=== PATIENT | female | born 1945 | race African-American/Black ===

== ENCOUNTER 2019-12-04 10:22 | Inpatient (IN) | payer SELFPAY ==
[~2019-12-04] VITALS: Ht 162.6 cm; Wt 73.0 kg
[2019-12-04 10:30] VITALS: BP 178/95
[2019-12-04] MEDS ORDERED: Dicyclomine HCl 10mg/5ml oral soln ORAL ONE (10:30)
[2019-12-04] MEDS ORDERED: Mylanta II UD 30ml ORAL ONE (10:30)
[2019-12-04] MEDS ORDERED: Lidocaine 2% Visc 15ml soln ORAL ONE (10:30)
[2019-12-04] MEDS ORDERED: Omnipaque-300 100ml vial INJ PRN (10:30)
--- NOTE | 2019-12-04 10:30 | NUR ---
ED Nurse Note: Patient BIBA from home c/o sharp epigastric, non-radiating abdominal pain x 24 hours and nausea. Patient states her recently . Patient placed in gown, on athletic monitor.
--- NOTE | 2019-12-04 10:33 | Emergency Room Report ---
History of Present Illness General Chief Complaint: Abdominal Pain Present Illness HPI 74-year-old female here with epigastric abdominal pain. The patient says that for the past 24 hours she has been having sharp epigastric abdominal pain. Has not attempted to eat during this time. Patient is tearful during exam and says " my ." Has not attempted to take any medications to alleviate pain. No fevers, chills, chest pain, palpitation, shortness of breath , back pain, diarrhea, dysuria. She has felt nauseous and vomited 1 time nonbilious nonbloody. History of appendectomy and section in the remote past. 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 COVID-19 Screening: Negative COVID-19 COVID-19 Testing Source: nasal Review of Systems All Other Systems: negative except mentioned in HPI Physical Exam Vital Signs Date Time Temp Pulse Resp B/P (MAP) Pulse Ox O2 Delivery O2 Flow Rate FiO2 12/04/19 10:24 98.8 82 18 201/117 (145) 100 Room Air Sp02 EP Interpretation: reviewed, normal General Appearance: no apparent distress, alert, non-toxic Head: normocephalic, atraumatic Eyes: bilateral eye normal inspection, bilateral eye PERRL ENT: hearing grossly normal, normal pharynx, no angioedema, normal voice Neck: full range of motion, supple/symm/no masses Respiratory: chest non-tender, lungs clear, normal breath sounds, speaking full sentences Cardiovascular #1: regular rate, rhythm, no edema Cardiovascular #2: 2+ carotid (R), 2+ carotid (L), 2+ radial (R), 2+ radial (L) , 2+ dorsalis pedis (R), 2+ dorsalis pedis (L) Gastrointestinal: normal bowel sounds, soft, non-distended, no guarding, no rebound, other - Epigastric tenderness on palpation. Negative Rovsing sign, negative Arrieta sign Rectal: deferred Genitourinary: normal inspection, no CVA tenderness Musculoskeletal: back normal, normal range of motion, calf tenderness, gait/ station normal, non-tender Neurologic: alert, motor strength/tone normal, oriented x3, sensory intact, responsive, speech normal Psychiatric: judgement/insight normal, memory normal, mood/affect normal, no suicidal/homicidal ideation Reflexes: 3+ bicep (R), 3+ bicep (L), 3+ tricep (R), 3+ tricep (L), 3+ knee (R) , 3+ knee (L) Lymphatic: no adenopathy Medical Decision Making Diagnostic Impression: Primary Impression: Chest pain ER Course EKG: Normal sinus rhythm, 80 bpm. Normal axis, no ectopy. Questionable nonspecific ST changes in leads V1 and V2. No reciprocal depression. No T wave inversion Chest x-ray: No acute process CT abdomen currently pending 74-year-old female here with epigastric abdominal pain. About an hour into the patient states she began complaining of chest pain. Initial EKG did not reveal any evidence of STEMI or T wave inversions. There were nonspecific ST changes in leads V1 and V2. Repeat EKGs were performed 2 more times and were unchanged each time progressively throughout the patient stay in the emergency department. She received an aspirin and morphine with good resolution of her symptoms. Also received a sublingual nitroglycerin and again felt resolution of her symptoms. She was hemodynamically stable throughout her stay in the emergency department. Troponin negative. Repeat troponin currently pending. CBC and CMP otherwise negative. Patient has a high heart score given her age and medical comorbidities as well as the concerning story of crushing chest pain. Will likely be admitted to telemetry. Signed out to oncoming physician. Last Vital Signs Date Time Temp Pulse Resp B/P (MAP) Pulse Ox O2 Delivery O2 Flow Rate FiO2 12/04/19 10:24 98.8 82 18 201/117 (145) 100 Room Air Scripts No Active Prescriptions or Reported Meds Shoaib Walker M.D. Dec 04, 2019 10:33
--- NOTE | 2019-12-04 10:50 | NUR ---
ED Nurse Note: Ultrasound-guided IV inserted by JESSICA into right upper arm. Blood drawn and sent to lab. Consent for CT w/ contrast signed by patient. Patient states she can't provide urine at this time.
[2019-12-04 11:36] LABS: BASOPHILS % (AUTO) 3.9 % (0.0-2.0); EOSINOPHILS % (AUTO) 0.1 % (0.0-3.0); HEMATOCRIT 42.5 % (37.0-47.0); HEMOGLOBIN 12.9 G/DL (12.0-16.0); LYMPHOCYTES % (AUTO) 12.1 % (20.0-45.0); MEAN CORPUSCULAR VOLUME 88 FL (80-99); MONOCYTES % (AUTO) 8.3 % (1.0-10.0); NEUTROPHILS % (AUTO) 75.6 % (45.0-75.0); PLATELET COUNT 361 K/UL (150-450); RED BLOOD COUNT 4.83 M/UL (4.20-5.40); RED CELL DISTRIBUTION WIDTH 13.2 % (11.6-14.8); WHITE BLOOD COUNT 12.9 K/UL (4.8-10.8)
[2019-12-04] MEDS ORDERED: Nitroglycerin Subl 0.4mg tab SL ONE (11:41)
--- NOTE | 2019-12-04 11:45 | NUR ---
ED Nurse Note: Patient c/o new onset epigastric pain, 12/08. nitro tab given sublingual per ERMD
[2019-12-04 12:00] LABS: ANION GAP 10 mmol/L (5-15); BLOOD UREA NITROGEN 13 mg/dL (7-18); CARBON DIOXIDE 31 MMOL/L (21-32); CHLORIDE 96 MMOL/L (98-107); CREATININE 1.3 MG/DL (0.55-1.30); POTASSIUM 3.4 MMOL/L (3.5-5.1); SODIUM 137 MMOL/L (136-145)
[2019-12-04] MEDS ORDERED: Aspirin Baby 81mg ORAL ONE (12:00)
[2019-12-04] MEDS ORDERED: Morphine Sulfate 4mg/ml Inj (IV USE ONLY) IVP ONE (12:00)
[2019-12-04] MEDS ORDERED: Nitroglycerin Subl 0.4mg tab SL PRN ×2 (12:00→15:45)
[2019-12-04 12:04] LABS: ALANINE AMINOTRANSFERASE 13 U/L (12-78); ALBUMIN 3.9 G/DL (3.4-5.0); ALBUMIN/GLOBULIN RATIO 0.7 (1.0-2.7); ALKALINE PHOSPHATASE 101 U/L (46-116); ASPARTATE AMINO TRANSFERASE 23 U/L (15-37); BILIRUBIN,TOTAL 0.7 MG/DL (0.2-1.0)
--- NOTE | 2019-12-04 12:10 | Diagnostic Imaging Report ---
EXAM: XR Chest, 1 View CLINICAL HISTORY: CP TECHNIQUE: Frontal view of the chest. COMPARISON: None FINDINGS: Hardware: None. Lungs/pleura: Elevation of the right hemidiaphragm. No focal consolidation. No pleural effusion or pneumothorax. Heart/mediastinum: Enlargement of the cardiac silhouette. Atherosclerotic calcifications of the aorta. Soft tissues: Unremarkable. Bones: No acute fracture. Degenerative changes of the acromioclavicular joints, glenohumeral joints, and spine. Upper abdomen: Normal. IMPRESSION: No acute disease identified.
--- NOTE | 2019-12-04 12:24 | NUR ---
ED Nurse Note: Patient taken to CT
[2019-12-04 12:30] VITALS: BP 178/95
[2019-12-04] MEDS ORDERED: Labetalol 5mg/ml 20ml vial IV ONE (13:45)
[2019-12-04 13:49] LABS: APPEARANCE,URINE CLEAR; BILIRUBIN, URINE NEGATIVE (NEGATIVE); COLOR,URINE PALE YELLOW; GLUCOSE, URINE (UA) NEGATIVE (NEGATIVE); KETONES,URINE 1+ (NEGATIVE); LEUKOCYTE ESTERASE ,URINE 1+ (NEGATIVE); NITRITE,URINE NEGATIVE (NEGATIVE); PH,URINE 8 (4.5-8.0); PROTEIN,URINE 2+ (NEGATIVE); UROBILINOGEN,URINE NORMAL MG/DL (0.0-1.0)
[2019-12-04 14:00] VITALS: BP 176/98
[2019-12-04 14:29] VITALS: BP 110/85
--- NOTE | 2019-12-04 14:40 | NUR ---
ED Nurse Note: Dr. Jerome at bedside
--- NOTE | 2019-12-04 15:01 | NUR ---
ED Nurse Note: Report given to Mary SMITH
--- NOTE | 2019-12-04 15:43 | History and Physical ---
History of Present Illness General Date patient seen: Dec 04, 2019 Time patient seen: 02:50 Reason for Hospitalization: Abdominal Pain Present Illness HPI 74F with unclear PMHx presents with abdominal pain and chest pain. Patient states that she was in normal health till yesterday when she had eaten something (unclear what) and began to have abdominal pain. She had one episode on non-bilious and non-bloody vomiting. She has been a bit nauseated, but does not note any changes in bowel movements. Patient states she does not have any issues with diarrhea/constipation and is stooling appropriately. Denies any recent antibiotics. On arrival she also complained of chest pain and was noted to have an elevated with SBP in 200s. She denies taking any medications, says she does not like taking pills. Per patient she uses [facility] medicine. On evaluation in the ED her chest pain had resolved after receiving nitro. She denies any tobacco, alcohol, or illicit drug use. She lives alone and was in May 2019. She is still grieving the loss of her . She uses a walker to ambulate. Allergies: Coded Allergies: No Known Allergies (Unverified , 12/04/19) COVID-19 Screening Contact w/high risk pt: No Experienced COVID-19 symptoms?: No Medication History No Active Prescriptions or Reported Meds Patient History History Provided By: Patient Healthcare decision maker Resuscitation status Full Code Advanced Directive on File Past Medical/Surgical History Past Medical/Surgical History: (1) Chest pain (2) Abdominal pain (3) Hypokalemia (4) Hypertension Family History Family History: FH: hypertension Review of Systems Constitutional: Reports: fever Eye: Reports: blurred vision ENT: Denies: no symptoms, see HPI, ear pain, ear discharge, nose pain, nose congestion, throat pain, throat swelling, mouth pain, hearing loss, nasal discharge, other Respiratory: Denies: no symptoms, see HPI, cough, orthopnea, shortness of breath, stridor, wheezing, IVEY, sputum, other Cardiovascular: Denies: no symptoms, see HPI, chest pain, edema, palpitations, syncope, PND, other Gastrointestinal: Reports: abdominal pain Genitourinary: Denies: no symptoms, see HPI, discharge, dysuria, frequency, hematuria, pain, retention, incontinence, urgency, vag bleed/dc, other Musculoskeletal: Denies: no symptoms, see HPI, back pain, gout, joint pain, joint swelling, muscle pain, muscle stiffness, other Skin: Denies: no symptoms, see HPI, rash, change in color, change in hair/nails , dryness, lesions, other Psychiatric: Denies: no symptoms, see HPI, prior hx, anxiety, depressed feelings, emotional problems, SI, HI, hallucinations, other Neurological: Denies: no symptoms, see HPI, headache, numbness, paresthesia, seizure, tingling, tremors, focal weakness, syncope, dizziness, other Endocrine: Denies: no symptoms, see HPI, excessive sweating, flushing, intolerance to temperature, increased thirst, increased urine, unexplained weight loss, other Hematologic/Lymphatic: Denies: no symptoms, see HPI, anemia, blood clots, easy bleeding, easy bruising, swollen glands, diathesis, other Physical Exam General Appearance: no apparent distress, alert HEENT: normocephalic, atraumatic Neck: non-tender, supple Respiratory/Chest: lungs clear, normal breath sounds Cardiovascular/Chest: regularly irregular Abdomen: normal bowel sounds, soft, other - Pain in LLQ Extremities: normal range of motion Skin Exam: warm/dry 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 Last 24 Hour Vital Signs Date Time Temp Pulse Resp B/P (MAP) Pulse Ox O2 Delivery O2 Flow Rate FiO2 12/04/19 14:29 98.0 67 18 110/85 99 Room Air 12/04/19 14:29 67 176/98 12/04/19 14:00 98.4 67 18 176/98 100 Room Air 12/04/19 12:30 98.2 79 20 178/95 98 Room Air 12/04/19 10:30 98.4 76 19 178/95 99 Room Air 12/04/19 10:30 76 19 Room Air 12/04/19 10:24 98.8 82 18 201/117 (145) 100 Room Air Laboratory Tests Test 12/04/19 11:20 12/04/19 13:00 12/04/19 14:40 White Blood Count 12.9 K/UL (4.8-10.8) H Red Blood Count 4.83 M/UL (4.20-5.40) Hemoglobin 12.9 G/DL (12.0-16.0) Hematocrit 42.5 % (37.0-47.0) Mean Corpuscular Volume 88 FL (80-99) Mean Corpuscular Hemoglobin 26.7 PG (27.0-31.0) L Mean Corpuscular Hemoglobin Concent 30.4 G/DL (32.0-36.0) L Red Cell Distribution Width 13.2 % (11.6-14.8) Platelet Count 361 K/UL (150-450) Mean Platelet Volume 8.1 FL (6.5-10.1) Neutrophils (%) (Auto) 75.6 % (45.0-75.0) H Lymphocytes (%) (Auto) 12.1 % (20.0-45.0) L Monocytes (%) (Auto) 8.3 % (1.0-10.0) Eosinophils (%) (Auto) 0.1 % (0.0-3.0) Basophils (%) (Auto) 3.9 % (0.0-2.0) H Sodium Level 137 MMOL/L (136-145) Potassium Level 3.4 MMOL/L (3.5-5.1) L Chloride Level 96 MMOL/L (98-107) L Carbon Dioxide Level 31 MMOL/L (21-32) Anion Gap 10 mmol/L (5-15) Blood Urea Nitrogen 13 mg/dL (7-18) Creatinine 1.3 MG/DL (0.55-1.30) Estimat Glomerular Filtration Rate 48.6 mL/min (>60) Glucose Level 129 MG/DL (74-106) H Calcium Level 10.0 MG/DL (8.5-10.1) Total Bilirubin 0.7 MG/DL (0.2-1.0) Aspartate Amino Transf (AST/SGOT) 23 U/L (15-37) Alanine Aminotransferase (ALT/SGPT) 13 U/L (12-78) Alkaline Phosphatase 101 U/L (46-116) Troponin I 0.002 ng/mL (0.000-0.056) 0.013 ng/mL (0.000-0.056) Total Protein 9.2 G/DL (6.4-8.2) H Albumin 3.9 G/DL (3.4-5.0) Globulin 5.3 g/dL Albumin/Globulin Ratio 0.7 (1.0-2.7) L Lipase 90 U/L (73-393) Urine Color Pale yellow Urine Appearance Clear Urine pH 8 (4.5-8.0) Urine Specific [place] 1.010 (1.005-1.035) Urine Protein 2+ (NEGATIVE) H Urine Glucose (UA) Negative (NEGATIVE) Urine Ketones 1+ (NEGATIVE) H Urine Blood 1+ (NEGATIVE) H Urine Nitrite Negative (NEGATIVE) Urine Bilirubin Negative (NEGATIVE) Urine Urobilinogen Normal MG/DL (0.0-1.0) Urine Leukocyte Esterase 1+ (NEGATIVE) H Urine RBC 2-4 /HPF (0 - 2) H Urine WBC 0-2 /HPF (0 - 2) Urine Squamous Epithelial Cells Occasional /LPF Urine Bacteria Occasional /HPF (NONE) Height (Feet): 5 Height (Inches): 4.00 Weight (Pounds): 145 Medications Current Medications Medications (Trade) Dose Ordered Sig/Yasmine Route PRN Reason Start Time Stop Time Status Last Admin Dose Admin Iohexol (OMNIPAQUE-300 100ml) 100 ml NOW PRN INJ Radiology Procedure 12/04/19 10:30 12/06/19 10:28 Nitroglycerin (Ntg) 0.4 mg Q5M PRN SL Prn Chest Pain 12/04/19 12:00 01/03/20 11:59 Assessment/Plan Problem List: (1) Depressed mood ICD Codes: R45.89 - Other symptoms and signs involving emotional state SNOMED: 148392425 (2) Chest pain ICD Codes: R07.9 - Chest pain, unspecified SNOMED: 47945866 (3) Chest pain ICD Codes: R07.9 - Chest pain, unspecified SNOMED: 92537196 (4) Abdominal pain ICD Codes: R10.9 - Unspecified abdominal pain SNOMED: 69913010 (5) Hypokalemia ICD Codes: E87.6 - Hypokalemia SNOMED: 64727717 (6) Hypertension ICD Codes: I10 - Essential (primary) hypertension SNOMED: 89162474 Status: stable Assessment/Plan: 74 F with unclear PMhx admitted for abdominal pain and chest pain. #Chest Pain #R/o ACS Initial presentation with non-radiating chest pain that resolved with SL Nitro and Aspirin. EKG with non-specific ST changes in V1-V2. Moderate Heart Score - EKG prn for active chest pain - Trend trop x3 - BNP, HbA1c, Lipid Panel, TSH pending - Echo - Cardiology consulted #Abdominal Pain Pain possibly from diverticulitis or gastroenteritis. No bloody BM to suggest diverticulosis. No CVA tenderness - UA wnl - CT Abdomen pending - Lipase pending - GI Cocktail - Zofran prn #Hypertension Initial presentation with BP 201/117 - Continue to monitor and start medications #Hypokalemia - Replete K FEN Advance diet as tolerated Lovenox Dispo - Home when medically cleared Code - FULL CODE Time spent with patient =30 with approximately 40 minutes spent coordinating care with nurses and consultants Tiki Jerome M.D. Dec 04, 2019 15:43
[2019-12-04] MEDS ORDERED: Atropine Inj 1mg/10ml Syr IV PRN (15:45)
--- NOTE | 2019-12-04 16:24 | Diagnostic Imaging Report ---
EXAM: CT Abdomen and Pelvis With Intravenous Contrast CLINICAL HISTORY: ABD PAIN TECHNIQUE: Axial computed tomography images of the abdomen and pelvis with intravenous contrast. CTDI is 9.3 mGy and DLP is 487.9 mGy-cm. One or more of the following dose reduction techniques were used: automated exposure control, adjustment of the mA and/or kV according to patient size, use of iterative reconstruction technique. COMPARISON: None FINDINGS: Lung bases: Mild lower lung atelectasis. Heart: Mild cardiomegaly. ABDOMEN: Liver: Unremarkable. No mass. Gallbladder and bile ducts: Unremarkable. No calcified stones. No ductal dilation. Pancreas: Unremarkable. No mass. No ductal dilation. Spleen: Unremarkable. No splenomegaly. Adrenals: Nonspecific thickening of the adrenal glands. Kidneys and ureters: Punctate nonobstructing bilateral renal stones. Mild right hydroureteronephrosis. No obstructing stone identified. This may be secondary to distended bladder. Stomach and bowel: Mild prominence of fluid and gas-filled small bowel loops may represent enteritis or ileus in the appropriate clinical setting. Prominence of the baires of the colon likely secondary to under distention. Element of colitis is not excluded. Diverticulosis without evidence of diverticulitis. PELVIS: Appendix: No findings to suggest acute appendicitis. Bladder: Distended bladder. No significant bladder wall thickening or stone. Reproductive: Unremarkable as visualized. ABDOMEN and PELVIS: Intraperitoneal space: Unremarkable. No free air. No significant fluid collection. Bones/joints: Degenerative changes of the spine. No acute fracture. No dislocation. Soft tissues: Injection granulomas in the gluteal soft tissues. Vasculature: Atherosclerotic changes of the vasculature. No aortic aneurysm or dissection. Lymph nodes: Unremarkable. No enlarged lymph nodes. Other findings: Elevation of the right hemidiaphragm. IMPRESSION: 1. Mild prominence of fluid and gas-filled small bowel loops may represent enteritis or ileus in the appropriate clinical setting. 2. Prominence of the baires of the colon likely secondary to under distention. Element of colitis is not excluded. 3. Punctate nonobstructing bilateral renal stones. Mild right hydroureteronephrosis. No obstructing stone identified. This may be secondary to distended bladder.
[2019-12-04 16:30] VITALS: BP 159/69
[2019-12-04] MEDS ORDERED: Enoxaparin 40mg Inj SUBQ SCH (16:45)
[2019-12-04 17:36] LABS: CHOLESTEROL 182 MG/DL (< 200); HDL CHOLESTEROL 53 MG/DL (40-60); TRIGLYCERIDES 41 MG/DL (30-150)
[2019-12-04] MEDS: Mylanta II UD 30ml ORAL PRN (18:00)
--- NOTE | 2019-12-04 19:12 | NUR ---
NURSE HAND-OFF REPORT: Important Events on Shift:[] Patient Status: [] Diet: [] Pending Orders: [] Pending Results/Labs:[] Pending MD notification:[] Latest Vital Signs: Temperature 99.0 , Pulse 73 , B/P 159 /69 , Respiratory Rate 18 , O2 SAT 97 , Room Air, O2 Flow Rate . Vital Sign Comment: [] EKG Rhythm: Sinus Rhythm Rhythm change?: MD Notified?: - MD Response: Latest [place] Fall Score: 45 Fall Risk: High Risk Safety Measures: Call light Within Reach, Bed Alarm , Side Rails Side Rails x2, Bed position Low and Locked. Fall Precautions: Yellow Socks Yellow Gown Patient Fall Education Report given to [LUIS Jerez].
--- NOTE | 2019-12-04 19:20 | NUR ---
NURSE NOTES: Received report from Yarely SMITH. Patient is Sleeping comfortable in semi-fowlers position. No signs of distress or pain noted at this time. Patient is alert and oriented x 3- 4 and able to make needs known. IV site on right AC patent, flushed, and S/L. No erythema or bleeding noted. Patient bed is in lowest position; brakes on. Call light and belongings with in reach. Fall precautions in place: yellow gown, yellow non-stick socks, bed alarm on, and patient educated to use call light to call for assistance before attempting to get up. Will continue plan of care.
[2019-12-04 20:00] VITALS: BP 140/61
[2019-12-05] VITALS: BP 153/84
[2019-12-05 04:00] VITALS: BP 117/63
[2019-12-05] MEDS: Mylanta II UD 30ml ORAL PRN ×3 (04:39→22:54)
--- NOTE | 2019-12-05 07:19 | NUR ---
NURSE HAND-OFF REPORT: Important Events on Shift:None Patient Status: Stable Diet: Cardiac Pending Orders: N/A Pending Results/Labs:N/A Pending MD notification:N/A Latest Vital Signs: Temperature 98.8 , Pulse 78 , B/P 117 /63 , Respiratory Rate 20 , O2 SAT 98 , Room Air, O2 Flow Rate . Vital Sign Comment: [] EKG Rhythm: Sinus Rhythm Rhythm change?: N MD Notified?: - MD Response: Latest [place] Fall Score: 45 Fall Risk: High Risk Safety Measures: Call light Within Reach, Bed Alarm Zone 2, Side Rails Side Rails x2, Bed position Low and Locked. Fall Precautions: Yellow Socks Yellow Gown Door Sign Patient Fall Education Report given to Bear SMITH.
--- NOTE | 2019-12-05 07:40 | NUR ---
NURSE NOTES: RECEIVED PATIENT A/A/OX4, AMBULATES WITH WALKER. ABLE TO MAKE NEEDS KNOWN. PATIENT APPEARS TO BE DEPRESSED DUET TO RECENT LOSS OF LOVE ONES (SPOUSE). PATIENT ABLE TO CONVERSE AND EXPRESS HERSELF TO STAFF AND TO PMD. NO ACUTE CARDIO-RESP NOTED. NO SOB/ CHEST PAIN NOTED. KEPT BED IN THE LOWEST POSITION. SIDERAILS ARE UPX2, CALL LIGHT IS WITHIN REACH. BED BRAKES AND LOCK @ ALL TIMES. WILL CONT TO MONITOR.
[2019-12-05 08:00] VITALS: BP 124/70
[2019-12-05 09:35] LABS: BASOPHILS % (AUTO) 1.3 % (0.0-2.0); HEMATOCRIT 38.8 % (37.0-47.0); LYMPHOCYTES % (AUTO) 25.1 % (20.0-45.0); MEAN CORPUSCULAR VOLUME 87 FL (80-99); MONOCYTES % (AUTO) 8.9 % (1.0-10.0); NEUTROPHILS % (AUTO) 62.8 % (45.0-75.0); PLATELET COUNT 294 K/UL (150-450); RED BLOOD COUNT 4.44 M/UL (4.20-5.40); RED CELL DISTRIBUTION WIDTH 13.2 % (11.6-14.8); WHITE BLOOD COUNT 8.7 K/UL (4.8-10.8)
[2019-12-05 10:04] LABS: ANION GAP 11 mmol/L (5-15); BLOOD UREA NITROGEN 13 mg/dL (7-18); CALCIUM 9.3 MG/DL (8.5-10.1); CARBON DIOXIDE 27 MMOL/L (21-32); CHLORIDE 100 MMOL/L (98-107); CREATININE 1.4 MG/DL (0.55-1.30); POTASSIUM 3.1 MMOL/L (3.5-5.1); SODIUM 138 MMOL/L (136-145)
--- NOTE | 2019-12-05 10:50 | NUR ---
NURSE NOTES: CALLED DR AYALA FOR K+3.1 TODAY'S LABS AND PATIENT C/O PAIN. AWAITING FOR A CALLBACK. WILL CONT TO MONITOR Addendum: 12/05/19 at [address]7 [address] LVN [address] AYALA PLACED NEW ORDER. WILL CONT TO MONITOR.
--- NOTE | 2019-12-05 10:58 | Consultation ---
History of Present Illness General Date patient seen: Dec 05, 2019 Time patient seen: 10:55 Chief Complaint: Abdominal Pain Present Illness HPI 74F with unclear PMHx presents with abdominal pain and chest pain. Cardiology consulted to evaluate for CAD Poor historian, non compliant with medications. No recent illnesses. In ER BP >200s. Troponin negative, BNP elevated. Allergies: Coded Allergies: No Known Allergies (Unverified , 12/04/19) Medication History No Active Prescriptions or Reported Meds Patient History Healthcare decision maker Resuscitation status Advanced Directive on File Review of Systems Constitutional: Reports: no symptoms Eye: Reports: no symptoms ENT: Reports: no symptoms Respiratory: Reports: no symptoms Cardiovascular: Reports: chest pain Gastrointestinal: Reports: no symptoms Genitourinary: Reports: no symptoms Musculoskeletal: Reports: no symptoms Skin: Reports: no symptoms Psychiatric: Reports: no symptoms Neurological: Reports: no symptoms Endocrine: Reports: no symptoms Hematologic/Lymphatic: Reports: no symptoms Physical Exam General Appearance: no apparent distress, alert Lines, tubes and drains: peripheral HEENT: normocephalic, atraumatic Neck: non-tender, normal alignment, supple, normal inspection Respiratory/Chest: chest wall non-tender, lungs clear Cardiovascular/Chest: normal peripheral pulses, normal rate, regular rhythm Abdomen: normal bowel sounds, non tender, soft, no organomegaly Extremities: normal range of motion, non-tender, normal inspection, no calf tenderness, normal capillary refill, non-pitting Skin Exam: normal pigmentation, warm/dry Neurologic: bed maker II-XII grossly normal, no motor/sensory deficits, abnormal gait Last 24 Hour Vital Signs Date Time Temp Pulse Resp B/P (MAP) Pulse Ox O2 Delivery O2 Flow Rate FiO2 12/05/19 09:09 Room Air 12/05/19 08:27 82 124/70 12/05/19 08:00 84 12/05/19 08:00 98.6 82 18 124/70 (88) 96 12/05/19 04:00 78 12/05/19 04:00 98.8 87 20 117/63 (81) 98 12/05/19 00:00 76 12/05/19 00:00 98.1 94 22 153/84 (107) 92 12/04/19 21:00 Room Air 12/04/19 20:00 81 12/04/19 20:00 97.7 75 22 140/61 (87) 97 12/04/19 17:50 73 159/69 12/04/19 16:37 Room Air 12/04/19 16:30 73 12/04/19 16:30 99.0 73 18 159/69 (99) 97 12/04/19 15:50 98.0 61 17 112/87 100 Room Air 12/04/19 14:29 98.0 67 18 110/85 99 Room Air 12/04/19 14:29 67 176/98 12/04/19 14:00 98.4 67 18 176/98 100 Room Air 12/04/19 12:30 98.2 79 20 178/95 98 Room Air Intake and Output 12/04/19 12/05/19 19:00 07:00 Intake Total 0 ml 0 ml Balance 0 ml 0 ml Intake Oral 0 ml 0 ml # Bowel Movements 1 Laboratory Tests Test 12/04/19 11:20 12/04/19 13:00 12/04/19 14:40 12/05/19 06:45 White Blood Count 12.9 K/UL (4.8-10.8) H 8.7 K/UL (4.8-10.8) Red Blood Count 4.83 M/UL (4.20-5.40) 4.44 M/UL (4.20-5.40) Hemoglobin 12.9 G/DL (12.0-16.0) 12.0 G/DL (12.0-16.0) Hematocrit 42.5 % (37.0-47.0) 38.8 % (37.0-47.0) Mean Corpuscular Volume 88 FL (80-99) 87 FL (80-99) Mean Corpuscular Hemoglobin 26.7 PG (27.0-31.0) L 27.1 PG (27.0-31.0) Mean Corpuscular Hemoglobin Concent 30.4 G/DL (32.0-36.0) L 31.0 G/DL (32.0-36.0) L Red Cell Distribution Width 13.2 % (11.6-14.8) 13.2 % (11.6-14.8) Platelet Count 361 K/UL (150-450) 294 K/UL (150-450) Mean Platelet Volume 8.1 FL (6.5-10.1) 8.2 FL (6.5-10.1) Neutrophils (%) (Auto) 75.6 % (45.0-75.0) H 62.8 % (45.0-75.0) Lymphocytes (%) (Auto) 12.1 % (20.0-45.0) L 25.1 % (20.0-45.0) Monocytes (%) (Auto) 8.3 % (1.0-10.0) 8.9 % (1.0-10.0) Eosinophils (%) (Auto) 0.1 % (0.0-3.0) 2.0 % (0.0-3.0) Basophils (%) (Auto) 3.9 % (0.0-2.0) H 1.3 % (0.0-2.0) Sodium Level 137 MMOL/L (136-145) 138 MMOL/L (136-145) Potassium Level 3.4 MMOL/L (3.5-5.1) L 3.1 MMOL/L (3.5-5.1) L Chloride Level 96 MMOL/L (98-107) L 100 MMOL/L (98-107) Carbon Dioxide Level 31 MMOL/L (21-32) 27 MMOL/L (21-32) Anion Gap 10 mmol/L (5-15) 11 mmol/L (5-15) Blood Urea Nitrogen 13 mg/dL (7-18) 13 mg/dL (7-18) Creatinine 1.3 MG/DL (0.55-1.30) 1.4 MG/DL (0.55-1.30) H Estimat Glomerular Filtration Rate 48.6 mL/min (>60) 44.7 mL/min (>60) Glucose Level 129 MG/DL (74-106) H 77 MG/DL (74-106) Hemoglobin A1c 6.0 % (4.3-6.0) Calcium Level 10.0 MG/DL (8.5-10.1) 9.3 MG/DL (8.5-10.1) Magnesium Level 1.5 MG/DL (1.8-2.4) L Total Bilirubin 0.7 MG/DL (0.2-1.0) Aspartate Amino Transf (AST/SGOT) 23 U/L (15-37) Alanine Aminotransferase (ALT/SGPT) 13 U/L (12-78) Alkaline Phosphatase 101 U/L (46-116) Troponin I 0.002 ng/mL (0.000-0.056) 0.013 ng/mL (0.000-0.056) C-Reactive Protein, Quantitative 1.3 mg/dL (0.00-0.90) H Pro-B-Type Natriuretic Peptide 1238 pg/mL (0-125) H Total Protein 9.2 G/DL (6.4-8.2) H Albumin 3.9 G/DL (3.4-5.0) Globulin 5.3 g/dL Albumin/Globulin Ratio 0.7 (1.0-2.7) L Triglycerides Level 41 MG/DL (30-150) Cholesterol Level 182 MG/DL (< 200) LDL Cholesterol 121 mg/dL (<100) H HDL Cholesterol 53 MG/DL (40-60) Cholesterol/HDL Ratio 3.4 (3.3-4.4) Lipase 90 U/L (73-393) Urine Color Pale yellow Urine Appearance Clear Urine pH 8 (4.5-8.0) Urine Specific [place] 1.010 (1.005-1.035) Urine Protein 2+ (NEGATIVE) H Urine Glucose (UA) Negative (NEGATIVE) Urine Ketones 1+ (NEGATIVE) H Urine Blood 1+ (NEGATIVE) H Urine Nitrite Negative (NEGATIVE) Urine Bilirubin Negative (NEGATIVE) Urine Urobilinogen Normal MG/DL (0.0-1.0) Urine Leukocyte Esterase 1+ (NEGATIVE) H Urine RBC 2-4 /HPF (0 - 2) H Urine WBC 0-2 /HPF (0 - 2) Urine Squamous Epithelial Cells Occasional /LPF Urine Bacteria Occasional /HPF (NONE) Urine Random Total Protein 34 MG/DL (< 11.9) H Height (Feet): 5 Height (Inches): 3.00 Weight (Pounds): 146 Medications Current Medications Medications (Trade) Dose Ordered Sig/Yasmine Route PRN Reason Start Time Stop Time Status Last Admin Dose Admin Acetaminophen (Tylenol) 650 mg Q4H PRN ORAL Mild Pain (Pain Scale 1-3) 12/04/19 15:45 01/03/20 15:44 Al Hydroxide/Mg Hydroxide (Mylanta II) 30 ml Q6H PRN ORAL dyspepsia 12/04/19 15:45 01/03/20 15:44 12/05/19 04:39 Amlodipine Besylate (Norvasc) 5 mg DAILY ORAL 12/04/19 16:30 01/03/20 16:29 12/05/19 08:27 Atropine Sulfate (Atropine) 0.5 mg Q3M PRN IV symptomatic bradycardia 12/04/19 15:45 Dextrose (Dextrose 50%) 25 ml Q30M PRN IV Hypoglycemia 12/04/19 15:45 03/03/20 15:44 Dextrose (Dextrose 50%) 50 ml Q30M PRN IV Hypoglycemia 12/04/19 15:45 03/03/20 15:44 Enoxaparin Sodium (Lovenox) 30 mg Q24H SUBQ 12/05/19 18:00 03/04/20 17:59 Iohexol (OMNIPAQUE-300 100ml) 100 ml NOW PRN INJ Radiology Procedure 12/04/19 10:30 12/06/19 10:28 Nitroglycerin (Ntg) 0.4 mg Q5M PRN SL Prn Chest Pain 12/04/19 12:00 01/03/20 11:59 Nitroglycerin (Ntg) 0.4 mg Q5M PRN SL Prn Chest Pain 12/04/19 15:45 01/03/20 15:44 Assessment/Plan Status: stable Assessment/Plan: Assessment CHEST PAIN HYPERTENSIVE URGENCY CHF UNSPECIFIED - ELEVATED BNP Plan: Echocardiogram pending Spot dose lasix Start HCTZ DASH diet Continue Norvasc Monitor on telemetry Nitro prn CP Hold Heparin Stress test when BP stable Kush Tillman MD Dec 05, 2019 10:58
[2019-12-05] MEDS ORDERED: Lexiscan 0.4mg/5ml syringe IV PRN (11:00)
[2019-12-05] MEDS ORDERED: Miralax 17gm pkt ORAL PRN (11:15)
--- NOTE | 2019-12-05 11:34 | NUR ---
CASE MANAGEMENT: INITIAL REVIEW 74YR OLD FEMALE FROM HOME CC:ABDOMINAL PAIN; NON COMPLIANT WITH MEDICATION; POOR HISTORIAN WITH AMS SI: CHEST PAIN . HTN URGENCY . HYPOMAGNESIUM . ZA 98.8 82 18 201/117 100% ON RA WBC 12.9 K+ 3.4 CO2 96 BG 129 MG 1.5 BNP 1238 URINE RANDOM 34 1ST TROP NEGATIVE IS:LIDOCAINE PO X1 BENTYL PO X1 MYLANTA PO X1 IVF NS BOLUS IV NORMODYNE HCL 10MG ASA PO X1 IV MORPHINE SULFATE X1 CT Abdomen Pelvis w/Contrast-Mild prominence of fluid and gas-filled small bowel loops may represent enteritis or ileus in the appropriate clinical setting. Prominence of the baires of the colon likely secondary to under distention. Element of colitis is not excluded. Punctate nonobstructing bilateral renal stones. Mild right hydroureteronephrosis. No obstructing stone identified. This may be secondary to distended bladder. XRAY Chest 1v-No acute disease identified. \: 2E TELE UNIT DCP: HOME WHEN STABLE PLAN: CONT IV HYDRATION COMPLETE CARDIO WORKUP 2D ECHO PENDING CONSENT FOR NM SCAN LEXISCAN START ON IV KCL
--- NOTE | 2019-12-05 11:54 | General Progress Note ---
Assessment/Plan Problem List: (1) Chest pain ICD Codes: R07.9 - Chest pain, unspecified SNOMED: 91141422 (2) Chest pain ICD Codes: R07.9 - Chest pain, unspecified SNOMED: 62778526 (3) Abdominal pain ICD Codes: R10.9 - Unspecified abdominal pain SNOMED: 94563844 (4) Hypokalemia ICD Codes: E87.6 - Hypokalemia SNOMED: 98595529 (5) Hypertension ICD Codes: I10 - Essential (primary) hypertension SNOMED: 73995972 (6) Depressed mood ICD Codes: R45.89 - Other symptoms and signs involving emotional state SNOMED: 967205107 (7) Ileus ICD Codes: K56.7 - Ileus, unspecified SNOMED: 806799366 Status: stable Assessment/Plan: 74 F with unclear PMhx admitted for abdominal pain and chest pain. #R/o ACS #Chest pain - resolving Initial presentation with non-radiating chest pain that resolved with SL Nitro and Aspirin. EKG with non-specific ST changes in V1-V2. Moderate Heart Score - EKG prn for active chest pain - Trend trop x3 wnl - BNP slightly elevated, HBA1c wnl - Echo pending - Statin, Hctz, Norvasc - Cardiology consulted - NM Stress Test planned for Friday #Ileus #Abdominal Pain Pain possibly from diverticulitis or gastroenteritis. No bloody BM to suggest diverticulosis. No CVA tenderness - UA wnl - CT Abdomen - ileus vs. colitis - Bowel Regimen prn - Encourage fluids - GI Cocktail - Zofran prn #Hypertension - controlled - CTM - Norvasc and Hctz #Hypokalemia - Replete K FEN Advance diet as tolerated Hold AC per cards Dispo - Home when medically cleared Code - FULL CODE Time spent with patient =30 with approximately 40 minutes spent coordinating care with nurses and consultants Subjective Date patient seen: Dec 05, 2019 Time patient seen: 09:59 Constitutional: Denies: no symptoms, chills, diaphoresis, fever, malaise, weakness, other HEENT: Denies: no symptoms, eye pain, blurred vision, tearing, double vision, ear pain, ear discharge, nose pain, nose congestion, throat pain, throat swelling, mouth pain, mouth swelling, other Cardiovascular: Denies: no symptoms, chest pain, edema, irregular heart rate, lightheadedness, palpitations, syncope, other Respiratory: Denies: no symptoms, cough, orthopnea, shortness of breath, SOB with excertion, SOB at rest, sputum, stridor, wheezing, other Gastrointestinal/Abdominal: Reports: abdominal pain Genitourinary: Denies: no symptoms, burning, discharge, frequency, flank pain, hematuria, incontinence, pain, urgency, other Neurologic/Psychiatric: Denies: no symptoms, anxiety, depressed, emotional problems, headache, numbness, paresthesia, pre-existing deficit, seizure, tingling, tremors, weakness, other Endocrine: Denies: no symptoms, excessive sweating, flushing, intolerance to cold, intolerance to heat, increased hunger, increased thirst, increased urine, unexplained weight gain, unexplained weight loss, other Hematologic/Lymphatic: Denies: no symptoms, anemia, easy bleeding, easy bruising, other Allergies: Coded Allergies: No Known Allergies (Unverified , 12/04/19) All Systems: reviewed and negative except above Subjective - Mild pain in the abdomen, but says it has improved - No nausea or vomiting - BMx1 overnight Objective Last 24 Hour Vital Signs Date Time Temp Pulse Resp B/P (MAP) Pulse Ox O2 Delivery O2 Flow Rate FiO2 12/05/19 09:09 Room Air 12/05/19 08:27 82 124/70 12/05/19 08:00 84 12/05/19 08:00 98.6 82 18 124/70 (88) 96 12/05/19 04:00 78 12/05/19 04:00 98.8 87 20 117/63 (81) 98 12/05/19 00:00 76 12/05/19 00:00 98.1 94 22 153/84 (107) 92 12/04/19 21:00 Room Air 12/04/19 20:00 81 12/04/19 20:00 97.7 75 22 140/61 (87) 97 12/04/19 17:50 73 159/69 12/04/19 16:37 Room Air 12/04/19 16:30 73 12/04/19 16:30 99.0 73 18 159/69 (99) 97 12/04/19 15:50 98.0 61 17 112/87 100 Room Air 9/5/20 14:29 98.0 67 18 110/85 99 Room Air 12/04/19 14:29 67 176/98 12/04/19 14:00 98.4 67 18 176/98 100 Room Air 12/04/19 12:30 98.2 79 20 178/95 98 Room Air Intake and Output 12/04/19 12/05/19 19:00 07:00 Intake Total 0 ml 0 ml Balance 0 ml 0 ml Intake Oral 0 ml 0 ml # Bowel Movements 1 Laboratory Tests 12/04/19 13:00: Urine Color Pale yellow, Urine Appearance Clear, Urine pH 8, Urine Specific [place] 1.010, Urine Protein 2+H, Urine Glucose (UA) Negative, Urine Ketones 1+H , Urine Blood 1+H, Urine Nitrite Negative, Urine Bilirubin Negative, Urine Urobilinogen Normal, Urine Leukocyte Esterase 1+H, Urine RBC 2-4H, Urine WBC 0-2 , Urine Squamous Epithelial Cells Occasional, Urine Bacteria Occasional, Urine Random Total Protein 34H 12/04/19 14:40: Troponin I 0.013 12/05/19 06:45: White Blood Count 8.7, Red Blood Count 4.44, Hemoglobin 12.0, Hematocrit 38.8, Mean Corpuscular Volume 87, Mean Corpuscular Hemoglobin 27.1, Mean Corpuscular Hemoglobin Concent 31.0L, Red Cell Distribution Width 13.2, Platelet Count 294, Mean Platelet Volume 8.2, Neutrophils (%) (Auto) 62.8, Lymphocytes (%) (Auto) 25.1, Monocytes (%) (Auto) 8.9, Eosinophils (%) (Auto) 2.0, Basophils (%) (Auto ) 1.3, Sodium Level 138, Potassium Level 3.1L, Chloride Level 100, Carbon Dioxide Level 27, Anion Gap 11, Blood Urea Nitrogen 13, Creatinine 1.4H, Estimat Glomerular Filtration Rate 44.7, Glucose Level 77, Calcium Level 9.3 Height (Feet): 5 Height (Inches): 3.00 Weight (Pounds): 146 General Appearance: no apparent distress, alert EENT: PERRL/EOMI Neck: non-tender, supple Cardiovascular: normal rate, regular rhythm Respiratory/Chest: lungs clear, normal breath sounds Abdomen: normal bowel sounds, soft, other - mild tenderness in left lower quadrant Extremities: normal range of motion Skin: warm/dry Justus,Tiki M.D. Dec 05, 2019 11:54
[2019-12-05 12:02] VITALS: BP 144/56
[2019-12-05] MEDS ORDERED: Potassium Chloride 40 MEQ in D5W 500ml 550 ML IV ONE (12:30)
[2019-12-05] MEDS: Magnesium Oxide 400mg tab ORAL SCH ×2 (12:51→17:18)
[2019-12-05 15:51] VITALS: BP 136/73
[2019-12-05] MEDS: Enoxaparin 30mg Inj SUBQ SCH (17:22)
--- NOTE | 2019-12-05 19:21 | NUR ---
NURSE HAND-OFF: Important Events on Shift: NM, LEXISCAN, CARDS ST MEDS Patient Status: STABLE Diet: CLEAR LIQ Pending Orders: LABS Pending Results/Labs: AM LABS Pending MD notification: Latest Vital Signs: Temperature 97.7 , Pulse 72 , B/P 136 /73 , Respiratory Rate 18 , O2 SAT 97 , Room Air, O2 Flow Rate . Vital Sign Comment: Latest [place] Fall Score: 45 Fall Risk: High Risk Safety Measures: Call light Within Reach, Bed Alarm Zone 1, Side Rails Side Rails x2, Bed position Low and Locked. Fall Precautions: Yellow Socks Yellow Gown Door Sign Patient Fall Education Report given to KAREN.
[2019-12-05 20:00] VITALS: BP 178/72
--- NOTE | 2019-12-05 20:00 | NUR ---
NURSE NOTES: RECEIVED PATIENT LYING IN BED, EYES CLOSED, AWAKENED TO NAME, ORIENTED X3, VERBALLY RESPONSIVE - IV INTACT TO RIGHT AC/GAUGE 20, NO REDNESS/SWELLING NOTED TO SITE, SALINE LOCK. 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 ABDOMEN SOFT/NON TENDER/AUDIBLE BOWEL SOUNDS, TOLERATING CLEAR LIQUID DIET, NO REPORT OF N/V/D. ASSISTED WITH COMFORT CARE. SIDE RAILS UP X3/BED IN LOWEST POSITION FOR SAFETY, ENCOURAGED PATIENT TO UTILIZE CALL LIGHT FOR ASSISTANCE, VERBALIZED UNDERSTANDING. CONTINUE WITH CURRENT PLAN OF CARE. NAD.
[2019-12-05] MEDS: Atorvastatin 80mg tab ORAL SCH (20:56)
[2019-12-06] VITALS: BP 147/66
[2019-12-06 04:00] VITALS: BP 152/73
--- NOTE | 2019-12-06 06:06 | NUR ---
NURSE NOTES: RESTED WELL, NO SIGNIFICANT CHANGE OF CONDITION NOTED THROUGHOUT THE NIGHT. SAFETY MAINTAINED. NAD.
--- NOTE | 2019-12-06 07:23 | NUR ---
NURSE HAND-OFF REPORT: Important Events on Shift: MEDICATED WITH MYLANTA X2 ABDOMINAL PAIN] Patient Status: [STABLE] Diet: [CLEAR LIQUID, TOLERATING WELL, NO N/V/D] Pending Orders: [LEXISCAN FRIDAY] Pending Results/Labs:[TROPONIN 1, AM NURSE TO FOLLOW UP] Pending MD notification:[] Latest Vital Signs: Temperature 98.7 , Pulse 89 , B/P 152 /73 , Respiratory Rate 20 , O2 SAT 97 , Room Air, O2 Flow Rate . Vital Sign Comment: [STABLE] EKG Rhythm: Sinus Rhythm Rhythm change?: N MD Notified?: - MD Response: Latest [place] Fall Score: 45 Fall Risk: High Risk Safety Measures: Call light Within Reach, Bed Alarm Zone 1, Side Rails Side Rails x2, Bed position Low and Locked. Fall Precautions: Yellow Socks Yellow Gown Door Sign Patient Fall Education Report given to [ISAIAH].
--- NOTE | 2019-12-06 07:25 | NUR ---
NURSE NOTES: RECEIVED PATIENT IN BED ON SEMI IYER'S POSITION. A/A/OX3, VERBALLY RESPONSIVE. PIV PATENT AND INTACT TO RAC/GAUGE 20, NO REDNESS/SWELLING NOTED TO SITE, SALINE LOCK. 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 ABDOMEN SOFT/NON TENDER/AUDIBLE BOWEL SOUNDS, HAD BM THIAS AM. TOLERATING CLEAR LIQUID DIET, NO REPORT OF N/V/D. ASSISTED WITH ADL'S. SIDE RAILS UP X2. BED IN LOWEST POSITION FOR SAFETY, ENCOURAGED PATIENT TO UTILIZE CALL LIGHT FOR ASSISTANCE, VERBALIZED UNDERSTANDING. CONTINUE WITH CURRENT PLAN OF CARE.
[2019-12-06 08:00] VITALS: BP 136/63
[2019-12-06] MEDS: hydroCHLOROthiazide 25mg cap ORAL SCH (08:17)
[2019-12-06] MEDS: Magnesium Oxide 400mg tab ORAL SCH ×3 (08:17→17:00)
--- NOTE | 2019-12-06 10:09 | NUR ---
NURSE NOTES: Spoke with Faiza today to verify if consent was obtained by technical recruiter for procedure tomorrow. consent was obtained . will cont to monitor.
[2019-12-06 12:00] VITALS: BP 139/61
[2019-12-06] MEDS: Mylanta II UD 30ml ORAL PRN (13:16)
--- NOTE | 2019-12-06 13:33 | NUR ---
NURSE NOTES: PATIENT TOLERATED FULL LIQUID DIET. WILL ADVANCE TO SOFT FOR DINNER. WILL CONT TO MONITOR.
[2019-12-06 16:00] VITALS: BP 145/64
--- NOTE | 2019-12-06 16:25 | NUR ---
NURSE NOTES: PLACED A CALL TO DR AYALA RE: TRANSFER TO [facility] ORDER DUE TO THE PROCEDURE TOMORROW. NOT ABLE TO TRANSFER UNTIL THEN. AWAITING FOR A CALL BACK. WILL CONT TO MONITOR. Addendum: 12/06/19 at 1853 by ROSCOE VILLARREAL LVN CANCELLED TRANSFER ORDER.
--- NOTE | 2019-12-06 16:30 | General Progress Note ---
Assessment/Plan Problem List: (1) Chest pain ICD Codes: R07.9 - Chest pain, unspecified SNOMED: 27689268 (2) Chest pain ICD Codes: R07.9 - Chest pain, unspecified SNOMED: 71234339 (3) Abdominal pain ICD Codes: R10.9 - Unspecified abdominal pain SNOMED: 54383864 (4) Hypokalemia ICD Codes: E87.6 - Hypokalemia SNOMED: 25874319 (5) Hypertension ICD Codes: I10 - Essential (primary) hypertension SNOMED: 69596884 (6) Depressed mood ICD Codes: R45.89 - Other symptoms and signs involving emotional state SNOMED: 355476424 (7) Ileus ICD Codes: K56.7 - Ileus, unspecified SNOMED: 359190500 Status: stable Assessment/Plan: 74 F with unclear PMhx admitted for abdominal pain and chest pain. #Chest pain - resolving #CHFpEF Initial presentation with non-radiating chest pain that resolved with SL Nitro and Aspirin. EKG with non-specific ST changes in V1-V2. Moderate Heart Score - EKG prn for active chest pain - Trend trop x3 wnl - BNP slightly elevated, HBA1c wnl - Echo EF 70-75%, mild left hypertrophy, mitral and aortic root calcification - Statin, Hctz, Norvasc - Cardiology consulted - NPO midnight for NM Stress #Ileus #Abdominal Pain Pain possibly from diverticulitis or gastroenteritis. No bloody BM to suggest diverticulosis. No CVA tenderness - UA and Lipase wnl - Advance diet as tolerated - CT Abdomen - ileus vs. colitis - Bowel Regimen prn - Encourage fluids - GI Cocktail - Zofran prn #Hypertension - controlled - CTM - Norvasc and Hctz #Hypokalemia - Replete K FEN Advance diet as tolerated Hold AC per cards Dispo - Home when medically cleared Code - FULL CODE Time spent with patient =30 with approximately 20 minutes spent coordinating care with nurses and consultants Subjective Date patient seen: Dec 06, 2019 Time patient seen: 10:52 Constitutional: Denies: no symptoms, chills, diaphoresis, fever, malaise, weakness, other HEENT: Denies: no symptoms, eye pain, blurred vision, tearing, double vision, ear pain, ear discharge, nose pain, nose congestion, throat pain, throat swelling, mouth pain, mouth swelling, other Cardiovascular: Denies: no symptoms, chest pain, edema, irregular heart rate, lightheadedness, palpitations, syncope, other Respiratory: Denies: no symptoms, cough, orthopnea, shortness of breath, SOB with excertion, SOB at rest, sputum, stridor, wheezing, other Gastrointestinal/Abdominal: Denies: no symptoms, abdomen distended, abdominal pain, black stools, tarry stools, blood in stool, constipated, diarrhea, difficulty swallowing, nausea, poor appetite, poor fluid intake, rectal bleeding , vomiting, other Genitourinary: Denies: no symptoms, burning, discharge, frequency, flank pain, hematuria, incontinence, pain, urgency, other Neurologic/Psychiatric: Denies: no symptoms, anxiety, depressed, emotional problems, headache, numbness, paresthesia, pre-existing deficit, seizure, tingling, tremors, weakness, other Endocrine: Denies: no symptoms, excessive sweating, flushing, intolerance to cold, intolerance to heat, increased hunger, increased thirst, increased urine, unexplained weight gain, unexplained weight loss, other Hematologic/Lymphatic: Denies: no symptoms, anemia, easy bleeding, easy bruising, other Allergies: Coded Allergies: No Known Allergies (Unverified , 12/04/19) Subjective - Pain in RLQ - No fevers or chills - Advancing diet Objective Last 24 Hour Vital Signs Date Time Temp Pulse Resp B/P (MAP) Pulse Ox O2 Delivery O2 Flow Rate FiO2 12/06/19 12:00 98.8 60 20 139/61 (87) 95 12/06/19 09:00 Room Air 12/06/19 08:17 67 136/63 12/06/19 08:00 98.6 67 18 136/63 (87) 99 12/06/19 04:00 98.7 89 20 152/73 (99) 97 12/06/19 04:00 76 12/06/19 00:00 74 12/06/19 00:00 98.4 83 20 147/66 (93) 99 12/05/19 21:00 Room Air 12/05/19 20:00 96.6 74 20 178/72 (107) 97 12/05/19 20:00 74 Intake and Output 12/05/19 12/06/19 19:00 07:00 Intake Total 645.0 ml 360 ml Balance 645.0 ml 360 ml Intake Oral 360 ml 360 ml IV Total 285.0 ml # Voids 1 2 Laboratory Tests 12/05/19 16:20: Troponin I 0.000 Height (Feet): 5 Height (Inches): 3.00 Weight (Pounds): 146 General Appearance: no apparent distress EENT: PERRL/EOMI Neck: non-tender, supple Cardiovascular: normal rate, regular rhythm Respiratory/Chest: lungs clear Abdomen: normal bowel sounds, tender - tender in RLQ, other Extremities: normal range of motion 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 Dec 06, 2019 16:30
[2019-12-06 16:55] LABS: ANION GAP 9 mmol/L (5-15); BLOOD UREA NITROGEN 16 mg/dL (7-18); CALCIUM 9.3 MG/DL (8.5-10.1); CARBON DIOXIDE 29 MMOL/L (21-32); CHLORIDE 97 MMOL/L (98-107); CREATININE 1.3 MG/DL (0.55-1.30); POTASSIUM 4.2 MMOL/L (3.5-5.1); SODIUM 135 MMOL/L (136-145)
[2019-12-06] MEDS: Enoxaparin 30mg Inj SUBQ SCH (17:03)
--- NOTE | 2019-12-06 19:06 | NUR ---
NURSE HAND-OFF REPORT: Important Events on Shift: pain management; bowel regimen Patient Status: Diet: soft Pending Orders: Pending Results/Labs: Pending MD notification: Latest Vital Signs: Temperature 99.9 , Pulse 67 , B/P 145 /64 , Respiratory Rate 20 , O2 SAT 98 , Room Air, O2 Flow Rate . Vital Sign Comment: EKG Rhythm: Sinus Rhythm Rhythm change?: N MD Notified?: - MD Response: Latest [place] Fall Score: 45 Fall Risk: High Risk Safety Measures: Call light Within Reach, Bed Alarm Zone 1, Side Rails Side Rails x2, Bed position Low and Locked. Fall Precautions: Yellow Socks Yellow Gown Door Sign Patient Fall Education Report given to david .
--- NOTE | 2019-12-06 19:44 | NUR ---
NURSE NOTES: Received patient in bed, awake, alert, oriented x4, able to make her needs known, patient is able to walk with her walker, skin is dry and intact, call light is within reach, bed is lowered, locked, alarm is on, will continue to monitor for comfort and safety.
[2019-12-06 20:00] VITALS: BP 150/74
[2019-12-06] MEDS: Atorvastatin 80mg tab ORAL SCH (20:24)
--- NOTE | 2019-12-06 21:12 | Cardiology Progress Note ---
Assessment/Plan Status: stable Assessment/Plan Assessment/Plan Status: stable Assessment/Plan: Assessment CHEST PAIN HYPERTENSIVE URGENCY CHF UNSPECIFIED - ELEVATED BNP Plan: Echocardiogram pending Spot dose lasix Start HCTZ DASH diet Continue Norvasc Monitor on telemetry Nitro prn CP Hold Heparin Stress test when BP stable Subjective Cardiovascular: Reports: no symptoms Respiratory: Reports: no symptoms Gastrointestinal/Abdominal: Reports: no symptoms Genitourinary: Reports: no symptoms Subjective No acute events, BP stable, TTE with LVEF 70%, CP resolved. EKG no dynamic changes, stress test pending Objective Last 24 Hour Vital Signs Date Time Temp Pulse Resp B/P (MAP) Pulse Ox O2 Delivery O2 Flow Rate FiO2 12/06/19 21:07 Room Air 12/06/19 20:00 96.7 89 20 150/74 (99) 12/06/19 16:00 68 12/06/19 16:00 99.9 67 20 145/64 (91) 98 12/06/19 12:00 98.8 60 20 139/61 (87) 95 12/06/19 12:00 82 12/06/19 09:00 Room Air 12/06/19 08:17 67 136/63 12/06/19 08:00 98.6 67 18 136/63 (87) 99 12/06/19 08:00 73 12/06/19 04:00 98.7 89 20 152/73 (99) 97 12/06/19 04:00 76 12/06/19 00:00 74 12/06/19 00:00 98.4 83 20 147/66 (93) 99 General Appearance: no apparent distress, alert EENT: PERRL/EOMI, normal ENT inspection, TMs normal, pharynx normal Neck: non-tender, normal alignment, supple, normal inspection, no JVD Rhythm: NSR Cardiovascular: normal peripheral pulses, normal rate, regular rhythm Respiratory/Chest: chest wall non-tender, lungs clear, normal breath sounds Abdomen: normal bowel sounds, non tender, soft, no organomegaly, no mass Extremities: normal range of motion, non-tender, normal inspection, no calf tenderness, no swelling 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, no motor/sensory deficits Intake and Output 12/05/19 12/06/19 19:00 07:00 Intake Total 645.0 ml 360 ml Balance 645.0 ml 360 ml Intake Oral 360 ml 360 ml IV Total 285.0 ml # Voids 1 2 Laboratory Tests Test 12/06/19 15:15 Sodium Level 135 MMOL/L (136-145) L Potassium Level 4.2 MMOL/L (3.5-5.1) Chloride Level 97 MMOL/L (98-107) L Carbon Dioxide Level 29 MMOL/L (21-32) Anion Gap 9 mmol/L (5-15) Blood Urea Nitrogen 16 mg/dL (7-18) Creatinine 1.3 MG/DL (0.55-1.30) Estimat Glomerular Filtration Rate 48.6 mL/min (>60) Glucose Level 96 MG/DL (74-106) Calcium Level 9.3 MG/DL (8.5-10.1) Troponin I 0.000 ng/mL (0.000-0.056) Kush Tillman MD Dec 06, 2019 21:12
[2019-12-07] VITALS: BP 149/69
[2019-12-07] MEDS: Mylanta II UD 30ml ORAL PRN (00:42)
[2019-12-07 04:00] VITALS: BP 144/66
--- NOTE | 2019-12-07 07:06 | NUR ---
NURSE NOTES: Received report from Noemi/RN, Observed patient awake, A/O x2, dressed and ready to leave, Explained that she has procedure today and she needs to stay, put her back in bed. pulled out her IV, refused her patient monitor at this time. Bed in low position and locked, Call light within reach. Encouraged to use call light when needed. Bed alarm is on, side rails up x3. will continue to monitor.
--- NOTE | 2019-12-07 07:19 | NUR ---
NURSE HAND-OFF REPORT: Important Events on Shift: patient is NPO for Lexiscan at 11 am, cardiac checklist is done. Patient Status: c/o nasea, medicated with Zofran IV and MOM Diet: Pending Orders: Pending Results/Labs: Pending MD notification: Latest Vital Signs: Temperature 97.8 , Pulse 82 , B/P 144 /66 , Respiratory Rate 18 , O2 SAT 98 , Room Air, O2 Flow Rate . Vital Sign Comment: EKG Rhythm: Sinus Rhythm Rhythm change?: N MD Notified?: - MD Response: Latest Wallis Fall Score: 45 Fall Risk: High Risk Safety Measures: Call light Within Reach, Bed Alarm Zone 1, Side Rails Side Rails x2, Bed position Low and Locked. Fall Precautions: Yellow Socks Yellow Gown Door Sign Patient Fall Education Report given to Maryan SMITH
--- NOTE | 2019-12-07 07:35 | General Progress Note ---
Assessment/Plan Status: stable Assessment/Plan: 74 F with unclear PMhx admitted for abdominal pain and chest pain. #Chest pain - resolving #CHFpEF Initial presentation with non-radiating chest pain that resolved with SL Nitro and Aspirin. EKG with non-specific ST changes in V1-V2. Moderate Heart Score - EKG prn for active chest pain - Trend trop x3 wnl - BNP slightly elevated, HBA1c wnl - Echo EF 70-75%, mild left hypertrophy, mitral and aortic root calcification - Statin, Hctz, Norvasc - Cardiology consulted, recs appreciated - NPO, for NM Stress today, f/u results #Ileus #Abdominal Pain - resolved Pain possibly from diverticulitis or gastroenteritis. No bloody BM to suggest diverticulosis. No CVA tenderness - UA and Lipase wnl - Advance diet as tolerated - CT Abdomen - ileus vs. colitis - Bowel Regimen prn - Encourage fluids - GI Cocktail - Zofran prn #Hypertension - controlled - CTM - Norvasc and Hctz #Hypokalemia - resolved - s/p Replete K - ctm, replace PRN FEN Advance diet as tolerated Hold AC per cards Dispo - Home when medically cleared Code - FULL CODE Time spent with patient 35 mins, approximately 23 minutes spent coordinating care with nurses and consultants, Cardio Dr. Tillman. Additional 20 mins on [id number] time on chart review, previous H&P, progress notes, golf tournament consultant notes, labs, radiographic imaging. Subjective Allergies: Coded Allergies: No Known Allergies (Unverified , 12/04/19) Subjective No acute events overnight. Pt notes no further CP, abd pain at this time. Objective Last 24 Hour Vital Signs Date Time Temp Pulse Resp B/P (MAP) Pulse Ox O2 Delivery O2 Flow Rate FiO2 12/07/19 04:00 97.8 82 18 144/66 (92) 98 12/07/19 04:00 74 12/07/19 00:00 97.5 79 18 149/69 (95) 98 12/07/19 00:00 75 12/06/19 23:44 96.7 12/06/19 21:07 Room Air 12/06/19 20:00 76 12/06/19 20:00 96.7 89 20 150/74 (99) 12/06/19 16:00 68 12/06/19 16:00 99.9 67 20 145/64 (91) 98 12/06/19 12:00 98.8 60 20 139/61 (87) 95 12/06/19 12:00 82 12/06/19 09:00 Room Air 12/06/19 08:17 67 136/63 12/06/19 08:00 98.6 67 18 136/63 (87) 99 12/06/19 08:00 73 Intake and Output 12/06/19 12/07/19 19:00 07:00 Intake Total 360 ml Balance 360 ml Intake Oral 360 ml # Voids 3 # Bowel Movements 1 Laboratory Tests 12/06/19 15:15: Sodium Level 135L, Potassium Level 4.2, Chloride Level 97L, Carbon Dioxide Level 29, Anion Gap 9, Blood Urea Nitrogen 16, Creatinine 1.3, Estimat Glomerular Filtration Rate 48.6, Glucose Level 96, Calcium Level 9.3, Troponin I 0.000 12/07/19 05:38: Sodium Level [Pending], Potassium Level [Pending], Chloride Level [Pending], Carbon Dioxide Level [Pending], Blood Urea Nitrogen [Pending], Creatinine [ Pending], Estimat Glomerular Filtration Rate [Pending], Glucose Level [Pending] , Calcium Level [Pending] Height (Feet): 5 Height (Inches): 3.00 Weight (Pounds): 146 Objective General Appearance: no apparent distress, laying in bed comfortably HEENT: NCAT, EOMI, MMM Neck: non-tender, supple Cardiovascular: normal rate, regular rhythm Respiratory/Chest: lungs clear Abdomen: normal bowel sounds, non-tender to palpation Extremities: normal range of motion 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 Dec 07, 2019 07:35
[2019-12-07 07:59] LABS: ANION GAP 10 mmol/L (5-15); BLOOD UREA NITROGEN 14 mg/dL (7-18); CALCIUM 9.3 MG/DL (8.5-10.1); CARBON DIOXIDE 27 MMOL/L (21-32); CHLORIDE 94 MMOL/L (98-107); CREATININE 1.3 MG/DL (0.55-1.30); POTASSIUM 3.6 MMOL/L (3.5-5.1); SODIUM 131 MMOL/L (136-145)
[2019-12-07 08:00] VITALS: BP 180/72
--- NOTE | 2019-12-07 08:43 | NUR ---
CASE MANAGEMENT:REVIEW 12/07/19 SI: CHEST PAIN. ABDOMINAL PAIN. ILEUS 97.9 79 22 180/72 100% ON RA TROPONIN(-) X4 NA-131 IS: IV LEXISCAN X1 NORVASC PO QPM HCTZ PO QD LOVENOX SQ Q24 LIPITOR PO QHS : TELEMETRY DCP: FROM HOME PLAN: ADVANCING TO SOFT DIET STRESS TEST FOR TODAY
[2019-12-07] MEDS: Magnesium Oxide 400mg tab ORAL SCH ×3 (08:51→17:11)
[2019-12-07] MEDS: hydroCHLOROthiazide 25mg cap ORAL SCH (08:51)
--- NOTE | 2019-12-07 08:53 | Cardiology Progress Note ---
Assessment/Plan Status: stable Assessment/Plan Assessment/Plan CHEST PAIN HYPERTENSIVE URGENCY CHF DIASTOLIC Plan: Echocardiogram with diastolic dysfunction preserved LV function 70%, no significant valvular disease Spot dose lasix Continue HCTZ DASH diet Continue Norvasc Monitor on telemetry Nitro prn CP Hold Heparin Stress test when BP stable Subjective Cardiovascular: Reports: no symptoms Respiratory: Reports: no symptoms Gastrointestinal/Abdominal: Reports: no symptoms Genitourinary: Reports: no symptoms Subjective No acute events, BP stable, TTE with LVEF 70%, CP resolved. EKG no dynamic changes, stress test pending Objective Last 24 Hour Vital Signs Date Time Temp Pulse Resp B/P (MAP) Pulse Ox O2 Delivery O2 Flow Rate FiO2 12/07/19 08:00 97.9 79 22 180/72 (108) 100 12/07/19 04:00 97.8 82 18 144/66 (92) 98 12/07/19 04:00 74 12/07/19 00:00 97.5 79 18 149/69 (95) 98 12/07/19 00:00 75 12/06/19 23:44 96.7 12/06/19 21:07 Room Air 12/06/19 20:00 76 12/06/19 20:00 96.7 89 20 150/74 (99) 12/06/19 16:00 68 12/06/19 16:00 99.9 67 20 145/64 (91) 98 12/06/19 12:00 98.8 60 20 139/61 (87) 95 12/06/19 12:00 82 12/06/19 09:00 Room Air General Appearance: no apparent distress, alert EENT: PERRL/EOMI, normal ENT inspection, TMs normal, pharynx normal Neck: non-tender, normal alignment, supple, normal inspection Cardiovascular: normal peripheral pulses, normal rate, regular rhythm Respiratory/Chest: chest wall non-tender, lungs clear Abdomen: normal bowel sounds, non tender, soft, no organomegaly Extremities: normal range of motion, non-tender, normal inspection, no calf tenderness 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, no motor/sensory deficits Intake and Output 12/06/19 12/07/19 19:00 07:00 Intake Total 360 ml Balance 360 ml Intake Oral 360 ml # Voids 3 # Bowel Movements 1 Laboratory Tests Test 12/06/19 15:15 12/07/19 05:38 Sodium Level 135 MMOL/L (136-145) L 131 MMOL/L (136-145) L Potassium Level 4.2 MMOL/L (3.5-5.1) 3.6 MMOL/L (3.5-5.1) Chloride Level 97 MMOL/L (98-107) L 94 MMOL/L (98-107) L Carbon Dioxide Level 29 MMOL/L (21-32) 27 MMOL/L (21-32) Anion Gap 9 mmol/L (5-15) 10 mmol/L (5-15) Blood Urea Nitrogen 16 mg/dL (7-18) 14 mg/dL (7-18) Creatinine 1.3 MG/DL (0.55-1.30) 1.3 MG/DL (0.55-1.30) Estimat Glomerular Filtration Rate 48.6 mL/min (>60) 48.6 mL/min (>60) Glucose Level 96 MG/DL (74-106) 83 MG/DL (74-106) Calcium Level 9.3 MG/DL (8.5-10.1) 9.3 MG/DL (8.5-10.1) Troponin I 0.000 ng/mL (0.000-0.056) Kush Tillman MD Dec 07, 2019 08:53
[2019-12-07] MEDS ORDERED: HydrALAZINE 10mg Tab ORAL PRN (11:15)
[2019-12-07] MEDS ORDERED: Lexiscan 0.4mg/5ml syringe IV PRN (11:29)
[2019-12-07 12:00] VITALS: BP 134/58
[2019-12-07 16:00] VITALS: BP 134/74
--- NOTE | 2019-12-07 16:16 | Diagnostic Imaging Report ---
Indications: Chest pain Technique: Single day single isotope protocol utilized. Initially, resting images obtained using IV administration 10.6 millicuries 99M technetium Myoview. Subsequently, patient underwent lexiscan stress testing. See cardiology report for details. During Lexiscan infusion, IV administration 30.5 mCi 99 M technetium Myoview. SPECT and planar images obtained. SPECT images gated to 8 phases of the cardiac cycle were also obtained, and reformatted into cine images for evaluation of ejection fraction. Comparison: none Findings: Presence or absence of symptoms during infusion is not described on the cardiology report. Per cardiology report, resting EKG demonstrates . No ST changes were reported during infusion. Imaging demonstrates normal post stress perfusion, no fixed nor reversible perfusion defects.. Calculated post stress ejection fraction % Impression: Nonischemic clinical response to pharmacologic stress, per cardiology report Nonischemic electrocardiographic response to pharmacologic stress, per cardiology report No imaging findings to suggest ischemia, at level of stress achieved. Calculated post stress ejection fraction 49%
[2019-12-07] MEDS: Enoxaparin 30mg Inj SUBQ SCH (17:12)
--- NOTE | 2019-12-07 19:33 | NUR ---
NURSE HAND-OFF REPORT: Important Events on Shift:Patient confused Patient Status: Confused Diet: Soft diet Pending Orders: NA Pending Results/Labs:Morning labs Pending MD notification:NA Latest Vital Signs: Temperature 97.7 , Pulse 75 , B/P 134 /74 , Respiratory Rate 20 , O2 SAT 100 , Room Air, O2 Flow Rate . Vital Sign Comment: Stable EKG Rhythm: Sinus Rhythm Rhythm change?: N MD Notified?: - MD Response: Latest Wallis Fall Score: 45 Fall Risk: High Risk Safety Measures: Call light Within Reach, Bed Alarm Zone 1, Side Rails Side Rails x2, Bed position Low and Locked. Fall Precautions: Yellow Socks Yellow Gown Door Sign Patient Fall Education Report given to Sharmin/LUIS.
--- NOTE | 2019-12-07 19:35 | NUR ---
NURSE NOTES: Patient received from LUIS Steinberg. Patient was found standing in front of her bed and was assisted immediately back to her bed. Patient is A/O x 1. She is confused and said "she will go to see her doctor". Patient is in room air. Bed is in the lowest position, call light within reach. Will continue to monitor.
[2019-12-07 20:00] VITALS: BP 152/70
[2019-12-07] MEDS: Atorvastatin 80mg tab ORAL SCH (21:35)
[2019-12-08] VITALS: BP 156/80
--- NOTE | 2019-12-08 01:44 | Cardiology Report ---
APPROVED REPORT EXAM: Two-dimensional and M-mode echocardiogram with Doppler and color Doppler. INDICATION Congestive Heart Failure M-Mode DIMENSIONS IVSd1.5 (0.7-1.1cm)Left Atrium (MM)2.6 (1.6-4.0cm) LVDd4.4 (3.5-5.6cm)Aortic Root2.5 (2.0-3.7cm) PWd1.4 (0.7-1.1cm)Aortic Cusp Exc.1.7 (1.5-2.0cm) IVSs1.8 cm LVDs2.5 (2.5-4.0cm) PWs1.9 cm LVEF (%)75.0 (>50%) <Conclusion> Normal left ventricular chamber size, hyperdybnamic systolic function and wall motion. Left ventricular ejection fraction estimated to be 70-75%. with evidence of cavity obliteration Mild left ventricular hypertrophy. No evidence of pericardial effusion. All other cardiac chamber sizes are within normal limits. Focal aortic valve sclerosis with adequate cusp excursion. Thickened mitral valve leaflets with normal excursion. Mitral annulus and aortic root calcification. Pulmonic valve not well visualized. Normal tricuspid valve structure. IVC at normal size with physiological collapsing. A color flow and spectral Doppler study was performed and revealed: No aortic regurgitation. Trace mitral regurgitation. MidLV cavity obliteraltion and dynamic obstruction but with a gradient of only 16 mmhg Mitral diastolic velocities suggest reduced left ventricular relaxation c/w mild diastolic dysfunction (Grade I). Trace tricuspid regurgitation. Tricuspid systolic velocities suggests peak right ventricular systolic pressure of 5mmHg.
--- NOTE | 2019-12-08 01:57 | Cardiology Report ---
APPROVED REPORT EKG Measurement Heart [id number] <Conclusion> Normal sinus rhythm Possible Left atrial enlargement Left ventricular hypertrophy Nonspecific T wave abnormality Abnormal ECG
[2019-12-08 04:00] VITALS: BP 135/62
[2019-12-08] MEDS: Mylanta II UD 30ml ORAL PRN ×2 (06:57→20:42)
--- NOTE | 2019-12-08 07:18 | NUR ---
NURSE HAND-OFF REPORT: Important Events on Shift:Patient is confused. Observed patient standing up trying to leave. Reoriented patient and assisted back to her bed Patient Status: [Stable] Diet: [Soft] Pending Orders: [BMP] Pending Results/Labs:[BMP] Pending MD notification:[N/A] Latest Vital Signs: Temperature 97.5 , Pulse 88 , B/P 135/62 , Respiratory Rate 18 , O2 SAT 96 , Room Air. Vital Sign Comment: EKG Rhythm: Sinus Rhythm Rhythm change?: N MD Notified?: N - MD Response: Latest Wallis Fall Score: 45 Fall Risk: High Risk Safety Measures: Call light Within Reach, Bed Alarm Zone 1, Side Rails Side Rails x3, Bed position Low and Locked. Fall Precautions: Yellow Socks Yellow Gown Door Sign Patient Fall Education Report given to [LUIS Steinberg].
--- NOTE | 2019-12-08 07:20 | NUR ---
NURSE NOTES: Received report from Sharmin/RN, Observed patient awake, and confused. On room air, no acute distress noted. Reoriented to time, place and purpose. Bed in low position and locked, Call light within reach. Encouraged to use call light when needed. Bed alarm is on, side rails up x3. will continue to monitor.
--- NOTE | 2019-12-08 07:36 | General Progress Note ---
Assessment/Plan Status: stable Assessment/Plan: 74 F with unclear PMhx admitted for abdominal pain and chest pain. #Chest pain - resolving #CHFpEF Initial presentation with non-radiating chest pain that resolved with SL Nitro and Aspirin. EKG with non-specific ST changes in V1-V2. Moderate Heart Score - EKG prn for active chest pain - Trend trop x3 wnl - BNP slightly elevated, HBA1c wnl - Echo EF 70-75%, mild left hypertrophy, mitral and aortic root calcification - Statin, Hctz, Norvasc - Cardiology consulted, recs appreciated - NM stress test negative, pt OK to d/c home from cardio stand point #Ileus #Abdominal Pain #Constipation Pain possibly from diverticulitis or gastroenteritis. No bloody BM to suggest diverticulosis. No CVA tenderness - UA and Lipase wnl - Advance diet as tolerated - CT Abdomen - ileus vs. colitis - Encourage fluids - GI Cocktail - Zofran prn - check abd XR - Mg citrate x1 - docusate TID - dulcolax suppository #Hypertensive Urgency - improved #Hypertension - uncontrolled - Norvasc increased from 5 mg PO to 10 mg PO daily - cont Hctz - hydralazine PRN for SBP >160 #Hypokalemia - resolved - s/p Replete K - ctm, replace PRN FEN Advance diet as tolerated Hold AC per cards Dispo - Home when medically cleared Code - FULL CODE Time spent with patient 36 mins, approximately 24 minutes spent coordinating care with nurses and consultants, Cardio Dr. Tillman. Time of note may not reflect time of encounter. Subjective Allergies: Coded Allergies: No Known Allergies (Unverified , 12/04/19) Subjective Pt w/hypertensive urgency yesterday, 180/72, BP improved w/medication adjustment. Pt notes abd pain, no BM for 2-3 days. Pt denies any further episode of CP, SOB, n/v at this time. Per nurse no BM for 2 days, pt was nauseous however improved w/zofran. Objective Last 24 Hour Vital Signs Date Time Temp Pulse Resp B/P (MAP) Pulse Ox O2 Delivery O2 Flow Rate FiO2 12/08/19 04:00 97.5 88 18 135/62 (86) 96 12/08/19 04:00 85 12/08/19 00:00 84 9/9/20 00:00 97.7 87 20 156/80 (105) 99 12/07/19 21:00 Room Air 12/07/19 20:00 97.9 83 22 152/70 (97) 99 12/07/19 20:00 98 12/07/19 17:11 75 134/74 12/07/19 16:00 75 12/07/19 16:00 97.7 82 20 134/74 (94) 100 12/07/19 12:00 89 12/07/19 12:00 97.7 90 20 134/58 (83) 100 12/07/19 09:00 Room Air 12/07/19 08:51 81 12/07/19 08:00 97.9 79 22 180/72 (108) 100 Intake and Output 12/07/19 12/08/19 19:00 07:00 Intake Total 200 ml 120 ml Balance 200 ml 120 ml Intake Oral 200 ml 120 ml # Voids 3 2 Height (Feet): 5 Height (Inches): 3.00 Weight (Pounds): 146 Objective General Appearance: no apparent distress, laying in bed comfortably HEENT: NCAT, EOMI, MMM Neck: non-tender, supple Cardiovascular: normal rate, regular rhythm Respiratory/Chest: lungs clear Abdomen: normal bowel sounds, non-tender to palpation, no guarding/rebound Extremities: normal range of motion 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 Dec 08, 2019 07:35
--- NOTE | 2019-12-08 07:37 | Cardiology Progress Note ---
Assessment/Plan Status: stable Assessment/Plan Assessment/Plan CHEST PAIN HYPERTENSIVE URGENCY CHF DIASTOLIC Plan: Echocardiogram with diastolic dysfunction preserved LV function 70%, no significant valvular disease Spot dose lasix Continue HCTZ DASH diet Continue Norvasc Monitor on telemetry Nitro prn CP Hold Heparin Stress test NEGATIVE ok to d/c from cardiology perspective Subjective Cardiovascular: Reports: no symptoms Respiratory: Reports: no symptoms Gastrointestinal/Abdominal: Reports: no symptoms Genitourinary: Reports: no symptoms Subjective No acute events, BP stable, TTE with LVEF 70%, CP resolved. EKG no dynamic changes, stress test NEGATIVE Objective Last 24 Hour Vital Signs Date Time Temp Pulse Resp B/P (MAP) Pulse Ox O2 Delivery O2 Flow Rate FiO2 12/08/19 04:00 97.5 88 18 135/62 (86) 96 12/08/19 04:00 85 12/08/19 00:00 84 12/08/19 00:00 97.7 87 20 156/80 (105) 99 12/07/19 21:00 Room Air 12/07/19 20:00 97.9 83 22 152/70 (97) 99 12/07/19 20:00 98 12/07/19 17:11 75 134/74 12/07/19 16:00 75 12/07/19 16:00 97.7 82 20 134/74 (94) 100 12/07/19 12:00 89 12/07/19 12:00 97.7 90 20 134/58 (83) 100 12/07/19 09:00 Room Air 12/07/19 08:51 81 12/07/19 08:00 97.9 79 22 180/72 (108) 100 General Appearance: no apparent distress, lethargic EENT: PERRL/EOMI, normal ENT inspection Neck: normal alignment, no JVD Rhythm: NSR Cardiovascular: normal peripheral pulses, normal rate Respiratory/Chest: chest wall non-tender, lungs clear Abdomen: normal bowel sounds, non tender Extremities: normal range of motion, normal inspection 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
[2019-12-08 08:00] VITALS: BP 131/68
[2019-12-08] MEDS ORDERED: DIURIL25 MG ORAL (08:13)
[2019-12-08] MEDS ORDERED: NITRO0.4 SL (08:13)
[2019-12-08] MEDS ORDERED: NORVASC10 MG ORAL (08:13)
--- NOTE | 2019-12-08 08:34 | CDS Physician Query ---
Clarification is required for compliance, coding accuracy, and to reflect severity of illness for this patient Dear Dr. Tillman Date:12-08-19 CDS Name: Rosa Peña "Heart Failure / CHF" documented in cardiology report. CHF DIASTOLIC Plan: Echocardiogram with diastolic dysfunction preserved LV function 70%, no significant valvular disease Spot dose lasix Continue HCTZ DASH diet Continue Norvasc Monitor on telemetry Nitro prn CP Hold Heparin Stress test NEGATIVE Please Clarify: Acuity [] Acute [] Chronic [] Acute on Chronic Present on Admission: [] Yes [] No [] Clinically Undetermined Physician signature Date Please also document in your Progress Notes and/or Discharge Summary and indicate if the condition was present on admission. LADYD
[2019-12-08] MEDS: Docusate 100mg cap ORAL SCH ×3 (09:11→18:00)
[2019-12-08] MEDS: Magnesium Oxide 400mg tab ORAL SCH ×3 (09:11→18:04)
[2019-12-08] MEDS: hydroCHLOROthiazide 25mg cap ORAL SCH (09:11)
[2019-12-08 09:29] LABS: BASOPHILS % (AUTO) 4.4 % (0.0-2.0); EOSINOPHILS % (AUTO) 1.2 % (0.0-3.0); HEMOGLOBIN 11.4 G/DL (12.0-16.0); LYMPHOCYTES % (AUTO) 12.5 % (20.0-45.0); MEAN CORPUSCULAR VOLUME 86 FL (80-99); NEUTROPHILS % (AUTO) 70.9 % (45.0-75.0); PLATELET COUNT 307 K/UL (150-450); RED BLOOD COUNT 4.19 M/UL (4.20-5.40); WHITE BLOOD COUNT 11.7 K/UL (4.8-10.8)
[2019-12-08] MEDS ORDERED: Magnesium Citrate Liq Btl ORAL ONE (09:30)
[2019-12-08 09:45] LABS: ANION GAP 8 mmol/L (5-15); BLOOD UREA NITROGEN 39 mg/dL (7-18); CALCIUM 8.7 MG/DL (8.5-10.1); CARBON DIOXIDE 29 MMOL/L (21-32); CHLORIDE 95 MMOL/L (98-107); CREATININE 1.5 MG/DL (0.55-1.30); POTASSIUM 3.9 MMOL/L (3.5-5.1); SODIUM 131 MMOL/L (136-145)
[2019-12-08 12:00] VITALS: BP 138/72
--- NOTE | 2019-12-08 13:08 | NUR ---
NURSE NOTES: Patient had black dark stool, Notified MD and received order for OB stool. Order carried out
[2019-12-08 16:00] VITALS: BP 119/87
--- NOTE | 2019-12-08 17:19 | Diagnostic Imaging Report ---
Indication: Abdominal pain Technique: Supine and upright views of the abdomen Comparison: No comparison radiographs. Reference made to 12/04/[address] Findings: No evidence of free intraperitoneal gas. There are borderline dilated small bowel loops with some air-fluid levels in the left mid abdomen. Gas is seen within the colon. No masses. A dense calcification is seen in the right lower quadrant, nonspecific. Impression: Mildly prominent small bowel loops, likely reflecting prominent small bowel loops described on prior CT scan. Most likely on the basis of enteritis or ileus. Early/partial small bowel obstruction less likely, not completely excludable.
[2019-12-08] MEDS: Enoxaparin 30mg Inj SUBQ SCH (18:00)
--- NOTE | 2019-12-08 18:38 | Consultation ---
History of Present Illness General Chief Complaint: Abdominal Pain Reason for Consultation: hyponatremia Present Illness HPI 74F with unclear PMHx presents with abdominal pain and chest pain. Patient states that she was in normal health till yesterday when she had eaten something (unclear what) and began to have abdominal pain. She had one episode on non-bilious and non-bloody vomiting. She has been a bit nauseated, but does not note any changes in bowel movements. Patient states she does not have any issues with diarrhea/constipation and is stooling appropriately. Denies any recent antibiotics. On arrival she also complained of chest pain and was noted to have an elevated with SBP in 200s. She denies taking any medications, says she does not like taking pills. Per patient she uses [facility]. On evaluation in the ED her chest pain had resolved after receiving nitro. Allergies: Coded Allergies: No Known Allergies (Unverified , 12/04/19) Medication History Scheduled Amlodipine Besylate (Norvasc), 10 MG ORAL QPM Hydrochlorothiazide (Hydrochlorothiazide), 25 MG ORAL DAILY Scheduled PRN Nitroglycerin 0.4MG table* (Nitroglycerin*), 0.4 MG SL Q5M PRN Patient History Healthcare decision maker Resuscitation status Advanced Directive on File Review of Systems All Other Systems: negative except mentioned in HPI Physical Exam General Appearance: no apparent distress, alert Lines, tubes and drains: peripheral HEENT: normocephalic, atraumatic Neck: non-tender, normal alignment Respiratory/Chest: chest wall non-tender, lungs clear Cardiovascular/Chest: normal peripheral pulses, normal rate, regular rhythm Abdomen: normal bowel sounds, non tender Extremities: normal range of motion, non-tender Neurologic: alert, oriented x 3 Last 24 Hour Vital Signs Date Time Temp Pulse Resp B/P (MAP) Pulse Ox O2 Delivery O2 Flow Rate FiO2 12/08/19 17:20 96 119/87 12/08/19 16:00 97.7 96 20 119/87 (98) 97 12/08/19 16:00 79 12/08/19 12:00 87 12/08/19 12:00 97.7 83 19 138/72 (94) 98 12/08/19 09:00 Room Air 12/08/19 08:00 87 12/08/19 08:00 96.1 94 18 131/68 (89) 97 12/08/19 04:00 97.5 88 18 135/62 (86) 96 12/08/19 04:00 85 12/08/19 00:00 84 12/08/19 00:00 97.7 87 20 156/80 (105) 99 12/07/19 21:00 Room Air 12/07/19 20:00 97.9 83 22 152/70 (97) 99 12/07/19 20:00 98 Intake and Output 12/07/19 12/08/19 19:00 07:00 Intake Total 200 ml 120 ml Balance 200 ml 120 ml Intake Oral 200 ml 120 ml # Voids 3 2 Laboratory Tests Test 12/08/19 09:20 12/08/19 13:55 White Blood Count 11.7 K/UL (4.8-10.8) H Red Blood Count 4.19 M/UL (4.20-5.40) L Hemoglobin 11.4 G/DL (12.0-16.0) L Hematocrit 36.0 % (37.0-47.0) L Mean Corpuscular Volume 86 FL (80-99) Mean Corpuscular Hemoglobin 27.3 PG (27.0-31.0) Mean Corpuscular Hemoglobin Concent 31.7 G/DL (32.0-36.0) L Red Cell Distribution Width 13.0 % (11.6-14.8) Platelet Count 307 K/UL (150-450) Mean Platelet Volume 8.5 FL (6.5-10.1) Neutrophils (%) (Auto) 70.9 % (45.0-75.0) Lymphocytes (%) (Auto) 12.5 % (20.0-45.0) L Monocytes (%) (Auto) 11.0 % (1.0-10.0) H Eosinophils (%) (Auto) 1.2 % (0.0-3.0) Basophils (%) (Auto) 4.4 % (0.0-2.0) H Sodium Level 131 MMOL/L (136-145) L Potassium Level 3.9 MMOL/L (3.5-5.1) Chloride Level 95 MMOL/L (98-107) L Carbon Dioxide Level 29 MMOL/L (21-32) Anion Gap 8 mmol/L (5-15) Blood Urea Nitrogen 39 mg/dL (7-18) H Creatinine 1.5 MG/DL (0.55-1.30) H Estimat Glomerular Filtration Rate 41.3 mL/min (>60) Glucose Level 95 MG/DL (74-106) Calcium Level 8.7 MG/DL (8.5-10.1) Stool Occult Blood Pending Height (Feet): 5 Height (Inches): 3.00 Weight (Pounds): 146 Medications Current Medications Medications (Trade) Dose Ordered Sig/Yasmine Route PRN Reason Start Time Stop Time Status Last Admin Dose Admin Acetaminophen (Tylenol) 650 mg Q4H PRN ORAL Mild Pain (Pain Scale 1-3) 12/04/19 15:45 01/03/20 15:44 12/06/19 23:13 Acetaminophen (Tylenol) 650 mg Q6H PRN ORAL For Headache 12/05/19 11:15 01/04/20 11:14 Al Hydroxide/Mg Hydroxide (Mylanta II) 30 ml Q6H PRN ORAL dyspepsia 12/04/19 15:45 01/03/20 15:44 12/08/19 06:57 Amlodipine Besylate (Norvasc) 10 mg QPM ORAL 12/07/19 16:30 01/06/20 16:29 12/08/19 17:20 Atorvastatin Calcium (Lipitor) 80 mg BEDTIME ORAL 12/05/19 21:00 03/04/20 20:59 12/07/19 21:35 Atropine Sulfate (Atropine) 0.5 mg Q3M PRN IV symptomatic bradycardia 12/04/19 15:45 03/04/20 15:44 Bisacodyl (Dulcolax) 10 mg DAILYPRN PRN RECTAL Constipation 12/08/19 08:30 03/07/20 08:29 Dextrose (Dextrose 50%) 25 ml Q30M PRN IV Hypoglycemia 12/04/19 15:45 03/03/20 15:44 Dextrose (Dextrose 50%) 50 ml Q30M PRN IV Hypoglycemia 12/04/19 15:45 03/03/20 15:44 Docusate Sodium (Colace) 100 mg THREE TIMES A DAY ORAL 12/08/19 09:00 01/07/20 08:59 12/08/19 09:11 Enoxaparin Sodium (Lovenox) 30 mg Q24H SUBQ 12/05/19 18:00 03/04/20 17:59 12/07/19 17:12 Escitalopram Oxalate (Lexapro) 10 mg DAILY ORAL 12/08/19 16:15 01/07/20 16:14 12/08/19 17:19 Hydralazine HCl (Apresoline) 10 mg Q6H PRN ORAL For High Blood Pressure 12/07/19 11:15 03/06/20 11:14 Hydrochlorothiazide (Hydrodiuril) 25 mg DAILY ORAL 12/06/19 09:00 01/05/20 08:59 12/08/19 09:11 Magnesium Oxide (Mag-Ox 400mg) 400 mg TID ORAL 12/05/19 13:00 01/04/20 12:59 12/08/19 18:04 Nitroglycerin (Ntg) 0.4 mg Q5M PRN SL Prn Chest Pain 12/04/19 15:45 01/03/20 15:44 Ondansetron HCl (Zofran) 4 mg Q6H PRN IVP Nausea & Vomiting 12/05/19 14:00 01/04/20 13:59 12/07/19 12:46 Polyethylene Glycol (Miralax) 17 gm DAILY PRN ORAL Constipation 12/05/19 11:15 01/04/20 11:14 12/05/19 11:30 Risperidone (RisperDAL) 1 mg BEDTIME ORAL 12/08/19 21:00 01/22/20 20:59 Assessment/Plan Diagnosis [place] I: #Darcie - due to pre-renal azotemia # hyponatremia - likely hypovolumic- thiazide induce #anemia # chest pain - r/o ACS - DC thiazide - urine osm and sodium - NS 500 cc - amlodopine 10mg daily - monitor lytes - avoid nephrotoxins Mir Vail M.D. Dec 08, 2019 18:38
--- NOTE | 2019-12-08 19:15 | NUR ---
NURSE HAND-OFF REPORT: Important Events on Shift:NA Patient Status: Confused Diet: Cardiac Pending Orders: NA Pending Results/Labs:OB stool Pending MD notification:NA Latest Vital Signs: Temperature 97.7 , Pulse 96 , B/P 119 /87 , Respiratory Rate 20 , O2 SAT 97 , Room Air, O2 Flow Rate . Vital Sign Comment: Stable EKG Rhythm: Sinus Rhythm Rhythm change?: N MD Notified?: N - MD Response: Latest [place] Fall Score: 45 Fall Risk: High Risk Safety Measures: Call light Within Reach, Bed Alarm Zone 1, Side Rails Side Rails x2, Bed position Low and Locked. Fall Precautions: Yellow Socks Yellow Gown Door Sign Patient Fall Education Report given to Sharmin/LUIS.
--- NOTE | 2019-12-08 19:25 | NUR ---
NURSE NOTES: Patient received from LUIS Steinberg. Patient was using the bedside commode. Observed that patient has dark red blood on her stool. The doctor is aware regarding the patient's stool. Patient is A/O x 2, patient pulled out her IV and replaced a new one. Patient is on room air. Bed is in the lowest position, call light within reach. Will continue to monitor.
[2019-12-08 20:00] VITALS: BP 149/61
[2019-12-08] MEDS: Atorvastatin 80mg tab ORAL SCH (20:42)
--- NOTE | 2019-12-08 21:55 | Psych Consult Progress Note ---
Psychiatry Progress Note Psychiatry Progress Note Medications Current Medications Medications (Trade) Dose Ordered Sig/Yasmine Route PRN Reason Start Time Stop Time Status Last Admin Dose Admin Acetaminophen (Tylenol) 650 mg Q4H PRN ORAL Mild Pain (Pain Scale 1-3) 12/04/19 15:45 01/03/20 15:44 12/06/19 23:13 Acetaminophen (Tylenol) 650 mg Q6H PRN ORAL For Headache 12/05/19 11:15 01/04/20 11:14 Al Hydroxide/Mg Hydroxide (Mylanta II) 30 ml Q6H PRN ORAL dyspepsia 12/04/19 15:45 01/03/20 15:44 12/08/19 20:42 Amlodipine Besylate (Norvasc) 10 mg QPM ORAL 12/07/19 16:30 01/06/20 16:29 12/08/19 17:20 Atorvastatin Calcium (Lipitor) 80 mg BEDTIME ORAL 12/05/19 21:00 03/04/20 20:59 12/08/19 20:42 Atropine Sulfate (Atropine) 0.5 mg Q3M PRN IV symptomatic bradycardia 12/04/19 15:45 03/04/20 15:44 Bisacodyl (Dulcolax) 10 mg DAILYPRN PRN RECTAL Constipation 12/08/19 08:30 03/07/20 08:29 Dextrose (Dextrose 50%) 25 ml Q30M PRN IV Hypoglycemia 12/04/19 15:45 03/03/20 15:44 Dextrose (Dextrose 50%) 50 ml Q30M PRN IV Hypoglycemia 12/04/19 15:45 03/03/20 15:44 Docusate Sodium (Colace) 100 mg THREE TIMES A DAY ORAL 12/08/19 09:00 01/07/20 08:59 12/08/19 09:11 Enoxaparin Sodium (Lovenox) 30 mg Q24H SUBQ 12/05/19 18:00 03/04/20 17:59 12/07/19 17:12 Escitalopram Oxalate (Lexapro) 10 mg DAILY ORAL 12/08/19 16:15 01/07/20 16:14 12/08/19 17:19 Hydralazine HCl (Apresoline) 10 mg Q6H PRN ORAL For High Blood Pressure 12/07/19 11:15 03/06/20 11:14 Hydrochlorothiazide (Hydrodiuril) 25 mg DAILY ORAL 12/06/19 09:00 01/05/20 08:59 12/08/19 09:11 Magnesium Oxide (Mag-Ox 400mg) 400 mg TID ORAL 12/05/19 13:00 01/04/20 12:59 12/08/19 18:04 Nitroglycerin (Ntg) 0.4 mg Q5M PRN SL Prn Chest Pain 12/04/19 15:45 01/03/20 15:44 Ondansetron HCl (Zofran) 4 mg Q6H PRN IVP Nausea & Vomiting 12/05/19 14:00 01/04/20 13:59 12/07/19 12:46 Polyethylene Glycol (Miralax) 17 gm DAILY PRN ORAL Constipation 12/05/19 11:15 01/04/20 11:14 12/05/19 11:30 Risperidone (RisperDAL) 1 mg BEDTIME ORAL 12/08/19 21:00 01/22/20 20:59 12/08/19 20:42 Neurological/Psychiatric: Denies: no symptoms, anxiety, depressed, emotional problems, headache, numbness, paresthesia, pre-existing deficit, seizure, tingling, tremors, weakness, other Allergies: Coded Allergies: No Known Allergies (Unverified , 12/04/19) Objective Data Height (Feet): 5 Height (Inches): 3.00 Weight (Pounds): 146 General Appearance: no apparent distress Assessment/Plan Status: stable Stuart Feliz MD Dec 08, 2019 21:55
--- NOTE | 2019-12-08 23:44 | Consultation ---
DATE OF CONSULTATION: 12/08/2019 CONSULTING PHYSICIAN: Stuart Feliz MD. HISTORY OF PRESENT ILLNESS: This is a 74-year-old female with a history of multiple medical issues including depression, hypertension, hyperlipidemia who has been complaining of abdominal pain. Patient has had episodes of vomiting at home. She is having visual hallucination, she believes there are snakes on the wall. In addition, she is confused and she stated that she lost her in May. She did not know what the year was. Patient also stated that she wants to and she is depressed. She is tearful, anhedonia, worthlessness, hopelessness. PAST PSYCHIATRIC HISTORY: Depression. PAST MEDICAL HISTORY: As above include hypertension, hyperlipidemia. ALLERGIES: No known drug allergies. SUBSTANCE ABUSE HISTORY: No known history of illicit drug use or alcohol. MENTAL STATUS EXAMINATION: Alert, oriented times self, place. Mood is depressed. Affect is blunted, congruent with mood. Thought process is concrete. Thought content, no suicidal or homicidal ideation. Cognition is impaired. Insight and judgment is impaired. ASSESSMENT: [place] I Major depressive disorder. Psychotic disorder. Dementia. [place] II Deferred. [place] III Abdominal pain. [place] IV Moderate. [place] V 50. PLAN: 1. Start the patient on risperidone 1 mg at bedtime. 2. Lexapro 10 mg in the morning. 3. Provide the patient with reality orientation and supportive therapy. Stuart Feliz M.D. DR: PAT JOB#: [id number] CC:
[2019-12-09] VITALS: BP 123/60
[2019-12-09 04:00] VITALS: BP 129/59
[2019-12-09] MEDS: Mylanta II UD 30ml ORAL PRN ×2 (04:50→15:22)
--- NOTE | 2019-12-09 07:46 | NUR ---
NURSE HAND-OFF REPORT: Important Events on Shift: Patient still complains of burning abdominal pain Patient Status: Stable Diet: Soft, low fat Pending Orders: Occult blood stool, urine collection Pending Results/Labs: Occult blood stool Pending MD notification: N/A Latest Vital Signs: Temperature 98.6, Pulse 80, B/P 129/59, Respiratory Rate 18, O2 SAT 96, Room Air. Vital Sign Comment: EKG Rhythm: Sinus Rhythm Rhythm change?: N MD Notified?: N - MD Response: Latest [place] Fall Score: 45 Fall Risk: High Risk Safety Measures: Call light Within Reach, Bed Alarm Zone 1, Side Rails Side Rails x3, Bed position Low and Locked. Fall Precautions: Yellow Socks Yellow Gown Door Sign Patient Fall Education Report given to LUIS Torres
[2019-12-09 08:00] VITALS: BP 121/65
--- NOTE | 2019-12-09 08:01 | General Progress Note ---
Assessment/Plan Status: stable Assessment/Plan: 74 F with unclear PMhx admitted for abdominal pain and chest pain. #Chest pain - ACS ruled out #Chronic HFpEF Initial presentation with non-radiating chest pain that resolved with SL Nitro and Aspirin. EKG with non-specific ST changes in V1-V2. Moderate Heart Score - EKG prn for active chest pain - Trop x3 negative, BNP slightly elevated, HBA1c wnl - Echo EF 70-75%, mild left hypertrophy, mitral and aortic root calcification - Statin, Hctz, Norvasc - Cardiology consulted, recs appreciated - NM stress test negative, pt OK to d/c home from cardio stand point #Ileus #Abdominal Pain #Constipation - improved #Dark Stools Pain possibly from diverticulitis or gastroenteritis. No bloody BM to suggest diverticulosis. No CVA tenderness - UA and Lipase wnl - Advance diet as tolerated - CT Abdomen - ileus vs. colitis - Encourage fluids - GI Cocktail, Zofran prn - 12/07 abd XR w/ileus, small bowel obstruction less likely - s/p Mg citrate x1 - docusate TID, dulcolax suppository PRN - check occult stool - change diet to liquids for now - GI, Dr. Osborn, consulted, recs appreciated #Hyponatremia -Na 131 -likely 2/2 dehydration -check urine electrolytes -Nephro consulted, recs appreciated #Hypertensive Urgency - improved #Hypertension - uncontrolled - Norvasc increased from 5 mg PO to 10 mg PO daily - cont Hctz - hydralazine PRN for SBP >160 #Hypokalemia - resolved - s/p Replete K - ctm, replace PRN #Psychosis #Depression -per nurse pt was seeing "snakes" in the room overnight -Psych consulted, recs appreciated, start risperdone and lexapro FEN Clear Liquid diet Hold AC per cards Dispo - Home when medically cleared Code - FULL CODE Time spent with patient 38 mins, approximately 27 minutes spent coordinating care with nurses, Meghan, and consultants, Dr. Tillman, Dr. Vail, Dr Feliz and Dr Osborn. Time of note may not reflect time of encounter. Subjective Allergies: Coded Allergies: No Known Allergies (Unverified , 12/04/19) Subjective No acute events overnight. BP better controlled. Pt with dark stool yesterday, sent for occult testing, still pending. Pt notes abd pain continues, no n/v at this time. Objective Last 24 Hour Vital Signs Date Time Temp Pulse Resp B/P (MAP) Pulse Ox O2 Delivery O2 Flow Rate FiO2 12/09/19 04:00 74 12/09/19 04:00 98.6 80 18 129/59 (82) 96 12/09/19 00:00 83 12/09/19 00:00 98.9 81 18 123/60 (81) 95 12/08/19 21:00 Room Air 12/08/19 20:00 80 12/08/19 20:00 99.3 74 19 149/61 (90) 95 12/08/19 17:20 96 119/87 12/08/19 16:00 97.7 96 20 119/87 (98) 97 12/08/19 16:00 79 12/08/19 12:00 87 12/08/19 12:00 97.7 83 19 138/72 (94) 98 12/08/19 09:00 Room Air 12/08/19 08:00 87 12/08/19 08:00 96.1 94 18 131/68 (89) 97 Intake and Output 12/08/19 12/09/19 18:59 06:59 Intake Total 300 ml Balance 300 ml Intake Oral 300 ml # Voids 2 1 # Bowel Movements 3 3 Laboratory Tests 12/08/19 09:20: White Blood Count 11.7H, Red Blood Count 4.19L, Hemoglobin 11.4L, Hematocrit 36.0L, Mean Corpuscular Volume 86, Mean Corpuscular Hemoglobin 27.3, Mean Corpuscular Hemoglobin Concent 31.7L, Red Cell Distribution Width 13.0, Platelet Count 307, Mean Platelet Volume 8.5, Neutrophils (%) (Auto) 70.9, Lymphocytes (%) (Auto) 12.5L, Monocytes (%) (Auto) 11.0H, Eosinophils (%) (Auto ) 1.2, Basophils (%) (Auto) 4.4H, Sodium Level 131L, Potassium Level 3.9, Chloride Level 95L, Carbon Dioxide Level 29, Anion Gap 8, Blood Urea Nitrogen 39H, Creatinine 1.5H, Estimat Glomerular Filtration Rate 41.3, Glucose Level 95 , Calcium Level 8.7 12/08/19 13:55: Stool Occult Blood [Pending] Height (Feet): 5 Height (Inches): 3.00 Weight (Pounds): 146 Objective General Appearance: no apparent distress, sitting up in bed comfortably HEENT: NCAT, EOMI, MMM Neck: non-tender, supple Cardiovascular: normal rate, regular rhythm Respiratory/Chest: lungs clear Abdomen: normal bowel sounds, mild tenderness to palpation in LUQ, no guarding/ rebound Extremities: normal range of motion Neurologic: general lot attendant II-XII grossly normal Skin: warm/dry Kellie Camara M.D. Dec 09, 2019 08:01
--- NOTE | 2019-12-09 08:03 | NUR ---
NURSE NOTES: Received report from LUIS Muniz and LUIS Finney. Pt awake, A/O x2, denies any pain, no s/sx of acute distress. Breathing evem and unlabored in RA. IV site patent and asymptomatic. Bed on lowest position, call light within reach. Will continue plan of care.
--- NOTE | 2019-12-09 08:21 | Cardiology Progress Note ---
Assessment/Plan Status: stable Assessment/Plan Assessment/Plan CHEST PAIN HYPERTENSIVE URGENCY CHF DIASTOLIC Plan: Echocardiogram with diastolic dysfunction preserved LV function 70%, no significant valvular disease Spot dose lasix Continue HCTZ DASH diet Continue Norvasc Monitor on telemetry Nitro prn CP Hold Heparin Stress test NEGATIVE ok to d/c from cardiology perspective once cleared by psych Subjective Cardiovascular: Reports: no symptoms Respiratory: Reports: no symptoms Gastrointestinal/Abdominal: Reports: no symptoms Genitourinary: Reports: no symptoms Subjective No acute events, BP stable, TTE with LVEF 70%, CP resolved. EKG no dynamic changes, stress test NEGATIVE Discharge held for psych consult Objective Last 24 Hour Vital Signs Date Time Temp Pulse Resp B/P (MAP) Pulse Ox O2 Delivery O2 Flow Rate FiO2 12/09/19 04:00 74 12/09/19 04:00 98.6 80 18 129/59 (82) 96 12/09/19 00:00 83 12/09/19 00:00 98.9 81 18 123/60 (81) 95 12/08/19 21:00 Room Air 12/08/19 20:00 80 12/08/19 20:00 99.3 74 19 149/61 (90) 95 12/08/19 17:20 96 119/87 12/08/19 16:00 97.7 96 20 119/87 (98) 97 12/08/19 16:00 79 12/08/19 12:00 87 12/08/19 12:00 97.7 83 19 138/72 (94) 98 12/08/19 09:00 Room Air General Appearance: no apparent distress, alert EENT: PERRL/EOMI, normal ENT inspection, TMs normal, pharynx normal Neck: non-tender, normal alignment, supple, normal inspection, no JVD Rhythm: NSR Cardiovascular: normal peripheral pulses, normal rate, regular rhythm Respiratory/Chest: chest wall non-tender, lungs clear, normal breath sounds Abdomen: normal bowel sounds, non tender, soft, no organomegaly, no mass Extremities: normal range of motion, non-tender, normal inspection, no calf tenderness, no swelling Neurologic: homemaking rehabilitation consultant II-XII grossly normal, no motor/sensory deficits Intake and Output 12/08/19 12/09/19 19:00 07:00 Intake Total 300 ml 120 ml Balance 300 ml 120 ml Intake Oral 300 ml 120 ml # Voids 2 1 # Bowel Movements 3 3 Laboratory Tests Test 12/08/19 09:20 12/08/19 13:55 White Blood Count 11.7 K/UL (4.8-10.8) H Red Blood Count 4.19 M/UL (4.20-5.40) L Hemoglobin 11.4 G/DL (12.0-16.0) L Hematocrit 36.0 % (37.0-47.0) L Mean Corpuscular Volume 86 FL (80-99) Mean Corpuscular Hemoglobin 27.3 PG (27.0-31.0) Mean Corpuscular Hemoglobin Concent 31.7 G/DL (32.0-36.0) L Red Cell Distribution Width 13.0 % (11.6-14.8) Platelet Count 307 K/UL (150-450) Mean Platelet Volume 8.5 FL (6.5-10.1) Neutrophils (%) (Auto) 70.9 % (45.0-75.0) Lymphocytes (%) (Auto) 12.5 % (20.0-45.0) L Monocytes (%) (Auto) 11.0 % (1.0-10.0) H Eosinophils (%) (Auto) 1.2 % (0.0-3.0) Basophils (%) (Auto) 4.4 % (0.0-2.0) H Sodium Level 131 MMOL/L (136-145) L Potassium Level 3.9 MMOL/L (3.5-5.1) Chloride Level 95 MMOL/L (98-107) L Carbon Dioxide Level 29 MMOL/L (21-32) Anion Gap 8 mmol/L (5-15) Blood Urea Nitrogen 39 mg/dL (7-18) H Creatinine 1.5 MG/DL (0.55-1.30) H Estimat Glomerular Filtration Rate 41.3 mL/min (>60) Glucose Level 95 MG/DL (74-106) Calcium Level 8.7 MG/DL (8.5-10.1) Stool Occult Blood Pending Filsoof,Kush Perez MD Dec 09, 2019 08:21
[2019-12-09] MEDS: hydroCHLOROthiazide 25mg cap ORAL SCH (08:50)
[2019-12-09] MEDS: Docusate 100mg cap ORAL SCH ×3 (08:50→17:20)
[2019-12-09] MEDS: Magnesium Oxide 400mg tab ORAL SCH ×3 (08:50→17:20)
[2019-12-09 09:25] LABS: EOSINOPHILS % (AUTO) 0.3 % (0.0-3.0); HEMATOCRIT 35.3 % (37.0-47.0); LYMPHOCYTES % (AUTO) 10.9 % (20.0-45.0); MEAN CORPUSCULAR VOLUME 86 FL (80-99); MONOCYTES % (AUTO) 9.6 % (1.0-10.0); NEUTROPHILS % (AUTO) 75.2 % (45.0-75.0); PLATELET COUNT 319 K/UL (150-450); RED BLOOD COUNT 4.08 M/UL (4.20-5.40); RED CELL DISTRIBUTION WIDTH 12.2 % (11.6-14.8); WHITE BLOOD COUNT 11.5 K/UL (4.8-10.8)
[2019-12-09 09:45] LABS: ANION GAP 3 mmol/L (5-15); BLOOD UREA NITROGEN 40 mg/dL (7-18); CALCIUM 8.5 MG/DL (8.5-10.1); CARBON DIOXIDE 31 MMOL/L (21-32); CHLORIDE 96 MMOL/L (98-107); CREATININE 1.7 MG/DL (0.55-1.30); POTASSIUM 3.8 MMOL/L (3.5-5.1); SODIUM 130 MMOL/L (136-145)
[2019-12-09 12:00] VITALS: BP 130/64
--- NOTE | 2019-12-09 12:32 | General Progress Note ---
Assessment/Plan Problem List: (1) Hypertension ICD Codes: I10 - Essential (primary) hypertension SNOMED: 53882062 (2) Hypokalemia ICD Codes: E87.6 - Hypokalemia SNOMED: 72690969 (3) Abdominal pain ICD Codes: R10.9 - Unspecified abdominal pain SNOMED: 34338866 (4) Chest pain ICD Codes: R07.9 - Chest pain, unspecified SNOMED: 37918691 Status: stable Assessment/Plan: stool ob positive but stable H&H stool studies to eval for enteritis fu H&H CT reviewed needs out patient EGd and colonoscopy Subjective ROS Limited/Unobtainable: Yes Allergies: Coded Allergies: No Known Allergies (Unverified , 12/04/19) Objective Last 24 Hour Vital Signs Date Time Temp Pulse Resp B/P (MAP) Pulse Ox O2 Delivery O2 Flow Rate FiO2 12/09/19 12:00 96.9 72 18 130/64 (86) 97 12/09/19 09:00 Room Air 12/09/19 08:00 96.6 72 20 121/65 (83) 98 12/09/19 07:47 74 12/09/19 04:00 74 12/09/19 04:00 98.6 80 18 129/59 (82) 96 12/09/19 00:00 83 12/09/19 00:00 98.9 81 18 123/60 (81) 95 12/08/19 21:00 Room Air 12/08/19 20:00 80 12/08/19 20:00 99.3 74 19 149/61 (90) 95 12/08/19 17:20 96 119/87 12/08/19 16:00 97.7 96 20 119/87 (98) 97 12/08/19 16:00 79 Intake and Output 12/08/19 12/09/19 19:00 07:00 Intake Total 300 ml 120 ml Balance 300 ml 120 ml Intake Oral 300 ml 120 ml # Voids 2 1 # Bowel Movements 3 3 Laboratory Tests 12/08/19 13:55: Stool Occult Blood Positive 12/09/19 09:15: White Blood Count 11.5H, Red Blood Count 4.08L, Hemoglobin 11.0L, Hematocrit 35.3L, Mean Corpuscular Volume 86, Mean Corpuscular Hemoglobin 26.9L, Mean Corpuscular Hemoglobin Concent 31.2L, Red Cell Distribution Width 12.2, Platelet Count 319, Mean Platelet Volume 8.2, Neutrophils (%) (Auto) 75.2H, Lymphocytes (%) (Auto) 10.9L, Monocytes (%) (Auto) 9.6, Eosinophils (%) (Auto) 0.3, Basophils (%) (Auto) 4.0H, Sodium Level 130L, Potassium Level 3.8, Chloride Level 96L, Carbon Dioxide Level 31, Anion Gap 3L, Blood Urea Nitrogen 40H, Creatinine 1.7H, Estimat Glomerular Filtration Rate 35.8, Glucose Level 152H, Calcium Level 8.5 Height (Feet): 5 Height (Inches): 3.00 Weight (Pounds): 146 General Appearance: alert EENT: normal ENT inspection Neck: supple Cardiovascular: normal rate Respiratory/Chest: decreased breath sounds Abdomen: soft, hypoactive bowel sounds Extremities: non-tender Massimo Osborn MD Dec 09, 2019 12:32
--- NOTE | 2019-12-09 13:24 | NUR ---
NURSE NOTES: Dr Camara made aware that Na level is 130. Per MD, she will inform Dr Vail about it. OB stool came out positive, Dr Osborn and Dr Camara made aware.
--- NOTE | 2019-12-09 14:09 | NUR ---
DUMP ATTENDANT NOTE Pt provided verbal consent to contact her step-sisterMildred to verify the address. ROSIE attempted to call pt's sister [phone] and the call was not answered w/o vm option. Per facesheet address, [address], [place] [address]. Pt reports having estranged adult children whom reside out of state. Pt did not provide further detail/information. Addendum: 12/09/19 at 1504 by BEULAH VELEZ ROSIE attempted to call pt's sister Mildred again, but no answer no voicemail option. Addendum: 12/09/19 at 1700 by BEULAH VELEZ ROSIE spoke w/ pt's sister, Mildred and confirmed that pt resides w/ her and she can return when she is medically cleared.
--- NOTE | 2019-12-09 15:17 | Nephrology Progress Note ---
Assessment/Plan Plan #Darcie - due to pre-renal azotemia # hyponatremia - likely hypovolumic- thiazide induce #anemia # chest pain - r/o ACS - DC thiazide - urine osm and sodium - NS at 75cc/hr - amlodopine 10mg daily - monitor lytes - avoid nephrotoxins Subjective ROS Limited/Unobtainable: No Constitutional: Reports: weakness HEENT: Denies: no symptoms, eye pain, blurred vision, tearing, double vision, ear pain, ear discharge, nose pain, nose congestion, throat pain, throat swelling, mouth pain, mouth swelling, other Genitourinary: Denies: no symptoms, burning, discharge, frequency, flank pain, hematuria, incontinence, pain, urgency, other Neurologic/Psychiatric: Denies: no symptoms, anxiety, depressed, emotional problems, headache, numbness, paresthesia, pre-existing deficit, seizure, tingling, tremors, weakness, other Subjective Cr up to 1.7 sodium 30 start NS at 75cc/hr Objective Objective Last 24 Hour Vital Signs Date Time Temp Pulse Resp B/P (MAP) Pulse Ox O2 Delivery O2 Flow Rate FiO2 12/09/19 12:00 96.9 72 18 130/64 (86) 97 12/09/19 11:31 68 12/09/19 09:00 Room Air 12/09/19 08:00 96.6 72 20 121/65 (83) 98 12/09/19 07:47 74 12/09/19 04:00 74 12/09/19 04:00 98.6 80 18 129/59 (82) 96 12/09/19 00:00 83 12/09/19 00:00 98.9 81 18 123/60 (81) 95 12/08/19 21:00 Room Air 12/08/19 20:00 80 12/08/19 20:00 99.3 74 19 149/61 (90) 95 12/08/19 17:20 96 119/87 12/08/19 16:00 97.7 96 20 119/87 (98) 97 12/08/19 16:00 79 Intake and Output 12/08/19 12/09/19 19:00 07:00 Intake Total 300 ml 120 ml Balance 300 ml 120 ml Intake Oral 300 ml 120 ml # Voids 2 1 # Bowel Movements 3 3 Laboratory Tests 12/09/19 09:15: White Blood Count 11.5H, Red Blood Count 4.08L, Hemoglobin 11.0L, Hematocrit 35.3L, Mean Corpuscular Volume 86, Mean Corpuscular Hemoglobin 26.9L, Mean Corpuscular Hemoglobin Concent 31.2L, Red Cell Distribution Width 12.2, Platelet Count 319, Mean Platelet Volume 8.2, Neutrophils (%) (Auto) 75.2H, Lymphocytes (%) (Auto) 10.9L, Monocytes (%) (Auto) 9.6, Eosinophils (%) (Auto) 0.3, Basophils (%) (Auto) 4.0H, Sodium Level 130L, Potassium Level 3.8, Chloride Level 96L, Carbon Dioxide Level 31, Anion Gap 3L, Blood Urea Nitrogen 40H, Creatinine 1.7H, Estimat Glomerular Filtration Rate 35.8, Glucose Level 152H, Calcium Level 8.5 12/09/19 12:46: Urine Osmolality 290L, Urine Random Total Protein 14H, Urine Random Sodium 43, Urine Creatinine 51.2 Height (Feet): 5 Height (Inches): 3.00 Weight (Pounds): 146 Mir Vail M.D. Dec 09, 2019 15:17
[2019-12-09 16:00] VITALS: BP 146/69
--- NOTE | 2019-12-09 16:00 | NUR ---
CASE MANAGEMENT:REVIEW 12/09/19 SI: ACS ABDOMINAL PAIN. ILEUS DARK TARRY STOOLS (+) OB 96.9 72 18 130/64 97% ON RA WBC+11.5 H/H-11.0/35.3 NA-130 BUN+40 CR+1.7 IS: IVF@75/HR RISPERDAL PO QHS LEXAPRO PO QD NORVASC PO QPM LOVENOX SQ Q24 LIPITOR PO QHS : TELEMETRY DCP: FROM HOME PLAN: CLEAR LIQUID DIET STOOL CULTURE AND C-DIFF GI CONSULT
[2019-12-09] MEDS: Enoxaparin 30mg Inj SUBQ SCH (17:21)
--- NOTE | 2019-12-09 19:15 | NUR ---
NURSE NOTES: Received report from LUIS Torres. Patient is alert and oriented x4 with periods of forgetfulness. Patient c/o mild pain of stomach area. Orders to collect Stool for OB testing. Bed is at lowest position locked with side rails up and bed alarm on. Call light and bed side table within reach. supervisor printing shop intact. Will cotninue with plan of care.
--- NOTE | 2019-12-09 19:29 | NUR ---
NURSE HAND-OFF REPORT: Important Events on Shift: Pt complains of abdominal pain, OBS positive Patient Status: fair Diet: clear liquid diet Pending Orders: COLLECT STOOL SAMPLE Pending Results/Labs: Pending MD notification: Latest Vital Signs: Temperature 96.8 , Pulse 63 , B/P 146 /69 , Respiratory Rate 20 , O2 SAT 98 , Room Air, O2 Flow Rate . Vital Sign Comment: EKG Rhythm: Sinus Rhythm Rhythm change?: N MD Notified?: N - MD Response: Latest [place] Fall Score: 60 Fall Risk: High Risk Safety Measures: Call light Within Reach, Bed Alarm Zone 1, Side Rails Side Rails x2, Bed position Low and Locked. Fall Precautions: Yellow Socks Yellow Gown Door Sign Patient Fall Education Report given to LUIS Allen
[2019-12-09 20:00] VITALS: BP 137/78
[2019-12-09] MEDS: Atorvastatin 80mg tab ORAL SCH (20:51)
--- NOTE | 2019-12-09 21:33 | Psych Consult Progress Note ---
Psychiatry Progress Note Psychiatry Progress Note Medications Current Medications Medications (Trade) Dose Ordered Sig/Yasmine Route PRN Reason Start Time Stop Time Status Last Admin Dose Admin Acetaminophen (Tylenol) 650 mg Q4H PRN ORAL Mild Pain (Pain Scale 1-3) 12/04/19 15:45 01/03/20 15:44 12/09/19 19:49 Acetaminophen (Tylenol) 650 mg Q6H PRN ORAL For Headache 12/05/19 11:15 01/04/20 11:14 Al Hydroxide/Mg Hydroxide (Mylanta II) 30 ml Q6H PRN ORAL dyspepsia 12/04/19 15:45 01/03/20 15:44 12/09/19 15:22 Amlodipine Besylate (Norvasc) 10 mg QPM ORAL 12/07/19 16:30 01/06/20 16:29 12/09/19 17:20 Atorvastatin Calcium (Lipitor) 80 mg BEDTIME ORAL 12/05/19 21:00 03/04/20 20:59 12/09/19 20:51 Atropine Sulfate (Atropine) 0.5 mg Q3M PRN IV symptomatic bradycardia 12/04/19 15:45 03/04/20 15:44 Bisacodyl (Dulcolax) 10 mg DAILYPRN PRN RECTAL Constipation 12/08/19 08:30 03/07/20 08:29 Dextrose (Dextrose 50%) 25 ml Q30M PRN IV Hypoglycemia 12/04/19 15:45 03/03/20 15:44 Dextrose (Dextrose 50%) 50 ml Q30M PRN IV Hypoglycemia 12/04/19 15:45 03/03/20 15:44 Docusate Sodium (Colace) 100 mg THREE TIMES A DAY ORAL 12/08/19 09:00 01/07/20 08:59 12/08/19 09:11 Enoxaparin Sodium (Lovenox) 30 mg Q24H SUBQ 12/05/19 18:00 03/04/20 17:59 12/07/19 17:12 Escitalopram Oxalate (Lexapro) 10 mg DAILY ORAL 12/08/19 16:15 01/07/20 16:14 12/09/19 08:50 Hydralazine HCl (Apresoline) 10 mg Q6H PRN ORAL For High Blood Pressure 12/07/19 11:15 03/06/20 11:14 Magnesium Oxide (Mag-Ox 400mg) 400 mg TID ORAL 12/05/19 13:00 01/04/20 12:59 12/09/19 17:20 Nitroglycerin (Ntg) 0.4 mg Q5M PRN SL Prn Chest Pain 12/04/19 15:45 01/03/20 15:44 Ondansetron HCl (Zofran) 4 mg Q6H PRN IVP Nausea & Vomiting 12/05/19 14:00 01/04/20 13:59 12/07/19 12:46 Polyethylene Glycol (Miralax) 17 gm DAILY PRN ORAL Constipation 12/05/19 11:15 01/04/20 11:14 12/05/19 11:30 Risperidone (RisperDAL) 1 mg BEDTIME ORAL 12/08/19 21:00 01/22/20 20:59 12/09/19 20:51 Sodium Chloride 1,000 ml @ 75 mls/hr [id number] IV 12/09/19 15:30 01/08/20 15:29 12/09/19 15:39 Neurological/Psychiatric: Reports: anxiety, depressed; Denies: no symptoms, emotional problems, headache, numbness, paresthesia, pre-existing deficit, seizure, tingling, tremors, weakness, other Allergies: Coded Allergies: No Known Allergies (Unverified , 12/04/19) Objective Data Height (Feet): 5 Height (Inches): 3.00 Weight (Pounds): 146 General Appearance: WD/WN, no apparent distress, alert Mental Status Exam - Thought C: delusions of grandiosity Perceptual Disturbances: visual Mental Status Exam - Suicidal: not present Additional Comments: Alert, oriented times self, place. Mood is depressed. Affect is blunted, congruent with mood. Thought process is concrete. Thought content, no suicidal or homicidal ideation. Cognition is impaired. Insight and judgment is impaired. Assessment/Plan Status: stable Assessment/Plan: ASSESSMENT: [place] I Major depressive disorder. Psychotic disorder. Dementia. [place] II Deferred. [place] III Abdominal pain. [place] IV Moderate. [place] V 50. PLAN: 1. Start the patient on risperidone 1 mg at bedtime. 2. Lexapro 10 mg in the morning. 3. Provide the patient with reality orientation and supportive therapy. Stuart Feliz MD Dec 09, 2019 21:33
[2019-12-10] VITALS: BP 133/60
[2019-12-10] MEDS: Mylanta II UD 30ml ORAL PRN (03:37)
[2019-12-10 04:00] VITALS: BP 127/62
--- NOTE | 2019-12-10 07:06 | NUR ---
NURSE HAND-OFF REPORT: Important Events on Shift:[Patient attempts to get up and has episodes of confusion, incontinent x2, unable to collect stool specimen, abdominal pain continues relieved with tylenol and mylanta] Patient Status: [Stable Confused alert oriented x1 to 2] Diet: [Clear liquid] Pending Orders: [] Pending Results/Labs:[] Pending MD notification:[] Latest Vital Signs: Temperature 97.7 , Pulse 86 , B/P 127 /62 , Respiratory Rate 22 , O2 SAT 98 , Room Air, O2 Flow Rate . Vital Sign Comment: [] EKG Rhythm: Sinus Rhythm Rhythm change?: N MD Notified?: N - MD Response: Latest [place] Fall Score: 60 Fall Risk: High Risk Safety Measures: Call light Within Reach, Bed Alarm Zone 1, Side Rails Side Rails x2, Bed position Low and Locked. Fall Precautions: Yellow Socks Yellow Gown Door Sign Patient Fall Education Report given to [LUIS Torres].
--- NOTE | 2019-12-10 07:22 | NUR ---
NURSE NOTES: Received report from LUIS Allen. Pt awake, A/O x2, very forgetful with episodes of confusion. No s/sx of acute distress. Pt verbalizes discomfort r/t abdominal pain. IV site patent and asymptomatic, running IVF as ordered. Bed on lowest position, call light within reach, bed alarm on. Will continue plan of care.
[2019-12-10 07:23] LABS: BASOPHILS % (AUTO) 2.2 % (0.0-2.0); EOSINOPHILS % (AUTO) 0.2 % (0.0-3.0); HEMATOCRIT 33.8 % (37.0-47.0); HEMOGLOBIN 10.6 G/DL (12.0-16.0); LYMPHOCYTES % (AUTO) 10.9 % (20.0-45.0); MEAN CORPUSCULAR VOLUME 86 FL (80-99); MONOCYTES % (AUTO) 6.9 % (1.0-10.0); NEUTROPHILS % (AUTO) 79.8 % (45.0-75.0); PLATELET COUNT 321 K/UL (150-450); RED BLOOD COUNT 3.92 M/UL (4.20-5.40); RED CELL DISTRIBUTION WIDTH 12.2 % (11.6-14.8); WHITE BLOOD COUNT 12.1 K/UL (4.8-10.8)
[2019-12-10 07:34] LABS: CREATININE 1.2 MG/DL (0.55-1.30); POTASSIUM 3.6 MMOL/L (3.5-5.1)
--- NOTE | 2019-12-10 07:38 | General Progress Note ---
Assessment/Plan Status: stable Assessment/Plan: 74 F with unclear PMhx admitted for abdominal pain and chest pain. #Acute Metabolic Encephalopathy #Hyponatremia -Na 131 -->130 --> 127 -likely 2/2 dehydration -check urine electrolytes -Nephro consulted, recs appreciated #Ileus #Abdominal Pain #Constipation - improved #Dark Stools Pain possibly from constipation, less likely diverticulitis or gastroenteritis. No CVA tenderness - UA and Lipase wnl - CT Abdomen - ileus vs. colitis - Encourage fluids - GI Cocktail, Zofran prn - 12/07 abd XR w/ileus, small bowel obstruction less likely - s/p Mg citrate x1 - docusate TID, dulcolax suppository PRN - occult stool positive - change diet to liquids for now - pain control - GI, Dr. Osborn, consulted, recs appreciated #ZA - improved -Cr elevated to 1.7, now 1.2 -IVF NS at 75 cc -Nephro following, recs appreciated #Chest pain - ACS ruled out #Chronic HFpEF Initial presentation with non-radiating chest pain that resolved with SL Nitro and Aspirin. EKG with non-specific ST changes in V1-V2. Moderate Heart Score - EKG prn for active chest pain - Trop x3 negative, BNP slightly elevated, HBA1c wnl - Echo EF 70-75%, mild left hypertrophy, mitral and aortic root calcification - Statin, Hctz, Norvasc - Cardiology consulted, recs appreciated - NM stress test negative, pt OK to d/c home from cardio stand point #Hypertensive Urgency - improved #Hypertension - uncontrolled - Norvasc increased from 5 mg PO to 10 mg PO daily - cont Hctz - hydralazine PRN for SBP >160 #Hypokalemia - resolved - s/p Replete K - ctm, replace PRN #Psychosis #Depression -per nurse pt was seeing "snakes" in the room -Psych consulted, recs appreciated, start risperdone and lexapro FEN Clear Liquid diet Hold AC per cards Dispo - Home when medically cleared Code - FULL CODE Time spent with patient 39 mins, approximately 28 minutes spent coordinating care with nurses and consultants. D/w RN, Dr. Tillman, Dr. Vail, Dr Feliz and Dr Osborn. Time of note may not reflect time of encounter. Subjective Allergies: Coded Allergies: No Known Allergies (Unverified , 12/04/19) Subjective Pt more confused this AM, asked where her room was while pt was laying in bed, redirected pt. Pt cont to have abd pain, otherwise denies any SOB, f/c, n/v, dysuria/hematuria at this time. Objective Last 24 Hour Vital Signs Date Time Temp Pulse Resp B/P (MAP) Pulse Ox O2 Delivery O2 Flow Rate FiO2 12/10/19 04:00 97.7 86 22 127/62 (83) 98 12/10/19 04:00 67 12/10/19 00:00 76 12/10/19 00:00 97.2 72 19 133/60 (84) 99 12/09/19 21:00 Room Air 12/09/19 20:00 75 12/09/19 20:00 97.8 69 18 137/78 (97) 96 12/09/19 17:20 63 146/69 12/09/19 16:00 96.8 63 20 146/69 (94) 98 12/09/19 15:56 69 12/09/19 12:00 96.9 72 18 130/64 (86) 97 12/09/19 11:31 68 12/09/19 09:00 Room Air 12/09/19 08:00 96.6 72 20 121/65 (83) 98 12/09/19 07:47 74 Intake and Output 12/09/19 12/10/19 19:00 07:00 Intake Total 500 ml Balance 500 ml Intake Oral 500 ml # Voids 2 2 # Bowel Movements 1 Laboratory Tests 12/09/19 09:15: White Blood Count 11.5H, Red Blood Count 4.08L, Hemoglobin 11.0L, Hematocrit 35.3L, Mean Corpuscular Volume 86, Mean Corpuscular Hemoglobin 26.9L, Mean Corpuscular Hemoglobin Concent 31.2L, Red Cell Distribution Width 12.2, Platelet Count 319, Mean Platelet Volume 8.2, Neutrophils (%) (Auto) 75.2H, Lymphocytes (%) (Auto) 10.9L, Monocytes (%) (Auto) 9.6, Eosinophils (%) (Auto) 0.3, Basophils (%) (Auto) 4.0H, Sodium Level 130L, Potassium Level 3.8, Chloride Level 96L, Carbon Dioxide Level 31, Anion Gap 3L, Blood Urea Nitrogen 40H, Creatinine 1.7H, Estimat Glomerular Filtration Rate 35.8, Glucose Level 152H, Calcium Level 8.5 12/09/19 12:46: Urine Osmolality 290L, Urine Random Total Protein 14H, Urine Random Sodium 43, Urine Creatinine 51.2 12/10/19 07:10: White Blood Count 12.1H, Red Blood Count 3.92L, Hemoglobin 10.6L, Hematocrit 33.8L, Mean Corpuscular Volume 86, Mean Corpuscular Hemoglobin 27.0, Mean Corpuscular Hemoglobin Concent 31.3L, Red Cell Distribution Width 12.2, Platelet Count 321, Mean Platelet Volume 8.2, Neutrophils (%) (Auto) 79.8H, Lymphocytes (%) (Auto) 10.9L, Monocytes (%) (Auto) 6.9, Eosinophils (%) (Auto) 0.2, Basophils (%) (Auto) 2.2H, Sodium Level [Pending], Potassium Level [Pending ], Chloride Level [Pending], Carbon Dioxide Level [Pending], Blood Urea Nitrogen [Pending], Creatinine [Pending], Estimat Glomerular Filtration Rate [ Pending], Glucose Level [Pending], Calcium Level [Pending] Height (Feet): 5 Height (Inches): 3.00 Weight (Pounds): 146 Objective General Appearance: no apparent distress, no acute cardiopulmonary distress, laying bed comfortably HEENT: NCAT, EOMI, MMM Neck: non-tender, supple Cardiovascular: normal rate, regular rhythm Respiratory/Chest: lungs clear Abdomen: normal bowel sounds, mild tenderness to palpation in LUQ, no guarding/ rebound Extremities: normal range of motion Neurologic: no FND, AOx2 person and time, pt confused about room Skin: warm/dry Kellie Camara M.D. Dec 10, 2019 07:38
[2019-12-10 08:00] VITALS: BP 163/66
[2019-12-10] MEDS: Magnesium Oxide 400mg tab ORAL SCH ×2 (08:36→17:15)
[2019-12-10] MEDS: Docusate 100mg cap ORAL SCH ×2 (08:36→17:15)
--- NOTE | 2019-12-10 09:06 | Cardiology Progress Note ---
Assessment/Plan Status: stable Assessment/Plan Assessment/Plan CHEST PAIN HYPERTENSIVE URGENCY CHF DIASTOLIC Plan: Echocardiogram with diastolic dysfunction preserved LV function 70%, no significant valvular disease Spot dose lasix Continue HCTZ DASH diet Continue Norvasc Monitor on telemetry Nitro prn CP Hold Heparin Stress test NEGATIVE ok to d/c from cardiology perspective once cleared by psych Subjective Cardiovascular: Reports: no symptoms Respiratory: Reports: no symptoms Gastrointestinal/Abdominal: Reports: no symptoms Genitourinary: Reports: no symptoms Subjective No acute events, BP stable, TTE with LVEF 70%, CP resolved. EKG no dynamic changes, stress test NEGATIVE Discharge held for psych consult Objective Last 24 Hour Vital Signs Date Time Temp Pulse Resp B/P (MAP) Pulse Ox O2 Delivery O2 Flow Rate FiO2 12/10/19 08:37 163/66 12/10/19 08:00 97.5 77 20 163/66 (98) 97 12/10/19 04:00 97.7 86 22 127/62 (83) 98 12/10/19 04:00 67 12/10/19 00:00 76 12/10/19 00:00 97.2 72 19 133/60 (84) 99 12/09/19 21:00 Room Air 12/09/19 20:00 75 12/09/19 20:00 97.8 69 18 137/78 (97) 96 12/09/19 17:20 63 146/69 12/09/19 16:00 96.8 63 20 146/69 (94) 98 12/09/19 15:56 69 12/09/19 12:00 96.9 72 18 130/64 (86) 97 12/09/19 11:31 68 General Appearance: no apparent distress, alert EENT: PERRL/EOMI, normal ENT inspection, TMs normal, pharynx normal Neck: non-tender, normal alignment, supple, normal inspection, no JVD Rhythm: NSR Cardiovascular: normal peripheral pulses, normal rate Respiratory/Chest: chest wall non-tender, lungs clear, normal breath sounds Abdomen: normal bowel sounds, non tender, soft, no organomegaly, no mass Extremities: normal range of motion, non-tender, normal inspection, no calf tenderness, no swelling Neurologic: gum mixer II-XII grossly normal, no motor/sensory deficits Intake and Output 12/09/19 12/10/19 19:00 07:00 Intake Total 500 ml Balance 500 ml Intake Oral 500 ml # Voids 2 2 # Bowel Movements 1 Laboratory Tests Test 12/09/19 09:15 12/09/19 12:46 12/10/19 07:10 White Blood Count 11.5 K/UL (4.8-10.8) H 12.1 K/UL (4.8-10.8) H Red Blood Count 4.08 M/UL (4.20-5.40) L 3.92 M/UL (4.20-5.40) L Hemoglobin 11.0 G/DL (12.0-16.0) L 10.6 G/DL (12.0-16.0) L Hematocrit 35.3 % (37.0-47.0) L 33.8 % (37.0-47.0) L Mean Corpuscular Volume 86 FL (80-99) 86 FL (80-99) Mean Corpuscular Hemoglobin 26.9 PG (27.0-31.0) L 27.0 PG (27.0-31.0) Mean Corpuscular Hemoglobin Concent 31.2 G/DL (32.0-36.0) L 31.3 G/DL (32.0-36.0) L Red Cell Distribution Width 12.2 % (11.6-14.8) 12.2 % (11.6-14.8) Platelet Count 319 K/UL (150-450) 321 K/UL (150-450) Mean Platelet Volume 8.2 FL (6.5-10.1) 8.2 FL (6.5-10.1) Neutrophils (%) (Auto) 75.2 % (45.0-75.0) H 79.8 % (45.0-75.0) H Lymphocytes (%) (Auto) 10.9 % (20.0-45.0) L 10.9 % (20.0-45.0) L Monocytes (%) (Auto) 9.6 % (1.0-10.0) 6.9 % (1.0-10.0) Eosinophils (%) (Auto) 0.3 % (0.0-3.0) 0.2 % (0.0-3.0) Basophils (%) (Auto) 4.0 % (0.0-2.0) H 2.2 % (0.0-2.0) H Sodium Level 130 MMOL/L (136-145) L 127 MMOL/L (136-145) L Potassium Level 3.8 MMOL/L (3.5-5.1) 3.6 MMOL/L (3.5-5.1) Chloride Level 96 MMOL/L (98-107) L 91 MMOL/L (98-107) L Carbon Dioxide Level 31 MMOL/L (21-32) 30 MMOL/L (21-32) Anion Gap 3 mmol/L (5-15) L 6 mmol/L (5-15) Blood Urea Nitrogen 40 mg/dL (7-18) H 26 mg/dL (7-18) H Creatinine 1.7 MG/DL (0.55-1.30) H 1.2 MG/DL (0.55-1.30) Estimat Glomerular Filtration Rate 35.8 mL/min (>60) 53.3 mL/min (>60) Glucose Level 152 MG/DL (74-106) H 133 MG/DL (74-106) H Calcium Level 8.5 MG/DL (8.5-10.1) 9.0 MG/DL (8.5-10.1) Urine Osmolality 290 mOsm/kg (429-449) L Urine Random Total Protein 14 MG/DL (< 11.9) H Urine Random Sodium 43 mmol/L (20-110) Urine Creatinine 51.2 MG/DL (30.0-125.0) Kush Tillman MD Dec 10, 2019 09:06
[2019-12-10] MEDS ORDERED: traMADol 50mg tab ORAL PRN ×2 (09:30→13:19)
--- NOTE | 2019-12-10 09:42 | General Progress Note ---
Assessment/Plan Problem List: (1) Hypertension ICD Codes: I10 - Essential (primary) hypertension SNOMED: 42293296 (2) Hypokalemia ICD Codes: E87.6 - Hypokalemia SNOMED: 90217091 (3) Abdominal pain ICD Codes: R10.9 - Unspecified abdominal pain SNOMED: 49043920 (4) Chest pain ICD Codes: R07.9 - Chest pain, unspecified SNOMED: 55303223 Status: stable Assessment/Plan: stool ob positive but no active GIB stool studies to eval for enteritis fu H&H CT reviewed correct NA needs EGD and colonoscopy possibly on Friday if consent is obtainable Subjective Allergies: Coded Allergies: No Known Allergies (Unverified , 12/04/19) Subjective very confused Objective Last 24 Hour Vital Signs Date Time Temp Pulse Resp B/P (MAP) Pulse Ox O2 Delivery O2 Flow Rate FiO2 12/10/19 08:37 163/66 12/10/19 08:00 97.5 77 20 163/66 (98) 97 12/10/19 04:00 97.7 86 22 127/62 (83) 98 12/10/19 04:00 67 12/10/19 00:00 76 12/10/19 00:00 97.2 72 19 133/60 (84) 99 12/09/19 21:00 Room Air 12/09/19 20:00 75 12/09/19 20:00 97.8 69 18 137/78 (97) 96 12/09/19 17:20 63 146/69 12/09/19 16:00 96.8 63 20 146/69 (94) 98 12/09/19 15:56 69 12/09/19 12:00 96.9 72 18 130/64 (86) 97 12/09/19 11:31 68 Intake and Output 12/09/19 12/10/19 19:00 07:00 Intake Total 500 ml Balance 500 ml Intake Oral 500 ml # Voids 2 2 # Bowel Movements 1 Laboratory Tests 12/09/19 12:46: Urine Osmolality 290L, Urine Random Total Protein 14H, Urine Random Sodium 43, Urine Creatinine 51.2 12/10/19 07:10: White Blood Count 12.1H, Red Blood Count 3.92L, Hemoglobin 10.6L, Hematocrit 33.8L, Mean Corpuscular Volume 86, Mean Corpuscular Hemoglobin 27.0, Mean Corpuscular Hemoglobin Concent 31.3L, Red Cell Distribution Width 12.2, Platelet Count 321, Mean Platelet Volume 8.2, Neutrophils (%) (Auto) 79.8H, Lymphocytes (%) (Auto) 10.9L, Monocytes (%) (Auto) 6.9, Eosinophils (%) (Auto) 0.2, Basophils (%) (Auto) 2.2H, Sodium Level 127L, Potassium Level 3.6, Chloride Level 91L, Carbon Dioxide Level 30, Anion Gap 6, Blood Urea Nitrogen 26H, Creatinine 1.2, Estimat Glomerular Filtration Rate 53.3, Glucose Level 133H , Calcium Level 9.0 Height (Feet): 5 Height (Inches): 3.00 Weight (Pounds): 146 General Appearance: confused EENT: normal ENT inspection Neck: supple Cardiovascular: normal rate Respiratory/Chest: decreased breath sounds Abdomen: normal bowel sounds, non tender, soft Extremities: non-tender Massimo Osborn MD Dec 10, 2019 09:42
--- NOTE | 2019-12-10 10:22 | NUR ---
NURSE NOTES: Pt started to be more forgetful and confused. Pt removed her IV. Trying to start a new one but pt is getting more aggressive and did not want RN to start an IV. Pt complains of pain, pain med offered, pt refused.
[2019-12-10 12:00] VITALS: BP 141/74
--- NOTE | 2019-12-10 13:00 | NUR ---
TRANSFER TO FLOOR: Patient transferred to 4E, per Dr Camara. Report given to LUIS Carranza.
--- NOTE | 2019-12-10 13:06 | NUR ---
NURSE NOTES: Report received from Melissa SMITH. Patient transferred from 2E, AxOx1, confused, not in distress, no complaints of pain at this time. Nurse reports patient removed PIV and refused to have one reinserted prior to transfer. Will reattempt. Skin is intact. Pt is incontinent and needs assistance with ADL's. Belongings checked, patient refused to have purse checked and insists on keeping it at bedside. Bed low and locked, siderails up x2, call light placed within reach, will continue to monitor.
[2019-12-10] MEDS ORDERED: Nitroglycerin Subl 0.4mg tab SL PRN (13:15)
[2019-12-10] MEDS ORDERED: Atropine Inj 1mg/10ml Syr IV PRN (13:15)
[2019-12-10] MEDS ORDERED: Mylanta II UD 30ml ORAL PRN (13:17)
[2019-12-10] MEDS ORDERED: Miralax 17gm pkt ORAL PRN (13:18)
[2019-12-10] MEDS ORDERED: HydrALAZINE 10mg Tab ORAL PRN (13:18)
[2019-12-10 16:00] VITALS: BP 135/69
--- NOTE | 2019-12-10 16:00 | NUR ---
CASE MANAGEMENT:REVIEW 12/10/19 SI: ACS ABDOMINAL PAIN. ILEUS *MORE CONFUSED 96.6 74 20 141/74 97% ON RA WBC+11.1 H/H-10.6/33.8 NA-127 IS: IVF@75/HR RISPERDAL PO QHS LEXAPRO PO QD NORVASC PO QPM LOVENOX SQ Q24 LIPITOR PO QHS : TELEMETRY DCP: FROM HOME
[2019-12-10] MEDS: Docusate Sod/Senna tab ORAL SCH (17:15)
[2019-12-10] MEDS ORDERED: Docusate Sod/Senna tab ORAL SCH (18:00)
--- NOTE | 2019-12-10 18:08 | NUR ---
NURSE NOTES: Patient extremely agitated and uncooperative; sitting on edge of bed; refusing to lie in bed and attempting to stand up multiple times. Patient educated on fall risk however patient remained uncooperative; became aggressive and refused assistance from multiple nurses. Patient cursing and telling nurses to "leave her alone" everytime nurse attempts to offer assistance. Bed kept low and locked, siderails up x3, nurse sat outside patient's room and kept close eye on patient. Dr. Feliz notified of pt's agitation, awaiting response.
--- NOTE | 2019-12-10 18:30 | Nephrology Progress Note ---
Assessment/Plan Plan #Darcie - due to pre-renal azotemia # hyponatremia - likely hypovolumic- thiazide induce #anemia # chest pain - r/o ACS - DC IVF - 3% 250 cc x1 - DC thiazide - amlodopine 10mg daily - monitor lytes - avoid nephrotoxins Subjective ROS Limited/Unobtainable: No Constitutional: Reports: weakness HEENT: Denies: no symptoms, eye pain, blurred vision, tearing, double vision, ear pain, ear discharge, nose pain, nose congestion, throat pain, throat swelling, mouth pain, mouth swelling, other Genitourinary: Denies: no symptoms, burning, discharge, frequency, flank pain, hematuria, incontinence, pain, urgency, other Neurologic/Psychiatric: Denies: no symptoms, anxiety, depressed, emotional problems, headache, numbness, paresthesia, pre-existing deficit, seizure, tingling, tremors, weakness, other Subjective Cr improved to 127 sodium 127 more confused Objective Objective Last 24 Hour Vital Signs Date Time Temp Pulse Resp B/P (MAP) Pulse Ox O2 Delivery O2 Flow Rate FiO2 12/10/19 16:52 77 135/69 12/10/19 16:00 97.2 77 20 135/69 (91) 98 12/10/19 12:00 96.6 74 20 141/74 (96) 97 12/10/19 09:00 Room Air 12/10/19 08:37 163/66 12/10/19 08:00 97.5 77 20 163/66 (98) 97 12/10/19 07:55 78 12/10/19 04:00 97.7 86 22 127/62 (83) 98 12/10/19 04:00 67 12/10/19 00:00 76 12/10/19 00:00 97.2 72 19 133/60 (84) 99 12/09/19 21:00 Room Air 12/09/19 20:00 75 12/09/19 20:00 97.8 69 18 137/78 (97) 96 Intake and Output 12/09/19 12/10/19 19:00 07:00 Intake Total 500 ml Balance 500 ml Intake Oral 500 ml # Voids 2 2 # Bowel Movements 1 Laboratory Tests 12/10/19 07:10: White Blood Count 12.1H, Red Blood Count 3.92L, Hemoglobin 10.6L, Hematocrit 33.8L, Mean Corpuscular Volume 86, Mean Corpuscular Hemoglobin 27.0, Mean Corpuscular Hemoglobin Concent 31.3L, Red Cell Distribution Width 12.2, Platelet Count 321, Mean Platelet Volume 8.2, Neutrophils (%) (Auto) 79.8H, Lymphocytes (%) (Auto) 10.9L, Monocytes (%) (Auto) 6.9, Eosinophils (%) (Auto) 0.2, Basophils (%) (Auto) 2.2H, Sodium Level 127L, Potassium Level 3.6, Chloride Level 91L, Carbon Dioxide Level 30, Anion Gap 6, Blood Urea Nitrogen 26H, Creatinine 1.2, Estimat Glomerular Filtration Rate 53.3, Glucose Level 133H , Calcium Level 9.0 Height (Feet): 5 Height (Inches): 3.00 Weight (Pounds): 146 Mir Vail M.D. Dec 10, 2019 18:30
[2019-12-10] MEDS ORDERED: Haloperidol 5mg/ml Inj IM PRN (18:58)
[2019-12-10] MEDS ORDERED: Haloperidol Decanoate (Long Acting) 50mg Inj IM PRN (19:00)
--- NOTE | 2019-12-10 19:00 | NUR ---
NURSE NOTES: Received orders from Dr. Feliz for bilateral wrist restraints and Haldol 5mg PRN q6hrs agitation. Orders noted and carried out.
--- NOTE | 2019-12-10 19:35 | NUR ---
NURSE HAND-OFF: Important Events on Shift: Transfer from [facility], pt agitated, uncooperative, impulsive and attempting to get out of bed, bilateral wrist restraints ordered per Mariama Pickard PRN; awating hypertonic saline bolus 250ml, pharmacy to deliver 8pm Patient Status: Stable Diet: Clear liquid Pending Orders: Random urine sodium, urine osmolality, stool for cdiff and culture Pending Results/Labs: Pending MD notification: Latest Vital Signs: Temperature 97.2 , Pulse 77 , B/P 135 /69 , Respiratory Rate 20 , O2 SAT 98 , Room Air, O2 Flow Rate . Vital Sign Comment: Latest [place] Fall Score: 60 Fall Risk: High Risk Safety Measures: Call light Within Reach, Bed Alarm Zone 1, Side Rails Side Rails x2, Bed position Low and Locked. Fall Precautions: Yellow Socks Yellow Gown Door Sign Patient Fall Education Report given to Luis SMITH.
--- NOTE | 2019-12-10 19:36 | NUR ---
NURSE NOTES: Received pt on the bed awake,A&Ox1 and verbal. Pt has no sob,fever, cough and pain at the moment. Iv is intact and asymptomatic .pt is on restrain . Bed is on the lowest position,locked and alarm on. Call light within reach. We will keep monitoring the pt.
[2019-12-10 20:00] VITALS: BP 160/76
[2019-12-10] MEDS ORDERED: NaCl 3% 500ml 250 ML IV ONE (20:00)
[2019-12-10] MEDS: HydrALAZINE 10mg Tab ORAL SCH ×2 (20:52→20:58)
[2019-12-10] MEDS: Atorvastatin 80mg tab ORAL SCH ×2 (20:52→20:58)
[2019-12-10] MEDS ORDERED: HydrALAZINE 10mg Tab ORAL SCH (21:00)
--- NOTE | 2019-12-10 22:50 | Psych Consult Progress Note ---
Psychiatry Progress Note Psychiatry Progress Note Subjective more agitated at night Medications Current Medications Medications (Trade) Dose Ordered Sig/Yasmine Route PRN Reason Start Time Stop Time Status Last Admin Dose Admin Acetaminophen (Tylenol) 650 mg Q4H PRN ORAL Mild Pain (Pain Scale 1-3) 12/10/19 13:16 01/09/20 13:15 Acetaminophen (Tylenol) 650 mg Q6H PRN ORAL For Headache 12/10/19 13:16 01/09/20 13:15 Al Hydroxide/Mg Hydroxide (Mylanta II) 30 ml Q6H PRN ORAL dyspepsia 12/10/19 13:17 01/09/20 13:16 Amlodipine Besylate (Norvasc) 10 mg QPM ORAL 12/10/19 16:30 01/06/20 16:29 12/10/19 16:52 Atorvastatin Calcium (Lipitor) 80 mg BEDTIME ORAL 12/10/19 21:00 03/04/20 20:59 Atropine Sulfate (Atropine) 0.5 mg Q3M PRN IV symptomatic bradycardia 12/10/19 13:15 03/04/20 15:44 Bisacodyl (Dulcolax) 10 mg DAILYPRN PRN RECTAL Constipation 12/10/19 13:17 03/09/20 13:16 Dextrose (Dextrose 50%) 25 ml Q30M PRN IV Hypoglycemia 12/10/19 13:15 03/03/20 15:44 Dextrose (Dextrose 50%) 50 ml Q30M PRN IV Hypoglycemia 12/10/19 13:15 03/03/20 15:44 Docusate Sodium (Colace) 100 mg THREE TIMES A DAY ORAL 12/10/19 18:00 01/07/20 08:59 12/10/19 17:15 Escitalopram Oxalate (Lexapro) 10 mg DAILY ORAL 12/11/19 09:00 01/07/20 16:14 Haloperidol Lactate (Haldol) 5 mg Q6H PRN IM Agitation 12/10/19 18:58 01/24/20 18:57 12/10/19 20:31 Hydralazine HCl (Apresoline) 10 mg Q12HR ORAL 12/10/19 21:00 03/09/20 20:59 Hydralazine HCl (Apresoline) 10 mg Q6H PRN ORAL For High Blood Pressure 12/10/19 13:18 03/09/20 13:17 Magnesium Oxide (Mag-Ox 400mg) 400 mg TID ORAL 12/10/19 18:00 01/04/20 12:59 12/10/19 17:15 Nitroglycerin (Ntg) 0.4 mg Q5M PRN SL Prn Chest Pain 12/10/19 13:15 01/03/20 15:44 Ondansetron HCl (Zofran) 4 mg Q6H PRN IVP Nausea & Vomiting 12/10/19 13:18 01/09/20 13:17 12/10/19 18:58 Polyethylene Glycol (Miralax) 17 gm DAILYPRN PRN ORAL Constipation 12/10/19 13:18 01/09/20 13:17 Risperidone (RisperDAL) 1 mg BEDTIME ORAL 12/10/19 21:00 01/22/20 20:59 Senna/Docusate Sodium (Kendra-Colace) 1 tab TWICE A DAY ORAL 12/10/19 18:00 01/09/20 17:59 12/10/19 17:15 Sodium Chloride 250 ml @ 30 mls/hr ONCE ONCE IV 12/10/19 20:00 12/11/19 04:19 12/10/19 20:50 Tramadol HCl (Ultram) 50 mg Q6H PRN ORAL Severe Pain (Pain Scale 7-10) 12/10/19 13:19 12/17/19 13:18 Neurological/Psychiatric: Denies: no symptoms, anxiety, depressed, emotional problems, headache, numbness, paresthesia, pre-existing deficit, seizure, tingling, tremors, weakness, other Allergies: Coded Allergies: No Known Allergies (Unverified , 12/04/19) Objective Data Height (Feet): 5 Height (Inches): 3.00 Weight (Pounds): 146 General Appearance: confused Mental Status Exam - Thought C: delusions of grandiosity Perceptual Disturbances: visual Mental Status Exam - Suicidal: not present Additional Comments: Alert, oriented times self, place. Mood is depressed. Affect is blunted, congruent with mood. Thought process is concrete. Thought content, no suicidal or homicidal ideation. Cognition is impaired. Insight and judgment is impaired. Assessment/Plan [place] I: ASSESSMENT: [place] I Major depressive disorder. Psychotic disorder. Dementia. [place] II Deferred. [place] III Abdominal pain. [place] IV Moderate. [place] V 50. PLAN: 1. Start the patient on risperidone 1 mg at bedtime. 2. Lexapro 10 mg in the morning. 3. Provide the patient with reality orientation and supportive therapy. Status: stable Status Narrative ASSESSMENT: [place] I Major depressive disorder. Psychotic disorder. Dementia. [place] II Deferred. [place] III Abdominal pain. [place] IV Moderate. [place] V 50. PLAN: 1. Start the patient on risperidone 1 mg at bedtime. 2. Lexapro 10 mg in the morning. 3. Provide the patient with reality orientation and supportive therapy. Assessment/Plan: ASSESSMENT: [place] I Major depressive disorder. Psychotic disorder. Dementia. [place] II Deferred. [place] III Abdominal pain. [place] IV Moderate. [place] V 50. PLAN: 1. Start the patient on risperidone 2 mg at bedtime. 2. Lexapro 10 mg in the morning. 3. Provide the patient with reality orientation and supportive therapy. Stuart Feliz MD Dec 10, 2019 22:50
[2019-12-11] VITALS (8 sets, daily range): BP systolic 119–156; BP diastolic 54–89
[2019-12-11 06:58] LABS: ANION GAP 8 mmol/L (5-15); BLOOD UREA NITROGEN 19 mg/dL (7-18); CALCIUM 8.8 MG/DL (8.5-10.1); CARBON DIOXIDE 29 MMOL/L (21-32); CHLORIDE 92 MMOL/L (98-107); POTASSIUM 3.2 MMOL/L (3.5-5.1); SODIUM 129 MMOL/L (136-145)
--- NOTE | 2019-12-11 07:20 | NUR ---
NURSE HAND-OFF: Important Events on Shift:pt was restless and tried to get up constantly. I gave her Haldol Patient Status: stable Diet: clear liquid diet Pending Orders: Pending Results/Labs:CbC,BMP Pending MD notification: Latest Vital Signs: Temperature 97.9 , Pulse 89 , B/P 144 /72 , Respiratory Rate 18 , O2 SAT 99 , Room Air, O2 Flow Rate . Vital Sign Comment: Latest [place] Fall Score: 75 Fall Risk: High Risk Safety Measures: Call light Within Reach, Bed Alarm Zone 1, Side Rails Side Rails x1, Bed position Low and Locked. Fall Precautions: Yellow Socks Yellow Gown Door Sign Patient Fall Education Report given to LUIS Russo.
[2019-12-11 07:32] LABS: BASOPHILS % (AUTO) 0.9 % (0.0-2.0); EOSINOPHILS % (AUTO) 0.4 % (0.0-3.0); HEMATOCRIT 31.2 % (37.0-47.0); LYMPHOCYTES % (AUTO) 16.9 % (20.0-45.0); MEAN CORPUSCULAR VOLUME 85 FL (80-99); MONOCYTES % (AUTO) 9.6 % (1.0-10.0); NEUTROPHILS % (AUTO) 72.2 % (45.0-75.0); PLATELET COUNT 355 K/UL (150-450); RED BLOOD COUNT 3.67 M/UL (4.20-5.40); WHITE BLOOD COUNT 11.6 K/UL (4.8-10.8)
--- NOTE | 2019-12-11 07:43 | NUR ---
NURSE NOTES: Patient alert x1, forgetful, confused; on room air, no sing of distress and shortness of breath; no sing of chest pain; IV Righ-Hand Hypertonic saline 3% at 30cc; bilateral soft wrist Restrains in place, skin warm to touch, good circulation on the area; side rails up x2, breaks engaged, bed at lowest position, bed alarm on; call light within reach; will keep monitoring.
--- NOTE | 2019-12-11 07:51 | General Progress Note ---
Assessment/Plan Status: stable Assessment/Plan: 74 F with unclear PMhx admitted for abdominal pain and chest pain. #Acute Metabolic Encephalopathy #?Acute on Chronic Dementia #Hyponatremia -Na 131 -->130 --> 127 --> 129 -likely 2/2 dehydration, HCTZ use -confusion may be multifactorial, acute on chronic dementia, hyponatremia, will check UA -d/c HCTZ -check urine electrolytes -Nephro consulted, recs appreciated -s/p 500 cc 3% saline initiated by Nephro with slight improvement in Na -d/w nephro, give 250 cc 3% saline, repeat BMP -obtain CT head -check UA/UCx reflex -ID consulted, recs appreciated #Ileus #Abdominal Pain #Constipation - improved #Dark Stools Pain possibly from constipation, less likely diverticulitis or gastroenteritis. No CVA tenderness - UA and Lipase wnl - CT Abdomen - ileus vs. colitis - Encourage fluids - GI Cocktail, Zofran prn - 12/07 abd XR w/ileus, small bowel obstruction less likely - s/p Mg citrate x1 - docusate TID, dulcolax suppository PRN - occult stool positive - liquid diet --> full liquid for now - pain control - Hgb stable however down trending - GI, Dr. Osborn, consulted, recs appreciated: possible EGD and colonoscopy Friday if pt able to consent #ZA - improved -Cr elevated to 1.7, now resolved -avoid nephrotoxins -renally dose meds -Nephro following, recs appreciated #Chest pain - ACS ruled out, resolved #Chronic HFpEF Initial presentation with non-radiating chest pain that resolved with SL Nitro and Aspirin. EKG with non-specific ST changes in V1-V2. Moderate Heart Score - EKG prn for active chest pain, Trop x3 negative, BNP slightly elevated, HBA1c wnl - Echo EF 70-75%, mild left hypertrophy, mitral and aortic root calcification - Cardiology consulted, recs appreciated - s/p NM stress test negative, pt OK to d/c home from cardio stand point #Hypertensive Urgency - improved #Hypertension - uncontrolled - Cont Norvasc 10 mg PO daily - cont hydralazine 10 mg PO BID - d/c Hctz due to ZA and hyponatremia - hydralazine PRN for SBP >160 #Hypokalemia - replaced - ctm, replace PRN #Psychosis #Depression #Dementia -per nurse pt was seeing "snakes" in the room -Psych consulted, recs appreciated -Risperdone increased from 1 mg to 2 mg qHS -cont lexapro 10 mg PO qAM FEN Full Liquid diet Hold AC per cards and positive occult Dispo - Home when medically cleared Code - FULL CODE Time spent with patient 40 mins, approximately 31 minutes spent coordinating care with nurses and consultants. D/w RN, Dr. Tillman, Dr. Vail, Dr Osborn and Dr. Penny. Time of note may not reflect time of encounter. Subjective Allergies: Coded Allergies: No Known Allergies (Unverified , 12/04/19) Subjective Per nurse, pt agitated overnight, pulled out her IV line, was given haldol with improvement. Pt confused this AM, states she is in "confucianism". Pt somnolent but arousable, states she cont to have abd pain, denies CP, SOB, f/c, n/v, dysuria/hematuria at this time. 3% hypertonic saline initiated overnight, Na this AM w/slight improvement. Objective Last 24 Hour Vital Signs Date Time Temp Pulse Resp B/P (MAP) Pulse Ox O2 Delivery O2 Flow Rate FiO2 12/11/19 04:00 97.9 89 18 144/72 (96) 99 12/11/19 00:00 97.3 80 18 132/54 (80) 99 12/10/19 21:23 Room Air 12/10/19 20:00 97.0 81 18 160/76 (104) 96 12/10/19 16:52 77 135/69 12/10/19 16:00 97.2 77 20 135/69 (91) 98 12/10/19 12:00 96.6 74 20 141/74 (96) 97 12/10/19 09:00 Room Air 12/10/19 08:37 163/66 12/10/19 08:00 97.5 77 20 163/66 (98) 97 12/10/19 07:55 78 Intake and Output 12/10/19 12/11/19 19:00 07:00 Intake Total 210 ml Balance 210 ml IV Total 210 ml # Voids 2 1 # Bowel Movements 1 Laboratory Tests 12/11/19 05:30: White Blood Count 11.6H, Red Blood Count 3.67L, Hemoglobin 10.0L, Hematocrit 31.2L, Mean Corpuscular Volume 85, Mean Corpuscular Hemoglobin 27.2, Mean Corpuscular Hemoglobin Concent 32.0, Red Cell Distribution Width 12.0, Platelet Count 355, Mean Platelet Volume 8.5, Neutrophils (%) (Auto) 72.2, Lymphocytes (% ) (Auto) 16.9L, Monocytes (%) (Auto) 9.6, Eosinophils (%) (Auto) 0.4, Basophils (%) (Auto) 0.9, Sodium Level 129L, Potassium Level 3.2L, Chloride Level 92L, Carbon Dioxide Level 29, Anion Gap 8, Blood Urea Nitrogen 19H, Creatinine 1.0, Estimat Glomerular Filtration Rate > 60, Glucose Level 101, Calcium Level 8.8 Height (Feet): 5 Height (Inches): 3.00 Weight (Pounds): 146 Objective General Appearance: no acute cardiopulmonary distress, laying bed comfortably, somnolent but arousable HEENT: NCAT, EOMI, MMM Neck: non-tender, supple Cardiovascular: normal rate, regular rhythm Respiratory/Chest: lungs clear Abdomen: normal bowel sounds, no guarding/rebound, no distension, no tenderness to palpation Extremities: normal range of motion Neurologic: no FND, AOx2 person and time, pt confused about room Skin: warm/dry Kellie Camara M.D. Dec 11, 2019 07:51
--- NOTE | 2019-12-11 08:54 | Diagnostic Imaging Report ---
EXAM: CT Head Without Intravenous Contrast CLINICAL HISTORY: AMS TECHNIQUE: Axial computed tomography images of the head/brain without intravenous contrast. CTDI is 53.4 mGy and DLP is 1018.8 mGy-cm. One or more of the following dose reduction techniques were used: automated exposure control, adjustment of the mA and/or kV according to patient size, use of iterative reconstruction technique. COMPARISON: No relevant prior studies available. FINDINGS: Brain: There is moderate low-density in the periventricular white matter consistent with chronic back vessel ischemic change. No acute infarcts identified. There are chronic lacunar infarcts in the basal ganglia bilaterally. No hemorrhage. Ventricles: Unremarkable. No ventriculomegaly. Bones/joints: Unremarkable. No acute fracture. Soft tissues: Unremarkable. Sinuses: Unremarkable as visualized. No acute sinusitis. Mastoid air cells: Unremarkable as visualized. No mastoid effusion. IMPRESSION: No acute findings in the head/brain.
[2019-12-11] MEDS: HydrALAZINE 10mg Tab ORAL SCH ×2 (09:26→20:52)
[2019-12-11] MEDS: Docusate 100mg cap ORAL SCH ×2 (09:26→16:50)
[2019-12-11] MEDS: Magnesium Oxide 400mg tab ORAL SCH ×3 (09:26→17:33)
[2019-12-11] MEDS: Docusate Sod/Senna tab ORAL SCH ×2 (09:27→17:33)
[2019-12-11] MEDS ORDERED: NaCl 3% 500ml 250 ML IV ONE (10:00)
--- NOTE | 2019-12-11 12:00 | NUR ---
PT Note PT elena completed, treatment initiated. Patient has muscle weakness and decreased postural stability. Patient requested to use the bathroom during gait training. Patient c/o feeling weak and noted patient to lose consciousness while sitting on the toilet. Nursing staff was called and patient was assisted to a with maxA x 2 persons. RN supervisor [employer] called for [facility]. Patient then had a return of consciousness while in the WC, then transferred to bed with modA x 1 person. BP while sitting UIC was 132/58, HR 81. Addendum: 12/11/19 at 1519 by SOUMYA PECK PT Amended: Links added.
--- NOTE | 2019-12-11 12:10 | NUR ---
NURSE NOTES: I called and left a message to MD Camara regarding patient had an episode of syncope; waiting for order.
--- NOTE | 2019-12-11 12:16 | NUR ---
NURSE NOTES: MD Camara called back ordered orthostatic blood pressure; and stat CBC and BMP;
--- NOTE | 2019-12-11 12:40 | Infectious Diseases Prog Note ---
Assessment/Plan Assessment/Plan Full consult dictated: A) 1) leukocytosis - ? source, ? enteritis, diarrhea 2) pmh noted 3) allergies - nkda P) 1) ceftriaxone and flagyl 2) check cultures, stool studies 4) thank you Subjective Allergies: Coded Allergies: No Known Allergies (Unverified , 12/04/19) Objective Last 24 Hour Vital Signs Date Time Temp Pulse Resp B/P (MAP) Pulse Ox O2 Delivery O2 Flow Rate FiO2 12/11/19 09:26 156/69 12/11/19 09:00 Room Air 12/11/19 08:00 97.7 82 18 156/69 (98) 98 12/11/19 04:00 97.9 89 18 144/72 (96) 99 12/11/19 00:00 97.3 80 18 132/54 (80) 99 12/10/19 21:23 Room Air 12/10/19 20:00 97.0 81 18 160/76 (104) 96 12/10/19 16:52 77 135/69 12/10/19 16:00 97.2 77 20 135/69 (91) 98 Height (Feet): 5 Height (Inches): 3.00 Weight (Pounds): 146 Laboratory Tests Test 12/11/19 05:30 12/11/19 11:52 White Blood Count 11.6 K/UL (4.8-10.8) H Red Blood Count 3.67 M/UL (4.20-5.40) L Hemoglobin 10.0 G/DL (12.0-16.0) L Hematocrit 31.2 % (37.0-47.0) L Mean Corpuscular Volume 85 FL (80-99) Mean Corpuscular Hemoglobin 27.2 PG (27.0-31.0) Mean Corpuscular Hemoglobin Concent 32.0 G/DL (32.0-36.0) Red Cell Distribution Width 12.0 % (11.6-14.8) Platelet Count 355 K/UL (150-450) Mean Platelet Volume 8.5 FL (6.5-10.1) Neutrophils (%) (Auto) 72.2 % (45.0-75.0) Lymphocytes (%) (Auto) 16.9 % (20.0-45.0) L Monocytes (%) (Auto) 9.6 % (1.0-10.0) Eosinophils (%) (Auto) 0.4 % (0.0-3.0) Basophils (%) (Auto) 0.9 % (0.0-2.0) Sodium Level 129 MMOL/L (136-145) L Potassium Level 3.2 MMOL/L (3.5-5.1) L Chloride Level 92 MMOL/L (98-107) L Carbon Dioxide Level 29 MMOL/L (21-32) Anion Gap 8 mmol/L (5-15) Blood Urea Nitrogen 19 mg/dL (7-18) H Creatinine 1.0 MG/DL (0.55-1.30) Estimat Glomerular Filtration Rate > 60 mL/min (>60) Glucose Level 101 MG/DL (74-106) Calcium Level 8.8 MG/DL (8.5-10.1) POC Whole Blood Glucose Pending Current Medications Medications (Trade) Dose Ordered Sig/Yasmine Route PRN Reason Start Time Stop Time Status Last Admin Dose Admin Acetaminophen (Tylenol) 650 mg Q4H PRN ORAL Mild Pain (Pain Scale 1-3) 12/10/19 13:16 01/09/20 13:15 Acetaminophen (Tylenol) 650 mg Q6H PRN ORAL For Headache 12/10/19 13:16 01/09/20 13:15 Al Hydroxide/Mg Hydroxide (Mylanta II) 30 ml Q6H PRN ORAL dyspepsia 12/10/19 13:17 01/09/20 13:16 Amlodipine Besylate (Norvasc) 10 mg QPM ORAL 12/10/19 16:30 01/06/20 16:29 12/10/19 16:52 Atorvastatin Calcium (Lipitor) 80 mg BEDTIME ORAL 12/10/19 21:00 03/04/20 20:59 Atropine Sulfate (Atropine) 0.5 mg Q3M PRN IV symptomatic bradycardia 12/10/19 13:15 03/04/20 15:44 Bisacodyl (Dulcolax) 10 mg DAILYPRN PRN RECTAL Constipation 12/10/19 13:17 03/09/20 13:16 Dextrose (Dextrose 50%) 25 ml Q30M PRN IV Hypoglycemia 12/10/19 13:15 03/03/20 15:44 Dextrose (Dextrose 50%) 50 ml Q30M PRN IV Hypoglycemia 12/10/19 13:15 03/03/20 15:44 Docusate Sodium (Colace) 100 mg THREE TIMES A DAY ORAL 12/10/19 18:00 01/07/20 08:59 12/11/19 09:26 Escitalopram Oxalate (Lexapro) 10 mg DAILY ORAL 12/11/19 09:00 01/07/20 16:14 12/11/19 09:27 Haloperidol Lactate (Haldol) 5 mg Q6H PRN IM Agitation 12/10/19 18:58 01/24/20 18:57 12/10/19 20:31 Hydralazine HCl (Apresoline) 10 mg Q12HR ORAL 12/10/19 21:00 03/09/20 20:59 12/11/19 09:26 Hydralazine HCl (Apresoline) 10 mg Q6H PRN ORAL For High Blood Pressure 12/10/19 13:18 03/09/20 13:17 Magnesium Oxide (Mag-Ox 400mg) 400 mg TID ORAL 12/10/19 18:00 01/04/20 12:59 12/11/19 09:26 Nitroglycerin (Ntg) 0.4 mg Q5M PRN SL Prn Chest Pain 12/10/19 13:15 01/03/20 15:44 Ondansetron HCl (Zofran) 4 mg Q6H PRN IVP Nausea & Vomiting 12/10/19 13:18 01/09/20 13:17 12/10/19 18:58 Polyethylene Glycol (Miralax) 17 gm DAILYPRN PRN ORAL Constipation 12/10/19 13:18 01/09/20 13:17 Risperidone (RisperDAL) 2 mg BEDTIME ORAL 12/11/19 21:00 01/25/20 20:59 Senna/Docusate Sodium (Kendra-Colace) 1 tab TWICE A DAY ORAL 12/10/19 18:00 01/09/20 17:59 12/11/19 09:27 Sodium Chloride 250 ml @ 30 mls/hr ONCE ONCE IV 12/11/19 10:00 12/11/19 18:19 12/11/19 09:32 Tramadol HCl (Ultram) 50 mg Q6H PRN ORAL Severe Pain (Pain Scale 7-10) 12/10/19 13:19 12/17/19 13:18 Ankit Penny MD Dec 11, 2019 12:40
[2019-12-11] MEDS ORDERED: cefTRIAXone 1 GM in D5W 50 ML IVPB SCH (13:00)
--- NOTE | 2019-12-11 13:01 | NUR ---
RD ASSESSMENT & RECOMMENDATIONS SEE CARE ACTIVITY FOR COMPLETE ASSESSMENT DAILY ESTIMATED NEEDS: Needs based on Cardiac, 57kg abw 25-30 kcals/kg 1717-9187 total kcals 1-1.2 g protein/kg 57-68 g total protein 25-30 mL/kg 1070-6868 total fluid mLs NUTRITION DIAGNOSIS: Altered nutrition related lab values R/T clinical condition, prediabetes? as evidenced by low Na (129), low K (3.2), A1C 6.0 CURRENT DIET:Clear Liquid -> Full Liquid PO DIET RECOMMENDATIONS: Diet per MD ADDITIONAL RECOMMENDATIONS: * Calibrated bedscale wt * Monitor lytes, replete as needed * Monitor BGs, need for carb controlled diet/ hypoglycemics: A1C 6.0 * Add Glucerna TID w/ meals w/ poor/variable intake * Monitor H/H- trending down, ob stool +
--- NOTE | 2019-12-11 13:15 | NUR ---
NURSE NOTES: Patient transferred from 401-2 to 210-1; report given to Haven Win RN; patient's belongings crossed match and signed by transferring and receiving nursed; patient was stable and no sign of syncope episode upon transfer; receiving nurse is aware that patient is risk for fall and had incident of syncope while with PT; plan of care endorsed to the receiving nurse;
[2019-12-11 13:18] LABS: CALCIUM 8.5 MG/DL (8.5-10.1); CREATININE 1.1 MG/DL (0.55-1.30); POTASSIUM 4.1 MMOL/L (3.5-5.1)
[2019-12-11 13:26] LABS: BASOPHILS % (AUTO) 0.8 % (0.0-2.0); EOSINOPHILS % (AUTO) 0.2 % (0.0-3.0); HEMATOCRIT 27.5 % (37.0-47.0); HEMOGLOBIN 8.8 G/DL (12.0-16.0); LYMPHOCYTES % (AUTO) 14.6 % (20.0-45.0); MEAN CORPUSCULAR VOLUME 85 FL (80-99); NEUTROPHILS % (AUTO) 76.4 % (45.0-75.0); PLATELET COUNT 324 K/UL (150-450); RED BLOOD COUNT 3.23 M/UL (4.20-5.40); RED CELL DISTRIBUTION WIDTH 12.1 % (11.6-14.8); WHITE BLOOD COUNT 11.8 K/UL (4.8-10.8)
[2019-12-11] MEDS ORDERED: Atropine Inj 1mg/10ml Syr IV PRN (13:30)
[2019-12-11] MEDS ORDERED: Nitroglycerin Subl 0.4mg tab SL PRN (13:35)
[2019-12-11] MEDS ORDERED: Mylanta II UD 30ml ORAL PRN (14:00)
[2019-12-11] MEDS ORDERED: traMADol 50mg tab ORAL PRN (14:00)
[2019-12-11] MEDS ORDERED: HydrALAZINE 10mg Tab ORAL PRN (14:00)
[2019-12-11] MEDS ORDERED: Haloperidol 5mg/ml Inj IM PRN (14:00)
[2019-12-11] MEDS ORDERED: metroNIDAZOLE 500mg tab ORAL SCH (14:00)
--- NOTE | 2019-12-11 14:42 | NUR ---
NURSE NOTES: pt in bed awake, oriented to name, follow command, agitated, no c/o pain, bed alarm ion, call lightm in reached, [id number] report from Rafaela SMITH, SR in the monitor.
[2019-12-11] MEDS: metroNIDAZOLE 500mg tab ORAL SCH ×2 (15:03→22:25)
[2019-12-11] MEDS: cefTRIAXone 1 GM in D5W 50 ML IVPB SCH (15:06)
--- NOTE | 2019-12-11 15:15 | NUR ---
CASE MANAGEMENT:REVIEW SI;ILEUS. ABD PAIN. ZA. CHEST PAIN. 98.0 98 18 156/69 98% ON RA WBC 11.8 H/H 8.8/27.5 NA 134 BUN 21 GB 128 IS;ROCEPHIN IV Q24 MAG-OX PO TID K-DUR PO ONCE INV NS BOLUS LEXAPRO PO QD TRANSFERRED FROM MED SURG TO TELE TELE STATUS DCP;FROM HOME
[2019-12-11 15:45] LABS: CALCIUM 8.9 MG/DL (8.5-10.1); CREATININE 1.1 MG/DL (0.55-1.30); POTASSIUM 4.4 MMOL/L (3.5-5.1)
[2019-12-11 15:57] LABS: APPEARANCE,URINE CLEAR; BILIRUBIN, URINE NEGATIVE (NEGATIVE); COLOR,URINE PALE YELLOW; GLUCOSE, URINE (UA) NEGATIVE (NEGATIVE); KETONES,URINE NEGATIVE (NEGATIVE); LEUKOCYTE ESTERASE ,URINE NEGATIVE (NEGATIVE); NITRITE,URINE NEGATIVE (NEGATIVE); PH,URINE 7 (4.5-8.0); PROTEIN,URINE NEGATIVE (NEGATIVE); UROBILINOGEN,URINE NORMAL MG/DL (0.0-1.0)
--- NOTE | 2019-12-11 16:27 | NUR ---
NURSE NOTES: orthostatic BP was done, unable to tolerated BP standing, reported to dr rome, informed her also of pt skin condition.
--- NOTE | 2019-12-11 17:22 | General Progress Note ---
Assessment/Plan Status: stable Assessment/Plan: Assessment/Plan Problem List: (1) Hypertension ICD Codes: I10 - Essential (primary) hypertension SNOMED: 72991895 (2) Hypokalemia ICD Codes: E87.6 - Hypokalemia SNOMED: 99297647 (3) Abdominal pain with Heme (+) stools ICD Codes: R10.9 - Unspecified abdominal pain SNOMED: 74260635 (4) Chest pain ICD Codes: R07.9 - Chest pain, unspecified SNOMED: 57275964 Assessment/Plan: stool ob positive but no active GIB stool studies to eval for enteritis fu H&H CT reviewed correct NA needs EGD and colonoscopy if consent is obtainable Subjective Allergies: Coded Allergies: No Known Allergies (Unverified , 12/04/19) Subjective Confused, incoherent no events overnight Objective Last 24 Hour Vital Signs Date Time Temp Pulse Resp B/P (MAP) Pulse Ox O2 Delivery O2 Flow Rate FiO2 12/11/19 16:00 97.7 70 20 147/62 (90) 98 12/11/19 15:37 Room Air 12/11/19 14:34 97.7 97 18 147/62 (90) 98 119/89 (99) 12/11/19 13:14 75 12/11/19 12:00 97.0 74 18 134/76 (95) 98 12/11/19 11:50 98.0 81 18 132/58 (82) 98 12/11/19 09:26 156/69 12/11/19 09:00 Room Air 12/11/19 08:00 97.7 82 18 156/69 (98) 98 12/11/19 04:00 97.9 89 18 144/72 (96) 99 12/11/19 00:00 97.3 80 18 132/54 (80) 99 12/10/19 21:23 Room Air 12/10/19 20:00 97.0 81 18 160/76 (104) 96 Intake and Output 12/10/19 12/11/19 19:00 07:00 Intake Total 210 ml Balance 210 ml IV Total 210 ml # Voids 2 1 # Bowel Movements 1 Laboratory Tests 12/11/19 05:30: White Blood Count 11.6H, Red Blood Count 3.67L, Hemoglobin 10.0L, Hematocrit 31.2L, Mean Corpuscular Volume 85, Mean Corpuscular Hemoglobin 27.2, Mean Corpuscular Hemoglobin Concent 32.0, Red Cell Distribution Width 12.0, Platelet Count 355, Mean Platelet Volume 8.5, Neutrophils (%) (Auto) 72.2, Lymphocytes (% ) (Auto) 16.9L, Monocytes (%) (Auto) 9.6, Eosinophils (%) (Auto) 0.4, Basophils (%) (Auto) 0.9, Sodium Level 129L, Potassium Level 3.2L, Chloride Level 92L, Carbon Dioxide Level 29, Anion Gap 8, Blood Urea Nitrogen 19H, Creatinine 1.0, Estimat Glomerular Filtration Rate > 60, Glucose Level 101, Calcium Level 8.8 12/11/19 11:52: POC Whole Blood Glucose [Pending] 12/11/19 12:40: White Blood Count 11.8H, Red Blood Count 3.23L, Hemoglobin 8.8L, Hematocrit 27.5L, Mean Corpuscular Volume 85, Mean Corpuscular Hemoglobin 27.4, Mean Corpuscular Hemoglobin Concent 32.1, Red Cell Distribution Width 12.1, Platelet Count 324, Mean Platelet Volume 7.9, Neutrophils (%) (Auto) 76.4H, Lymphocytes ( %) (Auto) 14.6L, Monocytes (%) (Auto) 8.0, Eosinophils (%) (Auto) 0.2, Basophils (%) (Auto) 0.8, Sodium Level 134L, Potassium Level 4.1, Chloride Level 98, Carbon Dioxide Level 27, Anion Gap 9, Blood Urea Nitrogen 21H, Creatinine 1.1, Estimat Glomerular Filtration Rate 59.0, Glucose Level 128H, Calcium Level 8.5 12/11/19 14:54: Urine Color Pale yellow, Urine Appearance Clear, Urine pH 7, Urine Specific [place] 1.005, Urine Protein Negative, Urine Glucose (UA) Negative, Urine Ketones Negative, Urine Blood 5+H, Urine Nitrite Negative, Urine Bilirubin Negative, Urine Urobilinogen Normal, Urine Leukocyte Esterase Negative, Urine RBC 5-10H, Urine WBC 0-2, Urine Squamous Epithelial Cells Few, Urine Bacteria Few, Urine Osmolality 299L, Urine Random Sodium 48 12/11/19 14:59: Sodium Level 133L, Potassium Level 4.4, Chloride Level 99, Carbon Dioxide Level 26, Anion Gap 8, Blood Urea Nitrogen 28H, Creatinine 1.1, Estimat Glomerular Filtration Rate 59.0, Glucose Level 110H, Calcium Level 8.9 Height (Feet): 5 Height (Inches): 3.00 Weight (Pounds): 146 Objective Elderly woman NCAT supple CTA RR Abd soft no edema confused Oswaldo Rivera MD Dec 11, 2019 17:22
[2019-12-11] MEDS ORDERED: Docusate 100mg cap ORAL SCH (18:00)
--- NOTE | 2019-12-11 19:12 | NUR ---
NURSE HAND-OFF REPORT: Important Events on Shift:transfer from [facility] due to syncopal episode nom further episode of syncope Patient Status:not in distress Diet: full liquid Pending Orders: Pending Results/Labs: Pending MD notification:none Latest Vital Signs: Temperature 97.7 , Pulse 70 , B/P 147 /62 , Respiratory Rate 20 , O2 SAT 98 , Room Air, O2 Flow Rate . Vital Sign Comment: nom changes EKG Rhythm: Sinus Rhythm Rhythm change?: N MD Notified?: N - MD Response: Latest Wallis Fall Score: 60 Fall Risk: High Risk Safety Measures: Call light Within Reach, Bed Alarm Zone 1, Side Rails Side Rails x2, Bed position Low and Locked. Fall Precautions: Yellow Socks Yellow Gown Door Sign Patient Fall Education Report given to Maricel SMITH.
--- NOTE | 2019-12-11 19:15 | NUR ---
NURSE NOTES: Received report from LUIS Orourke. Patient is awake alert and oriented x 3. On full liquid diet, instructed and amenable. outsole cutter machine is in place, shows sinus rhythm with no chest pain reported. On room air, sating 96% and no shortness of breath complaints at this time. IV site is on right hand G-24 saline lock that is patent and intact. On fall precaution. With bilateral soft wrist restraints on, assessment will be done every 2 hours. Safety measures are in place, bed in lowest and locked position, side rails up x 2. Call light button and bedside table within reach, bed alarm is on. Instructed to call for any assistance needed. Will continue plan of care.
[2019-12-11] MEDS: Atorvastatin 80mg tab ORAL SCH (20:52)
[2019-12-12] VITALS: BP 116/54
[2019-12-12 04:00] VITALS: BP 119/61
[2019-12-12] MEDS: metroNIDAZOLE 500mg tab ORAL SCH ×3 (06:29→21:34)
--- NOTE | 2019-12-12 07:44 | General Progress Note ---
Assessment/Plan Status: stable Assessment/Plan: 74 F with unclear PMhx admitted for abdominal pain and chest pain. #Acute Metabolic Encephalopathy - multifactorial #?Acute on Chronic Dementia #UTI - GNR #Hyponatremia -Na 131 -->130 --> 127 --> 129 -likely 2/2 dehydration, HCTZ use -confusion may be multifactorial, acute on chronic dementia, hyponatremia, UTI -d/c HCTZ -Nephro consulted, recs appreciated -s/p 500 cc +250 cc 3% saline initiated by Nephro with slight improvement in Na -12/10: CT head negative for acute process -UCx w/GNR, f/u sensitivities -ID consulted, recs appreciated, started on CTX and flagyl #Ileus #Abdominal Pain - resolved #Constipation - improved #Dark Stools Pain possibly from constipation, less likely diverticulitis or gastroenteritis. No CVA tenderness - UA and Lipase wnl - CT Abdomen - ileus vs. colitis - GI Cocktail, Zofran prn - 12/07 abd XR w/ileus, small bowel obstruction less likely - s/p Mg citrate x1 - docusate TID, dulcolax suppository PRN - occult stool positive - c diff negative - clear liquid diet - pain control - Hgb stable however down trending - GI, Dr. Osborn, following, recs appreciated: possible EGD and colonoscopy Friday if pt able to consent #Orthostatic Hypotension #Syncope -cont Florinef 0.1 mg daily -fall precautions #ZA - improved -Cr elevated to 1.7, now resolved -avoid nephrotoxins -renally dose meds -Nephro following, recs appreciated #Chest pain - ACS ruled out, resolved #Chronic HFpEF Initial presentation with non-radiating chest pain that resolved with SL Nitro and Aspirin. EKG with non-specific ST changes in V1-V2. Moderate Heart Score - EKG prn for active chest pain, Trop x3 negative, BNP slightly elevated, HBA1c wnl - Echo EF 70-75%, mild left hypertrophy, mitral and aortic root calcification - Cardiology consulted, recs appreciated - s/p NM stress test negative, pt OK to d/c home from cardio stand point #Hypertensive Urgency - improved #Hypertension - uncontrolled - Cont Norvasc 10 mg PO daily - cont hydralazine 10 mg PO BID - d/c Hctz due to ZA and hyponatremia - hydralazine PRN for SBP >160 #Hypokalemia - resolved - replaced - ctm, replace PRN #Psychosis #Depression #Dementia -per nurse pt was seeing "snakes" in the room -Psych consulted, recs appreciated -Risperdone increased from 1 mg to 2 mg qHS -cont lexapro 10 mg PO qAM FEN Clear Liquid diet Hold AC per cards and positive occult Dispo - Home when medically cleared Code - FULL CODE Time spent with patient 35 mins, approximately 29 minutes spent coordinating care with nurses and consultants. D/w RN, Dr. Tillman, Dr. Vail, GI and Dr. Penny. Time of note may not reflect time of encounter. Subjective Allergies: Coded Allergies: No Known Allergies (Unverified , 12/04/19) Subjective Pt with episode of syncope yesterday, orthostatics positive and pt started on Florinef. UCx positive for GNR, pt started on abx per ID. Mentation unchanged. Pt otherwise denies any abd pain today, other ROS negative at this time. No AM labs back yet. Objective Last 24 Hour Vital Signs Date Time Temp Pulse Resp B/P (MAP) Pulse Ox O2 Delivery O2 Flow Rate FiO2 12/12/19 04:00 95 12/12/19 04:00 98.4 91 20 119/61 (80) 95 12/12/19 00:00 99.0 98 20 116/54 (74) 97 12/12/19 00:00 85 12/11/19 21:00 Room Air 12/11/19 21:00 86 89 92 12/11/19 20:52 145/69 12/11/19 20:00 77 12/11/19 20:00 97.5 78 19 134/69 (90) 98 12/11/19 17:33 70 147/62 12/11/19 16:00 97.7 70 20 147/62 (90) 98 12/11/19 15:37 Room Air 12/11/19 14:34 97.7 97 18 147/62 (90) 98 119/89 (99) 12/11/19 13:14 75 12/11/19 12:00 97.0 74 18 134/76 (95) 98 12/11/19 11:50 98.0 81 18 132/58 (82) 98 12/11/19 09:26 156/69 12/11/19 09:00 Room Air 12/11/19 08:00 97.7 82 18 156/69 (98) 98 Intake and Output 12/11/19 12/12/19 19:00 07:00 Intake Total 710 ml 800 ml Balance 710 ml 800 ml Intake Oral 600 ml 800 ml IV Total 110 ml # Voids 3 # Bowel Movements 1 Laboratory Tests 12/11/19 11:52: POC Whole Blood Glucose [Pending] 12/11/19 12:40: White Blood Count 11.8H, Red Blood Count 3.23L, Hemoglobin 8.8L, Hematocrit 27.5L, Mean Corpuscular Volume 85, Mean Corpuscular Hemoglobin 27.4, Mean Corpuscular Hemoglobin Concent 32.1, Red Cell Distribution Width 12.1, Platelet Count 324, Mean Platelet Volume 7.9, Neutrophils (%) (Auto) 76.4H, Lymphocytes ( %) (Auto) 14.6L, Monocytes (%) (Auto) 8.0, Eosinophils (%) (Auto) 0.2, Basophils (%) (Auto) 0.8, Sodium Level 134L, Potassium Level 4.1, Chloride Level 98, Carbon Dioxide Level 27, Anion Gap 9, Blood Urea Nitrogen 21H, Creatinine 1.1, Estimat Glomerular Filtration Rate 59.0, Glucose Level 128H, Calcium Level 8.5 12/11/19 14:54: Urine Color Pale yellow, Urine Appearance Clear, Urine pH 7, Urine Specific [place] 1.005, Urine Protein Negative, Urine Glucose (UA) Negative, Urine Ketones Negative, Urine Blood 5+H, Urine Nitrite Negative, Urine Bilirubin Negative, Urine Urobilinogen Normal, Urine Leukocyte Esterase Negative, Urine RBC 5-10H, Urine WBC 0-2, Urine Squamous Epithelial Cells Few, Urine Bacteria Few, Urine Osmolality 299L, Urine Random Sodium 48 12/11/19 14:59: Sodium Level 133L, Potassium Level 4.4, Chloride Level 99, Carbon Dioxide Level 26, Anion Gap 8, Blood Urea Nitrogen 28H, Creatinine 1.1, Estimat Glomerular Filtration Rate 59.0, Glucose Level 110H, Calcium Level 8.9 Height (Feet): 5 Height (Inches): 3.00 Weight (Pounds): 146 Objective General Appearance: no acute cardiopulmonary distress, laying bed comfortably, sleeping comfortably, arousable HEENT: NCAT, EOMI, MMM Neck: non-tender, supple Cardiovascular: normal rate, regular rhythm Respiratory/Chest: lungs clear, no accessory muscle usage Abdomen: normal bowel sounds, no guarding/rebound, no distension, no tenderness to palpation Extremities: normal range of motion Neurologic: no FND, AOx2 person and time, pt confused about place Skin: warm/dry Kellie Camara M.D. Dec 12, 2019 07:44
[2019-12-12 08:00] VITALS: BP 118/52
--- NOTE | 2019-12-12 08:15 | NUR ---
NURSE NOTES: Received report from LUIS Connelly. Patient sleeping on left side, respirations at 16 breaths per minute, on room air, bed in lowest position, side rails up x 3, call light within reach, wheels locked, in no apparent distress.
--- NOTE | 2019-12-12 09:21 | Diagnostic Imaging Report ---
EXAM: XR Chest, 1 View CLINICAL HISTORY: INFECT TECHNIQUE: Frontal view of the chest. COMPARISON: CXR of 12/04/[address] abdomen and pelvis of 12/04/19. FINDINGS: Lungs: Unremarkable. No consolidation. Pleural space: Unremarkable. No pneumothorax. Heart: Borderline cardiomegaly, potentially exaggerated by portable technique. Mediastinum: Calcified aortic knob. Bones/joints: Degenerative changes. IMPRESSION: No evidence of acute pulmonary disease
[2019-12-12] MEDS: Docusate Sod/Senna tab ORAL SCH ×2 (09:24→18:48)
[2019-12-12] MEDS: HydrALAZINE 10mg Tab ORAL SCH ×2 (09:25→21:35)
[2019-12-12] MEDS: Magnesium Oxide 400mg tab ORAL SCH ×3 (09:27→18:48)
[2019-12-12] MEDS ORDERED: NaCl 3% 500ml 250 ML IV ONE (10:00)
[2019-12-12 10:16] LABS: BASOPHILS % (AUTO) 2.8 % (0.0-2.0); EOSINOPHILS % (AUTO) 0.1 % (0.0-3.0); HEMOGLOBIN 8.6 G/DL (12.0-16.0); LYMPHOCYTES % (AUTO) 18.9 % (20.0-45.0); MEAN CORPUSCULAR VOLUME 86 FL (80-99); NEUTROPHILS % (AUTO) 67.3 % (45.0-75.0); PLATELET COUNT 294 K/UL (150-450); RED BLOOD COUNT 3.13 M/UL (4.20-5.40); RED CELL DISTRIBUTION WIDTH 12.4 % (11.6-14.8); WHITE BLOOD COUNT 14.6 K/UL (4.8-10.8)
[2019-12-12 10:39] LABS: ALBUMIN 2.7 G/DL (3.4-5.0); ALBUMIN/GLOBULIN RATIO 0.7 (1.0-2.7); BILIRUBIN,TOTAL 0.3 MG/DL (0.2-1.0); CALCIUM 8.1 MG/DL (8.5-10.1); CREATININE 1.3 MG/DL (0.55-1.30); POTASSIUM 4.3 MMOL/L (3.5-5.1)
--- NOTE | 2019-12-12 10:43 | NUR ---
CASE MANAGEMENT:REVIEW SI;ILEUS. ABD PAIN. ZA. CHEST PAIN. 99.0 95 20 145/69 95% ON RA WBC 14.6 H/H 8.6/27.0 BUN 27 CA 8.1 ALB 2.7 IS;ROCEPHIN IV Q24 MAG-OX PO TID K-DUR PO ONCE INV NS BOLUS LEXAPRO PO QD HYDRALAZINE PO Q12 RISPERDAL PO QD FLORINEF PO QD NORVASC PO QPM FLAGYL PO Q8 TELE STATUS DCP;FROM HOME
--- NOTE | 2019-12-12 11:41 | Nephrology Progress Note ---
Assessment/Plan Plan #Darcie - due to pre-renal azotemia # hyponatremia - likely hypovolumic- thiazide induce #anemia # chest pain - r/o ACS - DC IVF - on CLD - will start NS if oral intake remains poor - DCed thiazide - amlodopine 10mg daily - monitor lytes - avoid nephrotoxins Subjective ROS Limited/Unobtainable: Yes Subjective Cr improved sodium normalized remains lethargic Objective Objective Last 24 Hour Vital Signs Date Time Temp Pulse Resp B/P (MAP) Pulse Ox O2 Delivery O2 Flow Rate FiO2 12/12/19 09:25 118/52 12/12/19 08:00 97.7 82 20 118/52 (74) 97 12/12/19 08:00 83 12/12/19 04:00 95 12/12/19 04:00 98.4 91 20 119/61 (80) 95 12/12/19 00:00 99.0 98 20 116/54 (74) 97 12/12/19 00:00 85 12/11/19 21:00 Room Air 12/11/19 21:00 86 89 92 12/11/19 20:52 145/69 12/11/19 20:00 77 12/11/19 20:00 97.5 78 19 134/69 (90) 98 12/11/19 17:33 70 147/62 12/11/19 16:00 97.7 70 20 147/62 (90) 98 12/11/19 15:37 Room Air 12/11/19 14:34 97.7 97 18 147/62 (90) 98 119/89 (99) 12/11/19 13:14 75 12/11/19 12:00 97.0 74 18 134/76 (95) 98 12/11/19 11:50 98.0 81 18 132/58 (82) 98 Intake and Output 12/11/19 12/12/19 19:00 07:00 Intake Total 710 ml 800 ml Balance 710 ml 800 ml Intake Oral 600 ml 800 ml IV Total 110 ml # Voids 3 # Bowel Movements 1 Laboratory Tests 12/11/19 11:52: POC Whole Blood Glucose [Pending] 12/11/19 12:40: White Blood Count 11.8H, Red Blood Count 3.23L, Hemoglobin 8.8L, Hematocrit 27.5L, Mean Corpuscular Volume 85, Mean Corpuscular Hemoglobin 27.4, Mean Corpuscular Hemoglobin Concent 32.1, Red Cell Distribution Width 12.1, Platelet Count 324, Mean Platelet Volume 7.9, Neutrophils (%) (Auto) 76.4H, Lymphocytes ( %) (Auto) 14.6L, Monocytes (%) (Auto) 8.0, Eosinophils (%) (Auto) 0.2, Basophils (%) (Auto) 0.8, Sodium Level 134L, Potassium Level 4.1, Chloride Level 98, Carbon Dioxide Level 27, Anion Gap 9, Blood Urea Nitrogen 21H, Creatinine 1.1, Estimat Glomerular Filtration Rate 59.0, Glucose Level 128H, Calcium Level 8.5 12/11/19 14:54: Urine Color Pale yellow, Urine Appearance Clear, Urine pH 7, Urine Specific [place] 1.005, Urine Protein Negative, Urine Glucose (UA) Negative, Urine Ketones Negative, Urine Blood 5+H, Urine Nitrite Negative, Urine Bilirubin Negative, Urine Urobilinogen Normal, Urine Leukocyte Esterase Negative, Urine RBC 5-10H, Urine WBC 0-2, Urine Squamous Epithelial Cells Few, Urine Bacteria Few, Urine Osmolality 299L, Urine Random Sodium 48 12/11/19 14:59: Sodium Level 133L, Potassium Level 4.4, Chloride Level 99, Carbon Dioxide Level 26, Anion Gap 8, Blood Urea Nitrogen 28H, Creatinine 1.1, Estimat Glomerular Filtration Rate 59.0, Glucose Level 110H, Calcium Level 8.9 12/12/19 09:25: White Blood Count 14.6H, Red Blood Count 3.13L, Hemoglobin 8.6L, Hematocrit 27.0L, Mean Corpuscular Volume 86, Mean Corpuscular Hemoglobin 27.3, Mean Corpuscular Hemoglobin Concent 31.7L, Red Cell Distribution Width 12.4, Platelet Count 294, Mean Platelet Volume 7.0, Neutrophils (%) (Auto) 67.3, Lymphocytes (%) (Auto) 18.9L, Monocytes (%) (Auto) 11.0H, Eosinophils (%) (Auto ) 0.1, Basophils (%) (Auto) 2.8H, Sodium Level 138, Potassium Level 4.3, Chloride Level 103, Carbon Dioxide Level 26, Anion Gap 9, Blood Urea Nitrogen 27H, Creatinine 1.3, Estimat Glomerular Filtration Rate 48.6, Glucose Level 107H , Calcium Level 8.1L, Total Bilirubin 0.3, Aspartate Amino Transf (AST/SGOT) 17 , Alanine Aminotransferase (ALT/SGPT) 13, Alkaline Phosphatase 66, Total Protein 6.8, Albumin 2.7L, Globulin 4.1, Albumin/Globulin Ratio 0.7L Height (Feet): 5 Height (Inches): 3.00 Weight (Pounds): 146 Mir Vail M.D. Dec 12, 2019 11:41
[2019-12-12 12:00] VITALS: BP 118/52
[2019-12-12] MEDS ORDERED: Miralax 17gm pkt ORAL PRN (13:30)
[2019-12-12] MEDS: cefTRIAXone 1 GM in D5W 50 ML IVPB SCH (15:41)
[2019-12-12 16:00] VITALS: BP 106/54
--- NOTE | 2019-12-12 16:02 | Infectious Diseases Prog Note ---
Assessment/Plan Assessment/Plan Full consult dictated: A) 1) sepsis, ? gram neg uti, ? enteritis, diarrhea, leukocytosis, fevers 2) pmh noted 3) allergies - nkda P) 1) ceftriaxone and flagyl 2) check cultures, stool studies, monitor labs 4) will f/u Subjective Allergies: Coded Allergies: No Known Allergies (Unverified , 12/04/19) Objective Last 24 Hour Vital Signs Date Time Temp Pulse Resp B/P (MAP) Pulse Ox O2 Delivery O2 Flow Rate FiO2 12/12/19 09:25 118/52 12/12/19 08:00 97.7 82 20 118/52 (74) 97 12/12/19 08:00 83 12/12/19 04:00 95 12/12/19 04:00 98.4 91 20 119/61 (80) 95 12/12/19 00:00 99.0 98 20 116/54 (74) 97 12/12/19 00:00 85 12/11/19 21:00 Room Air 12/11/19 21:00 86 89 92 12/11/19 20:52 145/69 12/11/19 20:00 77 12/11/19 20:00 97.5 78 19 134/69 (90) 98 12/11/19 17:33 70 147/62 Height (Feet): 5 Height (Inches): 3.00 Weight (Pounds): 146 Microbiology Date/Time Source Procedure Growth Status 12/11/19 20:35 Stool Clostridium difficile Toxin Assay - Final Complete 12/11/19 14:54 Urine,Clean Catch Urine Culture - Preliminary Gram Negative Lonny Resulted Laboratory Tests Test 12/12/19 09:25 White Blood Count 14.6 K/UL (4.8-10.8) H Red Blood Count 3.13 M/UL (4.20-5.40) L Hemoglobin 8.6 G/DL (12.0-16.0) L Hematocrit 27.0 % (37.0-47.0) L Mean Corpuscular Volume 86 FL (80-99) Mean Corpuscular Hemoglobin 27.3 PG (27.0-31.0) Mean Corpuscular Hemoglobin Concent 31.7 G/DL (32.0-36.0) L Red Cell Distribution Width 12.4 % (11.6-14.8) Platelet Count 294 K/UL (150-450) Mean Platelet Volume 7.0 FL (6.5-10.1) Neutrophils (%) (Auto) 67.3 % (45.0-75.0) Lymphocytes (%) (Auto) 18.9 % (20.0-45.0) L Monocytes (%) (Auto) 11.0 % (1.0-10.0) H Eosinophils (%) (Auto) 0.1 % (0.0-3.0) Basophils (%) (Auto) 2.8 % (0.0-2.0) H Sodium Level 138 MMOL/L (136-145) Potassium Level 4.3 MMOL/L (3.5-5.1) Chloride Level 103 MMOL/L (98-107) Carbon Dioxide Level 26 MMOL/L (21-32) Anion Gap 9 mmol/L (5-15) Blood Urea Nitrogen 27 mg/dL (7-18) H Creatinine 1.3 MG/DL (0.55-1.30) Estimat Glomerular Filtration Rate 48.6 mL/min (>60) Glucose Level 107 MG/DL (74-106) H Calcium Level 8.1 MG/DL (8.5-10.1) L Total Bilirubin 0.3 MG/DL (0.2-1.0) Aspartate Amino Transf (AST/SGOT) 17 U/L (15-37) Alanine Aminotransferase (ALT/SGPT) 13 U/L (12-78) Alkaline Phosphatase 66 U/L (46-116) Total Protein 6.8 G/DL (6.4-8.2) Albumin 2.7 G/DL (3.4-5.0) L Globulin 4.1 g/dL Albumin/Globulin Ratio 0.7 (1.0-2.7) L Current Medications Medications (Trade) Dose Ordered Sig/Yasmine Route PRN Reason Start Time Stop Time Status Last Admin Dose Admin Acetaminophen (Tylenol) 650 mg Q4H PRN ORAL Mild Pain (Pain Scale 1-3) 12/11/19 14:00 01/09/20 13:59 Acetaminophen (Tylenol) 650 mg Q6H PRN ORAL For Headache 12/11/19 14:00 01/09/20 13:59 Al Hydroxide/Mg Hydroxide (Mylanta II) 30 ml Q6H PRN ORAL dyspepsia 12/11/19 14:00 01/09/20 13:59 Amlodipine Besylate (Norvasc) 10 mg QPM ORAL 12/11/19 16:30 01/06/20 16:29 12/11/19 17:33 Atorvastatin Calcium (Lipitor) 80 mg BEDTIME ORAL 12/11/19 21:00 03/04/20 20:59 12/11/19 20:52 Atropine Sulfate (Atropine) 0.5 mg Q3M PRN IV symptomatic bradycardia 12/11/19 13:30 03/04/20 15:44 Bisacodyl (Dulcolax) 10 mg DAILYPRN PRN RECTAL Constipation 12/11/19 14:00 03/10/20 13:59 Ceftriaxone Sodium 1 gm/ Dextrose 50 ml @ 100 mls/hr Q24H IVPB 12/11/19 14:30 12/18/19 14:29 12/12/19 15:41 Dextrose (Dextrose 50%) 25 ml Q30M PRN IV Hypoglycemia 12/11/19 14:00 03/03/20 13:59 Dextrose (Dextrose 50%) 50 ml Q30M PRN IV Hypoglycemia 12/11/19 13:45 03/03/20 15:44 Escitalopram Oxalate (Lexapro) 10 mg DAILY ORAL 12/12/19 09:00 01/07/20 16:14 12/12/19 09:25 Fludrocortisone Acetate (Florinef) 0.1 mg DAILY ORAL 12/11/19 16:45 01/10/20 16:44 12/12/19 09:25 Haloperidol Lactate (Haldol) 5 mg Q6H PRN IM Agitation 12/11/19 14:00 01/24/20 13:59 Hydralazine HCl (Apresoline) 10 mg Q12HR ORAL 12/11/19 21:00 03/09/20 20:59 12/12/19 09:25 Hydralazine HCl (Apresoline) 10 mg Q6H PRN ORAL For High Blood Pressure 12/11/19 14:00 03/09/20 13:59 Magnesium Oxide (Mag-Ox 400mg) 400 mg TID ORAL 12/11/19 18:00 01/04/20 12:59 12/12/19 15:43 Metronidazole (Flagyl) 500 mg EVERY 8 HOURS ORAL 12/11/19 14:00 12/18/19 13:59 12/12/19 15:43 Nitroglycerin (Ntg) 0.4 mg Q5M PRN SL Prn Chest Pain 12/11/19 13:35 01/03/20 15:44 Ondansetron HCl (Zofran) 4 mg Q6H PRN IVP Nausea & Vomiting 12/11/19 14:00 01/09/20 13:59 12/12/19 15:32 Polyethylene Glycol (Miralax) 17 gm DAILYPRN PRN ORAL Constipation 12/12/19 13:30 01/09/20 13:17 Risperidone (RisperDAL) 2 mg BEDTIME ORAL 12/11/19 21:00 01/25/20 20:59 12/11/19 20:53 Senna/Docusate Sodium (Kendra-Colace) 1 tab TWICE A DAY ORAL 12/11/19 18:00 01/09/20 17:59 12/12/19 09:24 Tramadol HCl (Ultram) 50 mg Q6H PRN ORAL Severe Pain (Pain Scale 7-10) 12/11/19 14:00 12/17/19 13:59 Ankit Penny MD Dec 12, 2019 16:02
--- NOTE | 2019-12-12 16:12 | NUR ---
PT Note Patient was transferred to the telemetry unit after PT eval/tx yesterday. No new orders noted; will need new PT orders to continue physical therapy.
[2019-12-12] MEDS ORDERED: Golytely 4L ORAL SCH (17:30)
[2019-12-12] MEDS: Potassium Chloride 10 MEQ in D5 1/2NS 1,000 ML IV SCH (18:49)
--- NOTE | 2019-12-12 19:30 | NUR ---
NURSE HAND-OFF REPORT: Important Events on Shift:order for colonoscopy and endoscopy. Goljeanely started, need to finish by [facility]., consent to be signed by sheree Byrd. Patient Status: Stable. Diet: NPO x meds. Pending Orders: N/A Pending Results/Labs:am labs. Pending MD notification:n/a Latest Vital Signs: Temperature 99.3 , Pulse 92 , B/P 106 /54 , Respiratory Rate 22 , O2 SAT 94 , Room Air, O2 Flow Rate . Vital Sign Comment: stable EKG Rhythm: Sinus Rhythm Rhythm change?: N MD Notified?: N - MD Response: Latest [place] Fall Score: 60 Fall Risk: High Risk Safety Measures: Call light Within Reach, Bed Alarm Zone 1, Side Rails Side Rails x2, Bed position Low and Locked. Fall Precautions: Yellow Socks Yellow Gown Door Sign Patient Fall Education Report given to Telly Whitaker RN.
--- NOTE | 2019-12-12 19:39 | NUR ---
NURSE NOTES: Received report from LUIS Madrid. Patient is awake on bed, alert and oriented x 2-3, forgetful but follows command. flight teacher is in place, shows sinus rhythm and denies chest pain at this time. On room air, sating 98% with no shortness of breath reported. IV site is on right hand g-24 saline lock that is patent and intact. Safety measures are in place, bed in lowest and locked position side rails-up x 2. Call light button and bedside table within reach, instructed to call for any assistance needed. Will continue plan of care.
[2019-12-12 20:00] VITALS: BP 126/55
--- NOTE | 2019-12-12 20:30 | NUR ---
NURSE NOTES: Patient is for Colonoscopy and endoscopy with possible biopsy, polypectomy, hemostasis, and submucosal injection tomorrow 12/12, consent signed by patient's cousin (Yaquelin Glen), filled in patient's chart.
[2019-12-12] MEDS: Atorvastatin 80mg tab ORAL SCH (21:34)
--- NOTE | 2019-12-12 21:45 | NUR ---
NURSE NOTES: Ongoing bowel preparation of Magalie chance. Patient has black watery stool since this morning. Will continue to monitor. Dr. Rivera is aware of it, CBC, ABO/RH screen stat tonight. Will follow up.
--- NOTE | 2019-12-12 21:50 | General Progress Note ---
Assessment/Plan Status: stable Assessment/Plan: Assessment/Plan Problem List: (1) Hypertension ICD Codes: I10 - Essential (primary) hypertension SNOMED: 06059770 (2) Hypokalemia ICD Codes: E87.6 - Hypokalemia SNOMED: 57465037 (3) Abdominal pain with Heme (+) stools --> now black stools ICD Codes: R10.9 - Unspecified abdominal pain SNOMED: 24785971 (4) Chest pain ICD Codes: R07.9 - Chest pain, unspecified SNOMED: 21110098 Assessment/Plan: stool ob positive--> now with black stools f/u H&H Na Corrected EGD and colonoscopy in am Subjective Allergies: Coded Allergies: No Known Allergies (Unverified , 12/04/19) Subjective No events last night but I was called by RN today re Black liquid stools d/w family - they agreed to EGD and colonoscopy Objective Last 24 Hour Vital Signs Date Time Temp Pulse Resp B/P (MAP) Pulse Ox O2 Delivery O2 Flow Rate FiO2 12/12/19 21:35 126/55 12/12/19 18:49 92 106/54 12/12/19 16:00 92 12/12/19 16:00 99.3 99 22 106/54 (71) 94 12/12/19 12:00 79 12/12/19 12:00 79.0 82 20 118/52 (74) 97 12/12/19 09:25 118/52 12/12/19 09:00 Room Air 12/12/19 09:00 82 88 95 12/12/19 08:00 97.7 82 20 118/52 (74) 97 12/12/19 08:00 79 12/12/19 04:00 95 12/12/19 04:00 98.4 91 20 119/61 (80) 95 12/12/19 00:00 99.0 98 20 116/54 (74) 97 12/12/19 00:00 85 Intake and Output 12/11/19 12/12/19 19:00 07:00 Intake Total 710 ml 800 ml Balance 710 ml 800 ml Intake Oral 600 ml 800 ml IV Total 110 ml # Voids 3 # Bowel Movements 1 Laboratory Tests 12/12/19 09:25: White Blood Count 14.6H, Red Blood Count 3.13L, Hemoglobin 8.6L, Hematocrit 27.0L, Mean Corpuscular Volume 86, Mean Corpuscular Hemoglobin 27.3, Mean Corpuscular Hemoglobin Concent 31.7L, Red Cell Distribution Width 12.4, Platelet Count 294, Mean Platelet Volume 7.0, Neutrophils (%) (Auto) 67.3, Lymphocytes (%) (Auto) 18.9L, Monocytes (%) (Auto) 11.0H, Eosinophils (%) (Auto ) 0.1, Basophils (%) (Auto) 2.8H, Sodium Level 138, Potassium Level 4.3, Chloride Level 103, Carbon Dioxide Level 26, Anion Gap 9, Blood Urea Nitrogen 27H, Creatinine 1.3, Estimat Glomerular Filtration Rate 48.6, Glucose Level 107H , Calcium Level 8.1L, Total Bilirubin 0.3, Aspartate Amino Transf (AST/SGOT) 17 , Alanine Aminotransferase (ALT/SGPT) 13, Alkaline Phosphatase 66, Total Protein 6.8, Albumin 2.7L, Globulin 4.1, Albumin/Globulin Ratio 0.7L Height (Feet): 5 Height (Inches): 3.00 Weight (Pounds): 146 Objective Elderly woman NCAT supple CTA RR Abd soft no edema confused Oswaldo Rivera MD Dec 12, 2019 21:50
[2019-12-12 22:48] LABS: HEMATOCRIT 26.4 % (37.0-47.0); HEMOGLOBIN 8.2 G/DL (12.0-16.0); MEAN CORPUSCULAR VOLUME 89 FL (80-99); PLATELET COUNT 349 K/UL (150-450); RED BLOOD COUNT 2.96 M/UL (4.20-5.40); RED CELL DISTRIBUTION WIDTH 13.6 % (11.6-14.8); WHITE BLOOD COUNT 18.7 K/UL (4.8-10.8)
[2019-12-12 22:51] LABS: BASOPHILS % (AUTO) 1.8 % (0.0-2.0); EOSINOPHILS % (AUTO) 0.3 % (0.0-3.0); LYMPHOCYTES % (AUTO) 12.8 % (20.0-45.0); MONOCYTES % (AUTO) 10.4 % (1.0-10.0); NEUTROPHILS % (AUTO) 74.7 % (45.0-75.0)
--- NOTE | 2019-12-12 23:18 | Psych Consult Progress Note ---
Psychiatry Progress Note Psychiatry Progress Note Subjective more agitated at night Medications Current Medications Medications (Trade) Dose Ordered Sig/Yasmine Route PRN Reason Start Time Stop Time Status Last Admin Dose Admin Acetaminophen (Tylenol) 650 mg Q4H PRN ORAL Mild Pain (Pain Scale 1-3) 12/11/19 14:00 01/09/20 13:59 Acetaminophen (Tylenol) 650 mg Q6H PRN ORAL For Headache 12/11/19 14:00 01/09/20 13:59 12/12/19 21:36 Al Hydroxide/Mg Hydroxide (Mylanta II) 30 ml Q6H PRN ORAL dyspepsia 12/11/19 14:00 01/09/20 13:59 Amlodipine Besylate (Norvasc) 10 mg QPM ORAL 12/11/19 16:30 01/06/20 16:29 12/12/19 18:49 Atorvastatin Calcium (Lipitor) 80 mg BEDTIME ORAL 12/11/19 21:00 03/04/20 20:59 12/12/19 21:34 Atropine Sulfate (Atropine) 0.5 mg Q3M PRN IV symptomatic bradycardia 12/11/19 13:30 03/04/20 15:44 Bisacodyl (Dulcolax) 10 mg DAILYPRN PRN RECTAL Constipation 12/11/19 14:00 03/10/20 13:59 Ceftriaxone Sodium 1 gm/ Dextrose 50 ml @ 100 mls/hr Q24H IVPB 12/11/19 14:30 12/18/19 14:29 12/12/19 15:41 Dextrose (Dextrose 50%) 25 ml Q30M PRN IV Hypoglycemia 12/11/19 14:00 03/03/20 13:59 Dextrose (Dextrose 50%) 50 ml Q30M PRN IV Hypoglycemia 12/11/19 13:45 03/03/20 15:44 Escitalopram Oxalate (Lexapro) 10 mg DAILY ORAL 12/12/19 09:00 01/07/20 16:14 12/12/19 09:25 Fludrocortisone Acetate (Florinef) 0.1 mg DAILY ORAL 12/11/19 16:45 01/10/20 16:44 12/12/19 09:25 Haloperidol Lactate (Haldol) 5 mg Q6H PRN IM Agitation 12/11/19 14:00 01/24/20 13:59 Hydralazine HCl (Apresoline) 10 mg Q12HR ORAL 12/11/19 21:00 03/09/20 20:59 12/12/19 21:35 Hydralazine HCl (Apresoline) 10 mg Q6H PRN ORAL For High Blood Pressure 12/11/19 14:00 03/09/20 13:59 Magnesium Oxide (Mag-Ox 400mg) 400 mg TID ORAL 12/11/19 18:00 01/04/20 12:59 12/12/19 18:48 Metronidazole (Flagyl) 500 mg EVERY 8 HOURS ORAL 12/11/19 14:00 12/18/19 13:59 12/12/19 21:34 Nitroglycerin (Ntg) 0.4 mg Q5M PRN SL Prn Chest Pain 12/11/19 13:35 01/03/20 15:44 Ondansetron HCl (Zofran) 4 mg Q6H PRN IVP Nausea & Vomiting 12/11/19 14:00 01/09/20 13:59 12/12/19 15:32 Polyethylene Glycol (Miralax) 17 gm DAILYPRN PRN ORAL Constipation 12/12/19 13:30 01/09/20 13:17 Potassium Chloride 10 meq/ Dextrose/Sodium Chloride 1,005 ml @ 75 mls/hr [id number] IV 12/12/19 17:30 01/11/20 17:29 12/12/19 18:49 Risperidone (RisperDAL) 2 mg BEDTIME ORAL 12/11/19 21:00 01/25/20 20:59 12/12/19 21:35 Senna/Docusate Sodium (Kendra-Colace) 1 tab TWICE A DAY ORAL 12/11/19 18:00 01/09/20 17:59 12/12/19 18:48 Tramadol HCl (Ultram) 50 mg Q6H PRN ORAL Severe Pain (Pain Scale 7-10) 12/11/19 14:00 12/17/19 13:59 Neurological/Psychiatric: Reports: anxiety, depressed, emotional problems; Denies: no symptoms, headache, numbness, paresthesia, pre-existing deficit, seizure, tingling, tremors, weakness, other Allergies: Coded Allergies: No Known Allergies (Unverified , 12/04/19) Objective Data Height (Feet): 5 Height (Inches): 3.00 Weight (Pounds): 146 General Appearance: alert, confused Mental Status Exam - Mood: irritable, anxious Mental Status Exam - Thought C: delusions of grandiosity Perceptual Disturbances: visual Mental Status Exam - Suicidal: not present Additional Comments: Alert, oriented times self, place. Mood is depressed. Affect is blunted, congruent with mood. Thought process is concrete. Thought content, no suicidal or homicidal ideation. Cognition is impaired. Insight and judgment is impaired. Assessment/Plan Madison I: ASSESSMENT: Madison I Major depressive disorder. Psychotic disorder. Dementia. Madison II Deferred. Madison III Abdominal pain. Madison IV Moderate. Madison V 50. PLAN: 1. Start the patient on risperidone 2 mg at bedtime. 2. Lexapro 10 mg in the morning. 3. Provide the patient with reality orientation and supportive therapy. Status: stable Status Narrative ASSESSMENT: Madison I Major depressive disorder. Psychotic disorder. Dementia. Madison II Deferred. Madison III Abdominal pain. Madison IV Moderate. Madison V 50. PLAN: 1. Start the patient on risperidone 2 mg at bedtime. 2. Lexapro 10 mg in the morning. 3. Provide the patient with reality orientation and supportive therapy. Assessment/Plan: ASSESSMENT: Madison I Major depressive disorder. Psychotic disorder. Dementia. Madison II Deferred. Madison III Abdominal pain. Madison IV Moderate. Madison V 50. PLAN: 1. Start the patient on risperidone 2 mg at bedtime. 2. Lexapro 10 mg in the morning. 3. Provide the patient with reality orientation and supportive therapy. Stuart Feliz MD Dec 12, 2019 23:18
--- NOTE | 2019-12-12 23:20 | NUR ---
NURSE NOTES: Patient consumed Golytely, noted dark brown to yellowish BM at this time. Dr. Rivera aware, received an order. Will carry out.
[2019-12-12] MEDS ORDERED: Bisacodyl EC 5mg tab ORAL SCH (23:30)
--- NOTE | 2019-12-12 23:59 | Consultation ---
DATE OF CONSULTATION: 12/12/2019 CONSULTING PHYSICIAN: Ankit Penny MD. ATTENDING PHYSICIAN: Chris Alva MD. REFERRING PHYSICIAN: Dr. Gaby Camara. REASON FOR CONSULTATION: Possible sepsis, elevated white count, fevers, gram-negative UTI, possible infectious diarrhea, C. diff, enteritis. CHIEF COMPLAINT: The patient's chief complaint coming in to the hospital is chest pain. HISTORY OF PRESENT ILLNESS: This is a 74-year-old female who comes into [facility] with main issue of chest pain. The patient also was noted to have abdominal issues including abdominal pain. CT scan of the abdominal and pelvis showed possible enteritis. She also has renal stone, no abscess mentioned. The patient is noted to have an elevated white count of 14.6 and she has had low-grade fevers of 99.9 on near admission. Infectious Disease consultation requested for antibiotic management. The patient was started on Rocephin and Flagyl, and I saw the patient yesterday. Urine culture grew gram-negative organism, however, UA was totally benign. C. diff is negative. Stool culture is pending. The patient began on Rocephin and Flagyl for possible sepsis, gram-negative UTI, and infectious diarrhea. The patient really cannot add to this history. She also has had chest pain and syncope. MAR is noted. Orders were noted. Notes and records reviewed. REVIEW OF SYSTEMS: CONSTITUTIONAL: The patient has generalized fatigue and weakness. She also had syncope. She had low-grade fevers initially, but no chills, fevers, or night sweats now. HEAD AND NECK: No head pain or neck pain. CARDIAC: No chest pain. GASTROINTESTINAL: She did have abdominal pain, nausea, vomiting and diarrhea, but not currently. GENITOURINARY: No Cevallos. No CVA tenderness. PULMONARY: No congestion or shortness of breath. SKIN: No rash or itching. EXTREMITIES: No extremity pain. NEUROLOGIC: No seizure activity. Denies fatigue. No focal weakness. PAST MEDICAL HISTORY: The patient has a past medical history of encephalopathy, dementia, , constipation, orthostatic hypertension, syncope, acute kidney injury, and chest pain. She also has a past medical history of hypertension and hypertensive urgency. In addition to hypertension, she has history of psychosis, depression, and dementia. No history of diabetes. ALLERGIES: She has no known drug allergies. No antibiotic allergies. SOCIAL HISTORY: Negative for smoking, alcohol, or drug abuse. FAMILY HISTORY: Noncontributory. Negative for tuberculosis or cancer. MEDICATIONS: Upon reviewing the MAR, she is on following medications: she is on polyethylene glycol. She is on Lexapro, atorvastatin, hydralazine, risperidone, senna, magnesium oxide, and fludrocortisone. She is on amlodipine, ceftriaxone, acetaminophen, ____ haloperidol, hydralazine, metronidazole, Rocephin, Flagyl, Zofran, and tramadol. Outside medications noted and reconciliated. PHYSICAL EXAMINATION: VITAL SIGNS: Temperature 97.7, pulse rate 82, respiratory rate 20, blood pressure 118/52. Saturation 97% on room air. T-max 99.9. GENERAL: Alert, responsive, not a very great historian, in no acute distress, however. HEAD AND NECK: Oral exam, no thrush. Eyes, no icterus. Normocephalic. Neck is supple. HEART: No gallop or murmur. ABDOMEN: Soft. Positive bowel sounds. No rebound. Maybe some discomfort. LUNGS: Fairly clear bilaterally. No rhonchi or rales. SKIN: No rash or dermatitis. MUSCULOSKELETAL: No effusion. Legs are without cellulitis. PERIPHERAL VASCULAR: No cyanosis or gangrene. GENITOURINARY: No Cevallos. No CVA tenderness. LINE SITES: Without phlebitis. NEUROLOGIC: Alert, responsive. Not a very good historian, however. LABORATORY DATA: White count 14.6, hemoglobin 8.6. Creatinine is 1.3. LFTs noted. Cultures - C. diff is negative. [facility] cultures are pending. Urine culture with gram negative rods, but only 20 to 30,000. IMAGING STUDIES: Chest x-ray showed no acute cardiopulmonary disease. This is from 12/12/2019. CT scan of abdomen and pelvis showed no obstruction. Bilateral renal stones. Possible enteritis, but no abscess mentioned. ASSESSMENT AND PLAN: 1. The patient has possible sepsis, elevated white count, possible gram-negative UTI, questionable enteritis, questionable infectious diarrhea source. C. diff is negative. The patient has leukocytosis and possible sepsis and fevers. She also had chest pain and near syncope. At this time, I started the patient on Rocephin and Flagyl #2 for gram-negative and anaerobic coverage and gram-positive coverage. Continue Rocephin and Flagyl for possible gram-negative UTI, infectious diarrhea, sepsis, elevated white count, and fevers. Check culture and labs. Chest x-ray is negative. CT scan as noted. Continue Rocephin and Flagyl for sepsis and UTI pending final workup including infectious diarrhea. 2. The patient has acute kidney injury and elevated creatinine. 3. The patient has hypertension. 4. Blood pressure control per primary care team. 5. Hypertensive urgency. 6. Dementia. 7. Chest pain. 8. Psychosis. 9. Depression. 10. Encephalopathy. 11. Abdominal pain. 12. Orthostatic hypotension. 13. Chronic kidney disease likely. 14. No known drug allergies. 15. Social history is negative. 16. Family history is contributory. 17. MAR was noted. 18. Case was discussed with RN. Ankit Penny M.D. DR: AMISH JOB#: [id number] CC:
[2019-12-13] VITALS (7 sets, daily range): BP systolic 101–160; BP diastolic 54–96
[2019-12-13] MEDS: metroNIDAZOLE 500mg tab ORAL SCH ×3 (06:08→22:00)
[2019-12-13] MEDS: Potassium Chloride 10 MEQ in D5 1/2NS 1,000 ML IV SCH ×2 (06:09→18:02)
--- NOTE | 2019-12-13 07:23 | General Progress Note ---
Assessment/Plan Status: stable Assessment/Plan: 74 F with unclear PMhx admitted for abdominal pain and chest pain. Cardio consulted and ACS was ruled out, pt under went NM stress test which was negative. Pt noted to have abd pain and occult positive stools. #Acute Metabolic Encephalopathy - multifactorial #?Acute on Chronic Dementia #UTI - GNR #Hyponatremia - resolved #Leukocytosis -Na 131 -->130 --> 127 --> 129 --> 138 -Hyponatremia likely 2/2 dehydration, HCTZ use -confusion may be multifactorial, acute on chronic dementia, infection/UTI, less likely hyponatremia -Leukocytosis may be 2/2 steroids for Orthostatic Hypotension vs infection -d/c HCTZ -Nephro consulted, recs appreciated -s/p 500 cc +250 cc 3% saline initiated by Nephro with slight improvement in Na -12/10: CT head negative for acute process -UCx w/GNR, f/u sensitivities -ID consulted, recs appreciated, cont CTX and flagyl #Ileus #Abdominal Pain - resolved #Constipation - improved #Occult Positive Stools Pain possibly from constipation, less likely diverticulitis or gastroenteritis. No CVA tenderness - UA and Lipase wnl - CT Abdomen - ileus vs. colitis - GI Cocktail, Zofran prn - 12/07 abd XR w/ileus, small bowel obstruction less likely - s/p Mg citrate x1 - docusate TID, dulcolax suppository PRN - occult stool positive - c diff negative - pain control - Hgb stable however down trending - D/w GI, stated obtained consent from family, plan for EGD/colonoscopy today #Orthostatic Hypotension #Syncope -cont Florinef 0.1 mg daily -fall precautions #ZA - improved -Cr elevated to 1.7, now resolved -avoid nephrotoxins -renally dose meds -Nephro following, recs appreciated #Chest pain - ACS ruled out, resolved #Chronic HFpEF Initial presentation with non-radiating chest pain that resolved with SL Nitro and Aspirin. EKG with non-specific ST changes in V1-V2. Moderate Heart Score - EKG prn for active chest pain, Trop x3 negative, BNP slightly elevated, HBA1c wnl - Echo EF 70-75%, mild left hypertrophy, mitral and aortic root calcification - Cardiology consulted, recs appreciated - s/p NM stress test negative, pt OK to d/c home from cardio stand point #Hypertension - uncontrolled #Hypertensive Urgency - resolved - Cont Norvasc 10 mg PO daily - cont hydralazine 10 mg PO BID - d/c Hctz due to ZA and hyponatremia - hydralazine PRN for SBP >160 #Hypokalemia - resolved - replaced - ctm, replace PRN #Psychosis #Depression #Dementia -per nurse pt was seeing "snakes" in the room -Psych consulted, recs appreciated -Risperdone increased from 1 mg to 2 mg qHS -cont lexapro 10 mg PO qAM FEN NPO for EGD/Colonoscopy today Hold AC per cards and positive occult Dispo - Home when medically cleared Code - FULL CODE Time spent with patient 35 mins, approximately 29 minutes spent coordinating care with nurses and consultants. D/w RN, Dr. Tillman, Dr. Vail, GI and Dr. Penny. Time of note may not reflect time of encounter. Subjective Allergies: Coded Allergies: No Known Allergies (Unverified , 12/04/19) Subjective Plan for EGD/colonoscopy today. Mentation unchanged, AOx1, self only, pt thinks [place] is [place] the [place], unable to tell me what year it is or who the president is. Otherwise no acute events overnight. Pt cont to note lower abd pain, denies any constipation/diarrhea. Pt denies any f/c, n/v, CP, SOB at this time. No AM labs yet. Objective Last 24 Hour Vital Signs Date Time Temp Pulse Resp B/P (MAP) Pulse Ox O2 Delivery O2 Flow Rate FiO2 12/13/19 04:00 108 12/13/19 04:00 97.5 85 19 101/59 (73) 97 12/13/19 00:00 95 12/13/19 00:00 97.9 96 19 111/54 (73) 94 12/12/19 21:35 126/55 12/12/19 21:00 96 95 92 12/12/19 21:00 Room Air 12/12/19 20:00 90 12/12/19 20:00 97.0 87 20 126/55 (78) 94 12/12/19 18:49 92 106/54 12/12/19 16:00 92 12/12/19 16:00 99.3 99 22 106/54 (71) 94 12/12/19 12:00 79 12/12/19 12:00 79.0 82 20 118/52 (74) 97 12/12/19 09:25 118/52 12/12/19 09:00 Room Air 12/12/19 09:00 82 88 95 12/12/19 08:00 97.7 82 20 118/52 (74) 97 12/12/19 08:00 79 Intake and Output 12/12/19 12/13/19 19:00 07:00 Intake Total 320 ml 700 ml Balance 320 ml 700 ml Intake Oral 320 ml 700 ml # Voids 3 5 # Bowel Movements 5 4 Laboratory Tests 12/12/19 09:25: White Blood Count 14.6H, Red Blood Count 3.13L, Hemoglobin 8.6L, Hematocrit 27.0L, Mean Corpuscular Volume 86, Mean Corpuscular Hemoglobin 27.3, Mean Corpuscular Hemoglobin Concent 31.7L, Red Cell Distribution Width 12.4, Platelet Count 294, Mean Platelet Volume 7.0, Neutrophils (%) (Auto) 67.3, Lymphocytes (%) (Auto) 18.9L, Monocytes (%) (Auto) 11.0H, Eosinophils (%) (Auto ) 0.1, Basophils (%) (Auto) 2.8H, Sodium Level 138, Potassium Level 4.3, Chloride Level 103, Carbon Dioxide Level 26, Anion Gap 9, Blood Urea Nitrogen 27H, Creatinine 1.3, Estimat Glomerular Filtration Rate 48.6, Glucose Level 107H , Calcium Level 8.1L, Total Bilirubin 0.3, Aspartate Amino Transf (AST/SGOT) 17 , Alanine Aminotransferase (ALT/SGPT) 13, Alkaline Phosphatase 66, Total Protein 6.8, Albumin 2.7L, Globulin 4.1, Albumin/Globulin Ratio 0.7L 12/12/19 22:29: White Blood Count 18.7H, Red Blood Count 2.96L, Hemoglobin 8.2L, Hematocrit 26.4L, Mean Corpuscular Volume 89, Mean Corpuscular Hemoglobin 27.9, Mean Corpuscular Hemoglobin Concent 31.3L, Red Cell Distribution Width 13.6, Platelet Count 349, Mean Platelet Volume 7.9, Neutrophils (%) (Auto) 74.7, Lymphocytes (%) (Auto) 12.8L, Monocytes (%) (Auto) 10.4H, Eosinophils (%) (Auto ) 0.3, Basophils (%) (Auto) 1.8 Height (Feet): 5 Height (Inches): 3.00 Weight (Pounds): 146 Objective General Appearance: no acute cardiopulmonary distress, laying bed comfortably, awake, alert HEENT: NCAT, EOMI, MMM Neck: non-tender, supple Cardiovascular: normal rate, regular rhythm Respiratory/Chest: lungs clear, no accessory muscle usage Abdomen: normal bowel sounds, no guarding/rebound, no distension, no tenderness to palpation Extremities: normal range of motion Neurologic: no FND, AOx1 person only, does not know year/place Skin: warm/dry Kellie Camara M.D. Dec 13, 2019 07:23
--- NOTE | 2019-12-13 07:31 | NUR ---
NURSE NOTES: Patient is sleeping lightly in semi-Yun's position, respirations at 16 breaths per minute, on 2 liters nasal cannula, bed in lowest position, Wheels locked, call light within reach, side rails up x 3, no c/o pain, in no apparent distress, IV in lefthand 22 gauge running D51/2NS@75.
--- NOTE | 2019-12-13 07:34 | NUR ---
NURSE HAND-OFF REPORT: Important Events on Shift: Patient is for colonoscopy and endoscopy possible bipsy, hemostasis, polypectomy and submucosal injection. Patient consumed the Golightely with brownish to yellowish BM. Patient Status: Patient is awake on bed, no other complaints made at this time. Plan of care endorsed. Consent for the procedure attached to chart. Diet: NPO except meds Pending Orders: GI procedure this morning Pending Results/Labs: BMP, CBC Pending MD notification: NONE Latest Vital Signs: Temperature 97.5 , Pulse 85 , B/P 101 /59 , Respiratory Rate 19 , O2 SAT 97 , Room Air, O2 Flow Rate . Vital Sign Comment: STABLE EKG Rhythm: Sinus Tachycardia Rhythm change?: Y MD Notified?: N - MD Response: Latest [place] Fall Score: 60 Fall Risk: High Risk Safety Measures: Call light Within Reach, Bed Alarm Zone 1, Side Rails Side Rails x2, Bed position Low and Locked. Fall Precautions: Yellow Socks Yellow Gown Door Sign Patient Fall Education Report given to LUIS Madird.
[2019-12-13] MEDS: Docusate Sod/Senna tab ORAL SCH ×2 (09:09→18:01)
[2019-12-13] MEDS: Magnesium Oxide 400mg tab ORAL SCH ×3 (09:09→18:01)
[2019-12-13 09:16] LABS: HEMATOCRIT 24.8 % (37.0-47.0); HEMOGLOBIN 7.8 G/DL (12.0-16.0); MEAN CORPUSCULAR VOLUME 89 FL (80-99); PLATELET COUNT 317 K/UL (150-450); RED CELL DISTRIBUTION WIDTH 13.6 % (11.6-14.8); WHITE BLOOD COUNT 16.5 K/UL (4.8-10.8)
[2019-12-13] MEDS: HydrALAZINE 10mg Tab ORAL SCH ×2 (09:36→21:00)
[2019-12-13 09:56] LABS: CALCIUM 8.2 MG/DL (8.5-10.1); CREATININE 1.2 MG/DL (0.55-1.30); POTASSIUM 3.2 MMOL/L (3.5-5.1)
--- NOTE | 2019-12-13 10:34 | NUR ---
NURSE NOTES: Notified Dr. Yesenia Camara potassium=3.2, received order for potassium replacement; also, informed Dr. Yesenia Camara hemoglobin=7.8, hematocrit=24.8.
--- NOTE | 2019-12-13 12:15 | Pre-Procedure Note/Attestation ---
Pre-Procedure Note/Attestation Complete Prior to Procedure Planned Procedure: not applicable Procedure Narrative: esophagogastroduodenoscopy and colonoscopy Indications for Procedure Pre-Operative Diagnosis: gib Attestation I attest that I discussed the nature of the procedure; its benefits; risks and complications; and alternatives (and the risks and benefits of such alternatives ), prior to the procedure, with the patient (or the patient's legal sales representative gas service). I attest that, if there was a reasonable possibility of needing a blood transfusion, the patient (or the patient's legal sales representative gas service) was given the [facility] standardized written summary, pursuant to the Magan Charity Blood Safety Act ([place] Health and Safety Code # 1645, as amended). I attest that I re-evaluated the patient just prior to the surgery and that there has been no change in the patient's H&P, except as documented below: Massimo Osborn MD Dec 13, 2019 12:15
--- NOTE | 2019-12-13 12:21 | NUR ---
*-*DISCHARGE PLANNING*-* PATIENT HAS BEEN REFERRED TO: [facility] P: [phone] [facility] P: [phone] [facility] P: [phone] FELIBERTO JOHNSTON P: [phone]
--- NOTE | 2019-12-13 12:27 | General Progress Note ---
Assessment/Plan Problem List: (1) Hypertension ICD Codes: I10 - Essential (primary) hypertension SNOMED: 68415953 (2) Hypokalemia ICD Codes: E87.6 - Hypokalemia SNOMED: 16408375 (3) Abdominal pain ICD Codes: R10.9 - Unspecified abdominal pain SNOMED: 98105752 (4) Chest pain ICD Codes: R07.9 - Chest pain, unspecified SNOMED: 06379855 Status: stable Assessment/Plan: stool ob positive but no active GIB stool studies to eval for enteritis fu H&H CT reviewed patient was brought to the GI lab but refused to be sedated she was combative pulling her lines so procedure was canceled resume diet ppi Subjective ROS Limited/Unobtainable: Yes Allergies: Coded Allergies: No Known Allergies (Unverified , 12/04/19) Subjective very confused Objective Last 24 Hour Vital Signs Date Time Temp Pulse Resp B/P (MAP) Pulse Ox O2 Delivery O2 Flow Rate FiO2 12/13/19 09:36 139/57 12/13/19 08:00 77 12/13/19 08:00 97.7 81 19 103/69 (80) 98 12/13/19 04:00 108 12/13/19 04:00 97.5 85 19 101/59 (73) 97 12/13/19 00:00 95 12/13/19 00:00 97.9 96 19 111/54 (73) 94 12/12/19 21:35 126/55 12/12/19 21:00 96 95 92 12/12/19 21:00 Room Air 12/12/19 20:00 90 12/12/19 20:00 97.0 87 20 126/55 (78) 94 12/12/19 18:49 92 106/54 12/12/19 16:00 92 12/12/19 16:00 99.3 99 22 106/54 (71) 94 Intake and Output 12/12/19 12/13/19 19:00 07:00 Intake Total 320 ml 700 ml Balance 320 ml 700 ml Intake Oral 320 ml 700 ml # Voids 3 5 # Bowel Movements 5 4 Laboratory Tests 12/12/19 22:29: White Blood Count 18.7H, Red Blood Count 2.96L, Hemoglobin 8.2L, Hematocrit 26.4L, Mean Corpuscular Volume 89, Mean Corpuscular Hemoglobin 27.9, Mean Corpuscular Hemoglobin Concent 31.3L, Red Cell Distribution Width 13.6, Platelet Count 349, Mean Platelet Volume 7.9, Neutrophils (%) (Auto) 74.7, Lymphocytes (%) (Auto) 12.8L, Monocytes (%) (Auto) 10.4H, Eosinophils (%) (Auto ) 0.3, Basophils (%) (Auto) 1.8 12/13/19 08:35: White Blood Count 16.5H, Red Blood Count 2.80L, Hemoglobin 7.8L, Hematocrit 24.8L, Mean Corpuscular Volume 89, Mean Corpuscular Hemoglobin 27.8, Mean Corpuscular Hemoglobin Concent 31.3L, Red Cell Distribution Width 13.6, Platelet Count 317, Mean Platelet Volume 7.9, Neutrophils (%) (Auto) , Lymphocytes (%) (Auto) , Monocytes (%) (Auto) , Eosinophils (%) (Auto) , Basophils (%) (Auto) , Differential Total Cells Counted 100, Neutrophils % ( Manual) 79H, Lymphocytes % (Manual) 13L, Monocytes % (Manual) 8, Eosinophils % ( Manual) 0, Basophils % (Manual) 0, Band Neutrophils 0, Platelet Estimate Adequate, Platelet Morphology Normal, Hypochromasia 3+, Anisocytosis 1+, Sodium Level 141, Potassium Level 3.2L, Chloride Level 102, Carbon Dioxide Level 28, Anion Gap 11, Blood Urea Nitrogen 14, Creatinine 1.2, Estimat Glomerular Filtration Rate 53.3, Glucose Level 125H, Calcium Level 8.2L Height (Feet): 5 Height (Inches): 3.00 Weight (Pounds): 146 General Appearance: no apparent distress EENT: normal ENT inspection Neck: supple Cardiovascular: normal rate Respiratory/Chest: decreased breath sounds Abdomen: normal bowel sounds, non tender, soft Extremities: non-tender Massimo Osborn MD Dec 13, 2019 12:27
--- NOTE | 2019-12-13 12:36 | NUR ---
NURSE NOTES: Renetta Carroll refused to have endoscopy and colonscopy, she state, "I don't feel well. I don't want to do it." I contacted Rochelle Nair, niece, who signed consent last evening 12/12/19 at 1999 and she stated that, "She does what she wants." Rochelle Nair told me that she will try to contact family members to assist. Dr. Kellie Camara was notified and I was given an order to contact Dr. Stuart Feliz.
--- NOTE | 2019-12-13 12:47 | NUR ---
NURSE NOTES: I contacted Dr. Stuart Feliz and informed her that patient had refused colonscopy and endoscopy and that Dr. Kellie Camara had asked me to contact her. Dr. Stuart Feliz suggested considering Hospice. Will notify Dr. Kellie Camara.
--- NOTE | 2019-12-13 12:51 | NUR ---
NURSE NOTES: Notified Dr. Kellie Camara that I had spoke with Dr. Stuart Feliz and Dr. Kellie Camara said she will speak to Dr. Stuart Feliz.
--- NOTE | 2019-12-13 13:05 | NUR ---
NURSE NOTES: Patient is refusing to sign for or accept a blood transfusion.
--- NOTE | 2019-12-13 13:07 | NUR ---
NURSE NOTES: Kimberly Carroll is refusing to sign for a blood transfusion or accept a blood transfusion. Paged Dr. Kellie Camara.
--- NOTE | 2019-12-13 13:27 | NUR ---
NURSE NOTES: I spoke with Dr. Kellie Camara regarding patient refusing blood transfusion. Dr. Kellie Camara said, "She has the right to refuse blood transfusioin."
[2019-12-13] MEDS: cefTRIAXone 1 GM in D5W 50 ML IVPB SCH (15:10)
--- NOTE | 2019-12-13 17:18 | NUR ---
CASE MANAGEMENT: REVIEW SI: GIB . ABDOMINAL PAIN . DEHYDRATION T 97.4 HR 89 RR 19 BP 160/73 SAT 98% ROOM AIR WBC 16.5 H/H 7.8/24.8 K 3.2 OB STOOL POSITIVE IS: PROTONIX IV Q12HR K-DUR 40MEQ PO X1 D5 1/2 KCl IVF @ 75ML/HR CEFTRIAXONE IV Q24HR FLAGYL PO Q8HR EGD TODAY -- PATIENT REFUSED TELEMETRY UNIT STATUS DCP: PATIENT IS FROM HOME.
--- NOTE | 2019-12-13 17:41 | Nephrology Progress Note ---
Assessment/Plan Plan #aDrcie - due to pre-renal azotemia # hyponatremia - likely hypovolumic- thiazide induce #anemia # chest pain - r/o ACS - DC IVF - on CLD - will start NS if oral intake remains poor - DCed thiazide - amlodopine 10mg daily - monitor lytes - avoid nephrotoxins Subjective Subjective Cr improved sodium normalized remains lethargic Objective Objective Last 24 Hour Vital Signs Date Time Temp Pulse Resp B/P (MAP) Pulse Ox O2 Delivery O2 Flow Rate FiO2 12/13/19 16:00 98.2 92 18 160/73 (102) 98 12/13/19 16:00 79 12/13/19 14:00 97.4 89 19 130/70 (90) 99 12/13/19 13:00 97.7 82 18 131/62 (85) 100 12/13/19 12:00 Room Air 12/13/19 12:00 88 12/13/19 11:00 96.7 77 20 108/96 (100) 97 12/13/19 09:36 139/57 12/13/19 09:00 93 93 93 12/13/19 08:00 77 12/13/19 08:00 97.7 81 19 103/69 (80) 98 12/13/19 04:00 108 12/13/19 04:00 97.5 85 19 101/59 (73) 97 12/13/19 00:00 95 12/13/19 00:00 97.9 96 19 111/54 (73) 94 12/12/19 21:35 126/55 12/12/19 21:00 96 95 92 12/12/19 21:00 Room Air 12/12/19 20:00 90 12/12/19 20:00 97.0 87 20 126/55 (78) 94 12/12/19 18:49 92 106/54 Intake and Output 12/12/19 12/13/19 19:00 07:00 Intake Total 320 ml 775 ml Balance 320 ml 775 ml Intake Oral 320 ml 700 ml IV Total 75 ml # Voids 3 5 # Bowel Movements 5 4 Laboratory Tests 12/12/19 22:29: White Blood Count 18.7H, Red Blood Count 2.96L, Hemoglobin 8.2L, Hematocrit 26.4L, Mean Corpuscular Volume 89, Mean Corpuscular Hemoglobin 27.9, Mean Corpuscular Hemoglobin Concent 31.3L, Red Cell Distribution Width 13.6, Platelet Count 349, Mean Platelet Volume 7.9, Neutrophils (%) (Auto) 74.7, Lymphocytes (%) (Auto) 12.8L, Monocytes (%) (Auto) 10.4H, Eosinophils (%) (Auto) 0.3, Basophils (%) (Auto) 1.8 12/13/19 08:35: White Blood Count 16.5H, Red Blood Count 2.80L, Hemoglobin 7.8L, Hematocrit 24.8L, Mean Corpuscular Volume 89, Mean Corpuscular Hemoglobin 27.8, Mean Corpuscular Hemoglobin Concent 31.3L, Red Cell Distribution Width 13.6, Platelet Count 317, Mean Platelet Volume 7.9, Neutrophils (%) (Auto) , Lymphocytes (%) (Auto) , Monocytes (%) (Auto) , Eosinophils (%) (Auto) , Basophils (%) (Auto) , Differential Total Cells Counted 100, Neutrophils % (Manual) 79H, Lymphocytes % (Manual) 13L, Monocytes % (Manual) 8, Eosinophils % (Manual) 0, Basophils % (Manual) 0, Band Neutrophils 0, Platelet Estimate Adequate, Platelet Morphology Normal, Hypochromasia 3+, Anisocytosis 1+, Sodium Level 141, Potassium Level 3.2L, Chloride Level 102, Carbon Dioxide Level 28, Anion Gap 11, Blood Urea Nitrogen 14, Creatinine 1.2, Estimat Glomerular Filtration Rate 53.3, Glucose Level 125H, Calcium Level 8.2L Height (Feet): 5 Height (Inches): 3.00 Weight (Pounds): 146 Mir Vail M.D. Dec 13, 2019 17:41
--- NOTE | 2019-12-13 17:44 | NUR ---
*-*discharge planning*-* patient has been referred to [facility] p: [phone] Addendum: 12/15/19 at 1708 by RENE BELLA CM LATE ENTRY: PER DR. SAUCEDO'S REQUEST PATIENT WAS REFERRED TO [facility] [phone] / [phone] FAX SPOKE WITH CONSUELO
[2019-12-13] MEDS ORDERED: Tubing IV Secondary IV ONE (18:34)
--- NOTE | 2019-12-13 18:38 | NUR ---
NURSE NOTES:WOUND CARE NOTES:Pt agitated and declined Wound Nurse visit to assess skin.
--- NOTE | 2019-12-13 19:22 | NUR ---
NURSE HAND-OFF REPORT: Important Events on Shift:Patient refused endoscopy, colonoscopy, transfusion. Kaushik Byrd coming in tonight to sign consent for transfusion. Patient Status: Stab;e Diet: Cardiac Pending Orders: transfusion Pending Results/Labs:am labs Pending MD notification:N/A Please notify Dr. Camara if any changes. Latest Vital Signs: Temperature 98.2 , Pulse 79 , B/P 160 /73 , Respiratory Rate 18 , O2 SAT 98 , Room Air, O2 Flow Rate . Vital Sign Comment: Take vital signs every two hours and notify Dr. Camara if any changes. EKG Rhythm: Sinus Rhythm w BBB Rhythm change?: N MD Notified?: N - MD Response: Latest Wallis Fall Score: 60 Fall Risk: High Risk Safety Measures: Call light Within Reach, Bed Alarm Zone 1, Side Rails Side Rails x2, Bed position Low and Locked. Fall Precautions: Yellow Socks Yellow Gown Door Sign Patient Fall Education Report given to Janessa Reynolds RN.
--- NOTE | 2019-12-13 20:58 | NUR ---
NURSE NOTES: Received patient in bed, sheree Byrd at the bedside, conversing with the patient, Rochelle stated that she will not sign blood transfusion consent as to the patient is refusing it. Patient appears to be confused, disoriented, assisted patient back to bed, ensured safety, patient refused vital signs, and her PM medications. Call light is within reach, bed is lowered, locked, alarm is on, will continue to monitor for comfort and safety.
[2019-12-13] MEDS: Atorvastatin 80mg tab ORAL SCH (21:00)
[2019-12-13] MEDS: Pantoprazole Inj IVP SCH (21:00)
--- NOTE | 2019-12-13 23:12 | Psych Consult Progress Note ---
Psychiatry Progress Note Psychiatry Progress Note Subjective more agitated at night the pt is more confused the pt lacks capacity to make decisions the next of keen should make decisions Medications Current Medications Medications (Trade) Dose Ordered Sig/Yasmine Route PRN Reason Start Time Stop Time Status Last Admin Dose Admin Acetaminophen (Tylenol) 650 mg Q4H PRN ORAL Mild Pain (Pain Scale 1-3) 12/11/19 14:00 01/09/20 13:59 Acetaminophen (Tylenol) 650 mg Q6H PRN ORAL For Headache 12/11/19 14:00 01/09/20 13:59 12/12/19 21:36 Al Hydroxide/Mg Hydroxide (Mylanta II) 30 ml Q6H PRN ORAL dyspepsia 12/11/19 14:00 01/09/20 13:59 Amlodipine Besylate (Norvasc) 10 mg QPM ORAL 12/11/19 16:30 01/06/20 16:29 12/13/19 18:11 Atorvastatin Calcium (Lipitor) 80 mg BEDTIME ORAL 12/11/19 21:00 03/04/20 20:59 12/12/19 21:34 Atropine Sulfate (Atropine) 0.5 mg Q3M PRN IV symptomatic bradycardia 12/11/19 13:30 03/04/20 15:44 Bisacodyl (Dulcolax) 10 mg DAILYPRN PRN RECTAL Constipation 12/11/19 14:00 03/10/20 13:59 Ceftriaxone Sodium 1 gm/ Dextrose 50 ml @ 100 mls/hr Q24H IVPB 12/11/19 14:30 12/18/19 14:29 12/13/19 15:10 Dextrose (Dextrose 50%) 25 ml Q30M PRN IV Hypoglycemia 12/11/19 14:00 03/03/20 13:59 Dextrose (Dextrose 50%) 50 ml Q30M PRN IV Hypoglycemia 12/11/19 13:45 03/03/20 15:44 Escitalopram Oxalate (Lexapro) 10 mg DAILY ORAL 12/12/19 09:00 01/07/20 16:14 12/13/19 09:24 Fludrocortisone Acetate (Florinef) 0.1 mg DAILY ORAL 12/11/19 16:45 01/10/20 16:44 12/13/19 09:09 Haloperidol Lactate (Haldol) 5 mg Q6H PRN IM Agitation 12/11/19 14:00 01/24/20 13:59 Hydralazine HCl (Apresoline) 10 mg Q12HR ORAL 12/11/19 21:00 03/09/20 20:59 12/13/19 09:36 Hydralazine HCl (Apresoline) 10 mg Q6H PRN ORAL For High Blood Pressure 12/11/19 14:00 03/09/20 13:59 Magnesium Oxide (Mag-Ox 400mg) 400 mg TID ORAL 12/11/19 18:00 01/04/20 12:59 12/13/19 18:01 Metronidazole (Flagyl) 500 mg EVERY 8 HOURS ORAL 12/11/19 14:00 12/18/19 13:59 12/13/19 13:44 Nitroglycerin (Ntg) 0.4 mg Q5M PRN SL Prn Chest Pain 12/11/19 13:35 01/03/20 15:44 Ondansetron HCl (Zofran) 4 mg Q6H PRN IVP Nausea & Vomiting 12/11/19 14:00 01/09/20 13:59 12/13/19 15:12 Pantoprazole (Protonix) 40 mg EVERY 12 HOURS IVP 12/13/19 21:00 01/12/20 20:59 Polyethylene Glycol (Miralax) 17 gm DAILYPRN PRN ORAL Constipation 12/12/19 13:30 01/09/20 13:17 Potassium Chloride 10 meq/ Dextrose/Sodium Chloride 1,005 ml @ 75 mls/hr [id number] IV 12/12/19 17:30 01/11/20 17:29 12/13/19 18:02 Risperidone (RisperDAL) 2 mg BEDTIME ORAL 12/11/19 21:00 01/25/20 20:59 12/12/19 21:35 Senna/Docusate Sodium (Kendra-Colace) 1 tab TWICE A DAY ORAL 12/11/19 18:00 01/09/20 17:59 12/13/19 18:01 Tramadol HCl (Ultram) 50 mg Q6H PRN ORAL Severe Pain (Pain Scale 7-10) 12/11/19 14:00 12/17/19 13:59 Neurological/Psychiatric: Reports: anxiety, depressed, emotional problems; Denies: no symptoms, headache, numbness, paresthesia, pre-existing deficit, seizure, tingling, tremors, weakness, other Allergies: Coded Allergies: No Known Allergies (Unverified , 12/04/19) Objective Data Height (Feet): 5 Height (Inches): 3.00 Weight (Pounds): 146 General Appearance: alert, confused Mental Status Exam - Mood: irritable, anxious Mental Status Exam - Thought C: delusions of grandiosity Perceptual Disturbances: visual Mental Status Exam - Suicidal: not present Additional Comments: Alert, oriented times self, place. Mood is depressed. Affect is blunted, congruent with mood. Thought process is concrete. Thought content, no suicidal or homicidal ideation. Cognition is impaired. Insight and judgment is impaired. Assessment/Plan Cleaton I: ASSESSMENT: Cleaton I Major depressive disorder. Psychotic disorder. Dementia. Cleaton II Deferred. Cleaton III Abdominal pain. Cleaton IV Moderate. Cleaton V 50. PLAN: 1. Start the patient on risperidone 2 mg at bedtime. 2. Lexapro 10 mg in the morning. 3. Provide the patient with reality orientation and supportive therapy. Status: stable Status Narrative ASSESSMENT: Cleaton I Major depressive disorder. Psychotic disorder. Dementia. Cleaton II Deferred. Cleaton III Abdominal pain. Cleaton IV Moderate. Cleaton V 50. PLAN: 1. Start the patient on risperidone 2 mg at bedtime. 2. Lexapro 10 mg in the morning. 3. Provide the patient with reality orientation and supportive therapy. Assessment/Plan: ASSESSMENT: Cleaton I Major depressive disorder. Psychotic disorder. Dementia. Cleaton II Deferred. Cleaton III Abdominal pain. Cleaton IV Moderate. Cleaton V 50. PLAN: 1. Start the patient on risperidone 2 mg at bedtime. 2. Lexapro 10 mg in the morning. 3. Provide the patient with reality orientation and supportive therapy. Stuart Feliz MD Dec 13, 2019 23:12
[2019-12-14 04:00] VITALS: BP 99/65
[2019-12-14] MEDS: metroNIDAZOLE 500mg tab ORAL SCH (06:00)
--- NOTE | 2019-12-14 06:47 | General Progress Note ---
Assessment/Plan Problem List: (1) Hypertension ICD Codes: I10 - Essential (primary) hypertension SNOMED: 52322351 (2) Hypokalemia ICD Codes: E87.6 - Hypokalemia SNOMED: 21338881 (3) Abdominal pain ICD Codes: R10.9 - Unspecified abdominal pain SNOMED: 80080663 (4) Chest pain ICD Codes: R07.9 - Chest pain, unspecified SNOMED: 57505133 Status: stable Assessment/Plan: stool ob positive but no active GIB fu H&H CT reviewed patient was brought to the GI lab but refused to be sedated she was combative pulling her lines so procedure was canceled ppi Subjective ROS Limited/Unobtainable: Yes Allergies: Coded Allergies: No Known Allergies (Unverified , 12/04/19) Subjective very confused Objective Last 24 Hour Vital Signs Date Time Temp Pulse Resp B/P (MAP) Pulse Ox O2 Delivery O2 Flow Rate FiO2 12/14/19 04:00 98.6 85 20 99/65 (76) 95 12/14/19 00:00 91 12/13/19 21:14 Room Air 12/13/19 21:13 0 12/13/19 18:11 79 160/73 12/13/19 16:00 98.2 92 18 160/73 (102) 98 12/13/19 16:00 79 12/13/19 14:00 97.4 89 19 130/70 (90) 99 12/13/19 13:00 97.7 82 18 131/62 (85) 100 12/13/19 12:00 Room Air 12/13/19 12:00 88 12/13/19 11:00 96.7 77 20 108/96 (100) 97 12/13/19 09:36 139/57 12/13/19 09:00 93 93 93 12/13/19 08:00 77 12/13/19 08:00 97.7 81 19 103/69 (80) 98 Intake and Output 12/13/19 12/14/19 19:00 07:00 Intake Total 1525 ml Balance 1525 ml Intake Oral 700 ml IV Total 825 ml # Voids 3 # Bowel Movements 2 4 Laboratory Tests 12/13/19 08:35: White Blood Count 16.5H, Red Blood Count 2.80L, Hemoglobin 7.8L, Hematocrit 24.8L, Mean Corpuscular Volume 89, Mean Corpuscular Hemoglobin 27.8, Mean Corpuscular Hemoglobin Concent 31.3L, Red Cell Distribution Width 13.6, Platelet Count 317, Mean Platelet Volume 7.9, Neutrophils (%) (Auto) , Lymphocytes (%) (Auto) , Monocytes (%) (Auto) , Eosinophils (%) (Auto) , Basophils (%) (Auto) , Differential Total Cells Counted 100, Neutrophils % ( Manual) 79H, Lymphocytes % (Manual) 13L, Monocytes % (Manual) 8, Eosinophils % ( Manual) 0, Basophils % (Manual) 0, Band Neutrophils 0, Platelet Estimate Adequate, Platelet Morphology Normal, Hypochromasia 3+, Anisocytosis 1+, Sodium Level 141, Potassium Level 3.2L, Chloride Level 102, Carbon Dioxide Level 28, Anion Gap 11, Blood Urea Nitrogen 14, Creatinine 1.2, Estimat Glomerular Filtration Rate 53.3, Glucose Level 125H, Calcium Level 8.2L Height (Feet): 5 Height (Inches): 3.00 Weight (Pounds): 146 General Appearance: no apparent distress EENT: normal ENT inspection Neck: supple Cardiovascular: normal rate Respiratory/Chest: decreased breath sounds, rhonchi - right Extremities: non-tender Massimo Osborn MD Dec 14, 2019 06:47
--- NOTE | 2019-12-14 07:24 | NUR ---
NURSE HAND-OFF REPORT: Important Events on Shift: patient has refused medications and pm vital signs, no IV access, MD is aware, patient has refused scheduled procedures. Family is aware, niestephanie Byrd saw patient las night but refused to sign consent for blood transfusion. Patient Status: stable Diet:cardiac Pending Orders: Pending Results/Labs: Pending MD notification: Latest Vital Signs: Temperature 98.6 , Pulse 85 , B/P 99 /65 , Respiratory Rate 20 , O2 SAT 95 , Room Air, O2 Flow Rate . Vital Sign Comment: EKG Rhythm: Sinus Rhythm Rhythm change?: N MD Notified?: N - MD Response: Latest Wallis Fall Score: 60 Fall Risk: High Risk Safety Measures: Call light Within Reach, Bed Alarm Zone 1, Side Rails Side Rails x2, Bed position Low and Locked. Fall Precautions: Yellow Socks Yellow Gown Door Sign Patient Fall Education Report given to Chris Robles RN
[2019-12-14 08:00] VITALS: BP 103/46
--- NOTE | 2019-12-14 08:00 | NUR ---
NURSE NOTES: Received report from LUIS Riddle. Pt awake, A/O x2, denies any pain, no s/sx of acute distress, breathing even and unlabored in RA. Pt continues to refuse with IV insertion, per night RNMD aware. Will try to insert one. bed on lowest position, call light within reach. Will continue plan of care.
[2019-12-14] MEDS: Magnesium Oxide 400mg tab ORAL SCH ×3 (09:00→17:23)
[2019-12-14] MEDS: Pantoprazole Inj IVP SCH ×2 (09:00→21:00)
[2019-12-14] MEDS: Docusate Sod/Senna tab ORAL SCH ×2 (09:00→17:23)
[2019-12-14] MEDS: HydrALAZINE 10mg Tab ORAL SCH ×2 (09:00→21:00)
--- NOTE | 2019-12-14 09:45 | NUR ---
NURSE NOTES: Dr Kowalski made aware that pt refuses IV line. RN spoke to pt to discuss risk of not having IV line, pt agrees to insert it later. Will try to encourage pt again. Pt is alert, not has episodes of forgetfulness and confusion.
[2019-12-14] MEDS: Potassium Chloride 10 MEQ in D5 1/2NS 1,000 ML IV SCH ×2 (09:52→11:36)
[2019-12-14 10:13] LABS: HEMATOCRIT 24.5 % (37.0-47.0); HEMOGLOBIN 7.8 G/DL (12.0-16.0); MEAN CORPUSCULAR VOLUME 86 FL (80-99); PLATELET COUNT 406 K/UL (150-450); RED BLOOD COUNT 2.84 M/UL (4.20-5.40); RED CELL DISTRIBUTION WIDTH 12.6 % (11.6-14.8); WHITE BLOOD COUNT 20.5 K/UL (4.8-10.8)
--- NOTE | 2019-12-14 10:17 | NUR ---
Social Work Fatuma, from [employer]. following due to no insurance. Patient explains her Social Security number is: [phone]; Fatuma reports this is not an accurate number. Patient resides with Cousin Mildred ([phone]). Patient making statements that she cannot return to her home upon discharge. This SW made attempts to contact Mildred; no answer at this time. This SW spoke with other cousin, Rochelle ([phone]) who mentioned that patient cannot return home there as well, if patient is in need of Hospice. Pending progress here; patient explains she remains independent overall (ambulates with walker-with seat). Pending insurance information for SNF (if needed). This SW requesting family to assist after discharge, if patient does not have any insurance. Patient making statements to this SW: "I just want to ." Patient stating she wants to end her life, "I would take poison." Emotional support provided to patient; nursing informed who explains Dr Feliz is planning to see from Psychiatry.
[2019-12-14 10:25] LABS: ALBUMIN 2.9 G/DL (3.4-5.0); ALBUMIN/GLOBULIN RATIO 0.7 (1.0-2.7); BILIRUBIN,TOTAL 0.4 MG/DL (0.2-1.0); CALCIUM 8.5 MG/DL (8.5-10.1); CREATININE 1.1 MG/DL (0.55-1.30); POTASSIUM 3.8 MMOL/L (3.5-5.1)
--- NOTE | 2019-12-14 10:35 | NUR ---
PT NOTE Attempted to see patient for PT treatment. Patient declining to participate with PT, multiple complaints. Melissa SMITH notified, will follow. Waiting for MD clearance for OOB activities.
--- NOTE | 2019-12-14 10:41 | General Progress Note ---
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 Cardio consulted and ACS was ruled out, pt under went NM stress test which was negative. Pt noted to have abd pain and occult positive stools. #Acute Metabolic Encephalopathy - multifactorial #?Acute on Chronic Dementia #UTI - GNR #Hyponatremia - resolved #Leukocytosis -Na 131 -->130 --> 127 --> 129 --> 138 -> Pending -Hyponatremia likely 2/2 dehydration, HCTZ use -confusion may be multifactorial, acute on chronic dementia, infection/UTI, less likely hyponatremia -Leukocytosis may be 2/2 steroids for Orthostatic Hypotension vs infection -d/c HCTZ -Nephro consulted, recs appreciated -s/p 500 cc +250 cc 3% saline initiated by Nephro with improvement in Na -12/10: CT head negative for acute process -UCx e. Coli that is pansensitive -ID consulted, recs appreciated, cont CTX and flagyl - refusing Abx and IV access #Ileus #Abdominal Pain - resolved #Constipation - improved #Occult Positive Stools Pain possibly from constipation, less likely diverticulitis or gastroenteritis. No CVA tenderness - UA and Lipase wnl - CT Abdomen - ileus vs. colitis - GI Cocktail, Zofran prn - 12/07 abd XR w/ileus, small bowel obstruction less likely - s/p Mg citrate x1 - docusate TID, dulcolax suppository PRN - occult stool positive - c diff negative - pain control - Hgb stable however down trending - refusing transfusing an IV access - Refused EGD/colonoscopy 12/13 #Orthostatic Hypotension #Syncope -cont Florinef 0.1 mg daily -fall precautions #ZA - improved -Cr elevated to 1.7, now resolved -avoid nephrotoxins -renally dose meds -Nephro following, recs appreciated #Chest pain - ACS ruled out, resolved #Chronic HFpEF Initial presentation with non-radiating chest pain that resolved with SL Nitro and Aspirin. EKG with non-specific ST changes in V1-V2. Moderate Heart Score - EKG prn for active chest pain, Trop x3 negative, BNP slightly elevated, HBA1c wnl - Echo EF 70-75%, mild left hypertrophy, mitral and aortic root calcification - Cardiology consulted, recs appreciated - s/p NM stress test negative, pt OK to d/c home from cardio stand point #Hypertension - uncontrolled #Hypertensive Urgency - resolved - Cont Norvasc 10 mg PO daily - cont hydralazine 10 mg PO BID - d/c Hctz due to ZA and hyponatremia - hydralazine PRN for SBP >160 #Hypokalemia - resolved - replaced - ctm, replace PRN #Psychosis #Depression #Dementia #SI -per nurse pt was seeing "snakes" in the room - resolved -Psych consulted, recs appreciated -Risperdone increased from 1 mg to 2 mg qHS -cont lexapro 10 mg PO qAM -Suicide precautions FEN Hold AC per cards and positive occult Dispo - Home when medically cleared Code - FULL CODE Time spent with patient 36 mins, approximately 29 minutes spent coordinating care with nurses and consultants. D/w RN, Dr. Tillman, Dr. Vail, GI and Dr. Penny. i also had more discussion with cousin Rochelle about plan of care moving forward. Expressed that patient is refusing Iv, EGD and medications. She will discuss home hospice with her other cousin today. Time of note may not reflect time of encounter. Subjective Date patient seen: Dec 14, 2019 Time patient seen: 08:00 ROS Limited/Unobtainable: Yes Constitutional: Denies: chills, diaphoresis, fever HEENT: Denies: blurred vision, double vision, ear pain, ear discharge, nose pain Cardiovascular: Denies: edema, irregular heart rate, lightheadedness, palpitations Respiratory: Denies: SOB with excertion, SOB at rest, sputum, stridor Gastrointestinal/Abdominal: Reports: blood in stool, constipated; Denies: abdominal pain, diarrhea Genitourinary: Denies: burning, discharge, frequency, flank pain Neurologic/Psychiatric: Denies: headache, numbness, paresthesia, seizure Endocrine: Denies: flushing, intolerance to cold, intolerance to heat, increased hunger Hematologic/Lymphatic: Reports: anemia Allergies: Coded Allergies: No Known Allergies (Unverified , 12/04/19) Subjective Pateint has no omplaints. Does not want IV placed. Refusing medications and blood transfusions. Expressed suicidal ideation to CM Objective Last 24 Hour Vital Signs Date Time Temp Pulse Resp B/P (MAP) Pulse Ox O2 Delivery O2 Flow Rate FiO2 12/14/19 09:00 103/46 12/14/19 08:00 97.7 90 20 103/46 (65) 100 12/14/19 07:57 88 12/14/19 04:00 98.6 85 20 99/65 (76) 95 12/14/19 00:00 91 12/13/19 21:14 Room Air 12/13/19 21:13 0 12/13/19 18:11 79 160/73 12/13/19 16:00 98.2 92 18 160/73 (102) 98 12/13/19 16:00 79 12/13/19 14:00 97.4 89 19 130/70 (90) 99 12/13/19 13:00 97.7 82 18 131/62 (85) 100 12/13/19 12:00 Room Air 12/13/19 12:00 88 12/13/19 11:00 96.7 77 20 108/96 (100) 97 Intake and Output 12/13/19 12/14/19 19:00 07:00 Intake Total 1525 ml Balance 1525 ml Intake Oral 700 ml IV Total 825 ml # Voids 3 # Bowel Movements 2 4 Laboratory Tests 12/14/19 09:20: White Blood Count [Pending], Red Blood Count [Pending], Hemoglobin [Pending], Hematocrit [Pending], Mean Corpuscular Volume [Pending], Mean Corpuscular Hemoglobin [Pending], Mean Corpuscular Hemoglobin Concent [Pending], Red Cell Distribution Width [Pending], Platelet Count [Pending], Mean Platelet Volume [ Pending], Neutrophils (%) (Auto) [Pending], Lymphocytes (%) (Auto) [Pending], Monocytes (%) (Auto) [Pending], Eosinophils (%) (Auto) [Pending], Basophils (%) (Auto) [Pending], Sodium Level [Pending], Potassium Level [Pending], Chloride Level [Pending], Carbon Dioxide Level [Pending], Blood Urea Nitrogen [Pending], Creatinine [Pending], Estimat Glomerular Filtration Rate [Pending], Glucose Level [Pending], Calcium Level [Pending], Total Bilirubin [Pending], Aspartate Amino Transf (AST/SGOT) [Pending], Alanine Aminotransferase (ALT/SGPT) [Pending] , Alkaline Phosphatase [Pending], Total Protein [Pending], Albumin [Pending], Globulin [Pending] Height (Feet): 5 Height (Inches): 3.00 Weight (Pounds): 146 General Appearance: no apparent distress, alert, lethargic, agitated EENT: PERRL/EOMI, normal ENT inspection Neck: normal alignment, supple, normal inspection Cardiovascular: normal peripheral pulses, normal rate, regular rhythm, no JVD Respiratory/Chest: chest wall non-tender, lungs clear, normal breath sounds, no respiratory distress Abdomen: non tender, soft, no organomegaly, no mass, hyperactive bowel sounds Extremities: normal range of motion, non-tender, normal inspection Edema: no edema noted Arm (L), no edema noted Arm (R), no edema noted Leg (L), no edema noted Leg (R), no edema noted Pedal (L), no edema noted Pedal (R), no edema noted Generalized Neurologic: alert, responsive, depressed affect Skin: normal pigmentation, warm/dry, no diaphoresis Alfie Kowalski M.D. Dec 14, 2019 10:41
--- NOTE | 2019-12-14 11:07 | General Progress Note ---
Advance Care Planning Advance Care Planning Advance Care Planning [facility] An independent Hospitalist group, where every patient is our [facility] Internal Medicine Hospitalist Advanced Care Planning Note Please contact us at Date of Discussion: A [id number] discussion with the DPOA Rochelle her cousin regarding the patient 's advanced care planning took place during this hospitalization on the above date. The discussion included the explanation and discussion of advance directives and associated forms/documents, as well as the patient's current code status. We also discussed at length the patient's medical conditions (both acute and chronic), general prognosis, treatment options, and goals of care. The following summarizes the discussion: Advance Care Planning/Goals of Care: - Will attempt to fill out an AD and/or POLST with the patient prior to discharge, if not already completed - Continue current evaluation and management of any acute and chronic medical issues - Will continue to support the patient/family - Will continue to discuss both short- and long-term goals of care DPOA-HC/Surrogate Decision Maker: None currently appointed Kash Code Status: Full Code DNR Advanced Care Planning Forms/Documents Completed: Deferred until later encounter/visit A total of 60 minutes was spent on this discussion, including counseling, answering questions, and completing, if any, pertinent advanced care planning forms/documents. Time of note may not reflect time of encounter. Alfie Kowalski M.D. Dec 14, 2019 11:07
[2019-12-14 12:00] VITALS: BP 145/55
--- NOTE | 2019-12-14 13:28 | NUR ---
NURSE NOTES: pt in bed, awake, stable, spoke with dr Kowalski and gave order okay to transfer to med surg.
--- NOTE | 2019-12-14 13:54 | Infectious Diseases Prog Note ---
Assessment/Plan Assessment/Plan ASSESSMENT AND PLAN: 1. e.coli uti, sepsis, ? enteritis, leukocytosis, c.diff. negative - change to zosyn for worsening leukocytosis - reculture and f/u chest x-ray - monitor labs 2. The patient has acute kidney injury and elevated creatinine. 3. The patient has hypertension. 4. Blood pressure control per primary care team. 5. Hypertensive urgency. 6. Dementia. 7. Chest pain. 8. Psychosis. 9. Depression. 10. Encephalopathy. 11. Abdominal pain. 12. Orthostatic hypotension. 13. Chronic kidney disease likely. 14. No known drug allergies. 15. Social history is negative. 16. Family history is contributory. 17. MAR was noted. 18. Case was discussed with RN. Subjective Constitutional: Denies: fever HEENT: Denies: congestion Respiratory: Denies: shortness of breath Cardiovascular: Denies: chest pain Gastrointestinal/Abdominal: Denies: nausea, vomiting, diarrhea Genitourinary: Reports: other - no savage Neurologic: Denies: headache Psychiatric: Denies: depression Skin: Denies: rash Hematologic: Denies: bleeding Musculoskeletal: Denies: pain Allergies: Coded Allergies: No Known Allergies (Unverified , 12/04/19) Objective Last 24 Hour Vital Signs Date Time Temp Pulse Resp B/P (MAP) Pulse Ox O2 Delivery O2 Flow Rate FiO2 12/14/19 12:00 97.7 78 20 145/55 (85) 98 12/14/19 09:00 103/46 12/14/19 09:00 Room Air 12/14/19 09:00 78 85 12/14/19 08:00 97.7 90 20 103/46 (65) 100 12/14/19 07:57 88 12/14/19 04:00 98.6 85 20 99/65 (76) 95 12/14/19 00:00 91 12/13/19 21:14 Room Air 12/13/19 21:13 0 12/13/19 18:11 79 160/73 12/13/19 16:00 98.2 92 18 160/73 (102) 98 12/13/19 16:00 79 12/13/19 14:00 97.4 89 19 130/70 (90) 99 Height (Feet): 5 Height (Inches): 3.00 Weight (Pounds): 146 General Appearance: no acute distress HEENT: normocephalic, atraumatic, anicteric, mucous membranes moist Respiratory/Chest: lungs clear, normal breath sounds, no respiratory distress, no accessory muscle use Cardiovascular: normal rate, regular rhythm, no gallop/murmur, no JVD Abdomen: normal bowel sounds, soft, non tender, no organomegaly, non distended Genitourinary: other - no savage Extremities: no cyanosis Skin: no rash 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 No consolidation. Pleural space: Unremarkable. No pneumothorax. Heart: Borderline cardiomegaly, potentially exaggerated by portable technique. Mediastinum: Calcified aortic knob. Bones/joints: Degenerative changes. IMPRESSION: No evidence of acute pulmonary disease CT abdomen and pelvis: IMPRESSION: 1. Mild prominence of fluid and gas-filled small bowel loops may represent enteritis or ileus in the appropriate clinical setting. 2. Prominence of the baires of the colon likely secondary to under distention. Element of colitis is not excluded. 3. Punctate nonobstructing bilateral renal stones. Mild right hydroureteronephrosis. No obstructing stone identified. This may be secondary to distended bladder. Microbiology Date/Time Source Procedure Growth Status 12/13/19 11:13 Nasopharynx SARS-CoV-2 RdRp Gene Assay - Final Complete 12/11/19 20:35 Stool Clostridium difficile Toxin Assay - Final Complete 12/11/19 20:35 Stool Stool Culture - Final NO SALMONELLA,SHIGELLA,OR CAMPYLOBACT... Complete 12/11/19 14:59 Blood Blood Culture - Preliminary NO GROWTH AFTER 48 HOURS Resulted 12/11/19 14:54 Urine,Clean Catch Urine Culture - Final Escherichia Coli Complete 12/11/19 14:49 Blood Blood Culture - Preliminary NO GROWTH AFTER 48 HOURS Resulted Laboratory Tests Test 12/14/19 09:20 White Blood Count 20.5 K/UL (4.8-10.8) H Red Blood Count 2.84 M/UL (4.20-5.40) L Hemoglobin 7.8 G/DL (12.0-16.0) L Hematocrit 24.5 % (37.0-47.0) L Mean Corpuscular Volume 86 FL (80-99) Mean Corpuscular Hemoglobin 27.4 PG (27.0-31.0) Mean Corpuscular Hemoglobin Concent 31.9 G/DL (32.0-36.0) L Red Cell Distribution Width 12.6 % (11.6-14.8) Platelet Count 406 K/UL (150-450) Mean Platelet Volume 7.0 FL (6.5-10.1) Neutrophils (%) (Auto) % (45.0-75.0) Lymphocytes (%) (Auto) % (20.0-45.0) Monocytes (%) (Auto) % (1.0-10.0) Eosinophils (%) (Auto) % (0.0-3.0) Basophils (%) (Auto) % (0.0-2.0) Differential Total Cells Counted 100 Neutrophils % (Manual) 80 % (45-75) H Lymphocytes % (Manual) 13 % (20-45) L Monocytes % (Manual) 6 % (1-10) Eosinophils % (Manual) 0 % (0-3) Basophils % (Manual) 1 % (0-2) Band Neutrophils 0 % (0-8) Platelet Estimate Adequate Platelet Morphology Normal Hypochromasia 1+ Anisocytosis 1+ Sodium Level 141 MMOL/L (136-145) Potassium Level 3.8 MMOL/L (3.5-5.1) Chloride Level 103 MMOL/L (98-107) Carbon Dioxide Level 30 MMOL/L (21-32) Anion Gap 8 mmol/L (5-15) Blood Urea Nitrogen 10 mg/dL (7-18) Creatinine 1.1 MG/DL (0.55-1.30) Estimat Glomerular Filtration Rate 59.0 mL/min (>60) Glucose Level 107 MG/DL (74-106) H Calcium Level 8.5 MG/DL (8.5-10.1) Total Bilirubin 0.4 MG/DL (0.2-1.0) Aspartate Amino Transf (AST/SGOT) 18 U/L (15-37) Alanine Aminotransferase (ALT/SGPT) 15 U/L (12-78) Alkaline Phosphatase 78 U/L (46-116) Total Protein 7.2 G/DL (6.4-8.2) Albumin 2.9 G/DL (3.4-5.0) L Globulin 4.3 g/dL Albumin/Globulin Ratio 0.7 (1.0-2.7) L Current Medications Medications (Trade) Dose Ordered Sig/Yasmine Route PRN Reason Start Time Stop Time Status Last Admin Dose Admin Acetaminophen (Tylenol) 650 mg Q4H PRN ORAL Mild Pain (Pain Scale 1-3) 12/11/19 14:00 01/09/20 13:59 Acetaminophen (Tylenol) 650 mg Q6H PRN ORAL For Headache 12/11/19 14:00 01/09/20 13:59 12/12/19 21:36 Al Hydroxide/Mg Hydroxide (Mylanta II) 30 ml Q6H PRN ORAL dyspepsia 12/11/19 14:00 01/09/20 13:59 Amlodipine Besylate (Norvasc) 10 mg QPM ORAL 12/11/19 16:30 01/06/20 16:29 12/13/19 18:11 Atorvastatin Calcium (Lipitor) 80 mg BEDTIME ORAL 12/11/19 21:00 03/04/20 20:59 12/12/19 21:34 Atropine Sulfate (Atropine) 0.5 mg Q3M PRN IV symptomatic bradycardia 12/11/19 13:30 03/04/20 15:44 Bisacodyl (Dulcolax) 10 mg DAILYPRN PRN RECTAL Constipation 12/11/19 14:00 03/10/20 13:59 Dextrose (Dextrose 50%) 25 ml Q30M PRN IV Hypoglycemia 12/11/19 14:00 03/03/20 13:59 Dextrose (Dextrose 50%) 50 ml Q30M PRN IV Hypoglycemia 12/11/19 13:45 03/03/20 15:44 Escitalopram Oxalate (Lexapro) 10 mg DAILY ORAL 12/12/19 09:00 01/07/20 16:14 12/14/19 09:00 Fludrocortisone Acetate (Florinef) 0.1 mg DAILY ORAL 12/11/19 16:45 01/10/20 16:44 12/14/19 09:00 Haloperidol Lactate (Haldol) 5 mg Q6H PRN IM Agitation 12/11/19 14:00 01/24/20 13:59 Hydralazine HCl (Apresoline) 10 mg Q12HR ORAL 12/11/19 21:00 03/09/20 20:59 12/13/19 09:36 Hydralazine HCl (Apresoline) 10 mg Q6H PRN ORAL For High Blood Pressure 12/11/19 14:00 03/09/20 13:59 Magnesium Oxide (Mag-Ox 400mg) 400 mg TID ORAL 12/11/19 18:00 01/04/20 12:59 12/14/19 09:00 Nitroglycerin (Ntg) 0.4 mg Q5M PRN SL Prn Chest Pain 12/11/19 13:35 01/03/20 15:44 Ondansetron HCl (Zofran) 4 mg Q6H PRN IVP Nausea & Vomiting 12/11/19 14:00 01/09/20 13:59 12/13/19 15:12 Pantoprazole (Protonix) 40 mg EVERY 12 HOURS IVP 12/13/19 21:00 01/12/20 20:59 Piperacillin Sod/ Tazobactam Sod 3.375 gm/Sodium Chloride 110 ml @ 27.5 mls/hr Q8HR IVPB 12/14/19 14:00 12/19/19 13:59 Polyethylene Glycol (Miralax) 17 gm DAILYPRN PRN ORAL Constipation 12/12/19 13:30 01/09/20 13:17 Potassium Chloride 10 meq/ Dextrose/Sodium Chloride 1,005 ml @ 75 mls/hr [id number] IV 12/12/19 17:30 01/11/20 17:29 12/14/19 11:36 Risperidone (RisperDAL) 2 mg BEDTIME ORAL 12/11/19 21:00 01/25/20 20:59 12/12/19 21:35 Senna/Docusate Sodium (Kendra-Colace) 1 tab TWICE A DAY ORAL 12/11/19 18:00 01/09/20 17:59 12/14/19 09:00 Tramadol HCl (Ultram) 50 mg Q6H PRN ORAL Severe Pain (Pain Scale 7-10) 12/11/19 14:00 12/17/19 13:59 12/14/19 11:33 Ankit Penny MD Dec 14, 2019 13:54
[2019-12-14] MEDS: Piperacillin/Tazobactam 3.375 GM in NS 110 ML IVPB SCH ×2 (14:29→21:51)
--- NOTE | 2019-12-14 15:51 | Cardiology Progress Note ---
Assessment/Plan Status: stable Assessment/Plan Assessment/Plan CHEST PAIN HYPERTENSIVE URGENCY CHF DIASTOLIC Plan: Echocardiogram with diastolic dysfunction preserved LV function 70%, no significant valvular disease Spot dose lasix Continue HCTZ DASH diet Continue Norvasc Monitor on telemetry Nitro prn CP Hold Heparin Stress test NEGATIVE Clear to proceed with colonoscopy Psych for capacity ok to d/c from cardiology perspective once cleared by psych Subjective Cardiovascular: Reports: no symptoms Respiratory: Reports: no symptoms Gastrointestinal/Abdominal: Reports: no symptoms Genitourinary: Reports: no symptoms Subjective No acute events, BP stable, TTE with LVEF 70%, CP resolved. EKG no dynamic changes, stress test NEGATIVE Discharge held for psych consult Patient refused colonsocopy for positive FOBT Objective Last 24 Hour Vital Signs Date Time Temp Pulse Resp B/P (MAP) Pulse Ox O2 Delivery O2 Flow Rate FiO2 12/14/19 12:00 97.7 78 20 145/55 (85) 98 12/14/19 09:00 103/46 12/14/19 09:00 Room Air 12/14/19 09:00 78 85 12/14/19 08:00 97.7 90 20 103/46 (65) 100 12/14/19 07:57 88 12/14/19 04:00 98.6 85 20 99/65 (76) 95 12/14/19 00:00 91 12/13/19 21:14 Room Air 12/13/19 21:13 0 12/13/19 18:11 79 160/73 12/13/19 16:00 98.2 92 18 160/73 (102) 98 12/13/19 16:00 79 General Appearance: mild distress EENT: PERRL/EOMI, normal ENT inspection Neck: non-tender, normal alignment, supple Rhythm: NSR Cardiovascular: normal peripheral pulses, normal rate, regular rhythm Respiratory/Chest: chest wall non-tender, lungs clear, normal breath sounds Abdomen: normal bowel sounds, non tender, soft, no mass Extremities: normal range of motion, non-tender 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, no motor/sensory deficits Intake and Output 12/13/19 12/14/19 19:00 07:00 Intake Total 1525 ml Balance 1525 ml Intake Oral 700 ml IV Total 825 ml # Voids 3 # Bowel Movements 2 4 Laboratory Tests Test 12/14/19 09:20 White Blood Count 20.5 K/UL (4.8-10.8) H Red Blood Count 2.84 M/UL (4.20-5.40) L Hemoglobin 7.8 G/DL (12.0-16.0) L Hematocrit 24.5 % (37.0-47.0) L Mean Corpuscular Volume 86 FL (80-99) Mean Corpuscular Hemoglobin 27.4 PG (27.0-31.0) Mean Corpuscular Hemoglobin Concent 31.9 G/DL (32.0-36.0) L Red Cell Distribution Width 12.6 % (11.6-14.8) Platelet Count 406 K/UL (150-450) Mean Platelet Volume 7.0 FL (6.5-10.1) Neutrophils (%) (Auto) % (45.0-75.0) Lymphocytes (%) (Auto) % (20.0-45.0) Monocytes (%) (Auto) % (1.0-10.0) Eosinophils (%) (Auto) % (0.0-3.0) Basophils (%) (Auto) % (0.0-2.0) Differential Total Cells Counted 100 Neutrophils % (Manual) 80 % (45-75) H Lymphocytes % (Manual) 13 % (20-45) L Monocytes % (Manual) 6 % (1-10) Eosinophils % (Manual) 0 % (0-3) Basophils % (Manual) 1 % (0-2) Band Neutrophils 0 % (0-8) Platelet Estimate Adequate Platelet Morphology Normal Hypochromasia 1+ Anisocytosis 1+ Sodium Level 141 MMOL/L (136-145) Potassium Level 3.8 MMOL/L (3.5-5.1) Chloride Level 103 MMOL/L (98-107) Carbon Dioxide Level 30 MMOL/L (21-32) Anion Gap 8 mmol/L (5-15) Blood Urea Nitrogen 10 mg/dL (7-18) Creatinine 1.1 MG/DL (0.55-1.30) Estimat Glomerular Filtration Rate 59.0 mL/min (>60) Glucose Level 107 MG/DL (74-106) H Calcium Level 8.5 MG/DL (8.5-10.1) Total Bilirubin 0.4 MG/DL (0.2-1.0) Aspartate Amino Transf (AST/SGOT) 18 U/L (15-37) Alanine Aminotransferase (ALT/SGPT) 15 U/L (12-78) Alkaline Phosphatase 78 U/L (46-116) Total Protein 7.2 G/DL (6.4-8.2) Albumin 2.9 G/DL (3.4-5.0) L Globulin 4.3 g/dL Albumin/Globulin Ratio 0.7 (1.0-2.7) L Microbiology Date/Time Source Procedure Growth Status 12/13/19 11:13 Nasopharynx SARS-CoV-2 RdRp Gene Assay - Final Complete 12/11/19 20:35 Stool Clostridium difficile Toxin Assay - Final Complete 12/11/19 20:35 Stool Stool Culture - Final NO SALMONELLA,SHIGELLA,OR CAMPYLOBACT... Complete Kush Tillman MD Dec 14, 2019 15:51
[2019-12-14 16:00] VITALS: BP 149/54
--- NOTE | 2019-12-14 19:43 | NUR ---
NURSE NOTES: Pt received from LUIS Torres. Pt is resting comfortably in bed; AxO x1-2 pt denies pain and attempts to get out of bed. Pt is on cardiac monitoring SR and asymptomatic. Pt is breathing unlabored on RA and denies shortness of breath. Pt has LWrist 22G running D5 1/2NS 75 ml/hr patent, dry and intact. Pt has sacral pressure ulcer stage 2 dressed and pt moves independently in bed. Bed locked in lowest position with call light within reach. Will continue to monitor.
--- NOTE | 2019-12-14 19:48 | NUR ---
NURSE HAND-OFF REPORT: Important Events on Shift: N/A Patient Status: stable Diet: cardiac Pending Orders: transfer to [facility] Pending Results/Labs: Pending MD notification: Latest Vital Signs: Temperature 98.0 , Pulse 82 , B/P 149 /54 , Respiratory Rate 20 , O2 SAT 100 , Room Air, O2 Flow Rate . Vital Sign Comment: EKG Rhythm: Sinus Rhythm Rhythm change?: N MD Notified?: N - MD Response: Latest Wallis Fall Score: 60 Fall Risk: High Risk Safety Measures: Call light Within Reach, Bed Alarm Zone 1, Side Rails Side Rails x2, Bed position Low and Locked. Fall Precautions: Yellow Socks Yellow Gown Door Sign Patient Fall Education Report given to LUIS Griffin and LUIS Bauer
[2019-12-14 20:00] VITALS: BP 112/58
[2019-12-14] MEDS: Atorvastatin 80mg tab ORAL SCH (21:00)
--- NOTE | 2019-12-14 23:00 | NUR ---
NURSE HAND-OFF REPORT: Important Events on Shift:[Transfer to [facility]] Patient Status: [Stable] Diet: [Cardiac] Pending Orders: [Labs AM] Pending Results/Labs:[] Pending MD notification:[] Latest Vital Signs: Temperature 97.5 , Pulse 76 , B/P 112 /55 , Respiratory Rate 20 , O2 SAT 96 , Room Air, O2 Flow Rate . Vital Sign Comment: [] EKG Rhythm: Sinus Rhythm Rhythm change?: N MD Notified?: N - MD Response: Latest Wallis Fall Score: 60 Fall Risk: High Risk Safety Measures: Call light Within Reach, Bed Alarm Zone 1, Side Rails Side Rails x2, Bed position Low and Locked. Fall Precautions: Yellow Socks Yellow Gown Door Sign Patient Fall Education Report given to [Kris RN].
--- NOTE | 2019-12-14 23:04 | Psych Consult Progress Note ---
Psychiatry Progress Note Psychiatry Progress Note Subjective more agitated at night the pt is more confused the pt lacks capacity to make decisions the next of keen should make decisions the pt was disorganized and responding to IS Medications Current Medications Medications (Trade) Dose Ordered Sig/Yasmine Route PRN Reason Start Time Stop Time Status Last Admin Dose Admin Acetaminophen (Tylenol) 650 mg Q4H PRN ORAL Mild Pain (Pain Scale 1-3) 12/11/19 14:00 01/09/20 13:59 Acetaminophen (Tylenol) 650 mg Q6H PRN ORAL For Headache 12/11/19 14:00 01/09/20 13:59 12/12/19 21:36 Al Hydroxide/Mg Hydroxide (Mylanta II) 30 ml Q6H PRN ORAL dyspepsia 12/11/19 14:00 01/09/20 13:59 Amlodipine Besylate (Norvasc) 10 mg QPM ORAL 12/11/19 16:30 01/06/20 16:29 12/14/19 17:23 Atorvastatin Calcium (Lipitor) 80 mg BEDTIME ORAL 12/11/19 21:00 03/04/20 20:59 12/12/19 21:34 Atropine Sulfate (Atropine) 0.5 mg Q3M PRN IV symptomatic bradycardia 12/11/19 13:30 03/04/20 15:44 Bisacodyl (Dulcolax) 10 mg DAILYPRN PRN RECTAL Constipation 12/11/19 14:00 03/10/20 13:59 Dextrose (Dextrose 50%) 25 ml Q30M PRN IV Hypoglycemia 12/11/19 14:00 03/03/20 13:59 Dextrose (Dextrose 50%) 50 ml Q30M PRN IV Hypoglycemia 12/11/19 13:45 03/03/20 15:44 Escitalopram Oxalate (Lexapro) 10 mg DAILY ORAL 12/12/19 09:00 01/07/20 16:14 12/14/19 09:00 Fludrocortisone Acetate (Florinef) 0.1 mg DAILY ORAL 12/11/19 16:45 01/10/20 16:44 12/14/19 09:00 Haloperidol Lactate (Haldol) 5 mg Q6H PRN IM Agitation 12/11/19 14:00 01/24/20 13:59 Hydralazine HCl (Apresoline) 10 mg Q12HR ORAL 12/11/19 21:00 03/09/20 20:59 12/13/19 09:36 Hydralazine HCl (Apresoline) 10 mg Q6H PRN ORAL For High Blood Pressure 12/11/19 14:00 03/09/20 13:59 Magnesium Oxide (Mag-Ox 400mg) 400 mg TID ORAL 12/11/19 18:00 01/04/20 12:59 12/14/19 17:23 Nitroglycerin (Ntg) 0.4 mg Q5M PRN SL Prn Chest Pain 12/11/19 13:35 01/03/20 15:44 Ondansetron HCl (Zofran) 4 mg Q6H PRN IVP Nausea & Vomiting 12/11/19 14:00 01/09/20 13:59 12/13/19 15:12 Pantoprazole (Protonix) 40 mg EVERY 12 HOURS IVP 12/13/19 21:00 01/12/20 20:59 12/14/19 21:00 Piperacillin Sod/ Tazobactam Sod 3.375 gm/Sodium Chloride 110 ml @ 27.5 mls/hr Q8HR IVPB 12/14/19 14:00 12/19/19 13:59 12/14/19 21:51 Polyethylene Glycol (Miralax) 17 gm DAILYPRN PRN ORAL Constipation 12/12/19 13:30 01/09/20 13:17 Potassium Chloride 10 meq/ Dextrose/Sodium Chloride 1,005 ml @ 75 mls/hr [id number] IV 12/12/19 17:30 01/11/20 17:29 12/14/19 11:36 Risperidone (RisperDAL) 2 mg BEDTIME ORAL 12/11/19 21:00 01/25/20 20:59 12/12/19 21:35 Senna/Docusate Sodium (Kendra-Colace) 1 tab TWICE A DAY ORAL 12/11/19 18:00 01/09/20 17:59 12/14/19 17:23 Tramadol HCl (Ultram) 50 mg Q6H PRN ORAL Severe Pain (Pain Scale 7-10) 12/11/19 14:00 12/17/19 13:59 12/14/19 11:33 Neurological/Psychiatric: Denies: headache, numbness, paresthesia, seizure Allergies: Coded Allergies: No Known Allergies (Unverified , 12/04/19) Objective Data Height (Feet): 5 Height (Inches): 3.00 Weight (Pounds): 146 General Appearance: no apparent distress, alert, lethargic, agitated Mental Status Exam - Mood: irritable, anxious Mental Status Exam - Thought C: delusions of grandiosity Perceptual Disturbances: visual Mental Status Exam - Suicidal: not present Additional Comments: Alert, oriented times self, place. Mood is depressed. Affect is blunted, congruent with mood. Thought process is concrete. Thought content, no suicidal or homicidal ideation. Cognition is impaired. Insight and judgment is impaired. Assessment/Plan [place] I: ASSESSMENT: [place] I Major depressive disorder. Psychotic disorder. Dementia. [place] II Deferred. [place] III Abdominal pain. [place] IV Moderate. [place] V 50. PLAN: 1. Start the patient on risperidone 2 mg at bedtime. 2. Lexapro 10 mg in the morning. 3. Provide the patient with reality orientation and supportive therapy. Status: stable Status Narrative ASSESSMENT: [place] I Major depressive disorder. Psychotic disorder. Dementia. [place] II Deferred. [place] III Abdominal pain. [place] IV Moderate. [place] V 50. PLAN: 1. Start the patient on risperidone 2 mg at bedtime. 2. Lexapro 10 mg in the morning. 3. Provide the patient with reality orientation and supportive therapy. Assessment/Plan: ASSESSMENT: [place] I Major depressive disorder. Psychotic disorder. Dementia. [place] II Deferred. [place] III Abdominal pain. [place] IV Moderate. [place] V 50. PLAN: 1. Start the patient on risperidone 2 mg at bedtime. 2. Lexapro 10 mg in the morning. 3. Provide the patient with reality orientation and supportive therapy. Stuart Feliz MD Dec 14, 2019 23:04
--- NOTE | 2019-12-14 23:10 | NUR ---
NURSE NOTES: Received the patient from Tele.She is alert and oriented x2 with confusion and forgetfulness also noted. The Resp is even and unlabored and the bilateral lung sounds all clear on auscultation.The resident has a L. wrist 22 g that she removed but was replaced with R. AC 22g that is patent and asymptomatic.She was noted with a sacral stage 2 pressure sore with clean and intact dressing.The bed in low level, call light within easy reach and siderails up x2. will continue to monitor
[2019-12-15] VITALS: BP 118/64
[2019-12-15] MEDS: Potassium Chloride 10 MEQ in D5 1/2NS 1,000 ML IV SCH ×2 (00:15→15:22)
[2019-12-15] MEDS ORDERED: Nitroglycerin Subl 0.4mg tab SL PRN (00:15)
[2019-12-15] MEDS ORDERED: Atropine Inj 1mg/10ml Syr IV PRN (00:15)
[2019-12-15] MEDS ORDERED: Mylanta II UD 30ml ORAL PRN (00:30)
[2019-12-15] MEDS ORDERED: Haloperidol 5mg/ml Inj IM PRN (00:30)
[2019-12-15] MEDS ORDERED: Miralax 17gm pkt ORAL PRN (00:30)
[2019-12-15] MEDS ORDERED: traMADol 50mg tab ORAL PRN (00:30)
[2019-12-15] MEDS ORDERED: HydrALAZINE 10mg Tab ORAL PRN (00:30)
[2019-12-15 04:00] VITALS: BP 107/61
[2019-12-15] MEDS: Piperacillin/Tazobactam 3.375 GM in NS 110 ML IVPB SCH ×3 (05:41→21:42)
[2019-12-15 06:29] LABS: APPEARANCE,URINE CLEAR; BILIRUBIN, URINE NEGATIVE (NEGATIVE); COLOR,URINE PALE YELLOW; GLUCOSE, URINE (UA) NEGATIVE (NEGATIVE); KETONES,URINE NEGATIVE (NEGATIVE); LEUKOCYTE ESTERASE ,URINE 1+ (NEGATIVE); NITRITE,URINE NEGATIVE (NEGATIVE); PH,URINE 8 (4.5-8.0); PROTEIN,URINE NEGATIVE (NEGATIVE); UROBILINOGEN,URINE NORMAL MG/DL (0.0-1.0)
[2019-12-15 07:17] LABS: HEMATOCRIT 23.8 % (37.0-47.0); HEMOGLOBIN 7.6 G/DL (12.0-16.0); MEAN CORPUSCULAR VOLUME 87 FL (80-99); PLATELET COUNT 439 K/UL (150-450); RED BLOOD COUNT 2.75 M/UL (4.20-5.40)
[2019-12-15 07:44] LABS: CALCIUM 8.6 MG/DL (8.5-10.1); CREATININE 1.1 MG/DL (0.55-1.30); POTASSIUM 3.7 MMOL/L (3.5-5.1)
--- NOTE | 2019-12-15 07:45 | NUR ---
HAND-OFF: Report given to Rafaela SMITH.
--- NOTE | 2019-12-15 07:51 | NUR ---
NURSE NOTES: Patient alert x2, on room air, no sing of distress and shortness of breath; no sign of chest pain; bed side commod within reach, patient instructed to call for help whenever need to use the commod; IV cite infiltrated and discontinued the IV; will insert another Iv line; side rails up x2, breaks engaged, bed at lowest position, bed alarm on; will keep monitoring.
[2019-12-15 08:00] VITALS: BP 115/52
--- NOTE | 2019-12-15 08:15 | General Progress Note ---
Assessment/Plan Problem List: (1) Hypertension ICD Codes: I10 - Essential (primary) hypertension SNOMED: 88730991 (2) Hypokalemia ICD Codes: E87.6 - Hypokalemia SNOMED: 78224238 (3) Abdominal pain ICD Codes: R10.9 - Unspecified abdominal pain SNOMED: 24489104 (4) Chest pain ICD Codes: R07.9 - Chest pain, unspecified SNOMED: 12092243 Status: stable Assessment/Plan: stool ob positive but no active GIB fu H&H CT reviewed patient was brought to the GI lab but refused to be sedated she was combative pulling her lines so procedure was canceled repeat stool ob fu H&H ppi Subjective ROS Limited/Unobtainable: No Allergies: Coded Allergies: No Known Allergies (Unverified , 12/04/19) Subjective very confused Objective Last 24 Hour Vital Signs Date Time Temp Pulse Resp B/P (MAP) Pulse Ox O2 Delivery O2 Flow Rate FiO2 12/15/19 04:00 98.1 79 20 107/61 (76) 98 12/15/19 00:00 98.2 76 19 118/64 (82) 97 12/14/19 21:00 Room Air 12/14/19 21:00 112/55 12/14/19 21:00 73 82 12/14/19 20:00 97.5 76 20 112/58 (76) 96 12/14/19 17:23 82 149/54 12/14/19 16:00 98.0 82 20 149/54 (85) 100 12/14/19 12:00 97.7 78 20 145/55 (85) 98 12/14/19 09:00 103/46 12/14/19 09:00 Room Air 12/14/19 09:00 78 85 Intake and Output 12/14/19 12/15/19 19:00 07:00 Intake Total 540 ml Balance 540 ml Intake Oral 540 ml # Voids 2 2 Laboratory Tests 12/14/19 09:20: White Blood Count 20.5H, Red Blood Count 2.84L, Hemoglobin 7.8L, Hematocrit 24.5L, Mean Corpuscular Volume 86, Mean Corpuscular Hemoglobin 27.4, Mean Corpuscular Hemoglobin Concent 31.9L, Red Cell Distribution Width 12.6, Platelet Count 406, Mean Platelet Volume 7.0, Neutrophils (%) (Auto) , Lymphocytes (%) (Auto) , Monocytes (%) (Auto) , Eosinophils (%) (Auto) , Basophils (%) (Auto) , Differential Total Cells Counted 100, Neutrophils % (Manual) 80H, Lymphocytes % (Manual) 13L, Monocytes % (Manual) 6, Eosinophils % (Manual) 0, Basophils % (Manual) 1, Band Neutrophils 0, Platelet Estimate Adequate, Platelet Morphology Normal, Hypochromasia 1+, Anisocytosis 1+, Sodium Level 141, Potassium Level 3.8, Chloride Level 103, Carbon Dioxide Level 30, Anion Gap 8, Blood Urea Nitrogen 10, Creatinine 1.1, Estimat Glomerular Filtration Rate 59.0, Glucose Level 107H, Calcium Level 8.5, Total Bilirubin 0.4, Aspartate Amino Transf (AST/SGOT) 18, Alanine Aminotransferase (ALT/SGPT) 15, Alkaline Phosphatase 78, Total Protein 7.2, Albumin 2.9L, Globulin 4.3, Albumin/Globulin Ratio 0.7L 12/15/19 03:54: Urine Color Pale yellow, Urine Appearance Clear, Urine pH 8, Urine Specific [place] 1.015, Urine Protein Negative, Urine Glucose (UA) Negative, Urine Ketones Negative, Urine Blood Negative, Urine Nitrite Negative, Urine Bilirubin Negative, Urine Urobilinogen Normal, Urine Leukocyte Esterase 1+H, Urine RBC 0- 2, Urine WBC 0-2, Urine Squamous Epithelial Cells Few, Urine Bacteria None 12/15/19 06:52: White Blood Count 17.0H, Red Blood Count 2.75L, Hemoglobin 7.6L, Hematocrit 23.8L, Mean Corpuscular Volume 87, Mean Corpuscular Hemoglobin 27.5, Mean Corpuscular Hemoglobin Concent 31.8L, Red Cell Distribution Width 13.0, Platelet Count 439, Mean Platelet Volume 6.7, Neutrophils (%) (Auto) , Lymphocytes (%) (Auto) , Monocytes (%) (Auto) , Eosinophils (%) (Auto) , Basophils (%) (Auto) , Neutrophils % (Manual) [Pending], Lymphocytes % (Manual) [Pending], Platelet Estimate [Pending], Platelet Morphology [Pending], Sodium Level 138, Potassium Level 3.7, Chloride Level 102, Carbon Dioxide Level 27, Anion Gap 9, Blood Urea Nitrogen 7, Creatinine 1.1, Estimat Glomerular Filtration Rate 59.0, Glucose Level 105, Calcium Level 8.6 Height (Feet): 5 Height (Inches): 3.00 Weight (Pounds): 146 General Appearance: confused EENT: normal ENT inspection Neck: supple Cardiovascular: normal rate Respiratory/Chest: decreased breath sounds Abdomen: normal bowel sounds, non tender, soft Extremities: non-tender Massimo Osborn MD Dec 15, 2019 08:15
[2019-12-15] MEDS: Docusate Sod/Senna tab ORAL SCH ×2 (09:02→17:58)
[2019-12-15] MEDS: HydrALAZINE 10mg Tab ORAL SCH ×2 (09:02→20:38)
[2019-12-15] MEDS: Magnesium Oxide 400mg tab ORAL SCH ×3 (09:02→17:59)
[2019-12-15] MEDS: Pantoprazole Inj IVP SCH ×2 (09:03→20:38)
--- NOTE | 2019-12-15 09:36 | NUR ---
CASE MANAGEMENT:REVIEW SI;SEPSIS. ANEMIA. ILEUS. UTI. 98.2 82 20 112/55 96% ON RA WBC 17.0 H/H 7.6/23.8 IS;PROTONIX IV Q12 MAG-OX PO TID HYDRALAZINE PO Q12 ZOSYN IV Q8 KCL/D5/NS @ 75 ML/HR MED SURG STATUS DCP;FROM HOME
--- NOTE | 2019-12-15 09:49 | General Progress Note ---
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 Cardio consulted and ACS was ruled out, pt under went NM stress test which was negative. Pt noted to have abd pain and occult positive stools. #Acute Metabolic Encephalopathy - multifactorial #?Acute on Chronic Dementia #UTI - E coli #Hyponatremia - resolved #Leukocytosis - worsening -Na 131 -->130 --> 127 --> 129 --> 138 -> -Hyponatremia likely 2/2 dehydration, HCTZ use -confusion may be multifactorial, acute on chronic dementia, infection/UTI, less likely hyponatremia -Leukocytosis may be 2/2 steroids for Orthostatic Hypotension vs infection -d/c HCTZ -Nephro consulted, recs appreciated -s/p 500 cc +250 cc 3% saline initiated by Nephro with improvement in Na -12/10: CT head negative for acute process -UCx e. Coli that is pansensitive -ID consulted, recs appreciated, DC CTX and flagyl - started Zosyn #Ileus #Abdominal Pain - resolved #Constipation - improved #Occult Positive Stools Pain possibly from constipation, less likely diverticulitis or gastroenteritis. No CVA tenderness - UA and Lipase wnl - CT Abdomen - ileus vs. colitis - GI Cocktail, Zofran prn - 12/07 abd XR w/ileus, small bowel obstruction less likely - s/p Mg citrate x1 - docusate TID, dulcolax suppository PRN - occult stool positive - c diff negative - pain control - Hgb stable however down trending - - Refused EGD/colonoscopy 12/13 #Orthostatic Hypotension #Syncope -cont Florinef 0.1 mg daily -fall precautions #ZA - improved -Cr elevated to 1.7, now resolved -avoid nephrotoxins -renally dose meds -Nephro following, recs appreciated #Chest pain - ACS ruled out, resolved #Chronic HFpEF Initial presentation with non-radiating chest pain that resolved with SL Nitro and Aspirin. EKG with non-specific ST changes in V1-V2. Moderate Heart Score - EKG prn for active chest pain, Trop x3 negative, BNP slightly elevated, HBA1c wnl - Echo EF 70-75%, mild left hypertrophy, mitral and aortic root calcification - Cardiology consulted, recs appreciated - s/p NM stress test negative, pt OK to d/c home from cardio stand point #Hypertension - uncontrolled #Hypertensive Urgency - resolved - Cont Norvasc 10 mg PO daily - cont hydralazine 10 mg PO BID - d/c Hctz due to ZA and hyponatremia - hydralazine PRN for SBP >160 #Hypokalemia - resolved - replaced - ctm, replace PRN #Psychosis #Depression #Dementia #SI -per nurse pt was seeing "snakes" in the room - resolved -Psych consulted, recs appreciated -Risperdone increased from 1 mg to 2 mg qHS -cont lexapro 10 mg PO qAM -Suicide precautions FEN Hold AC per cards and positive occult Dispo - Home when medically cleared Code - FULL CODE Time spent with patient 38 mins, approximately 29 minutes spent coordinating care with nurses and consultants. D/w RN, Dr. Tillman, Dr. Vail, GI and Dr. Penny. iI also had another discussion with couannia Byrd about plan of care moving forward. Time of note may not reflect time of encounter. Subjective Date patient seen: Dec 15, 2019 Time patient seen: 08:00 ROS Limited/Unobtainable: Yes Constitutional: Denies: chills, fever HEENT: Denies: eye pain, blurred vision, tearing Cardiovascular: Denies: edema, irregular heart rate, lightheadedness Respiratory: Denies: orthopnea, SOB with excertion Gastrointestinal/Abdominal: Reports: blood in stool, constipated; Denies: diarrhea, difficulty swallowing Genitourinary: Denies: discharge, frequency, flank pain Neurologic/Psychiatric: Denies: depressed, emotional problems, headache, numbness, paresthesia, pre-existing deficit Endocrine: Denies: excessive sweating, flushing, intolerance to cold, increased hunger Hematologic/Lymphatic: Reports: anemia; Denies: easy bleeding Allergies: Coded Allergies: No Known Allergies (Unverified , 12/04/19) All Systems: reviewed and negative except above Subjective Patient has no complaints. In better and more stable mood today. IV was placed. No receiving abx. Objective Last 24 Hour Vital Signs Date Time Temp Pulse Resp B/P (MAP) Pulse Ox O2 Delivery O2 Flow Rate FiO2 12/15/19 09:02 115/52 12/15/19 08:00 97.7 79 18 115/52 (73) 99 12/15/19 04:00 98.1 79 20 107/61 (76) 98 12/15/19 00:00 98.2 76 19 118/64 (82) 97 12/14/19 21:00 Room Air 12/14/19 21:00 112/55 12/14/19 21:00 73 82 12/14/19 20:00 97.5 76 20 112/58 (76) 96 12/14/19 17:23 82 149/54 12/14/19 16:00 98.0 82 20 149/54 (85) 100 12/14/19 12:00 97.7 78 20 145/55 (85) 98 Intake and Output 12/14/19 12/15/19 19:00 07:00 Intake Total 540 ml Balance 540 ml Intake Oral 540 ml # Voids 2 2 Laboratory Tests 12/15/19 03:54: Urine Color Pale yellow, Urine Appearance Clear, Urine pH 8, Urine Specific [place] 1.015, Urine Protein Negative, Urine Glucose (UA) Negative, Urine Ketones Negative, Urine Blood Negative, Urine Nitrite Negative, Urine Bilirubin Negative, Urine Urobilinogen Normal, Urine Leukocyte Esterase 1+H, Urine RBC 0- 2, Urine WBC 0-2, Urine Squamous Epithelial Cells Few, Urine Bacteria None 12/15/19 06:52: White Blood Count 17.0H, Red Blood Count 2.75L, Hemoglobin 7.6L, Hematocrit 23.8L, Mean Corpuscular Volume 87, Mean Corpuscular Hemoglobin 27.5, Mean Corpuscular Hemoglobin Concent 31.8L, Red Cell Distribution Width 13.0, Platelet Count 439, Mean Platelet Volume 6.7, Neutrophils (%) (Auto) , Lymphocytes (%) (Auto) , Monocytes (%) (Auto) , Eosinophils (%) (Auto) , Basophils (%) (Auto) , Neutrophils % (Manual) [Pending], Lymphocytes % (Manual) [Pending], Platelet Estimate [Pending], Platelet Morphology [Pending], Sodium Level 138, Potassium Level 3.7, Chloride Level 102, Carbon Dioxide Level 27, Anion Gap 9, Blood Urea Nitrogen 7, Creatinine 1.1, Estimat Glomerular Filtration Rate 59.0, Glucose Level 105, Calcium Level 8.6 Height (Feet): 5 Height (Inches): 3.00 Weight (Pounds): 146 General Appearance: no apparent distress, alert, lethargic, confused EENT: normal ENT inspection Neck: normal alignment, supple, normal inspection Cardiovascular: normal peripheral pulses, normal rate, regular rhythm, no gallop/murmur Respiratory/Chest: chest wall non-tender, lungs clear, normal breath sounds, no respiratory distress, no accessory muscle use Abdomen: non tender, soft, no organomegaly, no mass, hypoactive bowel sounds Pelvis: normal external exam Extremities: non-tender, normal inspection Edema: no edema noted Arm (L), no edema noted Arm (R), no edema noted Leg (L), no edema noted Leg (R), no edema noted Pedal (L), no edema noted Pedal (R), no edema noted Generalized Neurologic: responsive, depressed affect Skin: normal pigmentation, warm/dry, no diaphoresis Alfie Kowalski M.D. Dec 15, 2019 09:49
[2019-12-15 12:00] VITALS: BP 137/62
[2019-12-15 16:00] VITALS: BP 117/57
--- NOTE | 2019-12-15 16:49 | Cardiology Progress Note ---
Assessment/Plan Status: stable Assessment/Plan Assessment/Plan CHEST PAIN HYPERTENSIVE URGENCY CHF DIASTOLIC Plan: Echocardiogram with diastolic dysfunction preserved LV function 70%, no significant valvular disease Spot dose lasix Continue HCTZ DASH diet Continue Norvasc Monitor on telemetry Nitro prn CP Hold Heparin Stress test NEGATIVE Clear to proceed with colonoscopy Psych for capacity ok to d/c from cardiology perspective once cleared by psych Subjective Cardiovascular: Reports: no symptoms Respiratory: Reports: no symptoms Gastrointestinal/Abdominal: Reports: no symptoms Genitourinary: Reports: no symptoms Subjective No acute events, BP stable, TTE with LVEF 70%, CP resolved. EKG no dynamic changes, stress test NEGATIVE Discharge held for psych consult Patient refused colonsocopy for positive FOBT Objective Last 24 Hour Vital Signs Date Time Temp Pulse Resp B/P (MAP) Pulse Ox O2 Delivery O2 Flow Rate FiO2 12/15/19 16:00 98.2 76 20 117/57 (77) 99 12/15/19 12:00 98.1 74 20 137/62 (87) 99 12/15/19 09:02 115/52 12/15/19 09:00 78 85 12/15/19 09:00 Room Air 12/15/19 08:00 97.7 79 18 115/52 (73) 99 12/15/19 04:00 98.1 79 20 107/61 (76) 98 12/15/19 00:00 98.2 76 19 118/64 (82) 97 12/14/19 21:00 Room Air 12/14/19 21:00 112/55 12/14/19 21:00 73 82 12/14/19 20:00 97.5 76 20 112/58 (76) 96 12/14/19 17:23 82 149/54 General Appearance: no apparent distress, alert EENT: PERRL/EOMI, TMs normal, pharynx normal Neck: normal alignment, normal inspection, no JVD Rhythm: NSR Cardiovascular: normal peripheral pulses, normal rate Respiratory/Chest: chest wall non-tender, lungs clear Abdomen: normal bowel sounds, non tender, soft Extremities: normal range of motion, non-tender, normal inspection, no calf tenderness, no swelling 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, no motor/sensory deficits Intake and Output 12/14/19 12/15/19 19:00 07:00 Intake Total 540 ml 75 ml Balance 540 ml 75 ml Intake Oral 540 ml IV Total 75 ml # Voids 2 2 Laboratory Tests Test 12/15/19 03:54 12/15/19 06:52 Urine Color Pale yellow Urine Appearance Clear Urine pH 8 (4.5-8.0) Urine Specific [place] 1.015 (1.005-1.035) Urine Protein Negative (NEGATIVE) Urine Glucose (UA) Negative (NEGATIVE) Urine Ketones Negative (NEGATIVE) Urine Blood Negative (NEGATIVE) Urine Nitrite Negative (NEGATIVE) Urine Bilirubin Negative (NEGATIVE) Urine Urobilinogen Normal MG/DL (0.0-1.0) Urine Leukocyte Esterase 1+ (NEGATIVE) H Urine RBC 0-2 /HPF (0 - 2) Urine WBC 0-2 /HPF (0 - 2) Urine Squamous Epithelial Cells Few /LPF (NONE/OCC) Urine Bacteria None /HPF (NONE) White Blood Count 17.0 K/UL (4.8-10.8) H Red Blood Count 2.75 M/UL (4.20-5.40) L Hemoglobin 7.6 G/DL (12.0-16.0) L Hematocrit 23.8 % (37.0-47.0) L Mean Corpuscular Volume 87 FL (80-99) Mean Corpuscular Hemoglobin 27.5 PG (27.0-31.0) Mean Corpuscular Hemoglobin Concent 31.8 G/DL (32.0-36.0) L Red Cell Distribution Width 13.0 % (11.6-14.8) Platelet Count 439 K/UL (150-450) Mean Platelet Volume 6.7 FL (6.5-10.1) Neutrophils (%) (Auto) % (45.0-75.0) Lymphocytes (%) (Auto) % (20.0-45.0) Monocytes (%) (Auto) % (1.0-10.0) Eosinophils (%) (Auto) % (0.0-3.0) Basophils (%) (Auto) % (0.0-2.0) Differential Total Cells Counted 100 Neutrophils % (Manual) 81 % (45-75) H Lymphocytes % (Manual) 11 % (20-45) L Monocytes % (Manual) 6 % (1-10) Eosinophils % (Manual) 1 % (0-3) Basophils % (Manual) 1 % (0-2) Band Neutrophils 0 % (0-8) Platelet Estimate Decreased L Platelet Morphology Normal Hypochromasia 3+ Anisocytosis 1+ Sodium Level 138 MMOL/L (136-145) Potassium Level 3.7 MMOL/L (3.5-5.1) Chloride Level 102 MMOL/L (98-107) Carbon Dioxide Level 27 MMOL/L (21-32) Anion Gap 9 mmol/L (5-15) Blood Urea Nitrogen 7 mg/dL (7-18) Creatinine 1.1 MG/DL (0.55-1.30) Estimat Glomerular Filtration Rate 59.0 mL/min (>60) Glucose Level 105 MG/DL (74-106) Calcium Level 8.6 MG/DL (8.5-10.1) Microbiology Date/Time Source Procedure Growth Status 12/13/19 11:13 Nasopharynx SARS-CoV-2 RdRp Gene Assay - Final Complete FilsoKush kelly MD Dec 15, 2019 16:49
--- NOTE | 2019-12-15 16:59 | NUR ---
NURSE NOTES: Patient and patient's family agree for blood transfusion; I called and left a voice message at MD [place] office number; I am waiting for order;
--- NOTE | 2019-12-15 17:20 | NUR ---
NURSE NOTES: MD Kowalski called back regarding patient's blood transfusion; MD Kowalski want to check patient's AM hemoglobin level and decide on blood transfusion;
--- NOTE | 2019-12-15 19:28 | NUR ---
HAND-OFF: Report given to LUIS Graham. Endorsed to the incoming nurse that patient is risk for fall.
--- NOTE | 2019-12-15 19:39 | NUR ---
NURSE NOTES: Patient in bed, awake, alert x 3, able to make simple needs known. Respiration is even and unlabored. No complaint of pain or discomfort noted. Abdomen is soft and non distended. Iv site noted, iv fluid and antibiotic noted. Bed in low and locked position. Skin is warm and dry to touch. Provide safe environment. Call light is at bedside. WIll continue plan of care.
[2019-12-15 20:00] VITALS: BP 144/56
[2019-12-15] MEDS: Atorvastatin 80mg tab ORAL SCH (20:38)
--- NOTE | 2019-12-15 22:12 | NUR ---
NURSE NOTES: Spoke with patient, encouraged and given emotional support. Patient noted saying that her family does not care much for her and that she is currently homeless and unable to go back home. None of the family members are able to help out. Spoke with patient and provided support.
--- NOTE | 2019-12-15 22:47 | Psych Consult Progress Note ---
Psychiatry Progress Note Psychiatry Progress Note Subjective more managable the pt lacks capacity to make decisions the next of keen should make decisions the pt was disorganized and responding to IS Medications Current Medications Medications (Trade) Dose Ordered Sig/Yasmine Route PRN Reason Start Time Stop Time Status Last Admin Dose Admin Acetaminophen (Tylenol) 650 mg Q4H PRN ORAL Mild Pain (Pain Scale 1-3) 12/15/19 00:30 01/09/20 00:29 Acetaminophen (Tylenol) 650 mg Q6H PRN ORAL For Headache 12/15/19 00:30 01/09/20 00:29 12/15/19 20:42 Al Hydroxide/Mg Hydroxide (Mylanta II) 30 ml Q6H PRN ORAL dyspepsia 12/15/19 00:30 01/09/20 00:29 Amlodipine Besylate (Norvasc) 10 mg QPM ORAL 12/15/19 16:30 01/06/20 16:29 12/15/19 17:58 Atorvastatin Calcium (Lipitor) 80 mg BEDTIME ORAL 12/15/19 21:00 03/04/20 20:59 12/15/19 20:38 Atropine Sulfate (Atropine) 0.5 mg Q3M PRN IV symptomatic bradycardia 12/15/19 00:15 03/04/20 15:44 Bisacodyl (Dulcolax) 10 mg DAILYPRN PRN RECTAL Constipation 12/15/19 00:30 03/10/20 00:29 Dextrose (Dextrose 50%) 25 ml Q30M PRN IV Hypoglycemia 12/15/19 00:30 03/03/20 13:59 Dextrose (Dextrose 50%) 50 ml Q30M PRN IV Hypoglycemia 12/15/19 00:15 03/03/20 15:44 Escitalopram Oxalate (Lexapro) 10 mg DAILY ORAL 12/15/19 09:00 01/07/20 16:14 12/15/19 09:03 Fludrocortisone Acetate (Florinef) 0.1 mg DAILY ORAL 12/15/19 09:00 01/10/20 16:44 12/15/19 09:02 Haloperidol Lactate (Haldol) 5 mg Q6H PRN IM Agitation 12/15/19 00:30 01/24/20 00:29 Hydralazine HCl (Apresoline) 10 mg Q12HR ORAL 12/15/19 09:00 03/09/20 20:59 12/15/19 20:38 Hydralazine HCl (Apresoline) 10 mg Q6H PRN ORAL For High Blood Pressure 12/15/19 00:30 03/09/20 00:29 Magnesium Oxide (Mag-Ox 400mg) 400 mg TID ORAL 12/15/19 09:00 01/04/20 12:59 12/15/19 17:59 Nitroglycerin (Ntg) 0.4 mg Q5M PRN SL Prn Chest Pain 12/15/19 00:15 01/03/20 15:44 Ondansetron HCl (Zofran) 4 mg Q6H PRN IVP Nausea & Vomiting 12/15/19 00:30 01/09/20 00:29 Pantoprazole (Protonix) 40 mg EVERY 12 HOURS IVP 12/15/19 09:00 01/12/20 20:59 12/15/19 20:38 Piperacillin Sod/ Tazobactam Sod 3.375 gm/Sodium Chloride 110 ml @ 27.5 mls/hr Q8HR IVPB 12/15/19 06:00 12/20/19 05:59 12/15/19 21:42 Polyethylene Glycol (Miralax) 17 gm DAILYPRN PRN ORAL Constipation 12/15/19 00:30 01/09/20 00:29 Potassium Chloride 10 meq/ Dextrose/Sodium Chloride 1,005 ml @ 75 mls/hr [id number] IV 12/15/19 00:15 01/11/20 17:29 12/15/19 15:22 Risperidone (RisperDAL) 2 mg BEDTIME ORAL 12/15/19 21:00 01/25/20 20:59 12/15/19 20:38 Senna/Docusate Sodium (Kendra-Colace) 1 tab TWICE A DAY ORAL 12/15/19 09:00 01/09/20 17:59 12/15/19 17:58 Tramadol HCl (Ultram) 50 mg Q6H PRN ORAL Severe Pain (Pain Scale 7-10) 12/15/19 00:30 12/17/19 00:29 Neurological/Psychiatric: Denies: depressed, emotional problems, headache, numbness, paresthesia, pre-existing deficit Allergies: Coded Allergies: No Known Allergies (Unverified , 12/04/19) Objective Data Height (Feet): 5 Height (Inches): 3.00 Weight (Pounds): 146 General Appearance: no apparent distress, alert, lethargic, confused Mental Status Exam - Mood: irritable, anxious Mental Status Exam - Thought C: delusions of grandiosity Perceptual Disturbances: visual Mental Status Exam - Suicidal: not present Additional Comments: Alert, oriented times self, place. Mood is depressed. Affect is blunted, congruent with mood. Thought process is concrete. Thought content, no suicidal or homicidal ideation. Cognition is impaired. Insight and judgment is impaired. Assessment/Plan Savage I: ASSESSMENT: Savage I Major depressive disorder. Psychotic disorder. Dementia. Savage II Deferred. Savage III Abdominal pain. Savage IV Moderate. Savage V 50. PLAN: 1. Start the patient on risperidone 2 mg at bedtime. 2. Lexapro 10 mg in the morning. 3. Provide the patient with reality orientation and supportive therapy. Status: stable Status Narrative ASSESSMENT: Savage I Major depressive disorder. Psychotic disorder. Dementia. Savage II Deferred. Savage III Abdominal pain. Savage IV Moderate. Savage V 50. PLAN: 1. Start the patient on risperidone 2 mg at bedtime. 2. Lexapro 10 mg in the morning. 3. Provide the patient with reality orientation and supportive therapy. Assessment/Plan: ASSESSMENT: Savage I Major depressive disorder. Psychotic disorder. Dementia. Savage II Deferred. Savage III Abdominal pain. Savage IV Moderate. Savage V 50. PLAN: 1. Start the patient on risperidone 2 mg at bedtime. 2. Lexapro 10 mg in the morning. 3. Provide the patient with reality orientation and supportive therapy. Stuart Feliz MD Dec 15, 2019 22:47
[2019-12-16] VITALS: BP 131/68
[2019-12-16 04:00] VITALS: BP 129/70
[2019-12-16] MEDS: Potassium Chloride 10 MEQ in D5 1/2NS 1,000 ML IV SCH ×2 (06:00→17:08)
[2019-12-16] MEDS: Piperacillin/Tazobactam 3.375 GM in NS 110 ML IVPB SCH ×3 (06:29→21:47)
--- NOTE | 2019-12-16 06:29 | NUR ---
NURSE NOTES: New IV inserted, iv fluid is infusing.
[2019-12-16 06:47] LABS: HEMATOCRIT 23.5 % (37.0-47.0); HEMOGLOBIN 7.4 G/DL (12.0-16.0); MEAN CORPUSCULAR VOLUME 86 FL (80-99); PLATELET COUNT 467 K/UL (150-450); RED BLOOD COUNT 2.72 M/UL (4.20-5.40); WHITE BLOOD COUNT 15.8 K/UL (4.8-10.8)
--- NOTE | 2019-12-16 07:34 | NUR ---
NURSE HAND-OFF: Important Events on Shift: New IV placed Patient Status: WNL Diet: Cardiac Pending Orders: Pending Results/Labs: Pending MD notification: Latest Vital Signs: Temperature 97.7 , Pulse 75 , B/P 129 /70 , Respiratory Rate 18 , O2 SAT 97 , Room Air, O2 Flow Rate . Vital Sign Comment: WNL Latest [place] Fall Score: 60 Fall Risk: High Risk Safety Measures: Call light Within Reach, Bed Alarm Zone 1, Side Rails Side Rails x2, Bed position Low and Locked. Fall Precautions: Yellow Socks Yellow Gown Door Sign Patient Fall Education Report given to LUIS Russo.
[2019-12-16 08:00] VITALS: BP 124/67
--- NOTE | 2019-12-16 08:13 | NUR ---
NURSE NOTES: Patient alert x3; on room air, no sing of distress and shortness of breath; no sing of chest pain; Iv Left-Hand [id number] 75cc running; side rails up x2, breaks engaged, bed at lowest position, bed alarm on; call light within reach; bed side commod within reach; patient instructed to call for help when needed; will keep monitoring.
[2019-12-16] MEDS: Magnesium Oxide 400mg tab ORAL SCH ×3 (09:28→17:08)
[2019-12-16] MEDS: Docusate Sod/Senna tab ORAL SCH ×2 (09:28→17:08)
--- NOTE | 2019-12-16 09:28 | NUR ---
RD ASSESSMENT & RECOMMENDATIONS SEE CARE ACTIVITY FOR COMPLETE ASSESSMENT DAILY ESTIMATED NEEDS: Needs based on Cardiac, 57kg abw 25-30 kcals/kg 5154-4818 total kcals 1-1.2 g protein/kg 57-68 g total protein 25-30 mL/kg 8813-1889 total fluid mLs NUTRITION DIAGNOSIS: Altered nutrition related lab values R/T clinical condition, prediabetes? as evidenced by low Na (129-> wnl), low K (3.2-> wnl), A1C 6.0 CURRENT DIET:Clear Liquid -> Full Liquid -> Cardiac PO DIET RECOMMENDATIONS: Liberalized regular/soft with variable PO ADDITIONAL RECOMMENDATIONS: * Calibrated bedscale wt * Monitor lytes, replete as needed * Monitor BGs, need for carb controlled diet/ hypoglycemics: A1C 6.0 * Add Glucerna TID w/ meals w/ poor/variable intake * Monitor H/H- trending down, ob stool +, refused EGD/colonoscopy * MVI x 1
[2019-12-16] MEDS: Pantoprazole Inj IVP SCH ×2 (09:29→21:47)
[2019-12-16] MEDS: HydrALAZINE 10mg Tab ORAL SCH ×2 (09:29→21:46)
--- NOTE | 2019-12-16 10:47 | General Progress Note ---
Subjective Date patient seen: Dec 16, 2019 Time patient seen: 08:00 ROS Limited/Unobtainable: Yes Constitutional: Denies: fever, malaise, weakness HEENT: Denies: nose congestion, throat pain, throat swelling Cardiovascular: Denies: edema, irregular heart rate, palpitations Respiratory: Denies: SOB with excertion, SOB at rest, sputum Gastrointestinal/Abdominal: Reports: blood in stool, constipated; Denies: a bdominal pain, black stools, tarry stools Genitourinary: Denies: frequency, hematuria Neurologic/Psychiatric: Denies: headache, numbness Endocrine: Denies: flushing Allergies: Coded Allergies: No Known Allergies (Unverified , 12/04/19) Subjective Patient has no complaints. More complaint today. Objective Last 24 Hour Vital Signs Date Time Temp Pulse Resp B/P (MAP) Pulse Ox O2 Delivery O2 Flow Rate FiO2 12/16/19 09:29 124/67 12/16/19 09:00 Room Air 12/16/19 09:00 78 85 12/16/19 08:00 97.6 88 18 124/67 (86) 97 12/16/19 04:00 97.7 75 18 129/70 (89) 97 12/16/19 00:00 98.2 86 18 131/68 (89) 94 12/15/19 21:00 77 76 85 12/15/19 21:00 Room Air 12/15/19 20:38 144/56 12/15/19 20:00 99.1 82 18 144/56 (85) 95 12/15/19 17:58 76 117/57 12/15/19 16:00 98.2 76 20 117/57 (77) 99 12/15/19 12:00 98.1 74 20 137/62 (87) 99 Intake and Output 12/15/19 12/16/19 19:00 07:00 Intake Total 1497.5 ml 962.0 ml Balance 1497.5 ml 962.0 ml Intake Oral 480 ml IV Total 1017.5 ml 962.0 ml # Voids 2 3 # Bowel Movements 1 1 Laboratory Tests 12/16/19 05:00: Stool Occult Blood [Pending] 12/16/19 05:30: White Blood Count 15.8H, Red Blood Count 2.72L, Hemoglobin 7.4L, Hematocrit 23.5L, Mean Corpuscular Volume 86, Mean Corpuscular Hemoglobin 27.3, Mean Corpuscular Hemoglobin Concent 31.6L, Red Cell Distribution Width 13.0, Platelet Count 467H, Mean Platelet Volume 6.5, Neutrophils (%) (Auto) , Lymphocytes (%) (Auto) , Monocytes (%) (Auto) , Eosinophils (%) (Auto) , Basophils (%) (Auto) , Neutrophils % (Manual) [Pending], Lymphocytes % (Manual) [Pending], Platelet Estimate [Pending], Platelet Morphology [Pending] Height (Feet): 5 Height (Inches): 3.00 Weight (Pounds): 146 General Appearance: no apparent distress, lethargic, agitated, obese EENT: normal ENT inspection, TMs normal Neck: normal alignment, supple, normal inspection Cardiovascular: normal peripheral pulses, normal rate, regular rhythm, no gallop/murmur, no JVD Respiratory/Chest: chest wall non-tender, lungs clear, normal breath sounds Abdomen: normal bowel sounds, non tender, soft, no organomegaly Edema: no edema noted Arm (L), no edema noted Arm (R), no edema noted Leg (L), no edema noted Leg (R), no edema noted Pedal (L), no edema noted Pedal (R), no edema noted Generalized Neurologic: responsive, disoriented, depressed affect Skin: normal pigmentation, warm/dry, no diaphoresis Assessment/Plan Problem List: (1) Sepsis ICD Codes: A41.9 - Sepsis, unspecified organism SNOMED: 76789931 Qualifiers: (2) 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 Cardio consulted and ACS was ruled out, pt under went NM stress test which was negative. Pt noted to have abd pain and occult positive stools. #Acute Metabolic Encephalopathy - multifactorial #?Acute on Chronic Dementia #UTI - E coli #Hyponatremia - resolved #Leukocytosis - worsening -Na 131 -->130 --> 127 --> 129 --> 138 -> -Hyponatremia likely 2/2 dehydration, HCTZ use -confusion may be multifactorial, acute on chronic dementia, infection/UTI, less likely hyponatremia -Leukocytosis may be 2/2 steroids for Orthostatic Hypotension vs infection -d/c HCTZ -Nephro consulted, recs appreciated -s/p 500 cc +250 cc 3% saline initiated by Nephro with improvement in Na -12/10: CT head negative for acute process -UCx e. Coli that is pansensitive -ID consulted, recs appreciated, DC CTX and flagyl - started Zosyn 12/13 #Ileus #Abdominal Pain - resolved #Constipation - improved #Occult Positive Stools Pain possibly from constipation, less likely diverticulitis or gastroenteritis. No CVA tenderness - UA and Lipase wnl - CT Abdomen - ileus vs. colitis - GI Cocktail, Zofran prn - 12/07 abd XR w/ileus, small bowel obstruction less likely - s/p Mg citrate x1 - docusate TID, dulcolax suppository PRN - occult stool positive - c diff negative - pain control - Hgb stable however down trending - - Refused EGD/colonoscopy 12/13 #Orthostatic Hypotension #Syncope -cont Florinef 0.1 mg daily -fall precautions #ZA - improved -Cr elevated to 1.7, now resolved -avoid nephrotoxins -renally dose meds -Nephro following, recs appreciated #Chest pain - ACS ruled out, resolved #Chronic HFpEF Initial presentation with non-radiating chest pain that resolved with SL Nitro and Aspirin. EKG with non-specific ST changes in V1-V2. Moderate Heart Score - EKG prn for active chest pain, Trop x3 negative, BNP slightly elevated, HBA1c wnl - Echo EF 70-75%, mild left hypertrophy, mitral and aortic root calcification - Cardiology consulted, recs appreciated - s/p NM stress test negative, pt OK to d/c home from cardio stand point #Hypertension - uncontrolled #Hypertensive Urgency - resolved - Cont Norvasc 10 mg PO daily - cont hydralazine 10 mg PO BID - d/c Hctz due to ZA and hyponatremia - hydralazine PRN for SBP >160 #Hypokalemia - resolved - replaced - ctm, replace PRN #Psychosis #Depression #Dementia #SI -per nurse pt was seeing "snakes" in the room - resolved -Psych consulted, recs appreciated -Risperdone increased from 1 mg to 2 mg qHS -cont lexapro 10 mg PO qAM -Suicide precautions FEN Hold AC per cards and positive occult Dispo - Home when medically cleared Code - FULL CODE Time spent with patient 36 mins, approximately 29 minutes spent coordinating care with nurses and consultants. D/w RN, Dr. Tillman, Dr. Vail, GI and Dr. Penny. I also had another discussion with rosie Byrd about plan of care moving forward. Time of note may not reflect time of encounter. Alfie Kowalski M.D. Dec 16, 2019 10:47
[2019-12-16 12:00] VITALS: BP_SYST 123; BP_SYST 124; BP_DIAS 67; BP_DIAS 70
--- NOTE | 2019-12-16 12:18 | NUR ---
[facility] SAMPLER NOTE PER DR MARTINEZ, PATIENT IS NEEDING SNF PLACEMENT WITH HOSPICE FAMILY IS UNABLE TO PROVIDE CARE FOR PATIENT AT HOME. INFORMED THAT [facility] IS CURRENTLY PENDING. WILL FOLLOW UP WITH COMP SPEC COORDINATOR RE APPLICATION STATUS.
--- NOTE | 2019-12-16 12:26 | NUR ---
NURSE NOTES: Patient's Hemoglobin is 7.4; I left a message MD Salguero's number regarding this lab result; waiting for order;
--- NOTE | 2019-12-16 12:32 | NUR ---
NURSE NOTES: MD Kowalski called back regarding patient's hemoglobin level; didn't give blood transfusion order; charge nurse Julius is aware.
--- NOTE | 2019-12-16 13:56 | General Progress Note ---
Subjective ROS Limited/Unobtainable: Yes Allergies: Coded Allergies: No Known Allergies (Unverified , 12/04/19) Subjective very confused Objective Last 24 Hour Vital Signs Date Time Temp Pulse Resp B/P (MAP) Pulse Ox O2 Delivery O2 Flow Rate FiO2 12/16/19 12:00 98.1 83 18 123/70 (87) 97 12/16/19 12:00 98.1 83 18 124/67 (86) 97 12/16/19 09:29 124/67 12/16/19 09:00 Room Air 12/16/19 09:00 78 85 12/16/19 08:00 97.6 88 18 124/67 (86) 97 12/16/19 04:00 97.7 75 18 129/70 (89) 97 12/16/19 00:00 98.2 86 18 131/68 (89) 94 12/15/19 21:00 77 76 85 12/15/19 21:00 Room Air 12/15/19 20:38 144/56 12/15/19 20:00 99.1 82 18 144/56 (85) 95 12/15/19 17:58 76 117/57 12/15/19 16:00 98.2 76 20 117/57 (77) 99 Intake and Output 12/15/19 12/16/19 19:00 07:00 Intake Total 1497.5 ml 962.0 ml Balance 1497.5 ml 962.0 ml Intake Oral 480 ml IV Total 1017.5 ml 962.0 ml # Voids 2 3 # Bowel Movements 1 1 Laboratory Tests 12/16/19 05:00: Stool Occult Blood Positive 12/16/19 05:30: White Blood Count 15.8H, Red Blood Count 2.72L, Hemoglobin 7.4L, Hematocrit 23.5L, Mean Corpuscular Volume 86, Mean Corpuscular Hemoglobin 27.3, Mean Corpuscular Hemoglobin Concent 31.6L, Red Cell Distribution Width 13.0, Platelet Count 467H, Mean Platelet Volume 6.5, Neutrophils (%) (Auto) , Lymphocytes (%) (Auto) , Monocytes (%) (Auto) , Eosinophils (%) (Auto) , Basophils (%) (Auto) , Differential Total Cells Counted 100, Neutrophils % (Manual) 63, Lymphocytes % (Manual) 29, Monocytes % (Manual) 7, Eosinophils % (Manual) 1, Basophils % (Manual) 0, Band Neutrophils 0, Platelet Estimate Adequate, Platelet Morphology Normal, Hypochromasia 3+, Anisocytosis 1+ Height (Feet): 5 Height (Inches): 3.00 Weight (Pounds): 146 General Appearance: no apparent distress EENT: PERRL/EOMI Neck: supple Cardiovascular: normal rate Respiratory/Chest: decreased breath sounds Abdomen: normal bowel sounds, non tender, soft Extremities: non-tender Assessment/Plan Problem List: (1) Hypertension ICD Codes: I10 - Essential (primary) hypertension SNOMED: 78379509 (2) Hypokalemia ICD Codes: E87.6 - Hypokalemia SNOMED: 13493824 (3) Abdominal pain ICD Codes: R10.9 - Unspecified abdominal pain SNOMED: 63351159 (4) Chest pain ICD Codes: R07.9 - Chest pain, unspecified SNOMED: 78866911 Status: stable Assessment/Plan: stool ob positive fu H&H CT reviewed refusing GI procedures psych in put appreciated fu H&H ppi Massimo Osborn MD Dec 16, 2019 13:56
--- NOTE | 2019-12-16 14:17 | Cardiology Progress Note ---
Assessment/Plan Status: stable Assessment/Plan Assessment/Plan CHEST PAIN HYPERTENSIVE URGENCY CHF DIASTOLIC Plan: Echocardiogram with diastolic dysfunction preserved LV function 70%, no significant valvular disease Spot dose lasix Continue HCTZ DASH diet Continue Norvasc Monitor on telemetry Nitro prn CP Hold Heparin Stress test NEGATIVE Clear to proceed with colonoscopy Psych for capacity ok to d/c from cardiology perspective once cleared by psych Subjective Cardiovascular: Reports: no symptoms Respiratory: Reports: no symptoms Gastrointestinal/Abdominal: Reports: no symptoms Genitourinary: Reports: no symptoms Subjective No acute events, BP stable, TTE with LVEF 70%, CP resolved. EKG no dynamic changes, stress test NEGATIVE Discharge held for psych consult Patient refused colonsocopy for positive FOBT Objective Last 24 Hour Vital Signs Date Time Temp Pulse Resp B/P (MAP) Pulse Ox O2 Delivery O2 Flow Rate FiO2 12/16/19 12:00 98.1 83 18 123/70 (87) 97 12/16/19 12:00 98.1 83 18 124/67 (86) 97 12/16/19 09:29 124/67 12/16/19 09:00 Room Air 12/16/19 09:00 78 85 12/16/19 08:00 97.6 88 18 124/67 (86) 97 12/16/19 04:00 97.7 75 18 129/70 (89) 97 12/16/19 00:00 98.2 86 18 131/68 (89) 94 12/15/19 21:00 77 76 85 12/15/19 21:00 Room Air 12/15/19 20:38 144/56 12/15/19 20:00 99.1 82 18 144/56 (85) 95 12/15/19 17:58 76 117/57 12/15/19 16:00 98.2 76 20 117/57 (77) 99 General Appearance: no apparent distress, alert EENT: PERRL/EOMI, normal ENT inspection, TMs normal, pharynx normal Neck: non-tender, normal alignment, supple, normal inspection Rhythm: NSR Cardiovascular: normal peripheral pulses, normal rate Respiratory/Chest: chest wall non-tender, lungs clear, normal breath sounds Abdomen: normal bowel sounds, non tender, soft, no organomegaly, no mass Extremities: normal range of motion, non-tender, normal inspection, no calf tenderness, no swelling Neurologic: quad stayer II-XII grossly normal, no motor/sensory deficits Intake and Output 12/15/19 12/16/19 19:00 07:00 Intake Total 1497.5 ml 962.0 ml Balance 1497.5 ml 962.0 ml Intake Oral 480 ml IV Total 1017.5 ml 962.0 ml # Voids 2 3 # Bowel Movements 1 1 Laboratory Tests Test 12/16/19 05:00 12/16/19 05:30 Stool Occult Blood Positive (NEGATIVE) White Blood Count 15.8 K/UL (4.8-10.8) H Red Blood Count 2.72 M/UL (4.20-5.40) L Hemoglobin 7.4 G/DL (12.0-16.0) L Hematocrit 23.5 % (37.0-47.0) L Mean Corpuscular Volume 86 FL (80-99) Mean Corpuscular Hemoglobin 27.3 PG (27.0-31.0) Mean Corpuscular Hemoglobin Concent 31.6 G/DL (32.0-36.0) L Red Cell Distribution Width 13.0 % (11.6-14.8) Platelet Count 467 K/UL (150-450) H Mean Platelet Volume 6.5 FL (6.5-10.1) Neutrophils (%) (Auto) % (45.0-75.0) Lymphocytes (%) (Auto) % (20.0-45.0) Monocytes (%) (Auto) % (1.0-10.0) Eosinophils (%) (Auto) % (0.0-3.0) Basophils (%) (Auto) % (0.0-2.0) Differential Total Cells Counted 100 Neutrophils % (Manual) 63 % (45-75) Lymphocytes % (Manual) 29 % (20-45) Monocytes % (Manual) 7 % (1-10) Eosinophils % (Manual) 1 % (0-3) Basophils % (Manual) 0 % (0-2) Band Neutrophils 0 % (0-8) Platelet Estimate Adequate Platelet Morphology Normal Hypochromasia 3+ Anisocytosis 1+ Microbiology Date/Time Source Procedure Growth Status 12/14/19 17:45 Blood Blood Culture - Preliminary NO GROWTH AFTER 24 HOURS Resulted 12/14/19 17:30 Blood Blood Culture - Preliminary NO GROWTH AFTER 24 HOURS Resulted Kush Tillman MD Dec 16, 2019 14:17
--- NOTE | 2019-12-16 14:39 | Infectious Diseases Prog Note ---
Assessment/Plan Assessment/Plan ASSESSMENT AND PLAN: 1. e.coli uti, sepsis, ? enteritis, leukocytosis, c.diff. negative - zosyn - day # 3 - cultures - negative - monitor labs - leukocytosis slowly improving 2. The patient has acute kidney injury and elevated creatinine. 3. The patient has hypertension. 4. Blood pressure control per primary care team. 5. Hypertensive urgency. 6. Dementia. 7. Chest pain. 8. Psychosis. 9. Depression. 10. Encephalopathy. 11. Abdominal pain. 12. Orthostatic hypotension. 13. Chronic kidney disease likely. 14. No known drug allergies. 15. Social history is negative. 16. Family history is contributory. 17. MAR was noted. 18. Case was discussed with RN. Subjective Constitutional: Reports: fatigue; Denies: fever HEENT: Denies: congestion Respiratory: Denies: shortness of breath Cardiovascular: Denies: chest pain Gastrointestinal/Abdominal: Denies: nausea, vomiting, diarrhea Genitourinary: Reports: other - no savage Neurologic: Denies: headache Psychiatric: Denies: depression Skin: Denies: rash Hematologic: Denies: bleeding Musculoskeletal: Denies: pain Allergies: Coded Allergies: No Known Allergies (Unverified , 12/04/19) Objective Last 24 Hour Vital Signs Date Time Temp Pulse Resp B/P (MAP) Pulse Ox O2 Delivery O2 Flow Rate FiO2 12/16/19 12:00 98.1 83 18 123/70 (87) 97 12/16/19 12:00 98.1 83 18 124/67 (86) 97 12/16/19 09:29 124/67 12/16/19 09:00 Room Air 12/16/19 09:00 78 85 12/16/19 08:00 97.6 88 18 124/67 (86) 97 12/16/19 04:00 97.7 75 18 129/70 (89) 97 12/16/19 00:00 98.2 86 18 131/68 (89) 94 12/15/19 21:00 77 76 85 12/15/19 21:00 Room Air 12/15/19 20:38 144/56 12/15/19 20:00 99.1 82 18 144/56 (85) 95 12/15/19 17:58 76 117/57 12/15/19 16:00 98.2 76 20 117/57 (77) 99 Height (Feet): 5 Height (Inches): 3.00 Weight (Pounds): 146 General Appearance: no acute distress HEENT: normocephalic, atraumatic, anicteric Respiratory/Chest: lungs clear, normal breath sounds, no respiratory distress, no accessory muscle use Cardiovascular: normal rate, regular rhythm, no gallop/murmur, no JVD Abdomen: normal bowel sounds, soft, non tender, no organomegaly, non distended Genitourinary: other - no savage Extremities: no cyanosis Skin: no rash Neurologic/Psychiatric: radiator fitter II-XII grossly normal, abnormal gait, alert Lymphatic: no neck adenopathy Musculoskeletal: no effusion Chest x-ray - 12/12/19 - FINDINGS: Lungs: Unremarkable. No consolidation. Pleural space: Unremarkable. No pneumothorax. Heart: Borderline cardiomegaly, potentially exaggerated by portable technique. Mediastinum: Calcified aortic knob. Bones/joints: Degenerative changes. IMPRESSION: No evidence of acute pulmonary disease CT abdomen and pelvis: IMPRESSION: 1. Mild prominence of fluid and gas-filled small bowel loops may represent enteritis or ileus in the appropriate clinical setting. 2. Prominence of the baires of the colon likely secondary to under distention. Element of colitis is not excluded. 3. Punctate nonobstructing bilateral renal stones. Mild right hydroureteronephrosis. No obstructing stone identified. This may be secondary to distended bladder. Microbiology Date/Time Source Procedure Growth Status 12/14/19 17:45 Blood Blood Culture - Preliminary NO GROWTH AFTER 24 HOURS Resulted 12/13/19 11:13 Nasopharynx SARS-CoV-2 RdRp Gene Assay - Final Complete 12/11/19 20:35 Stool Clostridium difficile Toxin Assay - Final Complete 12/11/19 14:54 Urine,Clean Catch Urine Culture - Final Escherichia Coli Complete Microbiology Date/Time Source Procedure Growth Status 12/14/19 17:45 Blood Blood Culture - Preliminary NO GROWTH AFTER 24 HOURS Resulted 12/14/19 17:30 Blood Blood Culture - Preliminary NO GROWTH AFTER 24 HOURS Resulted Labs Test 12/14/19 09:20 12/15/19 03:54 12/15/19 06:52 12/16/19 05:00 White Blood Count 20.5 K/UL (4.8-10.8) 17.0 K/UL (4.8-10.8) Red Blood Count 2.84 M/UL (4.20-5.40) 2.75 M/UL (4.20-5.40) Hemoglobin 7.8 G/DL (12.0-16.0) 7.6 G/DL (12.0-16.0) Hematocrit 24.5 % (37.0-47.0) 23.8 % (37.0-47.0) Mean Corpuscular Volume 86 FL (80-99) 87 FL (80-99) Mean Corpuscular Hemoglobin 27.4 PG (27.0-31.0) 27.5 PG (27.0-31.0) Mean Corpuscular Hemoglobin Concent 31.9 G/DL (32.0-36.0) 31.8 G/DL (32.0-36.0) Red Cell Distribution Width 12.6 % (11.6-14.8) 13.0 % (11.6-14.8) Platelet Count 406 K/UL (150-450) 439 K/UL (150-450) Mean Platelet Volume 7.0 FL (6.5-10.1) 6.7 FL (6.5-10.1) Neutrophils (%) (Auto) % (45.0-75.0) % (45.0-75.0) Lymphocytes (%) (Auto) % (20.0-45.0) % (20.0-45.0) Monocytes (%) (Auto) % (1.0-10.0) % (1.0-10.0) Eosinophils (%) (Auto) % (0.0-3.0) % (0.0-3.0) Basophils (%) (Auto) % (0.0-2.0) % (0.0-2.0) Differential Total Cells Counted 100 100 Neutrophils % (Manual) 80 % (45-75) 81 % (45-75) Lymphocytes % (Manual) 13 % (20-45) 11 % (20-45) Monocytes % (Manual) 6 % (1-10) 6 % (1-10) Eosinophils % (Manual) 0 % (0-3) 1 % (0-3) Basophils % (Manual) 1 % (0-2) 1 % (0-2) Band Neutrophils 0 % (0-8) 0 % (0-8) Platelet Estimate Adequate Decreased Platelet Morphology Normal Normal Hypochromasia 1+ 3+ Anisocytosis 1+ 1+ Sodium Level 141 MMOL/L (136-145) 138 MMOL/L (136-145) Potassium Level 3.8 MMOL/L (3.5-5.1) 3.7 MMOL/L (3.5-5.1) Chloride Level 103 MMOL/L (98-107) 102 MMOL/L (98-107) Carbon Dioxide Level 30 MMOL/L (21-32) 27 MMOL/L (21-32) Anion Gap 8 mmol/L (5-15) 9 mmol/L (5-15) Blood Urea Nitrogen 10 mg/dL (7-18) 7 mg/dL (7-18) Creatinine 1.1 MG/DL (0.55-1.30) 1.1 MG/DL (0.55-1.30) Estimat Glomerular Filtration Rate 59.0 mL/min (>60) 59.0 mL/min (>60) Glucose Level 107 MG/DL (74-106) 105 MG/DL (74-106) Calcium Level 8.5 MG/DL (8.5-10.1) 8.6 MG/DL (8.5-10.1) Total Bilirubin 0.4 MG/DL (0.2-1.0) Aspartate Amino Transf (AST/SGOT) 18 U/L (15-37) Alanine Aminotransferase (ALT/SGPT) 15 U/L (12-78) Alkaline Phosphatase 78 U/L (46-116) Total Protein 7.2 G/DL (6.4-8.2) Albumin 2.9 G/DL (3.4-5.0) Globulin 4.3 g/dL Albumin/Globulin Ratio 0.7 (1.0-2.7) Urine Color Pale yellow Urine Appearance Clear Urine pH 8 (4.5-8.0) Urine Specific [place] 1.015 (1.005-1.035) Urine Protein Negative (NEGATIVE) Urine Glucose (UA) Negative (NEGATIVE) Urine Ketones Negative (NEGATIVE) Urine Blood Negative (NEGATIVE) Urine Nitrite Negative (NEGATIVE) Urine Bilirubin Negative (NEGATIVE) Urine Urobilinogen Normal MG/DL (0.0-1.0) Urine Leukocyte Esterase 1+ (NEGATIVE) Urine RBC 0-2 /HPF (0 - 2) Urine WBC 0-2 /HPF (0 - 2) Urine Squamous Epithelial Cells Few /LPF (NONE/OCC) Urine Bacteria None /HPF (NONE) Stool Occult Blood Positive (NEGATIVE) Test 12/16/19 05:30 White Blood Count 15.8 K/UL (4.8-10.8) Red Blood Count 2.72 M/UL (4.20-5.40) Hemoglobin 7.4 G/DL (12.0-16.0) Hematocrit 23.5 % (37.0-47.0) Mean Corpuscular Volume 86 FL (80-99) Mean Corpuscular Hemoglobin 27.3 PG (27.0-31.0) Mean Corpuscular Hemoglobin Concent 31.6 G/DL (32.0-36.0) Red Cell Distribution Width 13.0 % (11.6-14.8) Platelet Count 467 K/UL (150-450) Mean Platelet Volume 6.5 FL (6.5-10.1) Neutrophils (%) (Auto) % (45.0-75.0) Lymphocytes (%) (Auto) % (20.0-45.0) Monocytes (%) (Auto) % (1.0-10.0) Eosinophils (%) (Auto) % (0.0-3.0) Basophils (%) (Auto) % (0.0-2.0) Differential Total Cells Counted 100 Neutrophils % (Manual) 63 % (45-75) Lymphocytes % (Manual) 29 % (20-45) Monocytes % (Manual) 7 % (1-10) Eosinophils % (Manual) 1 % (0-3) Basophils % (Manual) 0 % (0-2) Band Neutrophils 0 % (0-8) Platelet Estimate Adequate Platelet Morphology Normal Hypochromasia 3+ Anisocytosis 1+ Laboratory Tests Test 12/16/19 05:00 12/16/19 05:30 Stool Occult Blood Positive (NEGATIVE) White Blood Count 15.8 K/UL (4.8-10.8) H Red Blood Count 2.72 M/UL (4.20-5.40) L Hemoglobin 7.4 G/DL (12.0-16.0) L Hematocrit 23.5 % (37.0-47.0) L Mean Corpuscular Volume 86 FL (80-99) Mean Corpuscular Hemoglobin 27.3 PG (27.0-31.0) Mean Corpuscular Hemoglobin Concent 31.6 G/DL (32.0-36.0) L Red Cell Distribution Width 13.0 % (11.6-14.8) Platelet Count 467 K/UL (150-450) H Mean Platelet Volume 6.5 FL (6.5-10.1) Neutrophils (%) (Auto) % (45.0-75.0) Lymphocytes (%) (Auto) % (20.0-45.0) Monocytes (%) (Auto) % (1.0-10.0) Eosinophils (%) (Auto) % (0.0-3.0) Basophils (%) (Auto) % (0.0-2.0) Differential Total Cells Counted 100 Neutrophils % (Manual) 63 % (45-75) Lymphocytes % (Manual) 29 % (20-45) Monocytes % (Manual) 7 % (1-10) Eosinophils % (Manual) 1 % (0-3) Basophils % (Manual) 0 % (0-2) Band Neutrophils 0 % (0-8) Platelet Estimate Adequate Platelet Morphology Normal Hypochromasia 3+ Anisocytosis 1+ Current Medications Medications (Trade) Dose Ordered Sig/Yasmine Route PRN Reason Start Time Stop Time Status Last Admin Dose Admin Acetaminophen (Tylenol) 650 mg Q4H PRN ORAL Mild Pain (Pain Scale 1-3) 12/15/19 00:30 01/09/20 00:29 Acetaminophen (Tylenol) 650 mg Q6H PRN ORAL For Headache 12/15/19 00:30 01/09/20 00:29 12/15/19 20:42 Al Hydroxide/Mg Hydroxide (Mylanta II) 30 ml Q6H PRN ORAL dyspepsia 12/15/19 00:30 01/09/20 00:29 Amlodipine Besylate (Norvasc) 10 mg QPM ORAL 12/15/19 16:30 01/06/20 16:29 12/15/19 17:58 Artificial Tears (Akwa-Tears) 2 drop Q2H PRN RIGHT EYE Dry Eyes 12/16/19 12:30 01/15/20 12:29 Atorvastatin Calcium (Lipitor) 80 mg BEDTIME ORAL 12/15/19 21:00 03/04/20 20:59 12/15/19 20:38 Atropine Sulfate (Atropine) 0.5 mg Q3M PRN IV symptomatic bradycardia 12/15/19 00:15 03/04/20 15:44 Bisacodyl (Dulcolax) 10 mg DAILYPRN PRN RECTAL Constipation 12/15/19 00:30 03/10/20 00:29 Dextrose (Dextrose 50%) 25 ml Q30M PRN IV Hypoglycemia 12/15/19 00:30 03/03/20 13:59 Dextrose (Dextrose 50%) 50 ml Q30M PRN IV Hypoglycemia 12/15/19 00:15 03/03/20 15:44 Escitalopram Oxalate (Lexapro) 10 mg DAILY ORAL 12/15/19 09:00 01/07/20 16:14 12/16/19 09:28 Fludrocortisone Acetate (Florinef) 0.1 mg DAILY ORAL 12/15/19 09:00 01/10/20 16:44 12/16/19 09:29 Haloperidol Lactate (Haldol) 5 mg Q6H PRN IM Agitation 12/15/19 00:30 01/24/20 00:29 Hydralazine HCl (Apresoline) 10 mg Q12HR ORAL 12/15/19 09:00 03/09/20 20:59 12/16/19 09:29 Hydralazine HCl (Apresoline) 10 mg Q6H PRN ORAL For High Blood Pressure 12/15/19 00:30 03/09/20 00:29 Magnesium Oxide (Mag-Ox 400mg) 400 mg TID ORAL 12/15/19 09:00 01/04/20 12:59 12/16/19 12:59 Nitroglycerin (Ntg) 0.4 mg Q5M PRN SL Prn Chest Pain 12/15/19 00:15 01/03/20 15:44 Ondansetron HCl (Zofran) 4 mg Q6H PRN IVP Nausea & Vomiting 12/15/19 00:30 01/09/20 00:29 Pantoprazole (Protonix) 40 mg EVERY 12 HOURS IVP 12/15/19 09:00 01/12/20 20:59 12/16/19 09:29 Piperacillin Sod/ Tazobactam Sod 3.375 gm/Sodium Chloride 110 ml @ 27.5 mls/hr Q8HR IVPB 12/15/19 06:00 12/20/19 05:59 12/16/19 06:29 Polyethylene Glycol (Miralax) 17 gm DAILYPRN PRN ORAL Constipation 12/15/19 00:30 01/09/20 00:29 Potassium Chloride 10 meq/ Dextrose/Sodium Chloride 1,005 ml @ 75 mls/hr [id number] IV 12/15/19 00:15 01/11/20 17:29 12/16/19 06:00 Risperidone (RisperDAL) 2 mg BEDTIME ORAL 12/15/19 21:00 01/25/20 20:59 12/15/19 20:38 Senna/Docusate Sodium (Kendra-Colace) 1 tab TWICE A DAY ORAL 12/15/19 09:00 01/09/20 17:59 12/16/19 09:28 Tramadol HCl (Ultram) 50 mg Q6H PRN ORAL Severe Pain (Pain Scale 7-10) 12/15/19 00:30 12/17/19 00:29 Ankit Penny MD Dec 16, 2019 14:39
--- NOTE | 2019-12-16 15:30 | NUR ---
NURSE NOTES:WOUND CARE NOTES:Pt pleasant and consented to be seen. Clusters of resolving Pressure injuries to Sacrum that are pink and epithelialized with only one partial thickness Pressure injury that is pink and moist(L)0.8cm x (W)0.6cm. Linear area of pink epithelial noted to ten cleft of buttocks. Scattered areas of darker skin tone with skin dryness noted to R and L gluteal cheeks. Pt denied tenderness when palpated Both heels are boggy but each heel easily Blanches. Tx:Plan: Apply Moisture Barrier Paste to Sacrum. Cover with Optifoam drsg. Change every 3 days and prn. Apply Cavilon Skin BArrier to both heels. Cover each heel with Optifoam drsg. Change every 7 days and prn. Reposition at least every 2hours or as tolerated. Off-load heels with pillow.
[2019-12-16 16:00] VITALS: BP 129/67
--- NOTE | 2019-12-16 19:10 | NUR ---
NURSE NOTES: RECEIVED PATIENT FROM LUIS GANN. PATIENT IS AWAKE, AAOX3, ON ROOM AIR, NO ACUTE DISTRESS NOTED. PIV ON LEFT HAND 24G INTACT AND PATENT. PATIENT IS A FALL RISK, PLACED IN ROOM 401-2 NEXT TO NURSING STATION, COMMODE AT BED SIDE, REINFORCED TEACHING HYDROGRAPHER LIGHT USE FOR ASSISTANCE, PATIENT VERBALIZED UNDERSTANDING. YELLOW SOCKS, YELLOW GOWN, YELLOW ARMBANDS, AND FALL RISK DOOR SIGN IMPLEMENTED. BED IS LOCKED AND LOW, BED ALARMS ACTIVE, SIDE RAILS UP X2 AND CALL LIGHT IS WITHIN REACH. WILL CONTINUE TO MONITOR.
[2019-12-16 20:00] VITALS: BP 127/49
--- NOTE | 2019-12-16 21:25 | NUR ---
NURSE NOTES: Received a pt awake,A&Ox2-3, and verbal. Pt has no sob,fever,pain and cough at the moment. Iv is intact and asymptomatic. bed is in the lowest position,locked and alarm on. Call light within reach. We will keep monitoring the pt.
--- NOTE | 2019-12-16 21:27 | NUR ---
NURSE HAND-OFF: Report given to LUIS Smith.
[2019-12-16] MEDS: Atorvastatin 80mg tab ORAL SCH (21:46)
[2019-12-17] VITALS (9 sets, daily range): BP systolic 90–155; BP diastolic 48–70
[2019-12-17] MEDS: Piperacillin/Tazobactam 3.375 GM in NS 110 ML IVPB SCH ×3 (05:52→21:27)
[2019-12-17] MEDS: Potassium Chloride 10 MEQ in D5 1/2NS 1,000 ML IV SCH ×2 (07:00→21:29)
[2019-12-17 07:14] LABS: HEMATOCRIT 21.8 % (37.0-47.0); MEAN CORPUSCULAR VOLUME 87 FL (80-99); PLATELET COUNT 476 K/UL (150-450); RED BLOOD COUNT 2.51 M/UL (4.20-5.40); WHITE BLOOD COUNT 15.3 K/UL (4.8-10.8)
[2019-12-17 07:16] LABS: ALBUMIN 2.3 G/DL (3.4-5.0); ALBUMIN/GLOBULIN RATIO 0.5 (1.0-2.7); BILIRUBIN,TOTAL 0.3 MG/DL (0.2-1.0); CREATININE 1.1 MG/DL (0.55-1.30); POTASSIUM 3.6 MMOL/L (3.5-5.1)
--- NOTE | 2019-12-17 07:21 | NUR ---
NURSE HAND-OFF: Important Events on Shift:na Patient Status: stable Diet: cardiac Pending Orders: Pending Results/Labs:cbc,cmp Pending MD notification: Latest Vital Signs: Temperature 97.7 , Pulse 82 , B/P 112 /55 , Respiratory Rate 18 , O2 SAT 98 , Room Air, O2 Flow Rate . Vital Sign Comment: Latest [place] Fall Score: 60 Fall Risk: High Risk Safety Measures: Call light Within Reach, Bed Alarm Zone 1, Side Rails Side Rails x2, Bed position Low and Locked. Fall Precautions: Yellow Socks Yellow Gown Door Sign Patient Fall Education Report given to rosalva knight RN.
--- NOTE | 2019-12-17 07:22 | NUR ---
NURSE NOTES: Received patient sleeping comfortably in bed. IV infusing D5NS with 10 mEq KCl @ 75 ml/hour to right wrist IV, 22 gauge. Call light within reach. In no apparent distress at this time. Will continue to monitor.
[2019-12-17 07:31] LABS: HEMOGLOBIN 6.8 G/DL (12.0-16.0)
[2019-12-17] MEDS: Pantoprazole Inj IVP SCH ×2 (08:29→21:29)
[2019-12-17] MEDS: Docusate Sod/Senna tab ORAL SCH ×2 (08:35→17:30)
[2019-12-17] MEDS: Magnesium Oxide 400mg tab ORAL SCH ×3 (08:35→17:30)
[2019-12-17] MEDS: HydrALAZINE 10mg Tab ORAL SCH ×2 (08:36→21:29)
--- NOTE | 2019-12-17 09:07 | NUR ---
PT NOTE PT treatment held today due to low Hgb at 6.8, patient scheduled to receive blood transfusion. Celia SMITH notified, will follow.
--- NOTE | 2019-12-17 09:11 | NUR ---
PT WEEKLY PROGRESS NOTE Patient being seen by inpatient PT for therapeutic exercises, transfer training and gait training. Patient requires min assist for bed mobility and min/mod assist for transfers with FWW. Patient able to ambulate 20 ft x 2 with mod assist and FWW. Gait is slowed and unsteady, patient requires assist to manage FWW. Patient will benefit from continued skilled inpatient PT intervention to increase strength and postural stability for improved level of functional mobility and instruction in safety precautions.
--- NOTE | 2019-12-17 09:35 | General Progress Note ---
Subjective Date patient seen: Dec 17, 2019 Time patient seen: 08:00 ROS Limited/Unobtainable: Yes Constitutional: Denies: fever, malaise, weakness HEENT: Denies: eye pain, blurred vision, nose pain, nose congestion, mouth swelling Cardiovascular: Denies: edema, lightheadedness, palpitations Respiratory: Denies: shortness of breath, SOB with excertion, SOB at rest, sputum Gastrointestinal/Abdominal: Reports: blood in stool, constipated; Denies: abdomen distended, black stools, tarry stools Genitourinary: Denies: discharge, frequency, flank pain, hematuria Neurologic/Psychiatric: Denies: depressed, emotional problems, headache, numbness Endocrine: Denies: flushing, intolerance to cold, intolerance to heat, increased hunger Hematologic/Lymphatic: Reports: anemia; Denies: easy bleeding, easy bruising Allergies: Coded Allergies: No Known Allergies (Unverified , 12/04/19) Subjective Patient has no complaints. She is accepting blood transfusion. Objective Last 24 Hour Vital Signs Date Time Temp Pulse Resp B/P (MAP) Pulse Ox O2 Delivery O2 Flow Rate FiO2 12/17/19 09:00 Room Air 12/17/19 08:36 116/48 12/17/19 08:00 98.7 75 18 116/48 (70) 100 12/17/19 04:00 97.7 82 18 112/55 (74) 98 12/17/19 00:00 97.9 76 18 90/68 (75) 97 12/16/19 21:46 127/49 12/16/19 21:00 Room Air 12/16/19 21:00 82 84 88 12/16/19 20:00 98.2 96 19 127/49 (75) 98 12/16/19 17:08 83 129/67 12/16/19 16:00 98.9 83 17 129/67 (87) 98 12/16/19 12:00 98.1 83 18 123/70 (87) 97 12/16/19 12:00 98.1 83 18 124/67 (86) 97 Intake and Output 12/16/19 12/17/19 19:00 07:00 Intake Total 1367.5 ml 1110 ml Balance 1367.5 ml 1110 ml IV Total 1017.5 ml 750 ml Other 350 ml 360 ml # Voids 3 Laboratory Tests 12/17/19 05:30: White Blood Count 15.3H, Red Blood Count 2.51L, Hemoglobin 6.8*L, Hematocrit 21.8L, Mean Corpuscular Volume 87, Mean Corpuscular Hemoglobin 27.1, Mean Corpuscular Hemoglobin Concent 31.2L, Red Cell Distribution Width 13.0, Platelet Count 476H, Mean Platelet Volume 6.0L, Neutrophils (%) (Auto) , Lymphocytes (%) (Auto) , Monocytes (%) (Auto) , Eosinophils (%) (Auto) , Basophils (%) (Auto) , Neutrophils % (Manual) [Pending], Lymphocytes % (Manual) [Pending], Platelet Estimate [Pending], Platelet Morphology [Pending], Sodium Level 140, Potassium Level 3.6, Chloride Level 104, Carbon Dioxide Level 25, Anion Gap 11, Blood Urea Nitrogen 5L, Creatinine 1.1, Estimat Glomerular Filtration Rate 59.0, Glucose Level 101, Calcium Level 8.0L, Total Bilirubin 0.3, Aspartate Amino Transf (AST/SGOT) 16, Alanine Aminotransferase (ALT/SGPT) 12, Alkaline Phosphatase 66, Total Protein 6.6, Albumin 2.3L, Globulin 4.3, Albumin/Globulin Ratio 0.5L Height (Feet): 5 Height (Inches): 3.00 Weight (Pounds): 146 General Appearance: lethargic, confused, agitated, obese EENT: normal ENT inspection, TMs normal Neck: normal alignment, supple, normal inspection Cardiovascular: normal peripheral pulses, normal rate, regular rhythm, no gallop/murmur Respiratory/Chest: chest wall non-tender, lungs clear, normal breath sounds Abdomen: non tender, soft, no organomegaly, no mass, hypoactive bowel sounds Extremities: normal range of motion, non-tender Edema: no edema noted Arm (L), no edema noted Arm (R), no edema noted Leg (L), no edema noted Leg (R), no edema noted Pedal (L), no edema noted Pedal (R), no edema noted Generalized Neurologic: tar chaser II-XII grossly normal, responsive, depressed affect Skin: normal pigmentation, warm/dry, no diaphoresis Assessment/Plan Problem List: (1) Sepsis ICD Codes: A41.9 - Sepsis, unspecified organism SNOMED: 95819152 Qualifiers: (2) Blood loss anemia ICD Codes: D50.0 - Iron deficiency anemia secondary to blood loss (chronic) SNOMED: 861705101 (3) Suicidal ideations ICD Codes: R45.851 - Suicidal ideations SNOMED: 8721387 (4) Hypokalemia ICD Codes: E87.6 - Hypokalemia SNOMED: 06009406 (5) Ileus ICD Codes: K56.7 - Ileus, unspecified SNOMED: 962295131 (6) Hypertension ICD Codes: I10 - Essential (primary) hypertension SNOMED: 37272589 (7) Depressed mood ICD Codes: R45.89 - Other symptoms and signs involving emotional state SNOMED: 135349949 Status: stable Assessment/Plan: 74 F with unclear PMhx admitted for abdominal pain and chest pain. Cardio consulted and ACS was ruled out, pt under went NM stress test which was negative. Pt noted to have abd pain and occult positive stools. #Acute Metabolic Encephalopathy - multifactorial #?Acute on Chronic Dementia #UTI - E coli #Hyponatremia - resolved #Leukocytosis - worsening -Na 131 -->130 --> 127 --> 129 --> 138 -> 140 -Hyponatremia likely 2/2 dehydration, HCTZ use -confusion may be multifactorial, acute on chronic dementia, infection/UTI, less likely hyponatremia -Leukocytosis may be 2/2 steroids for Orthostatic Hypotension vs infection -d/c HCTZ -Nephro consulted, recs appreciated -s/p 500 cc +250 cc 3% saline initiated by Nephro with improvement in Na -12/10: CT head negative for acute process -UCx e. Coli that is pansensitive -ID consulted, recs appreciated, DC CTX and flagyl - started Zosyn 12/13 #Ileus #Abdominal Pain - resolved #Constipation - improved #Occult Positive Stools #Acute blood loss anemia Pain possibly from constipation, less likely diverticulitis or gastroenteritis. No CVA tenderness - UA and Lipase wnl - CT Abdomen - ileus vs. colitis - GI Cocktail, Zofran prn - 12/07 abd XR w/ileus, small bowel obstruction less likely - s/p Mg citrate x1 - docusate TID, dulcolax suppository PRN - occult stool positive - c diff negative - pain control - Transfused 1 unit pRBC 12/16 - Refused EGD/colonoscopy 12/13 #Orthostatic Hypotension #Syncope -cont Florinef 0.1 mg daily -fall precautions #ZA - improved -Cr elevated to 1.7, now resolved -avoid nephrotoxins -renally dose meds -Nephro following, recs appreciated #Chest pain - ACS ruled out, resolved #Chronic HFpEF Initial presentation with non-radiating chest pain that resolved with SL Nitro and Aspirin. EKG with non-specific ST changes in V1-V2. Moderate Heart Score - EKG prn for active chest pain, Trop x3 negative, BNP slightly elevated, HBA1c wnl - Echo EF 70-75%, mild left hypertrophy, mitral and aortic root calcification - Cardiology consulted, recs appreciated - s/p NM stress test negative, pt OK to d/c home from cardio stand point #Hypertension - uncontrolled #Hypertensive Urgency - resolved - Cont Norvasc 10 mg PO daily - cont hydralazine 10 mg PO BID - d/c Hctz due to ZA and hyponatremia - hydralazine PRN for SBP >160 #Hypokalemia - resolved - replaced - ctm, replace PRN #Psychosis #Depression #Dementia #SI -per nurse pt was seeing "snakes" in the room - resolved -Psych consulted, recs appreciated -Risperdone increased from 1 mg to 2 mg qHS -cont lexapro 10 mg PO qAM -Suicide precautions FEN Hold AC per cards and positive occult Dispo - Home when medically cleared Code - FULL CODE Time spent with patient 38 mins, approximately 28 minutes spent coordinating care with nurses and consultants. D/w RN, Dr. Tillman, Dr. Vail, GI and Dr. Penny. I also had another discussion with chloeannia Tothetta about plan of care moving forward. Time of note may not reflect time of encounter. Alfie Kowalski M.D. Dec 17, 2019 09:35
--- NOTE | 2019-12-17 12:29 | NUR ---
CASE MANAGEMENT:REVIEW 12/17/19 IS;SEPSIS. ANEMIA. ILEUS. UTI. 98.2 82 18 127/55 98% ON RA WBC 15.3 H/H 6.8/21.8 ALB2.3 IS;ZOSYN IV Q8 MAG-OX PO TID HYDRALAZINE PO Q12 PROTONIX PO Q12 FLORINEF PO QD LEXAPRO PO QD MED SURG STATUS DCP;FROM HOME PLAN; PLACEMENT/HOSPICE PENDING [facility] [employer] AP[employer]OVAL CASE MANAGEMENT:REVIEW 12/16/19 IS;SEPSIS. ANEMIA. ILEUS. UTI. 98.9 88 18 129/67 98% ON RA IS;ZOSYN IV Q8 MAG-OX PO TID HYDRALAZINE PO Q12 PROTONIX PO Q12 FLORINEF PO QD LEXAPRO PO QD MED SURG STATUS DCP;FROM HOME PLAN; PLACEMENT/HOSPICE PENDING [facility] [employer] APPROVAL
--- NOTE | 2019-12-17 12:49 | General Progress Note ---
Subjective ROS Limited/Unobtainable: No Allergies: Coded Allergies: No Known Allergies (Unverified , 12/04/19) Subjective very confused Objective Last 24 Hour Vital Signs Date Time Temp Pulse Resp B/P (MAP) Pulse Ox O2 Delivery O2 Flow Rate FiO2 12/17/19 11:55 97.6 82 18 121/52 (75) 99 12/17/19 11:41 96.8 82 127/55 (79) 12/17/19 11:36 97.0 80 124/53 (76) 12/17/19 11:31 97.2 79 123/52 (75) 12/17/19 09:00 0 12/17/19 09:00 Room Air 12/17/19 08:36 116/48 12/17/19 08:00 98.7 75 18 116/48 (70) 100 12/17/19 04:00 97.7 82 18 112/55 (74) 98 12/17/19 00:00 97.9 76 18 90/68 (75) 97 12/16/19 21:46 127/49 12/16/19 21:00 Room Air 12/16/19 21:00 82 84 88 12/16/19 20:00 98.2 96 19 127/49 (75) 98 12/16/19 17:08 83 129/67 12/16/19 16:00 98.9 83 17 129/67 (87) 98 Intake and Output 12/16/19 12/17/19 19:00 07:00 Intake Total 1367.5 ml 1110 ml Balance 1367.5 ml 1110 ml IV Total 1017.5 ml 750 ml Other 350 ml 360 ml # Voids 3 Laboratory Tests 12/17/19 05:30: White Blood Count 15.3H, Red Blood Count 2.51L, Hemoglobin 6.8*L, Hematocrit 21.8L, Mean Corpuscular Volume 87, Mean Corpuscular Hemoglobin 27.1, Mean Corpuscular Hemoglobin Concent 31.2L, Red Cell Distribution Width 13.0, Platelet Count 476H, Mean Platelet Volume 6.0L, Neutrophils (%) (Auto) , Lymphocytes (%) (Auto) , Monocytes (%) (Auto) , Eosinophils (%) (Auto) , Basophils (%) (Auto) , Differential Total Cells Counted 100, Neutrophils % (Manual) 75, Lymphocytes % (Manual) 17L, Monocytes % (Manual) 5, Eosinophils % (Manual) 3, Basophils % (Manual) 0, Band Neutrophils 0, Platelet Estimate Adequate, Platelet Morphology Normal, Polychromasia 1+, Hypochromasia 2+, Sodium Level 140, Potassium Level 3.6, Chloride Level 104, Carbon Dioxide Level 25, Anion Gap 11, Blood Urea Nitrogen 5L, Creatinine 1.1, Estimat Glomerular Filtration Rate 59.0, Glucose Level 101, Calcium Level 8.0L, Total Bilirubin 0.3, Aspartate Amino Transf (AST/SGOT) 16, Alanine Aminotransferase (ALT/SGPT) 12, Alkaline Phosphatase 66, Total Protein 6.6, Albumin 2.3L, Globulin 4.3, Albumin/Globulin Ratio 0.5L Height (Feet): 5 Height (Inches): 3.00 Weight (Pounds): 146 General Appearance: no apparent distress EENT: PERRL/EOMI Neck: supple Cardiovascular: regular rhythm Respiratory/Chest: decreased breath sounds Abdomen: normal bowel sounds, non tender, soft Extremities: non-tender Assessment/Plan Problem List: (1) Hypertension ICD Codes: I10 - Essential (primary) hypertension SNOMED: 31027198 (2) Hypokalemia ICD Codes: E87.6 - Hypokalemia SNOMED: 97041281 (3) Abdominal pain ICD Codes: R10.9 - Unspecified abdominal pain SNOMED: 82580824 (4) Chest pain ICD Codes: R07.9 - Chest pain, unspecified SNOMED: 72328946 Status: stable Assessment/Plan: stool ob positive x2 fu H&H CT reviewed calmer today ? psych meds is working getting blood plan GI procedures on Friday if consented Massimo Osborn MD Dec 17, 2019 12:49
--- NOTE | 2019-12-17 13:02 | Cardiology Progress Note ---
Assessment/Plan Status: stable Assessment/Plan Assessment/Plan CHEST PAIN HYPERTENSIVE URGENCY CHF DIASTOLIC Plan: Echocardiogram with diastolic dysfunction preserved LV function 70%, no significant valvular disease Spot dose lasix Continue HCTZ DASH diet Continue Norvasc Monitor on telemetry Nitro prn CP Hold Heparin Stress test NEGATIVE Psych for capacity ok to d/c from cardiology perspective once cleared by psych Subjective Cardiovascular: Reports: no symptoms Respiratory: Reports: no symptoms Gastrointestinal/Abdominal: Reports: no symptoms Genitourinary: Reports: no symptoms Subjective No acute events, BP stable, TTE with LVEF 70%, CP resolved. EKG no dynamic changes, stress test NEGATIVE Discharge held for psych consult Patient refused colonsocopy for positive FOBT Objective Last 24 Hour Vital Signs Date Time Temp Pulse Resp B/P (MAP) Pulse Ox O2 Delivery O2 Flow Rate FiO2 12/17/19 11:55 97.6 82 18 121/52 (75) 99 12/17/19 11:41 96.8 82 127/55 (79) 12/17/19 11:36 97.0 80 124/53 (76) 12/17/19 11:31 97.2 79 123/52 (75) 12/17/19 09:00 0 12/17/19 09:00 Room Air 12/17/19 08:36 116/48 12/17/19 08:00 98.7 75 18 116/48 (70) 100 12/17/19 04:00 97.7 82 18 112/55 (74) 98 12/17/19 00:00 97.9 76 18 90/68 (75) 97 12/16/19 21:46 127/49 12/16/19 21:00 Room Air 12/16/19 21:00 82 84 88 12/16/19 20:00 98.2 96 19 127/49 (75) 98 12/16/19 17:08 83 129/67 12/16/19 16:00 98.9 83 17 129/67 (87) 98 General Appearance: no apparent distress, alert EENT: PERRL/EOMI, normal ENT inspection, TMs normal, pharynx normal Neck: non-tender, normal alignment, supple, normal inspection, no JVD Rhythm: NSR Cardiovascular: normal peripheral pulses, normal rate, regular rhythm Respiratory/Chest: chest wall non-tender, lungs clear Abdomen: normal bowel sounds, non tender, soft, no organomegaly Extremities: normal range of motion, non-tender, normal inspection, no calf tenderness, no swelling 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, no motor/sensory deficits Intake and Output 12/16/19 12/17/19 19:00 07:00 Intake Total 1367.5 ml 1110 ml Balance 1367.5 ml 1110 ml IV Total 1017.5 ml 750 ml Other 350 ml 360 ml # Voids 3 Laboratory Tests Test 12/17/19 05:30 White Blood Count 15.3 K/UL (4.8-10.8) H Red Blood Count 2.51 M/UL (4.20-5.40) L Hemoglobin 6.8 G/DL (12.0-16.0) *L Hematocrit 21.8 % (37.0-47.0) L Mean Corpuscular Volume 87 FL (80-99) Mean Corpuscular Hemoglobin 27.1 PG (27.0-31.0) Mean Corpuscular Hemoglobin Concent 31.2 G/DL (32.0-36.0) L Red Cell Distribution Width 13.0 % (11.6-14.8) Platelet Count 476 K/UL (150-450) H Mean Platelet Volume 6.0 FL (6.5-10.1) L Neutrophils (%) (Auto) % (45.0-75.0) Lymphocytes (%) (Auto) % (20.0-45.0) Monocytes (%) (Auto) % (1.0-10.0) Eosinophils (%) (Auto) % (0.0-3.0) Basophils (%) (Auto) % (0.0-2.0) Differential Total Cells Counted 100 Neutrophils % (Manual) 75 % (45-75) Lymphocytes % (Manual) 17 % (20-45) L Monocytes % (Manual) 5 % (1-10) Eosinophils % (Manual) 3 % (0-3) Basophils % (Manual) 0 % (0-2) Band Neutrophils 0 % (0-8) Platelet Estimate Adequate Platelet Morphology Normal Polychromasia 1+ Hypochromasia 2+ Sodium Level 140 MMOL/L (136-145) Potassium Level 3.6 MMOL/L (3.5-5.1) Chloride Level 104 MMOL/L (98-107) Carbon Dioxide Level 25 MMOL/L (21-32) Anion Gap 11 mmol/L (5-15) Blood Urea Nitrogen 5 mg/dL (7-18) L Creatinine 1.1 MG/DL (0.55-1.30) Estimat Glomerular Filtration Rate 59.0 mL/min (>60) Glucose Level 101 MG/DL (74-106) Calcium Level 8.0 MG/DL (8.5-10.1) L Total Bilirubin 0.3 MG/DL (0.2-1.0) Aspartate Amino Transf (AST/SGOT) 16 U/L (15-37) Alanine Aminotransferase (ALT/SGPT) 12 U/L (12-78) Alkaline Phosphatase 66 U/L (46-116) Total Protein 6.6 G/DL (6.4-8.2) Albumin 2.3 G/DL (3.4-5.0) L Globulin 4.3 g/dL Albumin/Globulin Ratio 0.5 (1.0-2.7) L Microbiology Date/Time Source Procedure Growth Status 12/14/19 17:45 Blood Blood Culture - Preliminary NO GROWTH AFTER 48 HOURS Resulted 12/14/19 17:30 Blood Blood Culture - Preliminary NO GROWTH AFTER 48 HOURS Resulted Kush Tillman MD Dec 17, 2019 13:02
--- NOTE | 2019-12-17 19:15 | NUR ---
NURSE NOTES: RECEIVED PATIENT FROM LUIS MIRANDA. PATIENT IS AWAKE, AAOX3, ON ROOM AIR, NO ACUTE DISTRESS NOTED. PIV ON RIGHT WRIST INTACT AND PATENT RUNNING D5NS W/10MEQ AT 75 ML/HR. OPTIFOAM NOTED ON SACRAL WOUND. 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 YELLOW SOCKS, YELLOW GOWN, YELLOW ARMBANDS, AND FALL RISK DOOR SIGN IMPLEMENTED. BED IS LOCKED AND LOW, BED ALARMS ACTIVE, SIDE RAILS UP X2 AND CALL LIGHT IS WITHIN REACH. WILL CONTINUE TO MONITOR.
[2019-12-17] MEDS ORDERED: NS 275ml ONE (20:24)
[2019-12-17] MEDS ORDERED: Tubing IV Blood Pump IV ONE (20:24)
[2019-12-17] MEDS: Atorvastatin 80mg tab ORAL SCH (21:29)
--- NOTE | 2019-12-17 23:32 | Psych Consult Progress Note ---
Psychiatry Progress Note Psychiatry Progress Note Subjective the pt is the same more managable the pt lacks capacity to make decisions the next of keen should make decisions the pt was disorganized and responding to IS Medications Current Medications Medications (Trade) Dose Ordered Sig/Yasmine Route PRN Reason Start Time Stop Time Status Last Admin Dose Admin Acetaminophen (Tylenol) 650 mg Q4H PRN ORAL Mild Pain (Pain Scale 1-3) 12/15/19 00:30 01/09/20 00:29 Acetaminophen (Tylenol) 650 mg Q6H PRN ORAL For Headache 12/15/19 00:30 01/09/20 00:29 12/17/19 18:03 Al Hydroxide/Mg Hydroxide (Mylanta II) 30 ml Q6H PRN ORAL dyspepsia 12/15/19 00:30 01/09/20 00:29 Amlodipine Besylate (Norvasc) 10 mg QPM ORAL 12/15/19 16:30 01/06/20 16:29 12/17/19 17:30 Artificial Tears (Akwa-Tears) 2 drop Q2H PRN RIGHT EYE Dry Eyes 12/16/19 12:30 01/15/20 12:29 Atorvastatin Calcium (Lipitor) 80 mg BEDTIME ORAL 12/15/19 21:00 03/04/20 20:59 12/17/19 21:29 Atropine Sulfate (Atropine) 0.5 mg Q3M PRN IV symptomatic bradycardia 12/15/19 00:15 03/04/20 15:44 Bisacodyl (Dulcolax) 10 mg DAILYPRN PRN RECTAL Constipation 12/15/19 00:30 03/10/20 00:29 Dextrose (Dextrose 50%) 25 ml Q30M PRN IV Hypoglycemia 12/15/19 00:30 03/03/20 13:59 Dextrose (Dextrose 50%) 50 ml Q30M PRN IV Hypoglycemia 12/15/19 00:15 03/03/20 15:44 Escitalopram Oxalate (Lexapro) 10 mg DAILY ORAL 12/15/19 09:00 01/07/20 16:14 12/17/19 08:35 Fludrocortisone Acetate (Florinef) 0.1 mg DAILY ORAL 12/15/19 09:00 01/10/20 16:44 12/17/19 08:35 Haloperidol Lactate (Haldol) 5 mg Q6H PRN IM Agitation 12/15/19 00:30 01/24/20 00:29 Hydralazine HCl (Apresoline) 10 mg Q12HR ORAL 12/15/19 09:00 03/09/20 20:59 12/17/19 21:29 Hydralazine HCl (Apresoline) 10 mg Q6H PRN ORAL For High Blood Pressure 12/15/19 00:30 03/09/20 00:29 Magnesium Oxide (Mag-Ox 400mg) 400 mg TID ORAL 12/15/19 09:00 01/04/20 12:59 12/17/19 17:30 Nitroglycerin (Ntg) 0.4 mg Q5M PRN SL Prn Chest Pain 12/15/19 00:15 01/03/20 15:44 Ondansetron HCl (Zofran) 4 mg Q6H PRN IVP Nausea & Vomiting 12/15/19 00:30 01/09/20 00:29 Pantoprazole (Protonix) 40 mg EVERY 12 HOURS IVP 12/15/19 09:00 01/12/20 20:59 12/17/19 21:29 Piperacillin Sod/ Tazobactam Sod 3.375 gm/Sodium Chloride 110 ml @ 27.5 mls/hr Q8HR IVPB 12/15/19 06:00 12/20/19 05:59 12/17/19 21:27 Polyethylene Glycol (Miralax) 17 gm DAILYPRN PRN ORAL Constipation 12/15/19 00:30 01/09/20 00:29 Potassium Chloride 10 meq/ Dextrose/Sodium Chloride 1,005 ml @ 75 mls/hr [id number] IV 12/15/19 00:15 01/11/20 17:29 12/17/19 21:29 Risperidone (RisperDAL) 2 mg BEDTIME ORAL 12/15/19 21:00 01/25/20 20:59 12/17/19 21:29 Senna/Docusate Sodium (Kendra-Colace) 1 tab TWICE A DAY ORAL 12/15/19 09:00 01/09/20 17:59 12/17/19 17:30 Neurological/Psychiatric: Denies: depressed, emotional problems, headache, numbness Allergies: Coded Allergies: No Known Allergies (Unverified , 12/04/19) Objective Data Height (Feet): 5 Height (Inches): 3.00 Weight (Pounds): 146 General Appearance: no apparent distress Mental Status Exam - Mood: irritable, anxious Mental Status Exam - Thought C: delusions of grandiosity Perceptual Disturbances: visual Mental Status Exam - Suicidal: not present Additional Comments: Alert, oriented times self, place. Mood is depressed. Affect is blunted, congruent with mood. Thought process is concrete. Thought content, no suicidal or homicidal ideation. Cognition is impaired. Insight and judgment is impaired. Assessment/Plan [place] I: ASSESSMENT: [place] I Major depressive disorder. Psychotic disorder. Dementia. [place] II Deferred. [place] III Abdominal pain. [place] IV Moderate. [place] V 50. PLAN: 1. Start the patient on risperidone 2 mg at bedtime. 2. Lexapro 10 mg in the morning. 3. Provide the patient with reality orientation and supportive therapy. Status: stable Status Narrative ASSESSMENT: [place] I Major depressive disorder. Psychotic disorder. Dementia. [place] II Deferred. [place] III Abdominal pain. [place] IV Moderate. [place] V 50. PLAN: 1. Start the patient on risperidone 2 mg at bedtime. 2. Lexapro 10 mg in the morning. 3. Provide the patient with reality orientation and supportive therapy. Assessment/Plan: ASSESSMENT: [place] I Major depressive disorder. Psychotic disorder. Dementia. [place] II Deferred. [place] III Abdominal pain. [place] IV Moderate. [place] V 50. PLAN: 1. Start the patient on risperidone 2 mg at bedtime. 2. Lexapro 10 mg in the morning. 3. Provide the patient with reality orientation and supportive therapy. Stuart Feliz MD Dec 17, 2019 23:32
[2019-12-18] VITALS (7 sets, daily range): BP systolic 129–155; BP diastolic 62–84
[2019-12-18] MEDS: Piperacillin/Tazobactam 3.375 GM in NS 110 ML IVPB SCH ×3 (05:39→21:45)
--- NOTE | 2019-12-18 07:41 | NUR ---
NURSE HAND-OFF: Important Events on Shift: 3 large loose tarry stools Patient Status: STABLE Diet: CARDIAC Pending Orders: N/A Pending Results/Labs:N/A Pending MD notification:N/A Latest Vital Signs: Temperature 97.7 , Pulse 96 , B/P 150 /84 , Respiratory Rate 18 , O2 SAT 98 , Room Air, O2 Flow Rate . Vital Sign Comment: STABLE Latest [place] Fall Score: 60 Fall Risk: High Risk Safety Measures: Call light Within Reach, Bed Alarm Zone 1, Side Rails Side Rails x2, Bed position Low and Locked. Fall Precautions: Yellow Socks Yellow Gown Door Sign Patient Fall Education Report given to LUIS Vidales.
--- NOTE | 2019-12-18 08:00 | NUR ---
NURSE NOTES: Patient awake and alert, some confusion noted,reoriented , patient sitting up in bed and eating breakfast,respirations unlabored.IV fluids infusing as ordered.Bed alarm is on,call light within reach.
[2019-12-18] MEDS: Pantoprazole Inj IVP SCH ×2 (08:27→20:36)
[2019-12-18] MEDS: Docusate Sod/Senna tab ORAL SCH ×2 (08:29→18:03)
[2019-12-18] MEDS: Magnesium Oxide 400mg tab ORAL SCH ×3 (08:29→18:03)
[2019-12-18] MEDS: HydrALAZINE 10mg Tab ORAL SCH ×2 (08:31→20:35)
[2019-12-18] MEDS: Potassium Chloride 10 MEQ in D5 1/2NS 1,000 ML IV SCH ×2 (08:39→19:43)
[2019-12-18 09:22] LABS: BASOPHILS % (AUTO) 3.1 % (0.0-2.0); EOSINOPHILS % (AUTO) 2.3 % (0.0-3.0); HEMATOCRIT 25.9 % (37.0-47.0); LYMPHOCYTES % (AUTO) 11.7 % (20.0-45.0); MEAN CORPUSCULAR VOLUME 87 FL (80-99); MONOCYTES % (AUTO) 9.7 % (1.0-10.0); NEUTROPHILS % (AUTO) 73.2 % (45.0-75.0); PLATELET COUNT 521 K/UL (150-450); RED BLOOD COUNT 2.98 M/UL (4.20-5.40); RED CELL DISTRIBUTION WIDTH 13.4 % (11.6-14.8); WHITE BLOOD COUNT 16.3 K/UL (4.8-10.8)
[2019-12-18 09:27] LABS: HEMOGLOBIN 8.3 G/DL (12.0-16.0)
--- NOTE | 2019-12-18 10:26 | Cardiology Progress Note ---
Assessment/Plan Status: stable Assessment/Plan Assessment/Plan CHEST PAIN HYPERTENSIVE URGENCY CHF DIASTOLIC Plan: Echocardiogram with diastolic dysfunction preserved LV function 70%, no significant valvular disease Spot dose lasix Continue HCTZ DASH diet Continue Norvasc Monitor on telemetry Nitro prn CP Hold Heparin Stress test NEGATIVE Psych for capacity ok to d/c from cardiology perspective once cleared by psych Subjective Cardiovascular: Reports: no symptoms Respiratory: Reports: no symptoms Gastrointestinal/Abdominal: Reports: no symptoms Genitourinary: Reports: no symptoms Subjective No acute events, BP stable, TTE with LVEF 70%, CP resolved. EKG no dynamic changes, stress test NEGATIVE Discharge held for psych consult Patient refused colonsocopy for positive FOBT Objective Last 24 Hour Vital Signs Date Time Temp Pulse Resp B/P (MAP) Pulse Ox O2 Delivery O2 Flow Rate FiO2 12/18/19 08:31 153/82 12/18/19 08:00 98.7 89 17 129/72 (91) 98 12/18/19 04:00 97.7 96 18 150/84 (106) 98 12/18/19 00:00 97.3 95 20 155/80 (105) 96 12/17/19 21:29 155/64 12/17/19 21:00 95 95 107 12/17/19 21:00 Room Air 12/17/19 20:00 97.3 66 18 155/64 (94) 98 12/17/19 18:33 97.9 12/17/19 17:30 78 141/70 12/17/19 16:00 97.9 78 18 141/70 (93) 98 12/17/19 11:55 97.6 82 18 121/52 (75) 99 12/17/19 11:41 96.8 82 127/55 (79) 12/17/19 11:36 97.0 80 124/53 (76) 12/17/19 11:31 97.2 79 123/52 (75) General Appearance: no apparent distress, alert EENT: PERRL/EOMI, normal ENT inspection, TMs normal, pharynx normal Neck: non-tender, normal alignment, supple, normal inspection Rhythm: NSR Cardiovascular: normal peripheral pulses, normal rate, regular rhythm Respiratory/Chest: chest wall non-tender, lungs clear, normal breath sounds Abdomen: normal bowel sounds, non tender, soft, no organomegaly Extremities: normal range of motion, non-tender, normal inspection, no calf tenderness, no swelling 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, no motor/sensory deficits Intake and Output 12/17/19 12/18/19 19:00 07:00 Intake Total 500 ml 560.0 ml Balance 500 ml 560.0 ml IV Total 560.0 ml Other 500 ml # Voids 4 # Bowel Movements 4 Laboratory Tests Test 12/18/19 08:40 White Blood Count 16.3 K/UL (4.8-10.8) H Red Blood Count 2.98 M/UL (4.20-5.40) L Hemoglobin 8.3 G/DL (12.0-16.0) L Hematocrit 25.9 % (37.0-47.0) L Mean Corpuscular Volume 87 FL (80-99) Mean Corpuscular Hemoglobin 27.8 PG (27.0-31.0) Mean Corpuscular Hemoglobin Concent 32.0 G/DL (32.0-36.0) Red Cell Distribution Width 13.4 % (11.6-14.8) Platelet Count 521 K/UL (150-450) H Mean Platelet Volume 5.7 FL (6.5-10.1) L Neutrophils (%) (Auto) 73.2 % (45.0-75.0) Lymphocytes (%) (Auto) 11.7 % (20.0-45.0) L Monocytes (%) (Auto) 9.7 % (1.0-10.0) Eosinophils (%) (Auto) 2.3 % (0.0-3.0) Basophils (%) (Auto) 3.1 % (0.0-2.0) H Kush Tillman MD Dec 18, 2019 10:26
--- NOTE | 2019-12-18 10:57 | General Progress Note ---
Subjective Date patient seen: Dec 18, 2019 Time patient seen: 09:56 ROS Limited/Unobtainable: Yes - does not want to participate and confused Constitutional: Denies: fever, malaise, weakness Allergies: Coded Allergies: No Known Allergies (Unverified , 12/04/19) Subjective Patient has no complaints. Said she is thinking about colonoscopy on friday Objective Last 24 Hour Vital Signs Date Time Temp Pulse Resp B/P (MAP) Pulse Ox O2 Delivery O2 Flow Rate FiO2 12/18/19 08:31 153/82 12/18/19 08:00 98.7 89 17 129/72 (91) 98 12/18/19 04:00 97.7 96 18 150/84 (106) 98 12/18/19 00:00 97.3 95 20 155/80 (105) 96 12/17/19 21:29 155/64 12/17/19 21:00 95 95 107 12/17/19 21:00 Room Air 12/17/19 20:00 97.3 66 18 155/64 (94) 98 12/17/19 18:33 97.9 12/17/19 17:30 78 141/70 12/17/19 16:00 97.9 78 18 141/70 (93) 98 12/17/19 11:55 97.6 82 18 121/52 (75) 99 12/17/19 11:41 96.8 82 127/55 (79) 12/17/19 11:36 97.0 80 124/53 (76) 12/17/19 11:31 97.2 79 123/52 (75) Intake and Output 12/17/19 12/18/19 19:00 07:00 Intake Total 500 ml 560.0 ml Balance 500 ml 560.0 ml IV Total 560.0 ml Other 500 ml # Voids 4 # Bowel Movements 4 Laboratory Tests 12/18/19 08:40: White Blood Count 16.3H, Red Blood Count 2.98L, Hemoglobin 8.3L, Hematocrit 25. 9L, Mean Corpuscular Volume 87, Mean Corpuscular Hemoglobin 27.8, Mean Corpuscular Hemoglobin Concent 32.0, Red Cell Distribution Width 13.4, Platelet Count 521H, Mean Platelet Volume 5.7L, Neutrophils (%) (Auto) 73.2, Lymphocytes (%) (Auto) 11.7L, Monocytes (%) (Auto) 9.7, Eosinophils (%) (Auto) 2.3, Basophils (%) (Auto) 3.1H Height (Feet): 5 Height (Inches): 3.00 Weight (Pounds): 146 General Appearance: confused, combative, overweight EENT: normal ENT inspection Neck: normal alignment, supple, normal inspection Cardiovascular: normal rate, regular rhythm, no gallop/murmur, no JVD Respiratory/Chest: lungs clear, normal breath sounds, no respiratory distress, no accessory muscle use Abdomen: normal bowel sounds, non tender, soft, no organomegaly, no mass Pelvis: normal external exam Extremities: non-tender, normal inspection Edema: no edema noted Arm (L), no edema noted Arm (R), no edema noted Leg (L), no edema noted Leg (R), no edema noted Pedal (L), no edema noted Pedal (R), no edema noted Generalized Neurologic: abnormal gait, responsive, disoriented, depressed affect Skin: normal pigmentation, warm/dry, no diaphoresis Assessment/Plan Problem List: (1) Sepsis ICD Codes: A41.9 - Sepsis, unspecified organism SNOMED: 58132919 Qualifiers: (2) Blood loss anemia 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 Cardio consulted and ACS was ruled out, pt under went NM stress test which was negative. Pt noted to have abd pain and occult positive stools. #Acute Metabolic Encephalopathy - multifactorial #?Acute on Chronic Dementia #UTI - E coli #Hyponatremia - resolved #Leukocytosis - same -Na 131 -->130 --> 127 --> 129 --> 138 -> 140 -Hyponatremia likely 2/2 dehydration, HCTZ use -confusion may be multifactorial, acute on chronic dementia, infection/UTI, less likely hyponatremia -Leukocytosis may be 2/2 steroids for Orthostatic Hypotension vs infection -d/c HCTZ -Nephro consulted, recs appreciated -s/p 500 cc +250 cc 3% saline initiated by Nephro with improvement in Na -12/10: CT head negative for acute process -UCx e. Coli that is pansensitive -ID consulted, recs appreciated, DC CTX and flagyl - started Zosyn 12/13 #Ileus #Abdominal Pain - resolved #Constipation - improved #Occult Positive Stools #Acute blood loss anemia Pain possibly from constipation, less likely diverticulitis or gastroenteritis. No CVA tenderness - UA and Lipase wnl - CT Abdomen - ileus vs. colitis - GI Cocktail, Zofran prn - 12/07 abd XR w/ileus, small bowel obstruction less likely - s/p Mg citrate x1 - docusate TID, dulcolax suppository PRN - occult stool positive - c diff negative - pain control - Transfused 1 unit pRBC 12/16 - Refused EGD/colonoscopy 12/13 - will try on Friday for EGD #Orthostatic Hypotension #Syncope -cont Florinef 0.1 mg daily -fall precautions #ZA - improved -Cr elevated to 1.7, now resolved -avoid nephrotoxins -renally dose meds -Nephro following, recs appreciated #Chest pain - ACS ruled out, resolved #Chronic HFpEF Initial presentation with non-radiating chest pain that resolved with SL Nitro and Aspirin. EKG with non-specific ST changes in V1-V2. Moderate Heart Score - EKG prn for active chest pain, Trop x3 negative, BNP slightly elevated, HBA1c wnl - Echo EF 70-75%, mild left hypertrophy, mitral and aortic root calcification - Cardiology consulted, recs appreciated - s/p NM stress test negative, pt OK to d/c home from cardio stand point #Hypertension - uncontrolled #Hypertensive Urgency - resolved - Cont Norvasc 10 mg PO daily - cont hydralazine 10 mg PO BID - d/c Hctz due to ZA and hyponatremia - hydralazine PRN for SBP >160 #Hypokalemia - resolved - replaced - ctm, replace PRN #Psychosis #Depression #Dementia #SI -per nurse pt was seeing "snakes" in the room - resolved -Psych consulted, recs appreciated -Risperdone increased from 1 mg to 2 mg qHS -cont lexapro 10 mg PO qAM -Suicide precautions FEN Hold AC per cards and positive occult Dispo - Home when medically cleared Code - FULL CODE Time spent with patient 37 mins, approximately 28 minutes spent coordinating care with nurses and consultants. D/w RN, Dr. Tillman, Dr. Vail, GI and Dr. Penny. I also had another discussion with rosie Byrd about plan of care moving forward. Time of note may not reflect time of encounter. Alfie Kowalski M.D. Dec 18, 2019 10:57
--- NOTE | 2019-12-18 16:43 | Infectious Diseases Prog Note ---
Assessment/Plan Assessment/Plan ASSESSMENT AND PLAN: 1. e.coli uti, sepsis, ? enteritis, leukocytosis, c.diff. negative - zosyn - day # 5 - cultures - negative - monitor labs - leukocytosis overall improving 2. The patient has acute kidney injury and elevated creatinine. 3. The patient has hypertension. 4. Blood pressure control per primary care team. 5. Hypertensive urgency. 6. Dementia. 7. Chest pain. 8. Psychosis. 9. Depression. 10. Encephalopathy. 11. Abdominal pain. 12. Orthostatic hypotension. 13. Chronic kidney disease likely. 14. No known drug allergies. 15. Social history is negative. 16. Family history is contributory. 17. MAR was noted. 18. Case was discussed with RN. Subjective Constitutional: Denies: fever HEENT: Denies: congestion Respiratory: Denies: shortness of breath Cardiovascular: Denies: chest pain Gastrointestinal/Abdominal: Denies: nausea, vomiting Genitourinary: Reports: other - no savage Neurologic: Denies: headache Psychiatric: Denies: depression Skin: Denies: rash Hematologic: Denies: bleeding Musculoskeletal: Denies: pain Allergies: Coded Allergies: No Known Allergies (Unverified , 12/04/19) Objective Last 24 Hour Vital Signs Date Time Temp Pulse Resp B/P (MAP) Pulse Ox O2 Delivery O2 Flow Rate FiO2 12/18/19 12:00 98.1 88 18 155/73 (100) 98 12/18/19 09:00 0 12/18/19 09:00 Room Air 12/18/19 08:31 153/82 12/18/19 08:00 98.7 89 17 129/72 (91) 98 12/18/19 04:00 97.7 96 18 150/84 (106) 98 12/18/19 00:00 97.3 95 20 155/80 (105) 96 12/17/19 21:29 155/64 12/17/19 21:00 95 95 107 12/17/19 21:00 Room Air 12/17/19 20:00 97.3 66 18 155/64 (94) 98 12/17/19 18:33 97.9 12/17/19 17:30 78 141/70 Height (Feet): 5 Height (Inches): 3.00 Weight (Pounds): 146 General Appearance: no acute distress HEENT: normocephalic, atraumatic, anicteric Respiratory/Chest: lungs clear, normal breath sounds, no accessory muscle use Cardiovascular: normal rate, regular rhythm, no gallop/murmur, no JVD Abdomen: normal bowel sounds, soft, non tender, no organomegaly, non distended Genitourinary: other - no savage Extremities: no cyanosis Skin: no rash Neurologic/Psychiatric: fitness coach II-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 No consolidation. Pleural space: Unremarkable. No pneumothorax. Heart: Borderline cardiomegaly, potentially exaggerated by portable technique. Mediastinum: Calcified aortic knob. Bones/joints: Degenerative changes. IMPRESSION: No evidence of acute pulmonary disease CT abdomen and pelvis: IMPRESSION: 1. Mild prominence of fluid and gas-filled small bowel loops may represent enteritis or ileus in the appropriate clinical setting. 2. Prominence of the baires of the colon likely secondary to under distention. Element of colitis is not excluded. 3. Punctate nonobstructing bilateral renal stones. Mild right hydroureteronephrosis. No obstructing stone identified. This may be secondary to distended bladder. Microbiology Date/Time Source Procedure Growth Status 12/14/19 17:45 Blood Blood Culture - Preliminary NO GROWTH AFTER 48 HOURS Resulted 12/13/19 11:13 Nasopharynx SARS-CoV-2 RdRp Gene Assay - Final Complete 12/11/19 20:35 Stool Clostridium difficile Toxin Assay - Final Complete 12/11/19 14:54 Urine,Clean Catch Urine Culture - Final Escherichia Coli Complete Labs Test 12/16/19 05:00 12/16/19 05:30 12/17/19 05:30 12/18/19 08:40 Stool Occult Blood Positive (NEGATIVE) White Blood Count 15.8 K/UL (4.8-10.8) 15.3 K/UL (4.8-10.8) 16.3 K/UL (4.8-10.8) Red Blood Count 2.72 M/UL (4.20-5.40) 2.51 M/UL (4.20-5.40) 2.98 M/UL (4.20-5.40) Hemoglobin 7.4 G/DL (12.0-16.0) 6.8 G/DL (12.0-16.0) 8.3 G/DL (12.0-16.0) Hematocrit 23.5 % (37.0-47.0) 21.8 % (37.0-47.0) 25.9 % (37.0-47.0) Mean Corpuscular Volume 86 FL (80-99) 87 FL (80-99) 87 FL (80-99) Mean Corpuscular Hemoglobin 27.3 PG (27.0-31.0) 27.1 PG (27.0-31.0) 27.8 PG (27.0-31.0) Mean Corpuscular Hemoglobin Concent 31.6 G/DL (32.0-36.0) 31.2 G/DL (32.0-36.0) 32.0 G/DL (32.0-36.0) Red Cell Distribution Width 13.0 % (11.6-14.8) 13.0 % (11.6-14.8) 13.4 % (11.6-14.8) Platelet Count 467 K/UL (150-450) 476 K/UL (150-450) 521 K/UL (150-450) Mean Platelet Volume 6.5 FL (6.5-10.1) 6.0 FL (6.5-10.1) 5.7 FL (6.5-10.1) Neutrophils (%) (Auto) % (45.0-75.0) % (45.0-75.0) 73.2 % (45.0-75.0) Lymphocytes (%) (Auto) % (20.0-45.0) % (20.0-45.0) 11.7 % (20.0-45.0) Monocytes (%) (Auto) % (1.0-10.0) % (1.0-10.0) 9.7 % (1.0-10.0) Eosinophils (%) (Auto) % (0.0-3.0) % (0.0-3.0) 2.3 % (0.0-3.0) Basophils (%) (Auto) % (0.0-2.0) % (0.0-2.0) 3.1 % (0.0-2.0) Differential Total Cells Counted 100 100 Neutrophils % (Manual) 63 % (45-75) 75 % (45-75) Lymphocytes % (Manual) 29 % (20-45) 17 % (20-45) Monocytes % (Manual) 7 % (1-10) 5 % (1-10) Eosinophils % (Manual) 1 % (0-3) 3 % (0-3) Basophils % (Manual) 0 % (0-2) 0 % (0-2) Band Neutrophils 0 % (0-8) 0 % (0-8) Platelet Estimate Adequate Adequate Platelet Morphology Normal Normal Hypochromasia 3+ 2+ Anisocytosis 1+ Polychromasia 1+ Sodium Level 140 MMOL/L (136-145) Potassium Level 3.6 MMOL/L (3.5-5.1) Chloride Level 104 MMOL/L (98-107) Carbon Dioxide Level 25 MMOL/L (21-32) Anion Gap 11 mmol/L (5-15) Blood Urea Nitrogen 5 mg/dL (7-18) Creatinine 1.1 MG/DL (0.55-1.30) Estimat Glomerular Filtration Rate 59.0 mL/min (>60) Glucose Level 101 MG/DL (74-106) Calcium Level 8.0 MG/DL (8.5-10.1) Total Bilirubin 0.3 MG/DL (0.2-1.0) Aspartate Amino Transf (AST/SGOT) 16 U/L (15-37) Alanine Aminotransferase (ALT/SGPT) 12 U/L (12-78) Alkaline Phosphatase 66 U/L (46-116) Total Protein 6.6 G/DL (6.4-8.2) Albumin 2.3 G/DL (3.4-5.0) Globulin 4.3 g/dL Albumin/Globulin Ratio 0.5 (1.0-2.7) Laboratory Tests Test 12/18/19 08:40 White Blood Count 16.3 K/UL (4.8-10.8) H Red Blood Count 2.98 M/UL (4.20-5.40) L Hemoglobin 8.3 G/DL (12.0-16.0) L Hematocrit 25.9 % (37.0-47.0) L Mean Corpuscular Volume 87 FL (80-99) Mean Corpuscular Hemoglobin 27.8 PG (27.0-31.0) Mean Corpuscular Hemoglobin Concent 32.0 G/DL (32.0-36.0) Red Cell Distribution Width 13.4 % (11.6-14.8) Platelet Count 521 K/UL (150-450) H Mean Platelet Volume 5.7 FL (6.5-10.1) L Neutrophils (%) (Auto) 73.2 % (45.0-75.0) Lymphocytes (%) (Auto) 11.7 % (20.0-45.0) L Monocytes (%) (Auto) 9.7 % (1.0-10.0) Eosinophils (%) (Auto) 2.3 % (0.0-3.0) Basophils (%) (Auto) 3.1 % (0.0-2.0) H Current Medications Medications (Trade) Dose Ordered Sig/Yasmine Route PRN Reason Start Time Stop Time Status Last Admin Dose Admin Acetaminophen (Tylenol) 650 mg Q4H PRN ORAL Mild Pain (Pain Scale 1-3) 12/15/19 00:30 01/09/20 00:29 Acetaminophen (Tylenol) 650 mg Q6H PRN ORAL For Headache 12/15/19 00:30 01/09/20 00:29 12/17/19 18:03 Al Hydroxide/Mg Hydroxide (Mylanta II) 30 ml Q6H PRN ORAL dyspepsia 12/15/19 00:30 01/09/20 00:29 Amlodipine Besylate (Norvasc) 10 mg QPM ORAL 12/15/19 16:30 01/06/20 16:29 12/17/19 17:30 Artificial Tears (Akwa-Tears) 2 drop Q2H PRN RIGHT EYE Dry Eyes 12/16/19 12:30 01/15/20 12:29 Atorvastatin Calcium (Lipitor) 80 mg BEDTIME ORAL 12/15/19 21:00 03/04/20 20:59 12/17/19 21:29 Atropine Sulfate (Atropine) 0.5 mg Q3M PRN IV symptomatic bradycardia 12/15/19 00:15 03/04/20 15:44 Bisacodyl (Dulcolax) 10 mg DAILYPRN PRN RECTAL Constipation 12/15/19 00:30 03/10/20 00:29 Dextrose (Dextrose 50%) 25 ml Q30M PRN IV Hypoglycemia 12/15/19 00:30 03/03/20 13:59 Dextrose (Dextrose 50%) 50 ml Q30M PRN IV Hypoglycemia 12/15/19 00:15 03/03/20 15:44 Escitalopram Oxalate (Lexapro) 10 mg DAILY ORAL 12/15/19 09:00 01/07/20 16:14 12/18/19 08:28 Fludrocortisone Acetate (Florinef) 0.1 mg DAILY ORAL 12/15/19 09:00 01/10/20 16:44 12/18/19 08:28 Haloperidol Lactate (Haldol) 5 mg Q6H PRN IM Agitation 12/15/19 00:30 01/24/20 00:29 Hydralazine HCl (Apresoline) 10 mg Q12HR ORAL 12/15/19 09:00 03/09/20 20:59 12/18/19 08:31 Hydralazine HCl (Apresoline) 10 mg Q6H PRN ORAL For High Blood Pressure 12/15/19 00:30 03/09/20 00:29 Magnesium Oxide (Mag-Ox 400mg) 400 mg TID ORAL 12/15/19 09:00 01/04/20 12:59 12/18/19 13:33 Nitroglycerin (Ntg) 0.4 mg Q5M PRN SL Prn Chest Pain 12/15/19 00:15 01/03/20 15:44 Ondansetron HCl (Zofran) 4 mg Q6H PRN IVP Nausea & Vomiting 12/15/19 00:30 01/09/20 00:29 Pantoprazole (Protonix) 40 mg EVERY 12 HOURS IVP 12/15/19 09:00 01/12/20 20:59 12/18/19 08:27 Piperacillin Sod/ Tazobactam Sod 3.375 gm/Sodium Chloride 110 ml @ 27.5 mls/hr Q8HR IVPB 12/15/19 06:00 12/20/19 05:59 12/18/19 15:05 Polyethylene Glycol (Miralax) 17 gm DAILYPRN PRN ORAL Constipation 12/15/19 00:30 01/09/20 00:29 Potassium Chloride 10 meq/ Dextrose/Sodium Chloride 1,005 ml @ 75 mls/hr [id number] IV 12/15/19 00:15 01/11/20 17:29 12/17/19 21:29 Risperidone (RisperDAL) 2 mg BEDTIME ORAL 12/15/19 21:00 01/25/20 20:59 12/17/19 21:29 Senna/Docusate Sodium (Kendra-Colace) 1 tab TWICE A DAY ORAL 12/15/19 09:00 01/09/20 17:59 12/18/19 08:29 Ankit Penny MD Dec 18, 2019 16:43
--- NOTE | 2019-12-18 18:17 | NUR ---
NURSE NOTES: Patient sat up in chair today,now back to bed,ate dinner, no complaint of pain.Bed alarm on,call light within reach.
--- NOTE | 2019-12-18 19:38 | NUR ---
NURSE HAND-OFF: Bettina RN Important Events on Shift:[] Patient Status: [] Diet: [] Cardiac diet Pending Orders: [] Pending Results/Labs:[]12/18 Pending MD notification:[] Latest Vital Signs: Temperature 98.9 , Pulse 82 , B/P 153 /75 , Respiratory Rate 18 , O2 SAT 97 , Room Air, O2 Flow Rate . Vital Sign Comment: [] Latest Wallis Fall Score: 60 Fall Risk: High Risk Safety Measures: Call light Within Reach, Bed Alarm Zone 1, Side Rails Side Rails x2, Bed position Low and Locked. Fall Precautions: Yellow Socks Yellow Gown Door Sign y Patient Fall Education Report given to [].
--- NOTE | 2019-12-18 20:00 | NUR ---
NURSE NOTES: Patient received awake but confused and forgetful, IVF infusing. No signs of distress. Call light in reach. Bed alarm on. Instructed to call for assistance. Commode at bedside.
[2019-12-18] MEDS: Atorvastatin 80mg tab ORAL SCH (20:35)
--- NOTE | 2019-12-18 21:00 | NUR ---
NURSE NOTES: Patient had greenish bowel movement mixed with urine in the commode. Unable to collect stool.
[2019-12-19 04:00] VITALS: BP 149/69
[2019-12-19] MEDS: Piperacillin/Tazobactam 3.375 GM in NS 110 ML IVPB SCH ×3 (05:08→22:03)
[2019-12-19 07:20] LABS: EOSINOPHILS % (AUTO) 2.4 % (0.0-3.0); HEMATOCRIT 26.5 % (37.0-47.0); HEMOGLOBIN 8.4 G/DL (12.0-16.0); LYMPHOCYTES % (AUTO) 18.1 % (20.0-45.0); MEAN CORPUSCULAR VOLUME 87 FL (80-99); MONOCYTES % (AUTO) 8.9 % (1.0-10.0); NEUTROPHILS % (AUTO) 66.6 % (45.0-75.0); PLATELET COUNT 568 K/UL (150-450); RED BLOOD COUNT 3.05 M/UL (4.20-5.40); RED CELL DISTRIBUTION WIDTH 13.4 % (11.6-14.8)
--- NOTE | 2019-12-19 07:29 | NUR ---
NURSE HAND-OFF: Important Events on Shift:[had 2 greenish diarrhea] Patient Status: [eating, stable] Diet: [Cardiac] Pending Orders: [] Pending Results/Labs:[] Pending MD notification:[] Latest Vital Signs: Temperature 98.3 , Pulse 80 , B/P 149 /69 , Respiratory Rate 18 , O2 SAT 98 , Room Air, O2 Flow Rate . Vital Sign Comment: [stable] Latest Wallis Fall Score: 85 Fall Risk: High Risk Safety Measures: Call light Within Reach, Bed Alarm Zone 1, Side Rails Side Rails x2, Bed position Low and Locked. Fall Precautions: Yellow Socks Yellow Gown Door Sign Patient Fall Education Report given to [Hien SMITH].
[2019-12-19 08:00] VITALS: BP 124/52
--- NOTE | 2019-12-19 08:00 | NUR ---
NURSE NOTES: received patient in bed, asleep, no sign of distress noted. Patient receives antibiotic and IVF at right hand access. Bed locked at the lowest position possible, call light within easy reach, side rails up x2. Patient is fall risk, on bed alarm, yellow socks and gown on patient, and sign at the door. Will continue to monitor patient and follow up with the plan of care.
[2019-12-19 08:12] LABS: ALBUMIN 2.5 G/DL (3.4-5.0); ALBUMIN/GLOBULIN RATIO 0.5 (1.0-2.7); BILIRUBIN,TOTAL 0.4 MG/DL (0.2-1.0); CALCIUM 8.7 MG/DL (8.5-10.1); CREATININE 1.1 MG/DL (0.55-1.30); POTASSIUM 3.6 MMOL/L (3.5-5.1)
[2019-12-19] MEDS: Docusate Sod/Senna tab ORAL SCH ×2 (09:00→17:01)
[2019-12-19] MEDS: Magnesium Oxide 400mg tab ORAL SCH ×3 (09:28→17:01)
[2019-12-19] MEDS: HydrALAZINE 10mg Tab ORAL SCH ×2 (09:28→21:20)
[2019-12-19] MEDS: Pantoprazole Inj IVP SCH ×2 (09:29→21:19)
--- NOTE | 2019-12-19 09:29 | General Progress Note ---
Subjective ROS Limited/Unobtainable: No Allergies: Coded Allergies: No Known Allergies (Unverified , 12/04/19) Subjective very confused Objective Last 24 Hour Vital Signs Date Time Temp Pulse Resp B/P (MAP) Pulse Ox O2 Delivery O2 Flow Rate FiO2 12/19/19 08:00 97.9 81 18 124/52 (76) 97 12/19/19 04:00 98.3 80 18 149/69 (95) 98 12/18/19 23:43 98.4 82 18 135/78 (97) 98 12/18/19 21:00 68 95 99 12/18/19 21:00 Room Air 12/18/19 20:35 150/62 12/18/19 20:00 98.5 68 20 150/62 (91) 96 12/18/19 16:40 98.9 82 18 153/75 (101) 97 12/18/19 16:39 82 153/75 12/18/19 12:00 98.1 88 18 155/73 (100) 98 Intake and Output 12/18/19 12/19/19 19:00 07:00 Intake Total 1800 ml 887.5 ml Balance 1800 ml 887.5 ml IV Total 600 ml 887.5 ml Other 1200 ml # Voids 4 # Bowel Movements 1 3 Laboratory Tests 12/19/19 06:40: White Blood Count 15.0H, Red Blood Count 3.05L, Hemoglobin 8.4L, Hematocrit 26.5L, Mean Corpuscular Volume 87, Mean Corpuscular Hemoglobin 27.7, Mean Corpuscular Hemoglobin Concent 31.8L, Red Cell Distribution Width 13.4, Platelet Count 568H, Mean Platelet Volume 5.8L, Neutrophils (%) (Auto) 66.6, Lymphocytes (%) (Auto) 18.1L, Monocytes (%) (Auto) 8.9, Eosinophils (%) (Auto) 2.4, Basophils (%) (Auto) 4.0H, Sodium Level 142, Potassium Level 3.6, Chloride Level 106, Carbon Dioxide Level 27, Anion Gap 9, Blood Urea Nitrogen 4L, Creatinine 1.1, Estimat Glomerular Filtration Rate 59.0, Glucose Level 114H, Calcium Level 8.7, Total Bilirubin 0.4, Aspartate Amino Transf (AST/SGOT) 14L, Alanine Aminotransferase (ALT/SGPT) 14, Alkaline Phosphatase 69, Total Protein 7.1, Albumin 2.5L, Globulin 4.6, Albumin/Globulin Ratio 0.5L Height (Feet): 5 Height (Inches): 3.00 Weight (Pounds): 146 General Appearance: no apparent distress EENT: normal ENT inspection Neck: supple Cardiovascular: regular rhythm Respiratory/Chest: decreased breath sounds Abdomen: normal bowel sounds, non tender, soft Extremities: non-tender Assessment/Plan Problem List: (1) Hypertension ICD Codes: I10 - Essential (primary) hypertension SNOMED: 88172022 (2) Hypokalemia ICD Codes: E87.6 - Hypokalemia SNOMED: 44669358 (3) Abdominal pain ICD Codes: R10.9 - Unspecified abdominal pain SNOMED: 15509376 (4) Chest pain ICD Codes: R07.9 - Chest pain, unspecified SNOMED: 34954188 Status: stable Assessment/Plan: stool ob positive x2 fu H&H CT reviewed calmer today ? psych meds is working getting blood plan GI procedures on Friday Massimo Osborn MD Dec 19, 2019 09:29
--- NOTE | 2019-12-19 11:45 | NUR ---
NURSE NOTES: patient told physical therapist Evonne she feels weak and thinks her blood sugar may be low. Nurse performs blood sugar check with Stat Strip glucometer, result 87. Given patient a cup of orange juice per her request.
[2019-12-19 12:00] VITALS: BP 129/61
--- NOTE | 2019-12-19 12:43 | General Progress Note ---
Subjective Date patient seen: Dec 19, 2019 Time patient seen: 09:45 ROS Limited/Unobtainable: Yes - pt confused Constitutional: Denies: diaphoresis, fever, malaise Cardiovascular: Denies: chest pain, irregular heart rate Respiratory: Denies: orthopnea, shortness of breath, SOB at rest Gastrointestinal/Abdominal: Reports: blood in stool, constipated; Denies: abdominal pain, black stools Genitourinary: Denies: frequency, flank pain, hematuria Neurologic/Psychiatric: Denies: emotional problems, headache, numbness, paresthesia Endocrine: Denies: excessive sweating, intolerance to cold, intolerance to heat, increased hunger Allergies: Coded Allergies: No Known Allergies (Unverified , 12/04/19) Subjective Patient has no complaints. Said she is still thinking about colonoscopy on Friday Objective Last 24 Hour Vital Signs Date Time Temp Pulse Resp B/P (MAP) Pulse Ox O2 Delivery O2 Flow Rate FiO2 12/19/19 09:28 124/52 12/19/19 09:00 Room Air 12/19/19 09:00 Room Air 12/19/19 08:00 97.9 81 18 124/52 (76) 97 12/19/19 04:00 98.3 80 18 149/69 (95) 98 12/18/19 23:43 98.4 82 18 135/78 (97) 98 12/18/19 21:00 68 95 99 12/18/19 21:00 Room Air 12/18/19 20:35 150/62 12/18/19 20:00 98.5 68 20 150/62 (91) 96 12/18/19 16:40 98.9 82 18 153/75 (101) 97 12/18/19 16:39 82 153/75 Intake and Output 12/18/19 12/19/19 19:00 07:00 Intake Total 1800 ml 887.5 ml Balance 1800 ml 887.5 ml IV Total 600 ml 887.5 ml Other 1200 ml # Voids 4 # Bowel Movements 1 3 Laboratory Tests 12/19/19 06:40: White Blood Count 15.0H, Red Blood Count 3.05L, Hemoglobin 8.4L, Hematocrit 26.5L, Mean Corpuscular Volume 87, Mean Corpuscular Hemoglobin 27.7, Mean Corpuscular Hemoglobin Concent 31.8L, Red Cell Distribution Width 13.4, Platelet Count 568H, Mean Platelet Volume 5.8L, Neutrophils (%) (Auto) 66.6, Lymphocytes (%) (Auto) 18.1L, Monocytes (%) (Auto) 8.9, Eosinophils (%) (Auto) 2.4, Basophils (%) (Auto) 4.0H, Sodium Level 142, Potassium Level 3.6, Chloride Level 106, Carbon Dioxide Level 27, Anion Gap 9, Blood Urea Nitrogen 4L, Creatinine 1.1, Estimat Glomerular Filtration Rate 59.0, Glucose Level 114H, Calcium Level 8.7, Total Bilirubin 0.4, Aspartate Amino Transf (AST/SGOT) 14L, Alanine Aminotransferase (ALT/SGPT) 14, Alkaline Phosphatase 69, Total Protein 7.1, Albumin 2.5L, Globulin 4.6, Albumin/Globulin Ratio 0.5L Height (Feet): 5 Height (Inches): 3.00 Weight (Pounds): 146 General Appearance: no apparent distress, lethargic, confused EENT: normal ENT inspection Neck: normal alignment, supple, normal inspection Cardiovascular: normal peripheral pulses, normal rate, regular rhythm, no gallop/murmur, no JVD Respiratory/Chest: chest wall non-tender, lungs clear, normal breath sounds, no respiratory distress, no accessory muscle use Abdomen: non tender, no organomegaly, no mass, hypoactive bowel sounds Pelvis: normal external exam Extremities: normal range of motion, non-tender Edema: no edema noted Arm (L), no edema noted Arm (R), no edema noted Leg (L), no edema noted Leg (R), no edema noted Pedal (L), no edema noted Pedal (R), no e franklin noted Generalized Neurologic: no motor/sensory deficits, abnormal gait, responsive, disoriented, depressed affect Skin: normal pigmentation, warm/dry, no diaphoresis Assessment/Plan Problem List: (1) Sepsis ICD Codes: A41.9 - Sepsis, unspecified organism SNOMED: 63924597 Qualifiers: (2) Blood loss anemia ICD Codes: D50.0 - Iron deficiency anemia secondary to blood loss (chronic) SNOMED: 802033759 (3) Suicidal ideations ICD Codes: R45.851 - Suicidal ideations SNOMED: 4311419 (4) Hypokalemia ICD Codes: E87.6 - Hypokalemia SNOMED: 00995818 (5) Ileus ICD Codes: K56.7 - Ileus, unspecified SNOMED: 077149028 (6) Hypertension ICD Codes: I10 - Essential (primary) hypertension SNOMED: 72965305 (7) Depressed mood ICD Codes: R45.89 - Other symptoms and signs involving emotional state SNOMED: 700355799 Status: stable Assessment/Plan: 74 F with unclear PMhx admitted for abdominal pain and chest pain. Cardio consulted and ACS was ruled out, pt under went NM stress test which was negative. Pt noted to have abd pain and occult positive stools. #Acute Metabolic Encephalopathy - multifactorial #?Acute on Chronic Dementia #UTI - E coli #Hyponatremia - resolved #Leukocytosis - same -Na 131 -->130 --> 127 --> 129 --> 138 -> 140 -Hyponatremia likely 2/2 dehydration, HCTZ use -confusion may be multifactorial, acute on chronic dementia, infection/UTI, less likely hyponatremia -Leukocytosis may be 2/2 steroids for Orthostatic Hypotension vs infection -d/c HCTZ -Nephro consulted, recs appreciated -s/p 500 cc +250 cc 3% saline initiated by Nephro with improvement in Na -12/10: CT head negative for acute process -UCx e. Coli that is pansensitive -ID consulted, recs appreciated, DC CTX and flagyl - started Zosyn 12/13 will end 12/20 #Ileus #Abdominal Pain - resolved #Constipation - improved #Occult Positive Stools #Acute blood loss anemia Pain possibly from constipation, less likely diverticulitis or gastroenteritis. No CVA tenderness - UA and Lipase wnl - CT Abdomen - ileus vs. colitis - GI Cocktail, Zofran prn - 12/07 abd XR w/ileus, small bowel obstruction less likely - s/p Mg citrate x1 - docusate TID, dulcolax suppository PRN - occult stool positive - c diff negative - pain control - Transfused 1 unit pRBC 12/16 - Refused EGD/colonoscopy 12/13 - will try on Friday for EGD #Orthostatic Hypotension #Syncope -cont Florinef 0.1 mg daily -fall precautions #ZA - improved -Cr elevated to 1.7, now resolved -avoid nephrotoxins -renally dose meds -Nephro following, recs appreciated #Chest pain - ACS ruled out, resolved #Chronic HFpEF Initial presentation with non-radiating chest pain that resolved with SL Nitro and Aspirin. EKG with non-specific ST changes in V1-V2. Moderate Heart Score - EKG prn for active chest pain, Trop x3 negative, BNP slightly elevated, HBA1c wnl - Echo EF 70-75%, mild left hypertrophy, mitral and aortic root calcification - Cardiology consulted, recs appreciated - s/p NM stress test negative, pt OK to d/c home from cardio stand point #Hypertension - uncontrolled #Hypertensive Urgency - resolved - Cont Norvasc 10 mg PO daily - cont hydralazine 10 mg PO BID - d/c Hctz due to ZA and hyponatremia - hydralazine PRN for SBP >160 #Hypokalemia - resolved - replaced - ctm, replace PRN #Psychosis #Depression #Dementia #SI -per nurse pt was seeing "snakes" in the room - resolved -Psych consulted, recs appreciated -Risperdone increased from 1 mg to 2 mg qHS -cont lexapro 10 mg PO qAM -Suicide precautions FEN Hold AC per cards and positive occult Dispo - Home when medically cleared Code - FULL CODE Time spent with patient 36 mins, approximately 25 minutes spent coordinating care with nurses and consultants. D/w RN, Dr. Tillman, Dr. Vail, GI and Dr. Penny. I also had another discussion with rosie Byrd about plan of care moving forward. Time of note may not reflect time of encounter. Alfie Kowalski M.D. Dec 19, 2019 12:42
[2019-12-19] MEDS: Potassium Chloride 10 MEQ in D5 1/2NS 1,000 ML IV SCH (13:07)
--- NOTE | 2019-12-19 13:39 | NUR ---
NURSE NOTES: contacted patient's niece Rochelle Nair at for consent on EGD and colonoscopy. Niece told nurse she'll be coming to the hospital at 1600 and would prefer to give consent in written.
--- NOTE | 2019-12-19 13:52 | NUR ---
NURSE NOTES: Lenore from microbiology called and patient COVID test was negative.
[2019-12-19 16:00] VITALS: BP 140/82
[2019-12-19] MEDS ORDERED: Golytely 4L ORAL SCH (16:00)
--- NOTE | 2019-12-19 19:08 | NUR ---
NURSE HAND-OFF: Important Events on Shift:[consent obtained, EGD + colonoscopy consent obtained, COVID rapid test done (-). pt accepted almost half Goletely container as ordered to be given by day shift] Patient Status: [stable] Diet: [CL, NPO post MN except ice chips, meds] Pending Orders: [CBC, BMP] Pending Results/Labs:[] Pending MD notification:[] Latest Vital Signs: Temperature 97.0 , Pulse 85 , B/P 140 /82 , Respiratory Rate 18 , O2 SAT 97 , Room Air, O2 Flow Rate . Vital Sign Comment: [] Latest Wallis Fall Score: 60 Fall Risk: High Risk Safety Measures: Call light Within Reach, Bed Alarm Zone 1, Side Rails Side Rails x2, Bed position Low and Locked. Fall Precautions: Yellow Socks Yellow Gown Door Sign Patient Fall Education Report given to [LUIS Patton/LUIS Sarabia].
--- NOTE | 2019-12-19 19:10 | NUR ---
NURSE NOTES: Received report from Hien SMITH. Rounding is done. Patient is a/o x 2, forgetful, and confused. Denied any pain at this time. No any distress at this time. Breathing is even and unlabored on RA. IV site is intact and patent. All safety measures checked. Bed is on alarm, locked, and lowest position. Call light within reach. Will continue to monitor.
[2019-12-19 20:00] VITALS: BP 132/70
--- NOTE | 2019-12-19 21:00 | NUR ---
NURSE NOTES: called to Dr. Osborn that patient finished 1/2 golytely and refused to take left of golytely. Patient has still particles of stool and some of liquids. Dr. Osborn ordered fleets enema and will follow up.
[2019-12-19] MEDS: Atorvastatin 80mg tab ORAL SCH (21:20)
[2019-12-20] VITALS (9 sets, daily range): BP systolic 123–154; BP diastolic 57–84
[2019-12-20] MEDS: Potassium Chloride 10 MEQ in D5 1/2NS 1,000 ML IV SCH (01:09)
[2019-12-20] MEDS ORDERED: Fleet's Enema 133ml RECTAL ONE (03:00)
--- NOTE | 2019-12-20 06:00 | NUR ---
NURSE NOTES: patient had yellow clear stool after fleet enema. Will continue to monitor.
[2019-12-20 07:15] LABS: BASOPHILS % (AUTO) 4.4 % (0.0-2.0); EOSINOPHILS % (AUTO) 1.5 % (0.0-3.0); HEMATOCRIT 26.6 % (37.0-47.0); HEMOGLOBIN 8.3 G/DL (12.0-16.0); LYMPHOCYTES % (AUTO) 12.3 % (20.0-45.0); MEAN CORPUSCULAR VOLUME 87 FL (80-99); NEUTROPHILS % (AUTO) 70.9 % (45.0-75.0); PLATELET COUNT 543 K/UL (150-450); RED BLOOD COUNT 3.04 M/UL (4.20-5.40); RED CELL DISTRIBUTION WIDTH 13.6 % (11.6-14.8); WHITE BLOOD COUNT 13.6 K/UL (4.8-10.8)
--- NOTE | 2019-12-20 07:22 | NUR ---
NURSE HAND-OFF: Important Events on Shift:[prepare for procedure] Patient Status: [stable] Diet: [NPO] Pending Orders: [N] Pending Results/Labs:[N] Pending MD notification:[N] Latest Vital Signs: Temperature 99.3 , Pulse 90 , B/P 134 /68 , Respiratory Rate 20 , O2 SAT 97 , Room Air, O2 Flow Rate . Vital Sign Comment: [STABLE] Latest Wallis Fall Score: 60 Fall Risk: High Risk Safety Measures: Call light Within Reach, Bed Alarm Zone 1, Side Rails Side Rails x2, Bed position Low and Locked. Fall Precautions: Yellow Socks Yellow Gown Door Sign Patient Fall Education Report given to [Xu SMITH].
[2019-12-20 07:39] LABS: ANION GAP 11 mmol/L (5-15); BLOOD UREA NITROGEN 3 mg/dL (7-18); CALCIUM 8.4 MG/DL (8.5-10.1); CARBON DIOXIDE 26 MMOL/L (21-32); CHLORIDE 107 MMOL/L (98-107); POTASSIUM 3.1 MMOL/L (3.5-5.1); SODIUM 144 MMOL/L (136-145)
[2019-12-20] MEDS: Docusate Sod/Senna tab ORAL SCH ×2 (09:09→17:39)
[2019-12-20] MEDS: HydrALAZINE 10mg Tab ORAL SCH ×2 (09:10→21:45)
[2019-12-20] MEDS: Magnesium Oxide 400mg tab ORAL SCH ×3 (09:10→17:39)
[2019-12-20] MEDS: Pantoprazole Inj IVP SCH ×2 (09:10→21:47)
[2019-12-20] MEDS ORDERED: Labetalol 5mg/ml 20ml vial IV PRN (09:45)
[2019-12-20] MEDS ORDERED: DiphenhydrAMINE 50mg/ml Inj IVP PRN (09:45)
[2019-12-20] MEDS ORDERED: Midazolam 2mg/2ml Inj IVP PRN (09:45)
[2019-12-20] MEDS ORDERED: Atropine Inj 1mg/10ml Syr IVP PRN (09:45)
[2019-12-20] MEDS ORDERED: fentaNYL 100 mcg/2 mL IV PRN (09:45)
--- NOTE | 2019-12-20 09:50 | Anethesia Preoperative Eval ---
Anesthesia Pre-op PMH/ROS General Date of Evaluation: Dec 20, 2019 Time of Evaluation: 09:49 Anesthesiologist: ever ASA Score: ASA 4 Mallampati Score Class I : Soft palate, uvula, fauces, pillars visible Class II: Soft palate, uvula, fauces visible Class III: Soft palate, base of uvula visible Class IV: Only hard plate visible Mallampati Classification: Class II Surgeon: tram Diagnosis: gi bleed Surgical Procedure: egd/colonoscopy Anesthesia History: none Family History: no anesthesia problems Allergies: Coded Allergies: No Known Allergies (Unverified , 12/04/19) Medications: see eMAR Patient NPO?: Yes Past Medical History Cardiovascular: Reports: HTN, other - chest pain Neurologic/Psychiatric: Reports: dementia, depression/anxiety Anesthesia Pre-op Phys. Exam Physician Exam Last Vital Signs Date Time Temp Pulse Resp B/P (MAP) Pulse Ox O2 Delivery O2 Flow Rate FiO2 12/20/19 09:10 133/66 12/20/19 08:00 97.9 89 18 98 12/19/19 21:00 Room Air Constitutional: NAD Neurologic: CN 2-12 intact Cardiovascular: RRR Respiratory: CTA Gastrointestinal: S/NT/ND Airway Exam Mallampati Score: Class II MO: limited Neck: flexible TMD: 2fb ROM: limited Teeth: missing Anesthesia Pre-op A/P Labs Microbiology Date/Time Source Procedure Growth Status 12/19/19 12:50 Nasopharynx SARS-CoV-2 RdRp Gene Assay - Final Complete 12/14/19 17:45 Blood Blood Culture - Preliminary NO GROWTH AFTER 4 DAYS Resulted 12/11/19 20:35 Stool Clostridium difficile Toxin Assay - Final Complete 12/11/19 14:54 Urine,Clean Catch Urine Culture - Final Escherichia Coli Complete Hematology Test 12/20/19 06:30 White Blood Count 13.6 K/UL (4.8-10.8) H Red Blood Count 3.04 M/UL (4.20-5.40) L Hemoglobin 8.3 G/DL (12.0-16.0) L Hematocrit 26.6 % (37.0-47.0) L Mean Corpuscular Volume 87 FL (80-99) Mean Corpuscular Hemoglobin 27.4 PG (27.0-31.0) Mean Corpuscular Hemoglobin Concent 31.4 G/DL (32.0-36.0) L Red Cell Distribution Width 13.6 % (11.6-14.8) Platelet Count 543 K/UL (150-450) H Mean Platelet Volume 5.0 FL (6.5-10.1) L Neutrophils (%) (Auto) 70.9 % (45.0-75.0) Lymphocytes (%) (Auto) 12.3 % (20.0-45.0) L Monocytes (%) (Auto) 11.0 % (1.0-10.0) H Eosinophils (%) (Auto) 1.5 % (0.0-3.0) Basophils (%) (Auto) 4.4 % (0.0-2.0) H Chemistry Test 12/20/19 06:30 Sodium Level 144 MMOL/L (136-145) Potassium Level 3.1 MMOL/L (3.5-5.1) L Chloride Level 107 MMOL/L (98-107) Carbon Dioxide Level 26 MMOL/L (21-32) Anion Gap 11 mmol/L (5-15) Blood Urea Nitrogen 3 mg/dL (7-18) L Creatinine 1.0 MG/DL (0.55-1.30) Estimat Glomerular Filtration Rate > 60 mL/min (>60) Glucose Level 87 MG/DL (74-106) Calcium Level 8.4 MG/DL (8.5-10.1) L Risk Assessment & Plan Assessment: asa4 Plan: mac Status Change Before Surgery: No Pre-Antibiotics Drug: Adela Kapadia MD Dec 20, 2019 09:50
--- NOTE | 2019-12-20 10:24 | Cardiology Progress Note ---
Assessment/Plan Status: stable Assessment/Plan Assessment/Plan CHEST PAIN HYPERTENSIVE URGENCY CHF DIASTOLIC Plan: Echocardiogram with diastolic dysfunction preserved LV function 70%, no significant valvular disease Spot dose lasix Continue HCTZ DASH diet Continue Norvasc Monitor on telemetry Nitro prn CP Hold Heparin Stress test NEGATIVE Psych for capacity ok to d/c from cardiology perspective once cleared by psych Subjective Cardiovascular: Reports: no symptoms Respiratory: Reports: no symptoms Gastrointestinal/Abdominal: Reports: no symptoms Genitourinary: Reports: no symptoms Subjective No acute events, BP stable, TTE with LVEF 70%, CP resolved. EKG no dynamic changes, stress test NEGATIVE Discharge held for psych consult Patient refused colonsocopy for positive FOBT Objective Last 24 Hour Vital Signs Date Time Temp Pulse Resp B/P (MAP) Pulse Ox O2 Delivery O2 Flow Rate FiO2 12/20/19 09:10 133/66 12/20/19 08:00 97.9 89 18 133/66 (88) 98 12/20/19 04:00 99.3 90 20 134/68 (90) 97 12/20/19 00:00 97.0 96 20 123/57 (79) 99 12/19/19 21:20 132/70 12/19/19 21:00 88 80 12/19/19 21:00 Room Air 12/19/19 20:00 96.6 88 18 132/70 (90) 99 12/19/19 16:43 85 140/82 12/19/19 16:00 97.0 85 18 140/82 (101) 97 12/19/19 12:00 97.9 80 20 129/61 (83) 98 General Appearance: no apparent distress, alert EENT: PERRL/EOMI, normal ENT inspection, TMs normal, pharynx normal Neck: non-tender, normal alignment, supple, normal inspection Rhythm: NSR Cardiovascular: normal peripheral pulses, normal rate, regular rhythm Respiratory/Chest: chest wall non-tender, lungs clear, normal breath sounds Abdomen: normal bowel sounds, non tender, soft, no organomegaly Extremities: normal range of motion, non-tender, normal inspection, no calf tenderness Neurologic: tip mender II-XII grossly normal, no motor/sensory deficits Intake and Output 12/19/19 12/20/19 19:00 07:00 Intake Total 1942.5 ml 935.0 ml Balance 1942.5 ml 935.0 ml Intake Oral 1000 ml IV Total 942.5 ml 935.0 ml # Voids 4 5 # Bowel Movements 4 7 Laboratory Tests Test 12/20/19 06:30 White Blood Count 13.6 K/UL (4.8-10.8) H Red Blood Count 3.04 M/UL (4.20-5.40) L Hemoglobin 8.3 G/DL (12.0-16.0) L Hematocrit 26.6 % (37.0-47.0) L Mean Corpuscular Volume 87 FL (80-99) Mean Corpuscular Hemoglobin 27.4 PG (27.0-31.0) Mean Corpuscular Hemoglobin Concent 31.4 G/DL (32.0-36.0) L Red Cell Distribution Width 13.6 % (11.6-14.8) Platelet Count 543 K/UL (150-450) H Mean Platelet Volume 5.0 FL (6.5-10.1) L Neutrophils (%) (Auto) 70.9 % (45.0-75.0) Lymphocytes (%) (Auto) 12.3 % (20.0-45.0) L Monocytes (%) (Auto) 11.0 % (1.0-10.0) H Eosinophils (%) (Auto) 1.5 % (0.0-3.0) Basophils (%) (Auto) 4.4 % (0.0-2.0) H Sodium Level 144 MMOL/L (136-145) Potassium Level 3.1 MMOL/L (3.5-5.1) L Chloride Level 107 MMOL/L (98-107) Carbon Dioxide Level 26 MMOL/L (21-32) Anion Gap 11 mmol/L (5-15) Blood Urea Nitrogen 3 mg/dL (7-18) L Creatinine 1.0 MG/DL (0.55-1.30) Estimat Glomerular Filtration Rate > 60 mL/min (>60) Glucose Level 87 MG/DL (74-106) Calcium Level 8.4 MG/DL (8.5-10.1) L Microbiology Date/Time Source Procedure Growth Status 12/19/19 12:50 Nasopharynx SARS-CoV-2 RdRp Gene Assay - Final Complete FilsoKush kelly MD Dec 20, 2019 10:24
--- NOTE | 2019-12-20 10:42 | General Progress Note ---
Subjective ROS Limited/Unobtainable: Yes - dementia Constitutional: Denies: diaphoresis, fever, malaise HEENT: Denies: blurred vision, tearing, double vision Cardiovascular: Denies: lightheadedness Respiratory: Denies: shortness of breath, SOB with excertion, SOB at rest, sputum Gastrointestinal/Abdominal: Reports: constipated; Denies: abdomen distended, abdominal pain, black stools, blood in stool Genitourinary: Denies: frequency, flank pain Neurologic/Psychiatric: Denies: depressed, emotional problems, headache Endocrine: Denies: flushing, intolerance to cold, intolerance to heat Hematologic/Lymphatic: Reports: anemia Allergies: Coded Allergies: No Known Allergies (Unverified , 12/04/19) Subjective Patient has no complaints. Amenable to coloscopy today. Objective Last 24 Hour Vital Signs Date Time Temp Pulse Resp B/P (MAP) Pulse Ox O2 Delivery O2 Flow Rate FiO2 12/20/19 09:10 133/66 12/20/19 08:00 97.9 89 18 133/66 (88) 98 12/20/19 04:00 99.3 90 20 134/68 (90) 97 12/20/19 00:00 97.0 96 20 123/57 (79) 99 12/19/19 21:20 132/70 12/19/19 21:00 88 80 12/19/19 21:00 Room Air 12/19/19 20:00 96.6 88 18 132/70 (90) 99 12/19/19 16:43 85 140/82 12/19/19 16:00 97.0 85 18 140/82 (101) 97 12/19/19 12:00 97.9 80 20 129/61 (83) 98 Intake and Output 12/19/19 12/20/19 19:00 07:00 Intake Total 1942.5 ml 935.0 ml Balance 1942.5 ml 935.0 ml Intake Oral 1000 ml IV Total 942.5 ml 935.0 ml # Voids 4 5 # Bowel Movements 4 7 Laboratory Tests 12/20/19 06:30: White Blood Count 13.6H, Red Blood Count 3.04L, Hemoglobin 8.3L, Hematocrit 26.6L, Mean Corpuscular Volume 87, Mean Corpuscular Hemoglobin 27.4, Mean Corpuscular Hemoglobin Concent 31.4L, Red Cell Distribution Width 13.6, Platelet Count 543H, Mean Platelet Volume 5.0L, Neutrophils (%) (Auto) 70.9, Lymphocytes (%) (Auto) 12.3L, Monocytes (%) (Auto) 11.0H, Eosinophils (%) (Auto) 1.5, Basophils (%) (Auto) 4.4H, Sodium Level 144, Potassium Level 3.1L, Chloride Level 107, Carbon Dioxide Level 26, Anion Gap 11, Blood Urea Nitrogen 3L, Creatinine 1.0, Estimat Glomerular Filtration Rate > 60, Glucose Level 87, Calc ium Level 8.4L Height (Feet): 5 Height (Inches): 3.00 Weight (Pounds): 146 General Appearance: no apparent distress, alert, confused, agitated EENT: PERRL/EOMI, normal ENT inspection Neck: normal alignment, supple, normal inspection Cardiovascular: normal peripheral pulses, normal rate, regular rhythm, no gallop/murmur, no JVD Respiratory/Chest: chest wall non-tender, lungs clear, normal breath sounds, no accessory muscle use Abdomen: non tender, soft, no organomegaly, no mass, hypoactive bowel sounds Pelvis: normal external exam Extremities: normal range of motion, non-tender, normal inspection Edema: no edema noted Arm (L), no edema noted Arm (R), no edema noted Leg (L), no edema noted Leg (R), no edema noted Pedal (L), no edema noted Pedal (R), no edema noted Generalized Neurologic: abnormal gait, responsive, depressed affect Skin: normal pigmentation, warm/dry, no diaphoresis Assessment/Plan Problem List: (1) Sepsis ICD Codes: A41.9 - Sepsis, unspecified organism SNOMED: 01536672 Qualifiers: (2) Blood loss anemia 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 Cardio consulted and ACS was ruled out, pt under went NM stress test which was negative. Pt noted to have abd pain and occult positive stools. #Acute Metabolic Encephalopathy - multifactorial #?Acute on Chronic Dementia #UTI - E coli #Hyponatremia - resolved #Leukocytosis - same -Na 131 -->130 --> 127 --> 129 --> 138 -> 140 -Hyponatremia likely 2/2 dehydration, HCTZ use -confusion may be multifactorial, acute on chronic dementia, infection/UTI, less likely hyponatremia -Leukocytosis may be 2/2 steroids for Orthostatic Hypotension vs infection -d/c HCTZ -Nephro consulted, recs appreciated -s/p 500 cc +250 cc 3% saline initiated by Nephro with improvement in Na -12/10: CT head negative for acute process -UCx e. Coli that is pansensitive -ID consulted, recs appreciated, DC CTX and flagyl - started Zosyn 12/13 will end 12/20 #Ileus #Abdominal Pain - resolved #Constipation - improved #Occult Positive Stools #Acute blood loss anemia Pain possibly from constipation, less likely diverticulitis or gastroenteritis. No CVA tenderness - UA and Lipase wnl - CT Abdomen - ileus vs. colitis - GI Cocktail, Zofran prn - 12/07 abd XR w/ileus, small bowel obstruction less likely - s/p Mg citrate x1 - docusate TID, dulcolax suppository PRN - occult stool positive - c diff negative - pain control - Transfused 1 unit pRBC 12/16 - Refused EGD/colonoscopy 12/13 - Agreed to EGD/colonoscopy today. #Orthostatic Hypotension #Syncope -cont Florinef 0.1 mg daily -fall precautions #ZA - improved -Cr elevated to 1.7, now resolved -avoid nephrotoxins -renally dose meds -Nephro following, recs appreciated #Chest pain - ACS ruled out, resolved #Chronic HFpEF Initial presentation with non-radiating chest pain that resolved with SL Nitro and Aspirin. EKG with non-specific ST changes in V1-V2. Moderate Heart Score - EKG prn for active chest pain, Trop x3 negative, BNP slightly elevated, HBA1c wnl - Echo EF 70-75%, mild left hypertrophy, mitral and aortic root calcification - Cardiology consulted, recs appreciated - s/p NM stress test negative, pt OK to d/c home from cardio stand point #Hypertension - uncontrolled #Hypertensive Urgency - resolved - Cont Norvasc 10 mg PO daily - cont hydralazine 10 mg PO BID - d/c Hctz due to ZA and hyponatremia - hydralazine PRN for SBP >160 #Hypokalemia - resolved - replaced - ctm, replace PRN #Psychosis #Depression #Dementia #SI -per nurse pt was seeing "snakes" in the room - resolved -Psych consulted, recs appreciated -Risperdone increased from 1 mg to 2 mg qHS -cont lexapro 10 mg PO qAM -Suicide precautions FEN Hold AC per cards and positive occult Dispo - Home with hospice when get medical insurance Code - FULL CODE Time spent with patient 37 mins, approximately 25 minutes spent coordinating care with nurses and consultants. D/w RN, Dr. Tillman, Dr. Vail, GI and Dr. Penny. Time of note may not reflect time of encounter. Alfie Kowalski M.D. Dec 20, 2019 10:42
--- NOTE | 2019-12-20 11:43 | Pre-Procedure Note/Attestation ---
Pre-Procedure Note/Attestation Complete Prior to Procedure Planned Procedure: not applicable Procedure Narrative: esophagogastroduodenoscopy and colonoscopy Indications for Procedure Pre-Operative Diagnosis: gib Attestation I attest that I discussed the nature of the procedure; its benefits; risks and complications; and alternatives (and the risks and benefits of such alternatives), prior to the procedure, with the patient (or the patient's legal sales development representative). I attest that, if there was a reasonable possibility of needing a blood transfusion, the patient (or the patient's legal sales development representative) was given the [facility] standardized written summary, pursuant to the [place] Blood Safety Act ([place] Health and Safety Code # 1645, as amended). I attest that I re-evaluated the patient just prior to the surgery and that there has been no change in the patient's H&P, except as documented below: Massimo Osborn MD Dec 20, 2019 11:43
--- NOTE | 2019-12-20 12:56 | NUR ---
CASE MANAGEMENT:REVIEW 12/18/19 SI;SEPSIS. ANEMIA. ILEUS. UTI. ENCEPHALOPATHY. 98.9 88 20 155/73 96% ON RA WBC 16.3 H/H 8.3/25.9 PLT 521 IS;ZOSYN IV Q8 PROTONIX IV Q12 MAG-OX PO TID HYDRALAZINE PO Q12 FLORINEF PO QD MED SURG STATUS CASE MANAGEMENT:REVIEW 12/19/19 SI;SEPSIS. ANEMIA. ILEUS. UTI. ENCEPHALOPATHY. 98.4 106 18 150/62 97% ON RA WBC 15.0 H/H 8.4/26.5 PLT 568 IS;ZOSYN IV Q8 PROTONIX IV Q12 MAG-OX PO TID HYDRALAZINE PO Q12 FLORINEF PO QD LIPITOR PO QD GOLYTELY PO MED SURG STATUS CASE MANAGEMENT:REVIEW 12/20/19 SI;SEPSIS. ANEMIA. ILEUS. UTI. ENCEPHALOPATHY. 99.3 96 20 134/68 97% ON RA WB13.6 H/H 8.3/26.6 K+ 3.1 IS;PROTONIX IV Q12 MAG-OX PO TID HYDRALAZINE PO Q12 FLORINEF PO QD LIPITOR PO QD EGD/COLONOSCOPY MED SURG STATUS DCP;FROM HOME Addendum: 12/20/19 at 1353 by TANYA NEVAREZ LVN LVN CONTINUES TO MEET IN INTERQUAL
[2019-12-20] MEDS ORDERED: Lidocaine 1% MPF 10mg/ml 5ml ONE (13:00)
[2019-12-20] MEDS ORDERED: NS 500ML IVPB ONE (13:05)
--- NOTE | 2019-12-20 13:21 | Endoscopy Procedure Note ---
Endoscopy Procedure Note General Indication for Procedure: gib Procedures Performed: EGD, colonoscopy Operative Findings/Diagnosis: gastritis, hemorrhoids Specimen: yes Pt Tolerated Procedure Well: Yes Estimated Blood Loss: none Anesthesia Anesthesiologist: vicente Anesthesia: MAC Inserted Devices Implant(s) used?: No Quality Quality of Bowel Preparation: Fair GI Core Measures 50 yrs or older w/o bx or poly: Not Applicable 10yrs. F/U recommended: Not Applicable Massimo Osborn MD Dec 20, 2019 13:21
--- NOTE | 2019-12-20 14:01 | Immediate Post-Op Evaluation ---
Immediate Post-Op Evalulation Immediate Post-Op Evalulation Procedure: egd/colonoscopy w/bx Date of Evaluation: Dec 20, 2019 Time of Evaluation: 14:02 IV Fluids: 250ml 0.9ns Blood Products: none Estimated Blood Loss: negligible Blood Pressure Systolic: 137 Blood Pressure Diastolic: 78 Pulse Rate: 84 Respiratory Rate: 18 O2 Sat by Pulse Oximetry: 98 Temperature (Fahrenheit): 99.0 Pain Score (1-10): 0 Nausea: No Vomiting: No Complications none Patient Status: awake, reacts, patent Hydration Status: adequate Drug: Adela Kapadia MD Dec 20, 2019 14:01
--- NOTE | 2019-12-20 14:03 | 48 Hour Post Anesthesia Eval ---
Post Anesthesia Evaluation Procedure: egd/colonoscopy w/bx Date of Evaluation: Dec 20, 2019 Time of Evaluation: 14:04 Blood Pressure Systolic: 154 0: 76 Pulse Rate: 71 Respiratory Rate: 18 Temperature (Fahrenheit): 99.0 O2 Sat by Pulse Oximetry: 99 Airway: patent Nausea: No Vomiting: No Pain Intensity: 0 Hydration Status: adequate Cardiopulmonary Status: status Mental Status/LOC: patient returned to baseline Post-Anesthesia Complications: none Follow-up care needed: N/A Adela Roy MD Dec 20, 2019 14:03
--- NOTE | 2019-12-20 14:30 | Procedure Note ---
DATE OF PROCEDURE: 12/20/2019 SURGEON: Massimo Osborn MD PROCEDURE: Upper endoscopy with biopsy and colonoscopy with snare polypectomy. ANESTHESIA: Per Dr. [place]. INSTRUMENT: Olympus adult flexible endoscope and colonoscope. INDICATION: GI bleeding. REASON FOR PROCEDURE: The procedure, risks, benefits, and possible consequences, including hemorrhage, aspiration, perforation and infection, and alternative treatments, were explained to the patient/legal guardian by Dr. Massimo Osborn and the patient/legal guardian understood and accepted these risks. PROCEDURE IN DETAIL: After informed consent was obtained and the patient was adequately sedated, Olympus upper endoscope was advanced from mouth into the second portion of duodenum and retroflexion was performed in the stomach. The patient had large duodenal ulcer in the duodenal bulb anterior wall. No visible vessel, no adherent clot. At this time, we did a biopsy of the antrum and body for H. pylori infection and removed the scope. Then, the patient was turned over for colonoscopy. First, rectal exam was performed, which was positive for internal hemorrhoids. Then, the scope was advanced from the rectum into the cecum documented by appendiceal orifice, ileocecal valve, and right upper quadrant colon palpation. Quality of prep was good. The patient had one sessile polyp in the proximal ascending colon measured roughly about 7 to 8 mm removed with hot snare polypectomy technique. The patient had some scattered diverticulosis in the left colon. Retroflexion of the rectum showed evidence of internal hemorrhoids. SUMMARY OF FINDINGS: 1. Large duodenal ulcer. 2. Gastritis, status post biopsy. 3. Internal hemorrhoids. 4. Diverticulosis. 5. One colonic polyp removed, see above for details. RECOMMENDATIONS: The patient to be on PPI and Carafate. Monitor hemoglobin and hematocrit. Transfuse as needed. Follow up biopsy results and treat accordingly. Would need repeat colonoscopy in three years. Massimo Osborn M.D. DR: Angela JOB#: [id number] CC:
--- NOTE | 2019-12-20 14:57 | Infectious Diseases Prog Note ---
Assessment/Plan Assessment/Plan ASSESSMENT AND PLAN: 1. e.coli uti, sepsis, ? enteritis, leukocytosis, c.diff. negative - zosyn - day # 10/04 - cultures - negative - monitor labs - leukocytosis overall improving - endoscopy and colonoscopy results noted 2. The patient has acute kidney injury and elevated creatinine. 3. The patient has hypertension. 4. Blood pressure control per primary care team. 5. Hypertensive urgency. 6. Dementia. 7. Chest pain. 8. Psychosis. 9. Depression. 10. Encephalopathy. 11. Abdominal pain. 12. Orthostatic hypotension. 13. Chronic kidney disease likely. 14. No known drug allergies. 15. Social history is negative. 16. Family history is contributory. 17. MAR was noted. 18. Case was discussed with RN. Subjective Constitutional: Denies: fever HEENT: Denies: congestion Respiratory: Denies: shortness of breath Cardiovascular: Denies: chest pain Gastrointestinal/Abdominal: Denies: nausea, vomiting, diarrhea Genitourinary: Reports: other - no savage Neurologic: Denies: headache Psychiatric: Denies: depression Skin: Denies: rash Hematologic: Denies: bleeding Musculoskeletal: Denies: pain Allergies: Coded Allergies: No Known Allergies (Unverified , 12/04/19) Objective Last 24 Hour Vital Signs Date Time Temp Pulse Resp B/P (MAP) Pulse Ox O2 Delivery O2 Flow Rate FiO2 12/20/19 14:03 71 18 99 12/20/19 14:01 70 19 154/76 98 Nasal Cannula 3 12/20/19 14:01 70 18 98 12/20/19 13:56 73 19 140/73 98 Nasal Cannula 3 12/20/19 13:50 99.0 74 21 137/73 98 Nasal Cannula 3 12/20/19 09:10 133/66 12/20/19 09:00 Room Air 12/20/19 08:00 97.9 89 18 133/66 (88) 98 12/20/19 04:00 99.3 90 20 134/68 (90) 97 12/20/19 00:00 97.0 96 20 123/57 (79) 99 12/19/19 21:20 132/70 12/19/19 21:00 88 80 12/19/19 21:00 Room Air 12/19/19 20:00 96.6 88 18 132/70 (90) 99 12/19/19 16:43 85 140/82 12/19/19 16:00 97.0 85 18 140/82 (101) 97 Height (Feet): 5 Height (Inches): 4.00 Weight (Pounds): 162 General Appearance: no acute distress HEENT: normocephalic, atraumatic, anicteric, mucous membranes moist Respiratory/Chest: lungs clear, normal breath sounds, no respiratory distress, no accessory muscle use Cardiovascular: normal rate, regular rhythm, no gallop/murmur, no JVD Abdomen: normal bowel sounds, soft, non tender, no organomegaly, non distended Genitourinary: other - no savage Extremities: no cyanosis Skin: no rash 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 No consolidation. Pleural space: Unremarkable. No pneumothorax. Heart: Borderline cardiomegaly, potentially exaggerated by portable technique. Mediastinum: Calcified aortic knob. Bones/joints: Degenerative changes. IMPRESSION: No evidence of acute pulmonary disease CT abdomen and pelvis: IMPRESSION: 1. Mild prominence of fluid and gas-filled small bowel loops may represent enteritis or ileus in the appropriate clinical setting. 2. Prominence of the baires of the colon likely secondary to under distention. Element of colitis is not excluded. 3. Punctate nonobstructing bilateral renal stones. Mild right hydroureteronephrosis. No obstructing stone identified. This may be secondary to distended bladder. Microbiology Date/Time Source Procedure Growth Status 12/19/19 12:50 Nasopharynx SARS-CoV-2 RdRp Gene Assay - Final Complete 12/14/19 17:45 Blood Blood Culture - Preliminary NO GROWTH AFTER 4 DAYS Resulted 12/11/19 20:35 Stool Clostridium difficile Toxin Assay - Final Complete 12/11/19 14:54 Urine,Clean Catch Urine Culture - Final Escherichia Coli Complete Microbiology Date/Time Source Procedure Growth Status 12/19/19 12:50 Nasopharynx SARS-CoV-2 RdRp Gene Assay - Final Complete Laboratory Tests Test 12/20/19 06:30 White Blood Count 13.6 K/UL (4.8-10.8) H Red Blood Count 3.04 M/UL (4.20-5.40) L Hemoglobin 8.3 G/DL (12.0-16.0) L Hematocrit 26.6 % (37.0-47.0) L Mean Corpuscular Volume 87 FL (80-99) Mean Corpuscular Hemoglobin 27.4 PG (27.0-31.0) Mean Corpuscular Hemoglobin Concent 31.4 G/DL (32.0-36.0) L Red Cell Distribution Width 13.6 % (11.6-14.8) Platelet Count 543 K/UL (150-450) H Mean Platelet Volume 5.0 FL (6.5-10.1) L Neutrophils (%) (Auto) 70.9 % (45.0-75.0) Lymphocytes (%) (Auto) 12.3 % (20.0-45.0) L Monocytes (%) (Auto) 11.0 % (1.0-10.0) H Eosinophils (%) (Auto) 1.5 % (0.0-3.0) Basophils (%) (Auto) 4.4 % (0.0-2.0) H Sodium Level 144 MMOL/L (136-145) Potassium Level 3.1 MMOL/L (3.5-5.1) L Chloride Level 107 MMOL/L (98-107) Carbon Dioxide Level 26 MMOL/L (21-32) Anion Gap 11 mmol/L (5-15) Blood Urea Nitrogen 3 mg/dL (7-18) L Creatinine 1.0 MG/DL (0.55-1.30) Estimat Glomerular Filtration Rate > 60 mL/min (>60) Glucose Level 87 MG/DL (74-106) Calcium Level 8.4 MG/DL (8.5-10.1) L Current Medications Medications (Trade) Dose Ordered Sig/Yasmine Route PRN Reason Start Time Stop Time Status Last Admin Dose Admin Acetaminophen (Tylenol) 650 mg Q4H PRN ORAL Mild Pain (Pain Scale 1-3) 12/15/19 00:30 01/09/20 00:29 Acetaminophen (Tylenol) 650 mg Q4H PRN ORAL Mild Pain (Pain Scale 1-3) 12/20/19 09:45 12/20/19 16:00 Acetaminophen (Tylenol) 650 mg Q6H PRN ORAL For Headache 12/15/19 00:30 01/09/20 00:29 12/17/19 18:03 Al Hydroxide/Mg Hydroxide (Mylanta II) 30 ml Q6H PRN ORAL dyspepsia 12/15/19 00:30 01/09/20 00:29 Al Hydroxide/Mg Hydroxide (Mylanta) 15 ml Q1H PRN ORAL gi upset 12/20/19 09:45 12/20/19 16:00 Amlodipine Besylate (Norvasc) 10 mg QPM ORAL 12/15/19 16:30 01/06/20 16:29 12/19/19 16:43 Artificial Tears (Akwa-Tears) 2 drop Q2H PRN RIGHT EYE Dry Eyes 12/16/19 12:30 01/15/20 12:29 Atorvastatin Calcium (Lipitor) 80 mg BEDTIME ORAL 12/15/19 21:00 03/04/20 20:59 12/19/19 21:20 Atropine Sulfate (Atropine) 0.5 mg Q3M PRN IV symptomatic bradycardia 12/15/19 00:15 03/04/20 15:44 Atropine Sulfate (Atropine) 0.5 mg Q5M PRN IVP bpm less than 45 12/20/19 09:45 12/20/19 16:00 Bisacodyl (Dulcolax) 10 mg DAILYPRN PRN RECTAL Constipation 12/15/19 00:30 03/10/20 00:29 Dextrose (Dextrose 50%) 25 ml Q30M PRN IV Hypoglycemia 12/15/19 00:30 03/03/20 13:59 Dextrose (Dextrose 50%) 50 ml Q30M PRN IV Hypoglycemia 12/15/19 00:15 03/03/20 15:44 Diphenhydramine HCl (Benadryl) 25 mg Q15M PRN IVP Itching 12/20/19 09:45 12/20/19 16:00 Escitalopram Oxalate (Lexapro) 10 mg DAILY ORAL 12/15/19 09:00 01/07/20 16:14 12/20/19 09:09 Fentanyl Citrate (Sublimaze 100 mcg/2 mL) 25 mcg Q10M PRN IV Moderate Pain (Pain Scale 4-6) 12/20/19 09:45 12/20/19 16:00 Fludrocortisone Acetate (Florinef) 0.1 mg DAILY ORAL 12/15/19 09:00 01/10/20 16:44 12/20/19 09:09 Haloperidol Lactate (Haldol) 5 mg Q6H PRN IM Agitation 12/15/19 00:30 01/24/20 00:29 Hydralazine HCl (Apresoline) 10 mg Q12HR ORAL 12/15/19 09:00 03/09/20 20:59 12/20/19 09:10 Hydralazine HCl (Apresoline) 10 mg Q6H PRN ORAL For High Blood Pressure 12/15/19 00:30 03/09/20 00:29 Labetalol HCl (Normodyne) 5 mg Q10M PRN IV SBP>160 / DBP>90 12/20/19 09:45 12/20/19 16:00 Magnesium Oxide (Mag-Ox 400mg) 400 mg TID ORAL 12/15/19 09:00 01/04/20 12:59 12/20/19 09:10 Midazolam HCl (Versed 2mg/2ml vial) 1 mg Q15M PRN IVP For Anxiety 12/20/19 09:45 12/20/19 16:00 Nitroglycerin (Ntg) 0.4 mg Q5M PRN SL Prn Chest Pain 12/15/19 00:15 01/03/20 15:44 Ondansetron HCl (Zofran) 4 mg Q6H PRN IVP Nausea & Vomiting 12/15/19 00:30 01/09/20 00:29 Pantoprazole (Protonix) 40 mg EVERY 12 HOURS IVP 12/15/19 09:00 01/12/20 20:59 12/20/19 09:10 Polyethylene Glycol (Miralax) 17 gm DAILYPRN PRN ORAL Constipation 12/15/19 00:30 01/09/20 00:29 Risperidone (RisperDAL) 2 mg BEDTIME ORAL 12/15/19 21:00 01/25/20 20:59 12/19/19 21:20 Senna/Docusate Sodium (Kendra-Colace) 1 tab TWICE A DAY ORAL 12/15/19 09:00 01/09/20 17:59 12/20/19 09:09 Sucralfate (Carafate) 1 gm FOUR TIMES A DAY ORAL 12/20/19 18:00 03/19/20 17:59 Ankit Penny MD Dec 20, 2019 14:57
[2019-12-20] MEDS ORDERED: NS 275ml ONE (16:41)
[2019-12-20] MEDS ORDERED: Tubing IV Secondary IV ONE (16:41)
[2019-12-20] MEDS: Sucralfate 1gm tab ORAL SCH ×2 (17:40→21:45)
--- NOTE | 2019-12-20 19:30 | NUR ---
NURSE HAND-OFF: Important Events on Shift:[EGD, colonoscopy done] Patient Status: [] Diet: [regular] Pending Orders: [] Pending Results/Labs:[] Pending MD notification:[] Latest Vital Signs: Temperature 98.2 , Pulse 85 , B/P 125 /67 , Respiratory Rate 20 , O2 SAT 94 , Nasal Cannula, O2 Flow Rate 3 . Vital Sign Comment: [] Latest Wallis Fall Score: 60 Fall Risk: High Risk Safety Measures: Call light Within Reach, Bed Alarm Zone 1, Side Rails Side Rails x2, Bed position Low and Locked. Fall Precautions: Yellow Socks Yellow Gown Door Sign Patient Fall Education Report given to [LUIS Mahoney].
--- NOTE | 2019-12-20 19:55 | NUR ---
NURSE NOTES: Patient is awake and alert x2. On room air with no signs of distress or SOB. IV intact and patent. Bed locked and in lowest position. Bed alarm activated. Call light within reach. Will continue to monitor.
--- NOTE | 2019-12-20 21:30 | Psych Consult Progress Note ---
Psychiatry Progress Note Psychiatry Progress Note Subjective the pt is doing better dec agitation Medications Current Medications Medications (Trade) Dose Ordered Sig/Yasmine Route PRN Reason Start Time Stop Time Status Last Admin Dose Admin Acetaminophen (Tylenol) 650 mg Q4H PRN ORAL Mild Pain (Pain Scale 1-3) 12/15/19 00:30 01/09/20 00:29 Acetaminophen (Tylenol) 650 mg Q6H PRN ORAL For Headache 12/15/19 00:30 01/09/20 00:29 12/17/19 18:03 Al Hydroxide/Mg Hydroxide (Mylanta II) 30 ml Q6H PRN ORAL dyspepsia 12/15/19 00:30 01/09/20 00:29 Amlodipine Besylate (Norvasc) 10 mg QPM ORAL 12/15/19 16:30 01/06/20 16:29 12/20/19 17:40 Artificial Tears (Akwa-Tears) 2 drop Q2H PRN RIGHT EYE Dry Eyes 12/16/19 12:30 01/15/20 12:29 Atorvastatin Calcium (Lipitor) 80 mg BEDTIME ORAL 12/15/19 21:00 03/04/20 20:59 12/19/19 21:20 Atropine Sulfate (Atropine) 0.5 mg Q3M PRN IV symptomatic bradycardia 12/15/19 00:15 03/04/20 15:44 Bisacodyl (Dulcolax) 10 mg DAILYPRN PRN RECTAL Constipation 12/15/19 00:30 03/10/20 00:29 Dextrose (Dextrose 50%) 25 ml Q30M PRN IV Hypoglycemia 12/15/19 00:30 03/03/20 13:59 Dextrose (Dextrose 50%) 50 ml Q30M PRN IV Hypoglycemia 12/15/19 00:15 03/03/20 15:44 Escitalopram Oxalate (Lexapro) 10 mg DAILY ORAL 12/15/19 09:00 01/07/20 16:14 12/20/19 09:09 Fludrocortisone Acetate (Florinef) 0.1 mg DAILY ORAL 12/15/19 09:00 01/10/20 16:44 12/20/19 09:09 Haloperidol Lactate (Haldol) 5 mg Q6H PRN IM Agitation 12/15/19 00:30 01/24/20 00:29 Hydralazine HCl (Apresoline) 10 mg Q12HR ORAL 12/15/19 09:00 03/09/20 20:59 12/20/19 09:10 Hydralazine HCl (Apresoline) 10 mg Q6H PRN ORAL For High Blood Pressure 12/15/19 00:30 03/09/20 00:29 Magnesium Oxide (Mag-Ox 400mg) 400 mg TID ORAL 12/15/19 09:00 01/04/20 12:59 12/20/19 17:39 Nitroglycerin (Ntg) 0.4 mg Q5M PRN SL Prn Chest Pain 12/15/19 00:15 01/03/20 15:44 Ondansetron HCl (Zofran) 4 mg Q6H PRN IVP Nausea & Vomiting 12/15/19 00:30 01/09/20 00:29 Pantoprazole (Protonix) 40 mg EVERY 12 HOURS IVP 12/15/19 09:00 01/12/20 20:59 12/20/19 09:10 Polyethylene Glycol (Miralax) 17 gm DAILYPRN PRN ORAL Constipation 12/15/19 00:30 01/09/20 00:29 Risperidone (RisperDAL) 2 mg BEDTIME ORAL 12/15/19 21:00 01/25/20 20:59 12/19/19 21:20 Senna/Docusate Sodium (Kendra-Colace) 1 tab TWICE A DAY ORAL 12/15/19 09:00 01/09/20 17:59 12/20/19 17:39 Sucralfate (Carafate) 1 gm FOUR TIMES A DAY ORAL 12/20/19 18:00 03/19/20 17:59 12/20/19 17:40 Neurological/Psychiatric: Denies: depressed, emotional problems, headache Allergies: Coded Allergies: No Known Allergies (Unverified , 12/04/19) Objective Data Height (Feet): 5 Height (Inches): 4.00 Weight (Pounds): 162 General Appearance: no apparent distress, alert, confused, agitated Mental Status Exam - Mood: irritable, anxious Mental Status Exam - Thought C: delusions of grandiosity Perceptual Disturbances: visual Mental Status Exam - Suicidal: not present Additional Comments: Alert, oriented times self, place. Mood is depressed. Affect is blunted, congruent with mood. Thought process is concrete. Thought content, no suicidal or homicidal ideation. Cognition is impaired. Insight and judgment is impaired. Assessment/Plan Alvin I: ASSESSMENT: Alvin I Major depressive disorder. Psychotic disorder. Dementia. Alvin II Deferred. Alvin III Abdominal pain. Alvin IV Moderate. Alvin V 50. PLAN: 1. Start the patient on risperidone 2 mg at bedtime. 2. Lexapro 10 mg in the morning. 3. Provide the patient with reality orientation and supportive therapy. Status: stable Status Narrative ASSESSMENT: Alvin I Major depressive disorder. Psychotic disorder. Dementia. Alvin II Deferred. Alvin III Abdominal pain. Alvin IV Moderate. Alvin V 50. PLAN: 1. Start the patient on risperidone 2 mg at bedtime. 2. Lexapro 10 mg in the morning. 3. Provide the patient with reality orientation and supportive therapy. Assessment/Plan: ASSESSMENT: Alvin I Major depressive disorder. Psychotic disorder. Dementia. Alvin II Deferred. Alvin III Abdominal pain. Alvin IV Moderate. Alvin V 50. PLAN: 1. Start the patient on risperidone 2 mg at bedtime. 2. Lexapro 10 mg in the morning. 3. Provide the patient with reality orientation and supportive therapy. Stuart Feliz MD Dec 20, 2019 21:30
[2019-12-20] MEDS: Atorvastatin 80mg tab ORAL SCH (21:44)
[2019-12-21] VITALS: BP 111/53
[2019-12-21 04:00] VITALS: BP 122/45
[2019-12-21 07:13] LABS: ALANINE AMINOTRANSFERASE 12 U/L (12-78); ALBUMIN 2.3 G/DL (3.4-5.0); ALBUMIN/GLOBULIN RATIO 0.5 (1.0-2.7); ALKALINE PHOSPHATASE 66 U/L (46-116); ANION GAP 9 mmol/L (5-15); ASPARTATE AMINO TRANSFERASE 14 U/L (15-37); BILIRUBIN,TOTAL 0.3 MG/DL (0.2-1.0); BLOOD UREA NITROGEN 5 mg/dL (7-18); CALCIUM 8.2 MG/DL (8.5-10.1); CARBON DIOXIDE 26 MMOL/L (21-32); CHLORIDE 108 MMOL/L (98-107); CREATININE 0.9 MG/DL (0.55-1.30); POTASSIUM 3.2 MMOL/L (3.5-5.1); SODIUM 143 MMOL/L (136-145)
--- NOTE | 2019-12-21 07:43 | NUR ---
NURSE NOTES: Patient alert x2, confused; on room air, no sing of distress and shortness of breath; no sing of chest pain; IV Right-Hand flushes well; bed side Commod within reach; side rails up x2, breaks engaged, bed alarm on, bed at lowest position; patient instructed to call for help as needed; will keep monitoring.
--- NOTE | 2019-12-21 07:58 | NUR ---
NURSE HAND-OFF: Important Events on Shift: N/A Patient Status: Stable Diet: Reg Pending Orders: OB stool Pending Results/Labs: CMP Pending MD notification: N/A Latest Vital Signs: Temperature 98.2 , Pulse 58 , B/P 122 /45 , Respiratory Rate 20 , O2 SAT 96 , Room Air, O2 Flow Rate 3 . Vital Sign Comment: Latest Wallis Fall Score: 60 Fall Risk: High Risk Safety Measures: Call light Within Reach, Bed Alarm Zone 1, Side Rails Side Rails x2, Bed position Low and Locked. Fall Precautions: Yellow Socks Yellow Gown Door Sign Patient Fall Education Report given to LUIS Russo.
[2019-12-21 08:00] VITALS: BP 151/81
[2019-12-21] MEDS: Magnesium Oxide 400mg tab ORAL SCH ×3 (08:57→17:24)
[2019-12-21] MEDS: HydrALAZINE 10mg Tab ORAL SCH ×2 (08:57→20:49)
[2019-12-21] MEDS: Sucralfate 1gm tab ORAL SCH ×4 (08:57→20:48)
[2019-12-21] MEDS: Docusate Sod/Senna tab ORAL SCH ×2 (08:57→17:24)
[2019-12-21] MEDS: Pantoprazole Inj IVP SCH ×2 (08:57→20:48)
--- NOTE | 2019-12-21 09:22 | General Progress Note ---
Subjective ROS Limited/Unobtainable: No Allergies: Coded Allergies: No Known Allergies (Unverified , 12/04/19) Subjective very confused Objective Last 24 Hour Vital Signs Date Time Temp Pulse Resp B/P (MAP) Pulse Ox O2 Delivery O2 Flow Rate FiO2 12/21/19 08:57 151/81 12/21/19 08:00 98.1 99 18 151/81 (104) 96 12/21/19 04:00 98.2 58 20 122/45 (70) 96 12/21/19 00:00 98.2 93 22 111/53 (72) 98 12/20/19 21:45 147/66 12/20/19 21:00 Room Air 12/20/19 21:00 83 93 97 12/20/19 20:00 97.7 83 20 147/66 (93) 96 12/20/19 17:40 85 125/67 12/20/19 16:00 98.2 85 20 125/67 (86) 94 12/20/19 14:11 98.2 73 15 137/84 98 Nasal Cannula 3 12/20/19 14:03 71 18 99 12/20/19 14:01 70 19 154/76 98 Nasal Cannula 3 12/20/19 14:01 70 18 98 12/20/19 13:56 73 19 140/73 98 Nasal Cannula 3 12/20/19 13:50 99.0 74 21 137/73 98 Nasal Cannula 3 Intake and Output 12/20/19 12/21/19 19:00 07:00 Intake Total 615 ml 240 ml Balance 615 ml 240 ml Intake Oral 240 ml 240 ml IV Total 375 ml # Voids 2 1 # Bowel Movements 4 4 Laboratory Tests 12/21/19 06:00: Sodium Level 143, Potassium Level 3.2L, Chloride Level 108H, Carbon Dioxide Level 26, Anion Gap 9, Blood Urea Nitrogen 5L, Creatinine 0.9, Estimat Glomerular Filtration Rate > 60, Glucose Level 86, Calcium Level 8.2L, Total Bilirubin 0.3, Aspartate Amino Transf (AST/SGOT) 14L, Alanine Aminotransferase (ALT/SGPT) 12, Alkaline Phosphatase 66, Total Protein 6.6, Albumin 2.3L, Globulin 4.3, Albumin/Globulin Ratio 0.5L Height (Feet): 5 Height (Inches): 4.00 Weight (Pounds): 162 General Appearance: alert EENT: normal ENT inspection Neck: supple Cardiovascular: normal rate Respiratory/Chest: decreased breath sounds Abdomen: normal bowel sounds, non tender, soft Extremities: non-tender Assessment/Plan Problem List: (1) Hypertension ICD Codes: I10 - Essential (primary) hypertension SNOMED: 17514554 (2) Hypokalemia ICD Codes: E87.6 - Hypokalemia SNOMED: 06843188 (3) Abdominal pain ICD Codes: R10.9 - Unspecified abdominal pain SNOMED: 63845813 (4) Chest pain ICD Codes: R07.9 - Chest pain, unspecified SNOMED: 41864169 Status: stable Assessment/Plan: s/p EGD and colonoscopy: SUMMARY OF FINDINGS: 1. Large duodenal ulcer. 2. Gastritis, status post biopsy. 3. Internal hemorrhoids. 4. Diverticulosis. 5. One colonic polyp removed, see above for details. RECOMMENDATIONS: The patient to be on PPI and Carafate. Monitor hemoglobin and hematocrit. Transfuse as needed. Follow up biopsy results and treat accordingly. Would need repeat colonoscopy in three years. Massimo Osborn MD Dec 21, 2019 09:22
--- NOTE | 2019-12-21 10:39 | NUR ---
NURSE NOTES: RN received phone call from Dr. Mulligan from Dr. Alva's group and relayed potassium level of 3.2 today with new order to give K-dur 40MEQ po x1.
[2019-12-21 12:00] VITALS: BP 151/74
--- NOTE | 2019-12-21 12:25 | NUR ---
CASE MANAGEMENT:REVIEW SI;SEPSIS. ILEUS. ANEMIA. 98.2 151 22 151/81 96% ON RA WBC 13.6 H/H 8.3/26.6 K+ 3.2 ALB 2.3 IS;K-DUR PO ONCE SUCRALFATE PO QID MAG-OX PO TID FLORINEF PO QD LEXAPRO PO QD HYDRALAZINE PO Q12 PROTONIX IV Q12 NORVASC PO QD RISPERDAL PO HS MED SURG STATUS DCP;FROM HOME
--- NOTE | 2019-12-21 13:44 | General Progress Note ---
Subjective Date patient seen: Dec 21, 2019 Constitutional: Reports: chills, diaphoresis HEENT: Reports: eye pain, blurred vision, double vision Cardiovascular: Reports: chest pain, edema, irregular heart rate Respiratory: Reports: cough, orthopnea, shortness of breath Gastrointestinal/Abdominal: Reports: abdomen distended, abdominal pain Genitourinary: Reports: burning, frequency Neurologic/Psychiatric: Reports: anxiety, depressed, emotional problems Allergies: Coded Allergies: No Known Allergies (Unverified , 12/04/19) Subjective no acute events overnight. Patient in no acute distress with no medical complaints. s/p EGD yesterday showing ulcer and started on PPI and Carafate. Objective Last 24 Hour Vital Signs Date Time Temp Pulse Resp B/P (MAP) Pulse Ox O2 Delivery O2 Flow Rate FiO2 12/21/19 12:00 98.1 90 19 151/74 (99) 100 12/21/19 09:00 Room Air 12/21/19 09:00 151 99 145 12/21/19 08:57 151/81 12/21/19 08:00 98.1 99 18 151/81 (104) 96 12/21/19 04:00 98.2 58 20 122/45 (70) 96 12/21/19 00:00 98.2 93 22 111/53 (72) 98 12/20/19 21:45 147/66 12/20/19 21:00 Room Air 12/20/19 21:00 83 93 97 12/20/19 20:00 97.7 83 20 147/66 (93) 96 12/20/19 17:40 85 125/67 12/20/19 16:00 98.2 85 20 125/67 (86) 94 12/20/19 14:11 98.2 73 15 137/84 98 Nasal Cannula 3 12/20/19 14:03 71 18 99 12/20/19 14:01 70 19 154/76 98 Nasal Cannula 3 12/20/19 14:01 70 18 98 12/20/19 13:56 73 19 140/73 98 Nasal Cannula 3 12/20/19 13:50 99.0 74 21 137/73 98 Nasal Cannula 3 Intake and Output 12/20/19 12/21/19 19:00 07:00 Intake Total 615 ml 240 ml Balance 615 ml 240 ml Intake Oral 240 ml 240 ml IV Total 375 ml # Voids 2 1 # Bowel Movements 4 4 Laboratory Tests 12/21/19 06:00: Sodium Level 143, Potassium Level 3.2L, Chloride Level 108H, Carbon Dioxide Level 26, Anion Gap 9, Blood Urea Nitrogen 5L, Creatinine 0.9, Estimat Glomerular Filtration Rate > 60, Glucose Level 86, Calcium Level 8.2L, Total Bilirubin 0.3, Aspartate Amino Transf (AST/SGOT) 14L, Alanine Aminotransferase (ALT/SGPT) 12, Alkaline Phosphatase 66, Total Protein 6.6, Albumin 2.3L, Globulin 4.3, Albumin/Globulin Ratio 0.5L Height (Feet): 5 Height (Inches): 4.00 Weight (Pounds): 162 General Appearance: no apparent distress, alert, obese EENT: PERRL/EOMI Neck: supple, normal inspection Cardiovascular: normal rate, regular rhythm Respiratory/Chest: lungs clear, normal breath sounds, no respiratory distress, no accessory muscle use Abdomen: normal bowel sounds, non tender, soft Extremities: normal range of motion, non-tender, normal inspection Edema: no edema noted Arm (L), no edema noted Arm (R), no edema noted Leg (L), no edema noted Leg (R), no edema noted Pedal (L), no edema noted Pedal (R), no edema noted 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 Cardio consulted and ACS was ruled out, pt under went NM stress test which was negative. Pt noted to have abd pain and occult positive stools. #?Acute on Chronic Dementia - stable #UTI - E coli #Hyponatremia - resolved #Leukocytosis - same -Nephro consulted, recs appreciated -s/p 500 cc +250 cc 3% saline initiated by Nephro with improvement in Na -12/10: CT head negative for acute process -UCx e. Coli that is pansensitive -ID consulted, recs appreciated, DC CTX and flagyl - started Zosyn 12/13 will end 12/20 #Ileus #Abdominal Pain - resolved #Constipation - improved #Occult Positive Stools #Acute blood loss anemia - CT Abdomen - ileus vs. colitis - docusate TID, dulcolax suppository PRN - occult stool positive - pain control - Transfused 1 unit pRBC 12/16 # Duodenol Ulcer - found on EGD/colonscopy 12/19 # Gastritis # Sessile Polpy - single polyp < 10 mm # Diverticolosis - start IV PPI and Carafate per GI - repeat colonscopy in 3 years per GI #Orthostatic Hypotension #Syncope -cont Florinef 0.1 mg daily -fall precautions #ZA - resolved -Nephro following, recs appreciated #Chest pain - ACS ruled out, resolved #Chronic HFpEF Initial presentation with non-radiating chest pain that resolved with SL Nitro and Aspirin. EKG with non-specific ST changes in V1-V2. Moderate Heart Score - EKG prn for active chest pain, Trop x3 negative, BNP slightly elevated, HBA1c wnl - Echo EF 70-75%, mild left hypertrophy, mitral and aortic root calcification - Cardiology consulted, recs appreciated - s/p NM stress test negative, pt OK to d/c home from cardio stand point #Hypertension - uncontrolled #Hypertensive Urgency - resolved - Cont Norvasc 10 mg PO daily - cont hydralazine 10 mg PO BID - d/c Hctz due to ZA and hyponatremia - hydralazine PRN for SBP >160 #Hypokalemia - resolved - replaced - ctm, replace PRN #Psychosis #Depression #Dementia #SI -per nurse pt was seeing "snakes" in the room - resolved -Psych consulted, recs appreciated -Risperdone 2 mg qHS -cont lexapro 10 mg PO qAM -Suicide precautions FEN Hold AC per cards and positive occult GI: IV PPI DVT: Fluids: none Abx: none Diet: Regular Dispo - Home with hospice when get medical insurance Code - FULL CODE Time spent with patient 35 mins, approximately 25 minutes spent coordinating care with nurses and consultants. D/w RN, Dr. Tillman, Dr. Vail, GI and Dr. Penny. Time of note may not reflect time of encounter. Rene Mulligan D.O Dec 21, 2019 13:44
--- NOTE | 2019-12-21 15:46 | Cardiac Electrophysiology PN ---
Assessment/Plan Assessment/Plan 1. CP Echocardiogram with diastolic dysfunction preserved LV function 70%, no significant valvular disease Stress test NEGATIVE 2. HTN on HCTZ, Hydralazine 10 bid and Norvasc 10 3. Psych 4. Dysphagia, S/P EGD by Dr Osborn Subjective Subjective Comfortable in NAD. Awaiting placement. Objective Last 24 Hour Vital Signs Date Time Temp Pulse Resp B/P (MAP) Pulse Ox O2 Delivery O2 Flow Rate FiO2 12/21/19 15:17 98.1 12/21/19 12:00 98.1 90 19 151/74 (99) 100 12/21/19 09:00 Room Air 12/21/19 09:00 151 99 145 12/21/19 08:57 151/81 12/21/19 08:00 98.1 99 18 151/81 (104) 96 12/21/19 04:00 98.2 58 20 122/45 (70) 96 12/21/19 00:00 98.2 93 22 111/53 (72) 98 12/20/19 21:45 147/66 12/20/19 21:00 Room Air 12/20/19 21:00 83 93 97 12/20/19 20:00 97.7 83 20 147/66 (93) 96 12/20/19 17:40 85 125/67 12/20/19 16:00 98.2 85 20 125/67 (86) 94 Intake and Output 12/20/19 12/21/19 18:59 06:59 Intake Total 615 ml 240 ml Balance 615 ml 240 ml Intake Oral 240 ml 240 ml IV Total 375 ml # Voids 2 1 # Bowel Movements 4 4 Laboratory Tests Test 12/21/19 06:00 Sodium Level 143 MMOL/L (136-145) Potassium Level 3.2 MMOL/L (3.5-5.1) L Chloride Level 108 MMOL/L (98-107) H Carbon Dioxide Level 26 MMOL/L (21-32) Anion Gap 9 mmol/L (5-15) Blood Urea Nitrogen 5 mg/dL (7-18) L Creatinine 0.9 MG/DL (0.55-1.30) Estimat Glomerular Filtration Rate > 60 mL/min (>60) Glucose Level 86 MG/DL (74-106) Calcium Level 8.2 MG/DL (8.5-10.1) L Total Bilirubin 0.3 MG/DL (0.2-1.0) Aspartate Amino Transf (AST/SGOT) 14 U/L (15-37) L Alanine Aminotransferase (ALT/SGPT) 12 U/L (12-78) Alkaline Phosphatase 66 U/L (46-116) Total Protein 6.6 G/DL (6.4-8.2) Albumin 2.3 G/DL (3.4-5.0) L Globulin 4.3 g/dL Albumin/Globulin Ratio 0.5 (1.0-2.7) L Microbiology Date/Time Source Procedure Growth Status 12/19/19 12:50 Nasopharynx SARS-CoV-2 RdRp Gene Assay - Final Complete Objective General Appearance: Alert EENT: normal ENT inspection Neck: supple Cardiovascular: normal rate Respiratory/Chest: decreased breath sounds Abdomen: normal bowel sounds, non tender, soft Nate Abdi MD Dec 21, 2019 15:46
[2019-12-21 16:00] VITALS: BP 136/81
--- NOTE | 2019-12-21 19:38 | NUR ---
HAND-OFF: Report given to LUIS Jamison. Endorsed to the incoming nurse that pateint is risk for fall; patient is stable at this time;
[2019-12-21 20:00] VITALS: BP 138/67
--- NOTE | 2019-12-21 20:09 | NUR ---
NURSE NOTES: RECEIVED PATIENT FROM LUIS GANN. PATIENT IS ASLEEP, ON ROOM AIR, NO ACUTE DISTRESS NOTED. PATIENT IS A HIGH FALL RISK D/T PREVIOUS FALL. PLACED PATIENT IN ROOM 401-2, CLOSE TO NURSING STATION FOR CLOSE MONITORING. FALL PRECAUTION IMPLEMENTED, YELLOW SOCKS, YELLOW GOWNS, YELLOW ARMBAND, AND DOOR SIGN PRESENT. COMMODE AT BEDSIDE. BED IS LOCKED AND LOW, BED ALARMS ACTIVE, SIDE RAILS UP X2 AND CALL LIGHT IS WITHIN REACH. PIV ON RIGHT HAND INTACT AND PATENT. WOUND DRESSINGS INTACT AND DRY. WILL CONTINUE TO MONITOR.
[2019-12-21] MEDS: Atorvastatin 80mg tab ORAL SCH (20:48)
--- NOTE | 2019-12-21 22:45 | Psych Consult Progress Note ---
Psychiatry Progress Note Psychiatry Progress Note Subjective the pt is doing well no behavioral issues Medications Current Medications Medications (Trade) Dose Ordered Sig/Yasmine Route PRN Reason Start Time Stop Time Status Last Admin Dose Admin Acetaminophen (Tylenol) 650 mg Q4H PRN ORAL Mild Pain (Pain Scale 1-3) 12/15/19 00:30 01/09/20 00:29 Acetaminophen (Tylenol) 650 mg Q6H PRN ORAL For Headache 12/15/19 00:30 01/09/20 00:29 12/21/19 14:47 Al Hydroxide/Mg Hydroxide (Mylanta II) 30 ml Q6H PRN ORAL dyspepsia 12/15/19 00:30 01/09/20 00:29 Amlodipine Besylate (Norvasc) 10 mg QPM ORAL 12/15/19 16:30 01/06/20 16:29 12/21/19 17:25 Artificial Tears (Akwa-Tears) 2 drop Q2H PRN RIGHT EYE Dry Eyes 12/16/19 12:30 01/15/20 12:29 Atorvastatin Calcium (Lipitor) 80 mg BEDTIME ORAL 12/15/19 21:00 03/04/20 20:59 12/21/19 20:48 Atropine Sulfate (Atropine) 0.5 mg Q3M PRN IV symptomatic bradycardia 12/15/19 00:15 03/04/20 15:44 Bisacodyl (Dulcolax) 10 mg DAILYPRN PRN RECTAL Constipation 12/15/19 00:30 03/10/20 00:29 Dextrose (Dextrose 50%) 25 ml Q30M PRN IV Hypoglycemia 12/15/19 00:30 03/03/20 13:59 Dextrose (Dextrose 50%) 50 ml Q30M PRN IV Hypoglycemia 12/15/19 00:15 03/03/20 15:44 Escitalopram Oxalate (Lexapro) 10 mg DAILY ORAL 12/15/19 09:00 01/07/20 16:14 12/21/19 08:57 Fludrocortisone Acetate (Florinef) 0.1 mg DAILY ORAL 12/15/19 09:00 01/10/20 16:44 12/21/19 08:56 Haloperidol Lactate (Haldol) 5 mg Q6H PRN IM Agitation 12/15/19 00:30 01/24/20 00:29 Hydralazine HCl (Apresoline) 10 mg Q12HR ORAL 12/15/19 09:00 03/09/20 20:59 12/21/19 20:49 Hydralazine HCl (Apresoline) 10 mg Q6H PRN ORAL For High Blood Pressure 12/15/19 00:30 03/09/20 00:29 Magnesium Oxide (Mag-Ox 400mg) 400 mg TID ORAL 12/15/19 09:00 01/04/20 12:59 12/21/19 17:24 Nitroglycerin (Ntg) 0.4 mg Q5M PRN SL Prn Chest Pain 12/15/19 00:15 01/03/20 15:44 Ondansetron HCl (Zofran) 4 mg Q6H PRN IVP Nausea & Vomiting 12/15/19 00:30 01/09/20 00:29 Pantoprazole (Protonix) 40 mg EVERY 12 HOURS IVP 12/15/19 09:00 01/12/20 20:59 12/21/19 20:48 Polyethylene Glycol (Miralax) 17 gm DAILYPRN PRN ORAL Constipation 12/15/19 00:30 01/09/20 00:29 Risperidone (RisperDAL) 2 mg BEDTIME ORAL 12/15/19 21:00 01/25/20 20:59 12/21/19 20:48 Senna/Docusate Sodium (Kendra-Colace) 1 tab TWICE A DAY ORAL 12/15/19 09:00 01/09/20 17:59 12/21/19 17:24 Sucralfate (Carafate) 1 gm FOUR TIMES A DAY ORAL 12/20/19 18:00 03/19/20 17:59 12/21/19 20:48 Neurological/Psychiatric: Reports: anxiety, depressed, emotional problems Allergies: Coded Allergies: No Known Allergies (Unverified , 12/04/19) Objective Data Height (Feet): 5 Height (Inches): 4.00 Weight (Pounds): 162 General Appearance: no apparent distress, alert, obese Mental Status Exam - Mood: irritable, anxious Mental Status Exam - Thought C: delusions of grandiosity Perceptual Disturbances: visual Mental Status Exam - Suicidal: not present Additional Comments: Alert, oriented times self, place. Mood is depressed. Affect is blunted, congruent with mood. Thought process is concrete. Thought content, no suicidal or homicidal ideation. Cognition is impaired. Insight and judgment is impaired. Assessment/Plan [place] I: ASSESSMENT: [place] I Major depressive disorder. Psychotic disorder. Dementia. [place] II Deferred. [place] III Abdominal pain. [place] IV Moderate. [place] V 50. PLAN: 1. Start the patient on risperidone 2 mg at bedtime. 2. Lexapro 10 mg in the morning. 3. Provide the patient with reality orientation and supportive therapy. Status: stable Status Narrative ASSESSMENT: [place] I Major depressive disorder. Psychotic disorder. Dementia. [place] II Deferred. [place] III Abdominal pain. [place] IV Moderate. [place] V 50. PLAN: 1. Start the patient on risperidone 2 mg at bedtime. 2. Lexapro 10 mg in the morning. 3. Provide the patient with reality orientation and supportive therapy. Assessment/Plan: ASSESSMENT: [place] I Major depressive disorder. Psychotic disorder. Dementia. [place] II Deferred. [place] III Abdominal pain. [place] IV Moderate. [place] V 50. PLAN: 1. Start the patient on risperidone 2 mg at bedtime. 2. Lexapro 10 mg in the morning. 3. Provide the patient with reality orientation and supportive therapy. Stuart Feliz MD Dec 21, 2019 22:45
[2019-12-22] VITALS: BP 146/63
[2019-12-22 04:00] VITALS: BP 142/50
--- NOTE | 2019-12-22 05:00 | NUR ---
NURSE NOTES: PERFORMED WOUND CARE AND DRESSING CHANGE.
--- NOTE | 2019-12-22 07:36 | NUR ---
NURSE HAND-OFF: Important Events on Shift: CHANGED DRESSING ON SACRAL Patient Status: STABLE Diet: CARDIA Pending Orders: N/A Pending Results/Labs: N/S Pending MD notification:N/S Latest Vital Signs: Temperature 97.2 , Pulse 89 , B/P 142 /50 , Respiratory Rate 18 , O2 SAT 93 , Room Air, O2 Flow Rate 3 . Vital Sign Comment: STABLE Latest [place] Fall Score: 60 Fall Risk: High Risk Safety Measures: Call light Within Reach, Bed Alarm Zone 1, Side Rails Side Rails x2, Bed position Low and Locked. Fall Precautions: Yellow Socks Yellow Gown Door Sign Patient Fall Education Report given to LUIS GANN.
[2019-12-22 08:00] VITALS: BP 111/58
[2019-12-22] MEDS: Magnesium Oxide 400mg tab ORAL SCH ×3 (08:28→17:30)
[2019-12-22] MEDS: Docusate Sod/Senna tab ORAL SCH ×2 (08:28→17:30)
[2019-12-22] MEDS: Pantoprazole Inj IVP SCH (08:29)
[2019-12-22] MEDS: Sucralfate 1gm tab ORAL SCH ×4 (08:29→20:29)
[2019-12-22] MEDS: HydrALAZINE 10mg Tab ORAL SCH ×2 (08:29→20:30)
--- NOTE | 2019-12-22 09:59 | General Progress Note ---
Subjective ROS Limited/Unobtainable: Yes Allergies: Coded Allergies: No Known Allergies (Unverified , 12/04/19) Subjective very confused Objective Last 24 Hour Vital Signs Date Time Temp Pulse Resp B/P (MAP) Pulse Ox O2 Delivery O2 Flow Rate FiO2 12/22/19 08:29 111/58 12/22/19 04:00 97.2 89 18 142/50 (80) 93 12/22/19 00:00 97.7 92 20 146/63 (90) 95 12/21/19 21:00 74 108 100 12/21/19 21:00 Room Air 12/21/19 20:49 138/67 12/21/19 20:00 98.4 74 18 138/67 (90) 97 12/21/19 17:25 89 136/81 12/21/19 16:00 97.6 89 18 136/81 (99) 99 12/21/19 15:17 98.1 12/21/19 12:00 98.1 90 19 151/74 (99) 100 Intake and Output 12/21/19 12/22/19 19:00 07:00 Intake Total 1000 ml 300 ml Balance 1000 ml 300 ml Intake Oral 300 ml Other 1000 ml # Voids 3 # Bowel Movements 1 1 Height (Feet): 5 Height (Inches): 4.00 Weight (Pounds): 162 General Appearance: no apparent distress EENT: normal ENT inspection Neck: supple Cardiovascular: normal rate Respiratory/Chest: decreased breath sounds Abdomen: normal bowel sounds, non tender, soft Extremities: non-tender Assessment/Plan Problem List: (1) Hypertension ICD Codes: I10 - Essential (primary) hypertension SNOMED: 33735312 (2) Hypokalemia ICD Codes: E87.6 - Hypokalemia SNOMED: 11803940 (3) Abdominal pain ICD Codes: R10.9 - Unspecified abdominal pain SNOMED: 77350911 (4) Chest pain ICD Codes: R07.9 - Chest pain, unspecified SNOMED: 82556344 Status: stable Assessment/Plan: s/p EGD and colonoscopy: SUMMARY OF FINDINGS: 1. Large duodenal ulcer. 2. Gastritis, status post biopsy. 3. Internal hemorrhoids. 4. Diverticulosis. 5. One colonic polyp removed, see above for details. RECOMMENDATIONS: The patient to be on PPI and Carafate. Monitor hemoglobin and hematocrit. Transfuse as needed. Follow up biopsy results and treat accordingly. Would need repeat colonoscopy in three years. Massimo Osborn MD Dec 22, 2019 09:59
[2019-12-22 10:18] LABS: HEMOGLOBIN 7.5 G/DL (12.0-16.0); MEAN CORPUSCULAR VOLUME 87 FL (80-99); PLATELET COUNT 548 K/UL (150-450); RED BLOOD COUNT 2.76 M/UL (4.20-5.40); RED CELL DISTRIBUTION WIDTH 13.4 % (11.6-14.8); WHITE BLOOD COUNT 10.1 K/UL (4.8-10.8)
--- NOTE | 2019-12-22 10:27 | NUR ---
/RD ASSESSMENT & RECOMMENDATIONS SEE CARE ACTIVITY FOR COMPLETE ASSESSMENT DAILY ESTIMATED NEEDS: Needs based on Cardiac, wound 57kg abw 25-35 kcals/kg 9211-9860 total kcals 1.25-1.5 g protein/kg 71-86 g total protein 25-30 mL/kg 5281-3025 total fluid mLs NUTRITION DIAGNOSIS: Altered nutrition related lab values R/T clinical condition, prediabetes? as evidenced by low Na (129-> wnl), low K (3.2) A1C 6.0 CURRENT DIET:Now Regular PO DIET RECOMMENDATIONS: Liberalized regular/soft with variable PO ADDITIONAL RECOMMENDATIONS: * Calibrated bedscale wt * Monitor lytes, replete as needed (K 3.2) * Monitor BGs, need for carb controlled diet/ hypoglycemics: A1C 6.0 * Add Glucerna TID (250 kcal/10g pro each) * Monitor H/H- trending down, ob stool +, s/p EGD/colonoscopy * MVI x 1 * Wound care: add IRLANDA BID
[2019-12-22 10:36] LABS: BLOOD UREA NITROGEN 5 mg/dL (7-18); CALCIUM 8.3 MG/DL (8.5-10.1); CARBON DIOXIDE 26 MMOL/L (21-32); CHLORIDE 108 MMOL/L (98-107); CREATININE 1.1 MG/DL (0.55-1.30); PHOSPHORUS 2.5 MG/DL (2.5-4.9); POTASSIUM 3.4 MMOL/L (3.5-5.1); SODIUM 142 MMOL/L (136-145)
--- NOTE | 2019-12-22 11:54 | General Progress Note ---
Subjective Date patient seen: Dec 22, 2019 Constitutional: Denies: chills, diaphoresis, fever, malaise, weakness, other HEENT: Denies: eye pain, blurred vision, tearing, double vision, nose congestion Cardiovascular: Reports: no symptoms; Denies: chest pain, edema, lightheadedness, palpitations, syncope Respiratory: Denies: cough, orthopnea, shortness of breath, SOB with excertion, SOB at rest, sputum, stridor, wheezing Gastrointestinal/Abdominal: Denies: abdomen distended, abdominal pain, black stools, tarry stools, blood in stool, constipated, diarrhea, difficulty swallowing, nausea, poor appetite, poor fluid intake, rectal bleeding, vomiting Genitourinary: Denies: burning, discharge, frequency, flank pain, hematuria, incontinence, pain, urgency Neurologic/Psychiatric: Denies: anxiety, depressed, emotional problems, headache, numbness, paresthesia, pre-existing deficit, seizure, tingling, tremors, weakness Allergies: Coded Allergies: No Known Allergies (Unverified , 12/04/19) Subjective no acute events overnight. Patient in no acute distress with no medical complaints. Doing well this am. Has mild belly tenderness but improves with "medications." VSS. Objective Last 24 Hour Vital Signs Date Time Temp Pulse Resp B/P (MAP) Pulse Ox O2 Delivery O2 Flow Rate FiO2 12/22/19 09:00 Room Air 12/22/19 09:00 89 89 108 12/22/19 08:29 111/58 12/22/19 08:00 98.1 78 19 111/58 (75) 98 12/22/19 04:00 97.2 89 18 142/50 (80) 93 12/22/19 00:00 97.7 92 20 146/63 (90) 95 12/21/19 21:00 74 108 100 12/21/19 21:00 Room Air 12/21/19 20:49 138/67 12/21/19 20:00 98.4 74 18 138/67 (90) 97 12/21/19 17:25 89 136/81 12/21/19 16:00 97.6 89 18 136/81 (99) 99 12/21/19 15:17 98.1 12/21/19 12:00 98.1 90 19 151/74 (99) 100 Intake and Output 12/21/19 12/22/19 19:00 07:00 Intake Total 1000 ml 300 ml Balance 1000 ml 300 ml Intake Oral 300 ml Other 1000 ml # Voids 3 # Bowel Movements 1 1 Laboratory Tests 12/22/19 10:05: White Blood Count 10.1, Red Blood Count 2.76L, Hemoglobin 7.5L, Hematocrit 24.0L , Mean Corpuscular Volume 87, Mean Corpuscular Hemoglobin 27.3, Mean Corpuscular Hemoglobin Concent 31.4L, Red Cell Distribution Width 13.4, Platelet Count 548H, Mean Platelet Volume 5.2L, Neutrophils (%) (Auto) , Lymphocytes (%) (Auto) , Monocytes (%) (Auto) , Eosinophils (%) (Auto) , Basophils (%) (Auto) , Differential Total Cells Counted 100, Neutrophils % (Manual) 78H, Lymphocytes % (Manual) 16L, Monocytes % (Manual) 5, Eosinophils % (Manual) 1, Basophils % (Manual) 0, Band Neutrophils 0, Platelet Estimate IncreasedH, Platelet Morphology Normal, Sodium Level 142, Potassium Level 3.4L, Chloride Level 108H, Carbon Dioxide Level 26, Blood Urea Nitrogen 5L, Creatinine 1.1, Estimat Glome rular Filtration Rate 59.0, Glucose Level 108H, Calcium Level 8.3L, Phosphorus Level 2.5, Magnesium Level 1.9 Height (Feet): 5 Height (Inches): 4.00 Weight (Pounds): 162 General Appearance: no apparent distress, alert EENT: PERRL/EOMI Neck: normal alignment, normal inspection Cardiovascular: normal rate, regular rhythm Respiratory/Chest: lungs clear, normal breath sounds Abdomen: normal bowel sounds, non tender, soft Extremities: normal range of motion, non-tender Edema: no edema noted Arm (L), no edema noted Arm (R), no edema noted Leg (L), no edema noted Leg (R), no edema noted Pedal (L), no edema noted Pedal (R), no edema noted Generalized Neurologic: 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 Cardio consulted and ACS was ruled out, pt under went NM stress test which was negative. Pt noted to have abd pain and occult positive stools. #?Acute on Chronic Dementia - stable #UTI - E coli - treated #Hyponatremia - resolved #Leukocytosis - same -Nephro consulted, recs appreciated -s/p 500 cc +250 cc 3% saline initiated by Nephro with improvement in Na -12/10: CT head negative for acute process -UCx e. Coli that is pansensitive -ID consulted, recs appreciated, monitoring off abx # Duodenol Ulcer - found on EGD/colonscopy 12/19 # Gastritis # Sessile Polpy - single polyp < 10 mm # Diverticolosis #Ileus #Abdominal Pain - resolved #Constipation - improved - docusate TID, dulcolax suppository PRN - PPI and Carafate per GI - repeat colonscopy in 3 years per GI - avoid NSAID's, i discussed with patient to avoid NSAIDs for the foreseeable future as she said that she was a heavy user - transfused 1U 12/16 - monitor H&H; holding off on pharmacological DVT ppx per Gi whom i discussed with due to large ulcer and labile H&H #Orthostatic Hypotension #Syncope -cont Florinef 0.1 mg daily -fall precautions #ZA - resolved -Nephro following, recs appreciated #Chest pain - ACS ruled out, resolved #Chronic HFpEF Initial presentation with non-radiating chest pain that resolved with SL Nitro and Aspirin. EKG with non-specific ST changes in V1-V2. Moderate Heart Score - EKG prn for active chest pain, Trop x3 negative, BNP slightly elevated, HBA1c wnl - Echo EF 70-75%, mild left hypertrophy, mitral and aortic root calcification - Cardiology consulted, recs appreciated - s/p NM stress test negative, pt OK to d/c home from cardio stand point #Hypertension - uncontrolled #Hypertensive Urgency - resolved - Cont Norvasc 10 mg PO daily - cont hydralazine 10 mg PO BID - d/c Hctz due to ZA and hyponatremia - hydralazine PRN for SBP >160 #Psychosis #Depression #Dementia #SI -per nurse pt was seeing "snakes" in the room - resolved -Psych consulted, recs appreciated -Risperdone 2 mg qHS -cont lexapro 10 mg PO qAM -Suicide precautions GI: IV PPI DVT:Mecahnical compression, holding on pharm. ppx per Gi/cards Fluids: none Abx: none Diet: Regular Dispo - snf when get medical insurance Code - FULL CODE Time spent with patient 32 mins, approximately 22 minutes spent coordinating care with nurses and consultants. D/w RN, Dr. Tillman, Dr. Vail, GI and Dr. Penny and case management. Time of note may not reflect time of encounter. Rene Mulligan D.O Dec 22, 2019 11:54
[2019-12-22 12:00] VITALS: BP 115/61
--- NOTE | 2019-12-22 14:24 | Cardiac Electrophysiology PN ---
Assessment/Plan Assessment/Plan 1. CP. Ruled out for OR. Echocardiogram with diastolic dysfunction preserved LV function 70%, no significant valvular disease Stress test NEGATIVE 2. HTN on Hydralazine 10 bid and Norvasc 10 3. Psych 4. Dysphagia, S/P EGD by Dr Osborn Placement pending Subjective Subjective Comfortable in NAD. Awaiting insurance and placement. Objective Last 24 Hour Vital Signs Date Time Temp Pulse Resp B/P (MAP) Pulse Ox O2 Delivery O2 Flow Rate FiO2 12/22/19 12:00 97.1 72 18 115/61 (79) 97 12/22/19 09:00 Room Air 12/22/19 09:00 89 89 108 12/22/19 08:29 111/58 12/22/19 08:00 98.1 78 19 111/58 (75) 98 12/22/19 04:00 97.2 89 18 142/50 (80) 93 12/22/19 00:00 97.7 92 20 146/63 (90) 95 12/21/19 21:00 74 108 100 12/21/19 21:00 Room Air 12/21/19 20:49 138/67 12/21/19 20:00 98.4 74 18 138/67 (90) 97 12/21/19 17:25 89 136/81 12/21/19 16:00 97.6 89 18 136/81 (99) 99 12/21/19 15:17 98.1 Intake and Output 12/21/19 12/22/19 19:00 07:00 Intake Total 1000 ml 300 ml Balance 1000 ml 300 ml Intake Oral 300 ml Other 1000 ml # Voids 3 # Bowel Movements 1 1 Laboratory Tests Test 12/22/19 10:05 White Blood Count 10.1 K/UL (4.8-10.8) Red Blood Count 2.76 M/UL (4.20-5.40) L Hemoglobin 7.5 G/DL (12.0-16.0) L Hematocrit 24.0 % (37.0-47.0) L Mean Corpuscular Volume 87 FL (80-99) Mean Corpuscular Hemoglobin 27.3 PG (27.0-31.0) Mean Corpuscular Hemoglobin Concent 31.4 G/DL (32.0-36.0) L Red Cell Distribution Width 13.4 % (11.6-14.8) Platelet Count 548 K/UL (150-450) H Mean Platelet Volume 5.2 FL (6.5-10.1) L Neutrophils (%) (Auto) % (45.0-75.0) Lymphocytes (%) (Auto) % (20.0-45.0) Monocytes (%) (Auto) % (1.0-10.0) Eosinophils (%) (Auto) % (0.0-3.0) Basophils (%) (Auto) % (0.0-2.0) Differential Total Cells Counted 100 Neutrophils % (Manual) 78 % (45-75) H Lymphocytes % (Manual) 16 % (20-45) L Monocytes % (Manual) 5 % (1-10) Eosinophils % (Manual) 1 % (0-3) Basophils % (Manual) 0 % (0-2) Band Neutrophils 0 % (0-8) Platelet Estimate Increased H Platelet Morphology Normal Sodium Level 142 MMOL/L (136-145) Potassium Level 3.4 MMOL/L (3.5-5.1) L Chloride Level 108 MMOL/L (98-107) H Carbon Dioxide Level 26 MMOL/L (21-32) Blood Urea Nitrogen 5 mg/dL (7-18) L Creatinine 1.1 MG/DL (0.55-1.30) Estimat Glomerular Filtration Rate 59.0 mL/min (>60) Glucose Level 108 MG/DL (74-106) H Calcium Level 8.3 MG/DL (8.5-10.1) L Phosphorus Level 2.5 MG/DL (2.5-4.9) Magnesium Level 1.9 MG/DL (1.8-2.4) Objective General Appearance: Alert EENT: normal ENT inspection Neck: supple Cardiovascular: normal rate Respiratory/Chest: decreased breath sounds Abdomen: normal bowel sounds, non tender, soft Nate Abdi MD Dec 22, 2019 14:24
--- NOTE | 2019-12-22 15:12 | NUR ---
CASE MANAGEMENT:REVIEW SI;SEPSIS. ANEMIA. HTN. 98.1 108 20 146/96 93% ON RA H/H 7.5/24.0 K+ 3.4 CA 8.3 IS;PROTONIX PO Q12 SUCRALFATE PO QID NORVASC PO QD MAG-OX PO TID FLORINEF PO QD LEXAPRO PO QD MED SURG STATUS DCP;FROM HOME PLAN: [facility] APPLICATION PENDING SNF VS HOME WITH HOUSE
[2019-12-22 16:00] VITALS: BP 121/71
--- NOTE | 2019-12-22 16:21 | Infectious Diseases Prog Note ---
Assessment/Plan Assessment/Plan ASSESSMENT AND PLAN: 1. e.coli uti, sepsis, ? enteritis, leukocytosis, c.diff. negative - s/p zosyn - cultures - negative - monitor labs - leukocytosis overall improving - endoscopy and colonoscopy results noted - will sign off, call if any questions - thank you 2. The patient has acute kidney injury and elevated creatinine. 3. The patient has hypertension. 4. Blood pressure control per primary care team. 5. Hypertensive urgency. 6. Dementia. 7. Chest pain. 8. Psychosis. 9. Depression. 10. Encephalopathy. 11. Abdominal pain. 12. Orthostatic hypotension. 13. Chronic kidney disease likely. 14. No known drug allergies. 15. Social history is negative. 16. Family history is contributory. 17. MAR was noted. 18. Case was discussed with RN. Subjective Constitutional: Denies: fever HEENT: Reports: congestion Respiratory: Denies: shortness of breath Cardiovascular: Denies: chest pain Gastrointestinal/Abdominal: Denies: nausea, vomiting, diarrhea Genitourinary: Reports: other - no savage Neurologic: Denies: headache Psychiatric: Denies: depression Skin: Denies: rash Hematologic: Denies: bleeding Musculoskeletal: Denies: pain Allergies: Coded Allergies: No Known Allergies (Unverified , 12/04/19) Objective Last 24 Hour Vital Signs Date Time Temp Pulse Resp B/P (MAP) Pulse Ox O2 Delivery O2 Flow Rate FiO2 12/22/19 12:00 97.1 72 18 115/61 (79) 97 12/22/19 09:00 Room Air 12/22/19 09:00 89 89 108 12/22/19 08:29 111/58 12/22/19 08:00 98.1 78 19 111/58 (75) 98 12/22/19 04:00 97.2 89 18 142/50 (80) 93 12/22/19 00:00 97.7 92 20 146/63 (90) 95 12/21/19 21:00 74 108 100 12/21/19 21:00 Room Air 12/21/19 20:49 138/67 12/21/19 20:00 98.4 74 18 138/67 (90) 97 12/21/19 17:25 89 136/81 Height (Feet): 5 Height (Inches): 4.00 Weight (Pounds): 162 General Appearance: no acute distress HEENT: normocephalic, atraumatic, anicteric Respiratory/Chest: lungs clear, normal breath sounds, no accessory muscle use Cardiovascular: normal rate, regular rhythm, no gallop/murmur, no JVD Abdomen: normal bowel sounds, soft, non tender, no organomegaly, non distended Genitourinary: other - no savage Extremities: no cyanosis Skin: no rash Neurologic/Psychiatric: booth usher II-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 No consolidation. Pleural space: Unremarkable. No pneumothorax. Heart: Borderline cardiomegaly, potentially exaggerated by portable technique. Mediastinum: Calcified aortic knob. Bones/joints: Degenerative changes. IMPRESSION: No evidence of acute pulmonary disease CT abdomen and pelvis: IMPRESSION: 1. Mild prominence of fluid and gas-filled small bowel loops may represent enteritis or ileus in the appropriate clinical setting. 2. Prominence of the baires of the colon likely secondary to under distention. Element of colitis is not excluded. 3. Punctate nonobstructing bilateral renal stones. Mild right hydroureteronephrosis. No obstructing stone identified. This may be secondary to distended bladder. Microbiology Date/Time Source Procedure Growth Status 12/19/19 12:50 Nasopharynx SARS-CoV-2 RdRp Gene Assay - Final Complete 12/14/19 17:45 Blood Blood Culture - Preliminary NO GROWTH AFTER 4 DAYS Resulted 12/11/19 20:35 Stool Clostridium difficile Toxin Assay - Final Complete 12/11/19 14:54 Urine,Clean Catch Urine Culture - Final Escherichia Coli Complete Laboratory Tests Test 12/22/19 10:05 White Blood Count 10.1 K/UL (4.8-10.8) Red Blood Count 2.76 M/UL (4.20-5.40) L Hemoglobin 7.5 G/DL (12.0-16.0) L Hematocrit 24.0 % (37.0-47.0) L Mean Corpuscular Volume 87 FL (80-99) Mean Corpuscular Hemoglobin 27.3 PG (27.0-31.0) Mean Corpuscular Hemoglobin Concent 31.4 G/DL (32.0-36.0) L Red Cell Distribution Width 13.4 % (11.6-14.8) Platelet Count 548 K/UL (150-450) H Mean Platelet Volume 5.2 FL (6.5-10.1) L Neutrophils (%) (Auto) % (45.0-75.0) Lymphocytes (%) (Auto) % (20.0-45.0) Monocytes (%) (Auto) % (1.0-10.0) Eosinophils (%) (Auto) % (0.0-3.0) Basophils (%) (Auto) % (0.0-2.0) Differential Total Cells Counted 100 Neutrophils % (Manual) 78 % (45-75) H Lymphocytes % (Manual) 16 % (20-45) L Monocytes % (Manual) 5 % (1-10) Eosinophils % (Manual) 1 % (0-3) Basophils % (Manual) 0 % (0-2) Band Neutrophils 0 % (0-8) Platelet Estimate Increased H Platelet Morphology Normal Sodium Level 142 MMOL/L (136-145) Potassium Level 3.4 MMOL/L (3.5-5.1) L Chloride Level 108 MMOL/L (98-107) H Carbon Dioxide Level 26 MMOL/L (21-32) Blood Urea Nitrogen 5 mg/dL (7-18) L Creatinine 1.1 MG/DL (0.55-1.30) Estimat Glomerular Filtration Rate 59.0 mL/min (>60) Glucose Level 108 MG/DL (74-106) H Calcium Level 8.3 MG/DL (8.5-10.1) L Phosphorus Level 2.5 MG/DL (2.5-4.9) Magnesium Level 1.9 MG/DL (1.8-2.4) Current Medications Medications (Trade) Dose Ordered Sig/Yasmine Route PRN Reason Start Time Stop Time Status Last Admin Dose Admin Acetaminophen (Tylenol) 650 mg Q4H PRN ORAL Mild Pain (Pain Scale 1-3) 12/15/19 00:30 01/09/20 00:29 12/22/19 03:56 Acetaminophen (Tylenol) 650 mg Q6H PRN ORAL For Headache 12/15/19 00:30 01/09/20 00:29 12/21/19 14:47 Al Hydroxide/Mg Hydroxide (Mylanta II) 30 ml Q6H PRN ORAL dyspepsia 9/16/20 00:30 01/09/20 00:29 Amlodipine Besylate (Norvasc) 10 mg QPM ORAL 12/15/19 16:30 01/06/20 16:29 12/21/19 17:25 Artificial Tears (Akwa-Tears) 2 drop Q2H PRN RIGHT EYE Dry Eyes 12/16/19 12:30 01/15/20 12:29 Atorvastatin Calcium (Lipitor) 80 mg BEDTIME ORAL 12/15/19 21:00 03/04/20 20:59 12/21/19 20:48 Atropine Sulfate (Atropine) 0.5 mg Q3M PRN IV symptomatic bradycardia 12/15/19 00:15 03/04/20 15:44 Bisacodyl (Dulcolax) 10 mg DAILYPRN PRN RECTAL Constipation 12/15/19 00:30 03/10/20 00:29 Dextrose (Dextrose 50%) 25 ml Q30M PRN IV Hypoglycemia 12/15/19 00:30 03/03/20 13:59 Dextrose (Dextrose 50%) 50 ml Q30M PRN IV Hypoglycemia 12/15/19 00:15 03/03/20 15:44 Escitalopram Oxalate (Lexapro) 10 mg DAILY ORAL 12/15/19 09:00 01/07/20 16:14 12/22/19 08:28 Fludrocortisone Acetate (Florinef) 0.1 mg DAILY ORAL 12/15/19 09:00 01/10/20 16:44 12/22/19 08:29 Haloperidol Lactate (Haldol) 5 mg Q6H PRN IM Agitation 12/15/19 00:30 01/24/20 00:29 Hydralazine HCl (Apresoline) 10 mg Q12HR ORAL 12/15/19 09:00 03/09/20 20:59 12/22/19 08:29 Hydralazine HCl (Apresoline) 10 mg Q6H PRN ORAL For High Blood Pressure 12/15/19 00:30 03/09/20 00:29 Magnesium Oxide (Mag-Ox 400mg) 400 mg TID ORAL 12/15/19 09:00 01/04/20 12:59 12/22/19 13:02 Nitroglycerin (Ntg) 0.4 mg Q5M PRN SL Prn Chest Pain 12/15/19 00:15 01/03/20 15:44 Ondansetron HCl (Zofran) 4 mg Q6H PRN IVP Nausea & Vomiting 12/15/19 00:30 01/09/20 00:29 Pantoprazole (Protonix) 40 mg EVERY 12 HOURS ORAL 12/22/19 21:00 01/21/20 20:59 Polyethylene Glycol (Miralax) 17 gm DAILYPRN PRN ORAL Constipation 12/15/19 00:30 01/09/20 00:29 Risperidone (RisperDAL) 2 mg BEDTIME ORAL 12/15/19 21:00 01/25/20 20:59 12/21/19 20:48 Senna/Docusate Sodium (Kendra-Colace) 1 tab TWICE A DAY ORAL 12/15/19 09:00 01/09/20 17:59 12/22/19 08:28 Sucralfate (Carafate) 1 gm FOUR TIMES A DAY ORAL 12/20/19 18:00 03/19/20 17:59 12/22/19 13:02 Ankit Penny MD Dec 22, 2019 16:21
--- NOTE | 2019-12-22 17:56 | NUR ---
NURSE NOTES: MD Pham is aware of patient's Hemoglobin 7.5; no order received;
--- NOTE | 2019-12-22 19:07 | NUR ---
HAND-OFF: Report given to LUIS Coates. Endorsed to the incoming nurse that patient is risk for fall; OB stool needs to be collected; patient sitting at the bed in a stable condintiong.
--- NOTE | 2019-12-22 19:30 | NUR ---
NURSE NOTES: Received patient in no apparent distress. A&OX2. IV site patent and intact. Patient sitting in bed, bed alarm is on. Remind patient collect stool sample. Bed in lowest position. Call light within reach. Will continue to monitor.
[2019-12-22 20:00] VITALS: BP 125/93
[2019-12-22] MEDS: Atorvastatin 80mg tab ORAL SCH (20:29)
[2019-12-22] MEDS ORDERED: Heparin 5000 units/ml inj SUBQ SCH (21:00)
--- NOTE | 2019-12-22 23:04 | Psych Consult Progress Note ---
Psychiatry Progress Note Psychiatry Progress Note Subjective the pt is doing well no behavioral issues Medications Current Medications Medications (Trade) Dose Ordered Sig/Yasmine Route PRN Reason Start Time Stop Time Status Last Admin Dose Admin Acetaminophen (Tylenol) 650 mg Q4H PRN ORAL Mild Pain (Pain Scale 1-3) 12/15/19 00:30 01/09/20 00:29 12/22/19 03:56 Acetaminophen (Tylenol) 650 mg Q6H PRN ORAL For Headache 12/15/19 00:30 01/09/20 00:29 12/21/19 14:47 Al Hydroxide/Mg Hydroxide (Mylanta II) 30 ml Q6H PRN ORAL dyspepsia 12/15/19 00:30 01/09/20 00:29 Amlodipine Besylate (Norvasc) 10 mg QPM ORAL 12/15/19 16:30 01/06/20 16:29 12/22/19 17:30 Artificial Tears (Akwa-Tears) 2 drop Q2H PRN RIGHT EYE Dry Eyes 12/16/19 12:30 01/15/20 12:29 Atorvastatin Calcium (Lipitor) 80 mg BEDTIME ORAL 12/15/19 21:00 03/04/20 20:59 12/22/19 20:29 Atropine Sulfate (Atropine) 0.5 mg Q3M PRN IV symptomatic bradycardia 12/15/19 00:15 03/04/20 15:44 Bisacodyl (Dulcolax) 10 mg DAILYPRN PRN RECTAL Constipation 12/15/19 00:30 03/10/20 00:29 Dextrose (Dextrose 50%) 25 ml Q30M PRN IV Hypoglycemia 12/15/19 00:30 03/03/20 13:59 Dextrose (Dextrose 50%) 50 ml Q30M PRN IV Hypoglycemia 12/15/19 00:15 03/03/20 15:44 Escitalopram Oxalate (Lexapro) 10 mg DAILY ORAL 12/15/19 09:00 01/07/20 16:14 12/22/19 08:28 Fludrocortisone Acetate (Florinef) 0.1 mg DAILY ORAL 12/15/19 09:00 01/10/20 16:44 12/22/19 08:29 Haloperidol Lactate (Haldol) 5 mg Q6H PRN IM Agitation 12/15/19 00:30 01/24/20 00:29 Hydralazine HCl (Apresoline) 10 mg Q12HR ORAL 12/15/19 09:00 03/09/20 20:59 12/22/19 20:30 Hydralazine HCl (Apresoline) 10 mg Q6H PRN ORAL For High Blood Pressure 12/15/19 00:30 03/09/20 00:29 Magnesium Oxide (Mag-Ox 400mg) 400 mg TID ORAL 12/15/19 09:00 01/04/20 12:59 12/22/19 17:30 Nitroglycerin (Ntg) 0.4 mg Q5M PRN SL Prn Chest Pain 12/15/19 00:15 01/03/20 15:44 Ondansetron HCl (Zofran) 4 mg Q6H PRN IVP Nausea & Vomiting 12/15/19 00:30 01/09/20 00:29 Pantoprazole (Protonix) 40 mg EVERY 12 HOURS ORAL 12/22/19 21:00 01/21/20 20:59 12/22/19 20:29 Polyethylene Glycol (Miralax) 17 gm DAILYPRN PRN ORAL Constipation 12/15/19 00:30 01/09/20 00:29 Risperidone (RisperDAL) 2 mg BEDTIME ORAL 12/15/19 21:00 01/25/20 20:59 12/22/19 20:29 Senna/Docusate Sodium (Kendra-Colace) 1 tab TWICE A DAY ORAL 12/15/19 09:00 01/09/20 17:59 12/22/19 17:30 Sucralfate (Carafate) 1 gm FOUR TIMES A DAY ORAL 12/20/19 18:00 03/19/20 17:59 12/22/19 20:29 Neurological/Psychiatric: Denies: anxiety, depressed, emotional problems, headache, numbness, paresthesia, pre-existing deficit, seizure, tingling, tremors, weakness Allergies: Coded Allergies: No Known Allergies (Unverified , 12/04/19) Objective Data Height (Feet): 5 Height (Inches): 4.00 Weight (Pounds): 162 General Appearance: no apparent distress, alert Mental Status Exam - Mood: irritable, anxious Mental Status Exam - Thought C: delusions of grandiosity Perceptual Disturbances: visual Mental Status Exam - Suicidal: not present Additional Comments: Alert, oriented times self, place. Mood is depressed. Affect is blunted, congruent with mood. Thought process is concrete. Thought content, no suicidal or homicidal ideation. Cognition is impaired. Insight and judgment is impaired. Assessment/Plan [place] I: ASSESSMENT: [place] I Major depressive disorder. Psychotic disorder. Dementia. [place] II Deferred. [place] III Abdominal pain. [place] IV Moderate. [place] V 50. PLAN: 1. Start the patient on risperidone 2 mg at bedtime. 2. Lexapro 10 mg in the morning. 3. Provide the patient with reality orientation and supportive therapy. Status: stable Status Narrative ASSESSMENT: [place] I Major depressive disorder. Psychotic disorder. Dementia. [place] II Deferred. [place] III Abdominal pain. [place] IV Moderate. [place] V 50. PLAN: 1. Start the patient on risperidone 2 mg at bedtime. 2. Lexapro 10 mg in the morning. 3. Provide the patient with reality orientation and supportive therapy. Assessment/Plan: ASSESSMENT: [place] I Major depressive disorder. Psychotic disorder. Dementia. [place] II Deferred. [place] III Abdominal pain. [place] IV Moderate. [place] V 50. PLAN: 1. Start the patient on risperidone 2 mg at bedtime. 2. Lexapro 10 mg in the morning. 3. Provide the patient with reality orientation and supportive therapy. Stuart Feliz MD Dec 22, 2019 23:04
[2019-12-23] VITALS: BP 138/62
[2019-12-23 04:00] VITALS: BP 130/89
[2019-12-23 06:34] LABS: BASOPHILS % (AUTO) 3.6 % (0.0-2.0); EOSINOPHILS % (AUTO) 1.7 % (0.0-3.0); HEMATOCRIT 26.7 % (37.0-47.0); HEMOGLOBIN 8.3 G/DL (12.0-16.0); LYMPHOCYTES % (AUTO) 23.8 % (20.0-45.0); MEAN CORPUSCULAR VOLUME 88 FL (80-99); MONOCYTES % (AUTO) 7.4 % (1.0-10.0); NEUTROPHILS % (AUTO) 63.5 % (45.0-75.0); PLATELET COUNT 573 K/UL (150-450); RED BLOOD COUNT 3.03 M/UL (4.20-5.40); RED CELL DISTRIBUTION WIDTH 13.5 % (11.6-14.8); WHITE BLOOD COUNT 11.6 K/UL (4.8-10.8)
[2019-12-23 07:30] LABS: ANION GAP 8 mmol/L (5-15); BLOOD UREA NITROGEN 8 mg/dL (7-18); CALCIUM 8.6 MG/DL (8.5-10.1); CARBON DIOXIDE 27 MMOL/L (21-32); CHLORIDE 107 MMOL/L (98-107); PHOSPHORUS 2.8 MG/DL (2.5-4.9); POTASSIUM 3.5 MMOL/L (3.5-5.1); SODIUM 142 MMOL/L (136-145)
--- NOTE | 2019-12-23 07:30 | NUR ---
NURSE HAND-OFF: Important Events on Shift: Patient Status: Stable Diet: Regular Pending Orders: Pending Results/Labs: 3rd OB stool collected Pending MD notification: Latest Vital Signs: Temperature 97.8 , Pulse 89 , B/P 130 /89 , Respiratory Rate 19 , O2 SAT 98 , Room Air, O2 Flow Rate 3 . Vital Sign Comment: Latest [place] Fall Score: 60 Fall Risk: High Risk Safety Measures: Call light Within Reach, Bed Alarm Zone 1, Side Rails Side Rails x2, Bed position Low and Locked. Fall Precautions: Yellow Socks Yellow Gown Door Sign Patient Fall Education Report given to Robin Agarwal RN.
[2019-12-23 08:00] VITALS: BP 129/69
[2019-12-23] MEDS: HydrALAZINE 10mg Tab ORAL SCH ×2 (08:51→21:06)
[2019-12-23] MEDS: Magnesium Oxide 400mg tab ORAL SCH ×3 (08:51→17:13)
[2019-12-23] MEDS: Docusate Sod/Senna tab ORAL SCH ×3 (08:51→17:13)
[2019-12-23] MEDS: Sucralfate 1gm tab ORAL SCH ×4 (08:51→21:06)
--- NOTE | 2019-12-23 09:25 | NUR ---
NURSE NOTES: PT AXOX3, ALERT TO NAME, BIRTHDAY AND LOCATION. IN NO APPARENT DISTRESS AT THIS TIME. VSS. DENIES PAIN. RESPIRATIONS EVEN AND UNLABORED. PT AMBULATED WITH WALKER WITH PHYSICAL THERAPY. PT SITTING UP ON CHAIR AT BEDSIDE. PT EDUCATED ON FALL PRECAUTIONS AND NOT TO AMBULATE BY HERSELF. PT EDUCATED TO USE CALL LIGHT FOR ASSISTANCE WHEN SHE WANTS TO GO BACK TO BED. PT VERBALIZED UNDERSTANDING. WILL CONTINUE TO MONITOR.
--- NOTE | 2019-12-23 11:03 | Cardiac Electrophysiology PN ---
Assessment/Plan Assessment/Plan 1. CP. Ruled out for [place]. Echocardiogram with diastolic dysfunction preserved LV function 70%, no significant valvular disease Stress test NEGATIVE 2. HTN on Hydralazine 10 bid and Norvasc 10 3. Psych 4. Dysphagia, S/P EGD by Dr Osborn Placement pending Subjective Subjective Comfortable in NAD. Still awaiting insurance and placement.Noece at bedside Objective Last 24 Hour Vital Signs Date Time Temp Pulse Resp B/P (MAP) Pulse Ox O2 Delivery O2 Flow Rate FiO2 12/23/19 09:00 Room Air 12/23/19 08:51 129/69 12/23/19 08:00 97.7 89 16 129/69 (89) 93 12/23/19 04:00 97.8 89 19 130/89 (103) 98 12/23/19 00:00 90 96 118 12/23/19 00:00 98.0 90 19 138/62 (87) 100 12/22/19 21:00 Room Air 12/22/19 20:30 125/93 12/22/19 20:00 98.2 88 18 125/93 (104) 99 12/22/19 17:30 72 115/61 12/22/19 16:00 98.0 81 18 121/71 (88) 96 12/22/19 12:00 97.1 72 18 115/61 (79) 97 Intake and Output 12/22/19 12/23/19 19:00 07:00 Intake Total 1000 ml 420 ml Balance 1000 ml 420 ml Intake Oral 420 ml Other 1000 ml # Voids 2 # Bowel Movements 1 2 Laboratory Tests Test 12/23/19 04:20 12/23/19 05:30 Stool Occult Blood Positive (NEGATIVE) White Blood Count 11.6 K/UL (4.8-10.8) H Red Blood Count 3.03 M/UL (4.20-5.40) L Hemoglobin 8.3 G/DL (12.0-16.0) L Hematocrit 26.7 % (37.0-47.0) L Mean Corpuscular Volume 88 FL (80-99) Mean Corpuscular Hemoglobin 27.3 PG (27.0-31.0) Mean Corpuscular Hemoglobin Concent 31.0 G/DL (32.0-36.0) L Red Cell Distribution Width 13.5 % (11.6-14.8) Platelet Count 573 K/UL (150-450) H Mean Platelet Volume 5.1 FL (6.5-10.1) L Neutrophils (%) (Auto) 63.5 % (45.0-75.0) Lymphocytes (%) (Auto) 23.8 % (20.0-45.0) Monocytes (%) (Auto) 7.4 % (1.0-10.0) Eosinophils (%) (Auto) 1.7 % (0.0-3.0) Basophils (%) (Auto) 3.6 % (0.0-2.0) H Sodium Level 142 MMOL/L (136-145) Potassium Level 3.5 MMOL/L (3.5-5.1) Chloride Level 107 MMOL/L (98-107) Carbon Dioxide Level 27 MMOL/L (21-32) Anion Gap 8 mmol/L (5-15) Blood Urea Nitrogen 8 mg/dL (7-18) Creatinine 1.0 MG/DL (0.55-1.30) Estimat Glomerular Filtration Rate > 60 mL/min (>60) Glucose Level 82 MG/DL (74-106) Calcium Level 8.6 MG/DL (8.5-10.1) Phosphorus Level 2.8 MG/DL (2.5-4.9) Magnesium Level 1.9 MG/DL (1.8-2.4) Objective General Appearance: Alert EENT: normal ENT inspection Neck: supple Cardiovascular: normal rate Respiratory/Chest: decreased breath sounds Abdomen: normal bowel sounds, non tender, soft Nate Abdi MD Dec 23, 2019 11:03
--- NOTE | 2019-12-23 11:04 | General Progress Note ---
Subjective Date patient seen: Dec 23, 2019 ROS Limited/Unobtainable: No Constitutional: Denies: no symptoms, chills, diaphoresis, fever, malaise, weakness, other HEENT: Denies: no symptoms, eye pain, blurred vision, tearing, double vision, ear pain, ear discharge, nose pain, nose congestion, throat pain, throat swelling, mouth pain, mouth swelling, other Cardiovascular: Denies: no symptoms, chest pain, edema, irregular heart rate, lightheadedness, palpitations, syncope, other Respiratory: Denies: no symptoms, cough, orthopnea, shortness of breath, SOB with excertion, SOB at rest, sputum, stridor, wheezing, other Gastrointestinal/Abdominal: Denies: no symptoms, abdomen distended, abdominal pain, black stools, tarry stools, blood in stool, constipated, diarrhea, difficulty swallowing, nausea, poor appetite, poor fluid intake, rectal bleeding, vomiting, other Genitourinary: Denies: no symptoms, burning, discharge, frequency, flank pain, hematuria, incontinence, pain, urgency, other Neurologic/Psychiatric: Denies: no symptoms, anxiety, depressed, emotional p roblems, headache, numbness, paresthesia, pre-existing deficit, seizure, tingling, tremors, weakness, other Endocrine: Denies: no symptoms, excessive sweating, flushing, intolerance to cold, intolerance to heat, increased hunger, increased thirst, increased urine, unexplained weight gain, unexplained weight loss, other Allergies: Coded Allergies: No Known Allergies (Unverified , 12/04/19) All Systems: reviewed and negative except above Subjective no acute events overnight. Patient in no acute distress with no medical complaints. no abdominal pain today. VSS. Objective Last 24 Hour Vital Signs Date Time Temp Pulse Resp B/P (MAP) Pulse Ox O2 Delivery O2 Flow Rate FiO2 12/23/19 09:00 Room Air 12/23/19 08:51 129/69 12/23/19 08:00 97.7 89 16 129/69 (89) 93 12/23/19 04:00 97.8 89 19 130/89 (103) 98 12/23/19 00:00 90 96 118 12/23/19 00:00 98.0 90 19 138/62 (87) 100 12/22/19 21:00 Room Air 12/22/19 20:30 125/93 12/22/19 20:00 98.2 88 18 125/93 (104) 99 12/22/19 17:30 72 115/61 12/22/19 16:00 98.0 81 18 121/71 (88) 96 12/22/19 12:00 97.1 72 18 115/61 (79) 97 Intake and Output 12/22/19 12/23/19 19:00 07:00 Intake Total 1000 ml 420 ml Balance 1000 ml 420 ml Intake Oral 420 ml Other 1000 ml # Voids 2 # Bowel Movements 1 2 Laboratory Tests 12/23/19 04:20: Stool Occult Blood Positive 12/23/19 05:30: White Blood Count 11.6H, Red Blood Count 3.03L, Hemoglobin 8.3L, Hematocrit 26.7L, Mean Corpuscular Volume 88, Mean Corpuscular Hemoglobin 27.3, Mean Corpuscular Hemoglobin Concent 31.0L, Red Cell Distribution Width 13.5, Platelet Count 573H, Mean Platelet Volume 5.1L, Neutrophils (%) (Auto) 63.5, Lymphocytes (%) (Auto) 23.8, Monocytes (%) (Auto) 7.4, Eosinophils (%) (Auto) 1.7, Basophils (%) (Auto) 3.6H, Sodium Level 142, Potassium Level 3.5, Chloride Level 107, Carbon Dioxide Level 27, Anion Gap 8, Blood Urea Nitrogen 8, Creatinine 1.0, Estimat Glomerular Filtration Rate > 60, Glucose Level 82, Calcium Level 8.6, Phosphorus Level 2.8, Magnesium Level 1.9 Height (Feet): 5 Height (Inches): 4.00 Weight (Pounds): 162 General Appearance: no apparent distress, alert EENT: PERRL/EOMI Neck: non-tender, normal alignment Cardiovascular: normal rate, regular rhythm Respiratory/Chest: lungs clear, normal breath sounds, no respiratory distress Abdomen: non tender, soft Extremities: non-tender, normal inspection Edema: no edema noted Arm (L), no edema noted Arm (R), no edema noted Leg (L), no edema noted Leg (R), no edema noted Pedal (L), no edema noted Pedal (R), no edema noted Generalized Neurologic: document examiner II-XII grossly normal, alert, oriented x 3 Skin: normal pigmentation, warm/dry Assessment/Plan Status: stable Assessment/Plan: 74 F with unclear PMhx admitted for abdominal pain and chest pain. Cardio consulted and ACS was ruled out, pt under went NM stress test which was negative. Pt noted to have abd pain and occult positive stools. #?Acute on Chronic Dementia - stable #UTI - E coli - treated #Hyponatremia - resolved #Leukocytosis - same -Nephro consulted, recs appreciated -s/p 500 cc +250 cc 3% saline initiated by Nephro with improvement in Na -12/10: CT head negative for acute process -UCx e. Coli that is pansensitive -ID consulted, recs appreciated, monitoring off abx # Duodenol Ulcer - found on EGD/colonscopy 12/19 # Gastritis # Sessile Polpy - single polyp < 10 mm # Diverticolosis #Ileus #Abdominal Pain - resolved #Constipation - improved - docusate TID, dulcolax suppository PRN - PPI and Carafate per GI - repeat colonscopy in 3 years per GI - avoid NSAID's, i discussed with patient to avoid NSAIDs for the foreseeable future as she said that she was a heavy user - transfused 1U 12/16 - H&H has been stable and uptrending, will restart heparin subq dvt ppx #Orthostatic Hypotension #Syncope -cont Florinef 0.1 mg daily -fall precautions #ZA - resolved -Nephro following, recs appreciated #Chest pain - ACS ruled out, resolved #Chronic HFpEF Initial presentation with non-radiating chest pain that resolved with SL Nitro and Aspirin. EKG with non-specific ST changes in V1-V2. Moderate Heart Score - EKG prn for active chest pain, Trop x3 negative, BNP slightly elevated, HBA1c wnl - Echo EF 70-75%, mild left hypertrophy, mitral and aortic root calcification - Cardiology consulted, recs appreciated - s/p NM stress test negative, pt OK to d/c home from cardio stand point #Hypertension - uncontrolled #Hypertensive Urgency - resolved - Cont Norvasc 10 mg PO daily - cont hydralazine 10 mg PO BID - d/c Hctz due to ZA and hyponatremia - hydralazine PRN for SBP >160 #Psychosis #Depression #Dementia #SI -per nurse pt was seeing "snakes" in the room - resolved -Psych consulted, recs appreciated -Risperdone 2 mg qHS -cont lexapro 10 mg PO qAM -Suicide precautions GI: IV PPI DVT: Heparin 5000U subq bid Fluids: none Abx: none Diet: Regular Dispo - snf when get medical insurance Code - FULL CODE Time spent with patient 31 mins, approximately 21 minutes spent coordinating care with nurses and consultants. D/w RN, Dr. Tillman, Dr. Vail, GI and Dr. Penny and case management. Time of note may not reflect time of encounter. Rene Mulligan D.O Dec 23, 2019 11:04
[2019-12-23] MEDS: Heparin 5000 units/ml inj SUBQ SCH ×2 (11:50→21:06)
[2019-12-23 12:00] VITALS: BP 130/71
--- NOTE | 2019-12-23 13:12 | General Progress Note ---
Subjective ROS Limited/Unobtainable: No Allergies: Coded Allergies: No Known Allergies (Unverified , 12/04/19) Subjective very confused Objective Last 24 Hour Vital Signs Date Time Temp Pulse Resp B/P (MAP) Pulse Ox O2 Delivery O2 Flow Rate FiO2 12/23/19 12:00 97.0 73 17 130/71 (90) 97 12/23/19 09:00 Room Air 12/23/19 08:51 129/69 12/23/19 08:00 97.7 89 16 129/69 (89) 93 12/23/19 04:00 97.8 89 19 130/89 (103) 98 12/23/19 00:00 90 96 118 12/23/19 00:00 98.0 90 19 138/62 (87) 100 12/22/19 21:00 Room Air 12/22/19 20:30 125/93 12/22/19 20:00 98.2 88 18 125/93 (104) 99 12/22/19 17:30 72 115/61 12/22/19 16:00 98.0 81 18 121/71 (88) 96 Intake and Output 12/22/19 12/23/19 19:00 07:00 Intake Total 1000 ml 420 ml Balance 1000 ml 420 ml Intake Oral 420 ml Other 1000 ml # Voids 2 # Bowel Movements 1 2 Laboratory Tests 12/23/19 04:20: Stool Occult Blood Positive 12/23/19 05:30: White Blood Count 11.6H, Red Blood Count 3.03L, Hemoglobin 8.3L, Hematocrit 26.7L, Mean Corpuscular Volume 88, Mean Corpuscular Hemoglobin 27.3, Mean Corpuscular Hemoglobin Concent 31.0L, Red Cell Distribution Width 13.5, Platelet Count 573H, Mean Platelet Volume 5.1L, Neutrophils (%) (Auto) 63.5, Lymphocytes (%) (Auto) 23.8, Monocytes (%) (Auto) 7.4, Eosinophils (%) (Auto) 1.7, Basophils (%) (Auto) 3.6H, Sodium Level 142, Potassium Level 3.5, Chloride Level 107, Carbon Dioxide Level 27, Anion Gap 8, Blood Urea Nitrogen 8, Creatinine 1.0, Estimat Glomerular Filtration Rate > 60, Glucose Level 82, Calcium Level 8.6, Phosphorus Level 2.8, Magnesium Level 1.9 Height (Feet): 5 Height (Inches): 4.00 Weight (Pounds): 162 General Appearance: no apparent distress EENT: normal ENT inspection Neck: supple Cardiovascular: normal rate Respiratory/Chest: decreased breath sounds Abdomen: normal bowel sounds, non tender, soft Extremities: non-tender Assessment/Plan Problem List: (1) Hypertension ICD Codes: I10 - Essential (primary) hypertension SNOMED: 35840498 (2) Hypokalemia ICD Codes: E87.6 - Hypokalemia SNOMED: 42237314 (3) Abdominal pain ICD Codes: R10.9 - Unspecified abdominal pain SNOMED: 39859603 (4) Chest pain ICD Codes: R07.9 - Chest pain, unspecified SNOMED: 36334730 Status: stable Assessment/Plan: s/p EGD and colonoscopy: SUMMARY OF FINDINGS: 1. Large duodenal ulcer. 2. Gastritis, status post biopsy. 3. Internal hemorrhoids. 4. Diverticulosis. 5. One colonic polyp removed, see above for details. RECOMMENDATIONS: The patient to be on PPI and Carafate. Monitor hemoglobin and hematocrit. Transfuse as needed. Follow up biopsy results and treat accordingly. Would need repeat colonoscopy in three years. Massimo Osborn MD Dec 23, 2019 13:12
--- NOTE | 2019-12-23 15:30 | NUR ---
CASE MANAGEMENT:REVIEW SI;SEPSIS. ANEMIA. HTN. 98.0 118 19 138/62 93% ON RA WBC 11.6 H/H 8.3/26.7 IS;HEPARIN SUBQ Q12 PROTONIX PO QD CARAFATE PO QID MAG-OX PO TID HYDRALAZINE PO Q12 FLORINEF PO QD MED SURG STATUS DCP;FROM HOME PLAN; SNF W/HOSPICE VS HOME W/HOSPISE PENDING [facility]
[2019-12-23 16:00] VITALS: BP 135/64
--- NOTE | 2019-12-23 18:39 | NUR ---
NURSE NOTES: SACRAL DRESSING WAS NOT ON PT. RN APPLIED NEW OPTIFOAM DRESSING TO SACRAL AREA. NO WOUND/PRESSURE INJURY NOTED IN SACRAL REGION.
--- NOTE | 2019-12-23 19:28 | NUR ---
NURSE NOTES: Received report from Robin Agarwal RN. Rounding is done. Patient is asleep. Breathing is even and unlabored. No any distress noted at this time. IV site is intact and patent. Provided all safety measures. Bed is on alarm, locked, and lowest position. Call light within reach. Will continue to monitor.
--- NOTE | 2019-12-23 19:40 | NUR ---
NURSE HAND-OFF: Important Events on Shift: no adverse events noted Patient Status: stable Diet: regular Pending Orders: n/a Pending Results/Labs:n/a Pending MD notification:n/a Latest Vital Signs: Temperature 98.1 , Pulse 81 , B/P 135 /64 , Respiratory Rate 16 , O2 SAT 97 , Room Air, O2 Flow Rate 3 . Vital Sign Comment: stable Latest Wallis Fall Score: 60 Fall Risk: High Risk Safety Measures: Call light Within Reach, Bed Alarm Zone 1, Side Rails Side Rails x2, Bed position Low and Locked. Fall Precautions: Yellow Socks Yellow Gown Door Sign Patient Fall Education Report given to Eveline Patton RN.
[2019-12-23 20:00] VITALS: BP 132/69
[2019-12-23] MEDS: Atorvastatin 80mg tab ORAL SCH (21:07)
[2019-12-24] VITALS: BP 142/67
[2019-12-24 04:00] VITALS: BP 144/64
[2019-12-24 06:41] LABS: ANION GAP 4 mmol/L (5-15); BLOOD UREA NITROGEN 9 mg/dL (7-18); CALCIUM 8.4 MG/DL (8.5-10.1); CARBON DIOXIDE 30 MMOL/L (21-32); CHLORIDE 108 MMOL/L (98-107); PHOSPHORUS 3.2 MG/DL (2.5-4.9); POTASSIUM 3.3 MMOL/L (3.5-5.1); SODIUM 142 MMOL/L (136-145)
[2019-12-24 07:08] LABS: HEMATOCRIT 25.2 % (37.0-47.0); HEMOGLOBIN 7.9 G/DL (12.0-16.0); MEAN CORPUSCULAR VOLUME 88 FL (80-99); PLATELET COUNT 536 K/UL (150-450); RED BLOOD COUNT 2.86 M/UL (4.20-5.40); RED CELL DISTRIBUTION WIDTH 14.1 % (11.6-14.8)
--- NOTE | 2019-12-24 07:16 | NUR ---
NURSE HAND-OFF: Important Events on Shift:[PAIN] Patient Status: [STABLE] Diet: [REGULAR] Pending Orders: [N] Pending Results/Labs:[N] Pending MD notification:[N] Latest Vital Signs: Temperature 98.6 , Pulse 91 , B/P 144 /64 , Respiratory Rate 18 , O2 SAT 97 , Room Air, O2 Flow Rate 3 . Vital Sign Comment: [STABLE] Latest Wallis Fall Score: 60 Fall Risk: High Risk Safety Measures: Call light Within Reach, Bed Alarm Zone 1, Side Rails Side Rails x2, Bed position Low and Locked. Fall Precautions: Yellow Socks Yellow Gown Door Sign Patient Fall Education Report given to [REJI RN].
--- NOTE | 2019-12-24 07:30 | NUR ---
NURSE NOTES: Received report from Madeleine RN. PT AXOX3, alert to self, location, and current year. IN NO APPARENT DISTRESS AT THIS TIME. Breathing is even and unlabored. DENIES PAIN. Patient able to ambulate with walker with physical therapy. RN educated patient to use call light before ambulating if felt dizzy or weak. BEdside commode present. Bed is locked and placed in lowest position with bed alarm on for safety purposes. Call light within reach. Will continue to monitor
[2019-12-24 08:00] VITALS: BP 137/63
[2019-12-24] MEDS: Docusate Sod/Senna tab ORAL SCH ×2 (08:21→17:15)
[2019-12-24] MEDS: Sucralfate 1gm tab ORAL SCH ×4 (08:21→21:05)
[2019-12-24] MEDS: Magnesium Oxide 400mg tab ORAL SCH ×3 (08:22→17:15)
[2019-12-24] MEDS: HydrALAZINE 10mg Tab ORAL SCH ×2 (08:22→21:05)
[2019-12-24] MEDS: Heparin 5000 units/ml inj SUBQ SCH ×2 (08:23→21:07)
--- NOTE | 2019-12-24 10:24 | General Progress Note ---
Subjective Date patient seen: Dec 24, 2019 Constitutional: Reports: other; Denies: chills, diaphoresis, fever, malaise, weakness HEENT: Reports: mouth swelling; Denies: eye pain, blurred vision, tearing, double vision, ear pain, ear discharge, nose pain, nose congestion, throat pain, throat swelling Cardiovascular: Denies: chest pain, edema, irregular heart rate, ligh theadedness, palpitations, syncope Respiratory: Reports: no symptoms; Denies: cough, orthopnea, shortness of breath, SOB with excertion, SOB at rest, sputum, stridor, wheezing Gastrointestinal/Abdominal: Denies: abdomen distended, abdominal pain, black stools, tarry stools, blood in stool, constipated, diarrhea, difficulty swallowing, nausea, poor appetite, poor fluid intake, rectal bleeding, vomiting Genitourinary: Denies: burning, discharge, frequency, flank pain, hematuria, incontinence, pain, urgency Neurologic/Psychiatric: Denies: anxiety, depressed, emotional problems, headache, numbness, paresthesia, pre-existing deficit, seizure, tingling, carmelo mors, weakness Allergies: Coded Allergies: No Known Allergies (Unverified , 12/04/19) Subjective no acute events overnight. VSS. Doing well this morning, denies sob, fevers, chest pain, abdominal pain. Notes right knee pain with ROM; denies any fall or trauma. No warmth, skin breakages or erythema. Having regular BM. Good oral i ntake. Objective Last 24 Hour Vital Signs Date Time Temp Pulse Resp B/P (MAP) Pulse Ox O2 Delivery O2 Flow Rate FiO2 12/24/19 09:00 Room Air 12/24/19 09:00 83 75 96 12/24/19 08:22 137/63 12/24/19 08:00 98.1 75 18 137/63 (87) 97 12/24/19 04:00 98.6 91 18 144/64 (90) 97 12/24/19 00:00 98.1 86 18 142/67 (92) 98 12/23/19 21:06 132/69 12/23/19 21:00 Room Air 12/23/19 21:00 89 84 12/23/19 20:00 98.3 89 18 132/69 (90) 95 12/23/19 18:10 84 69 12/23/19 17:13 81 135/64 12/23/19 16:00 98.1 81 16 135/64 (87) 97 12/23/19 12:00 97.0 73 17 130/71 (90) 97 Intake and Output 12/23/19 12/24/19 18:59 06:59 Intake Total 500 ml 360 ml Output Total 650 ml Balance 500 ml -290 ml Intake Oral 500 ml 360 ml Output Urine Total 650 ml # Voids 2 1 Laboratory Tests 12/24/19 05:55: White Blood Count 9.0, Red Blood Count 2.86L, Hemoglobin 7.9L, Hematocrit 25.2L, Mean Corpuscular Volume 88, Mean Corpuscular Hemoglobin 27.7, Mean Corpuscular Hemoglobin Concent 31.5L, Red Cell Distribution Width 14.1, Platelet Count 536H, Mean Platelet Volume 5.2L, Neutrophils (%) (Auto) , Lymphocytes (%) (Auto) , Monocytes (%) (Auto) , Eosinophils (%) (Auto) , Basophils (%) (Auto) , Neutroph ils % (Manual) [Pending], Lymphocytes % (Manual) [Pending], Platelet Estimate [Pending], Platelet Morphology [Pending], Sodium Level 142, Potassium Level 3.3L , Chloride Level 108H, Carbon Dioxide Level 30, Anion Gap 4L, Blood Urea Nitrogen 9, Creatinine 1.0, Estimat Glomerular Filtration Rate > 60, Glucose Level 95, Calcium Level 8.4L, Phosphorus Level 3.2, Magnesium Level 1.9 Height (Feet): 5 Height (Inches): 4.00 Weight (Pounds): 162 General Appearance: no apparent distress, alert EENT: PERRL/EOMI Neck: non-tender, normal inspection Cardiovascular: normal rate, regular rhythm Respiratory/Chest: lungs clear, normal breath sounds, no respiratory distress Abdomen: non tender, soft Extremities: normal range of motion, non-tender, other - right knee pain with ROM Edema: no edema noted Arm (L), no edema noted Arm (R), no edema noted Leg (L), no edema noted Leg (R), no edema noted Pedal (L), no edema noted Pedal (R), no edema noted 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 Cardio consulted and ACS was ruled out, pt under went NM stress test which was negative. Pt noted to have abd pain and occult positive stools. #?Acute on Chronic Dementia - stable #UTI - E coli - treated -UCx e. Coli that is pansensitive -ID consulted, recs appreciated, monitoring off abx # Duodenol Ulcer 2/2 NSAIDs & H Pylori # H Pylori Infection - positive on EGD 12/19 biopsy # Gastritis # One Tubular Adenome < 10 mm on colonscopy # Diverticolosis #Ileus #Abdominal Pain - resolved #Constipation - improved - docusate TID, dulcolax suppository PRN - Triple therapy for h Pylori - Clarythromycin 500 mg BID ( 12/23- 01/06) 2 weeks total - Amoxicillin 1000 mg BID (12/23 - 01/06) 2 weeks total - continue PPI BID - repeat colonscopy in 3 years per GI - avoid NSAID's, i discussed with patient to avoid NSAIDs for the foreseeable future as she said that she was a heavy user - transfused 1U 12/16 - H&H has been stable and uptrending, will restart heparin subq dvt ppx #Right Knee Pain katjaley 2/2 OA - f/u right knee XRAY #Orthostatic Hypotension #Syncope -cont Florinef 0.1 mg daily -fall precautions #ZA - resolved -Nephro following, recs appreciated #Chest pain - ACS ruled out, resolved #Chronic HFpEF Initial presentation with non-radiating chest pain that resolved with SL Nitro and Aspirin. EKG with non-specific ST changes in V1-V2. Moderate Heart Score - EKG prn for active chest pain, Trop x3 negative, BNP slightly elevated, HBA1c wnl - Echo EF 70-75%, mild left hypertrophy, mitral and aortic root calcification - Cardiology consulted, recs appreciated - s/p NM stress test negative, pt OK to d/c home from cardio stand point #Hypertension - uncontrolled #Hypertensive Urgency - resolved - Cont Norvasc 10 mg PO daily - cont hydralazine 10 mg PO BID - d/c Hctz due to ZA and hyponatremia - hydralazine PRN for SBP >160 #Psychosis #Depression #Dementia #SI -per nurse pt was seeing "snakes" in the room - resolved -Psych consulted, recs appreciated -Risperdone 2 mg qHS -cont lexapro 10 mg PO qAM -Suicide precautions GI: PPI DVT: Heparin 5000U subq bid Fluids: none Abx: none Diet: Regular Dispo - snf when get medical insurance Code - FULL CODE Time spent with patient 39 mins, approximately 22 minutes spent coordinating care with nurses and consultants. D/w RN, Dr. Tillman, Dr. Vail, GI and Dr. Penny and case management. Time of note may not reflect time of encounter. Rene Mulligan D.O Dec 24, 2019 10:24
[2019-12-24] MEDS: Clarithromycin 500mg tab ORAL SCH ×2 (10:31→21:05)
[2019-12-24 12:00] VITALS: BP 134/74
--- NOTE | 2019-12-24 12:01 | NUR ---
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 98.1 HR 75 RR 18 B/P 144/66 H/H 7.9/25.2 IS: BIAXIN HEPARIN SUBC PROTONIX MEDICAL PENDING MED/SURG STATUS
--- NOTE | 2019-12-24 12:12 | NUR ---
RADIOLOGY DEPT., RIGHT KNEE X-RAYS PERFORMED.-P.DYE
--- NOTE | 2019-12-24 13:04 | Cardiac Electrophysiology PN ---
Assessment/Plan Assessment/Plan 1. CP. Ruled out for HI. Echocardiogram with diastolic dysfunction preserved LV function 70%, no significant valvular disease Stress test NEGATIVE 2. HTN on Hydralazine 10 bid and Norvasc 10 3. Psych 4. Dysphagia, S/P EGD by Dr Osborn Placement pending Subjective Subjective Comfortable in NAD. Still awaiting insurance and placement Objective Last 24 Hour Vital Signs Date Time Temp Pulse Resp B/P (MAP) Pulse Ox O2 Delivery O2 Flow Rate FiO2 12/24/19 12:00 99.1 73 20 134/74 (94) 100 12/24/19 09:00 Room Air 12/24/19 09:00 83 75 96 12/24/19 08:22 137/63 12/24/19 08:00 98.1 75 18 137/63 (87) 97 12/24/19 04:00 98.6 91 18 144/64 (90) 97 12/24/19 00:00 98.1 86 18 142/67 (92) 98 12/23/19 21:06 132/69 12/23/19 21:00 Room Air 12/23/19 21:00 89 84 12/23/19 20:00 98.3 89 18 132/69 (90) 95 12/23/19 18:10 84 69 12/23/19 17:13 81 135/64 12/23/19 16:00 98.1 81 16 135/64 (87) 97 Intake and Output 12/23/19 12/24/19 19:00 07:00 Intake Total 500 ml 360 ml Output Total 650 ml Balance 500 ml -290 ml Intake Oral 500 ml 360 ml Output Urine Total 650 ml # Voids 2 1 Laboratory Tests Test 12/24/19 05:55 White Blood Count 9.0 K/UL (4.8-10.8) Red Blood Count 2.86 M/UL (4.20-5.40) L Hemoglobin 7.9 G/DL (12.0-16.0) L Hematocrit 25.2 % (37.0-47.0) L Mean Corpuscular Volume 88 FL (80-99) Mean Corpuscular Hemoglobin 27.7 PG (27.0-31.0) Mean Corpuscular Hemoglobin Concent 31.5 G/DL (32.0-36.0) L Red Cell Distribution Width 14.1 % (11.6-14.8) Platelet Count 536 K/UL (150-450) H Mean Platelet Volume 5.2 FL (6.5-10.1) L Neutrophils (%) (Auto) % (45.0-75.0) Lymphocytes (%) (Auto) % (20.0-45.0) Monocytes (%) (Auto) % (1.0-10.0) Eosinophils (%) (Auto) % (0.0-3.0) Basophils (%) (Auto) % (0.0-2.0) Differential Total Cells Counted 100 Neutrophils % (Manual) 72 % (45-75) Lymphocytes % (Manual) 17 % (20-45) L Monocytes % (Manual) 9 % (1-10) Eosinophils % (Manual) 1 % (0-3) Basophils % (Manual) 1 % (0-2) Band Neutrophils 0 % (0-8) Platelet Estimate Adequate Platelet Morphology Normal Hypochromasia 3+ Anisocytosis 1+ Sodium Level 142 MMOL/L (136-145) Potassium Level 3.3 MMOL/L (3.5-5.1) L Chloride Level 108 MMOL/L (98-107) H Carbon Dioxide Level 30 MMOL/L (21-32) Anion Gap 4 mmol/L (5-15) L Blood Urea Nitrogen 9 mg/dL (7-18) Creatinine 1.0 MG/DL (0.55-1.30) Estimat Glomerular Filtration Rate > 60 mL/min (>60) Glucose Level 95 MG/DL (74-106) Calcium Level 8.4 MG/DL (8.5-10.1) L Phosphorus Level 3.2 MG/DL (2.5-4.9) Magnesium Level 1.9 MG/DL (1.8-2.4) Objective General Appearance: Alert EENT: normal ENT inspection Neck: supple Cardiovascular: normal rate Respiratory/Chest: decreased breath sounds Abdomen: normal bowel sounds, non tender, soft Nate Abdi MD Dec 24, 2019 13:04
--- NOTE | 2019-12-24 13:58 | General Progress Note ---
Subjective ROS Limited/Unobtainable: No Allergies: Coded Allergies: No Known Allergies (Unverified , 12/04/19) Subjective very confused Objective Last 24 Hour Vital Signs Date Time Temp Pulse Resp B/P (MAP) Pulse Ox O2 Delivery O2 Flow Rate FiO2 12/24/19 12:00 99.1 73 20 134/74 (94) 100 12/24/19 09:00 Room Air 12/24/19 09:00 83 75 96 12/24/19 08:22 137/63 12/24/19 08:00 98.1 75 18 137/63 (87) 97 12/24/19 04:00 98.6 91 18 144/64 (90) 97 12/24/19 00:00 98.1 86 18 142/67 (92) 98 12/23/19 21:06 132/69 12/23/19 21:00 Room Air 12/23/19 21:00 89 84 12/23/19 20:00 98.3 89 18 132/69 (90) 95 12/23/19 18:10 84 69 12/23/19 17:13 81 135/64 12/23/19 16:00 98.1 81 16 135/64 (87) 97 Intake and Output 12/23/19 12/24/19 18:59 06:59 Intake Total 500 ml 360 ml Output Total 650 ml Balance 500 ml -290 ml Intake Oral 500 ml 360 ml Output Urine Total 650 ml # Voids 2 1 Laboratory Tests 12/24/19 05:55: White Blood Count 9.0, Red Blood Count 2.86L, Hemoglobin 7.9L, Hematocrit 25.2L, Mean Corpuscular Volume 88, Mean Corpuscular Hemoglobin 27.7, Mean Corpuscular Hemoglobin Concent 31.5L, Red Cell Distribution Width 14.1, Platelet Count 536H, Mean Platelet Volume 5.2L, Neutrophils (%) (Auto) , Lymphocytes (%) (Auto) , Monocytes (%) (Auto) , Eosinophils (%) (Auto) , Basophils (%) (Auto) , Differential Total Cells Counted 100, Neutrophils % (Manual) 72, Lymphocytes % (Manual) 17L, Monocytes % (Manual) 9, Eosinophils % (Manual) 1, Basophils % (Ma nual) 1, Band Neutrophils 0, Platelet Estimate Adequate, Platelet Morphology Normal, Hypochromasia 3+, Anisocytosis 1+, Sodium Level 142, Potassium Level 3.3L, Chloride Level 108H, Carbon Dioxide Level 30, Anion Gap 4L, Blood Urea Nitrogen 9, Creatinine 1.0, Estimat Glomerular Filtration Rate > 60, Glucose Level 95, Calcium Level 8.4L, Phosphorus Level 3.2, Magnesium Level 1.9 Height (Feet): 5 Height (Inches): 4.00 Weight (Pounds): 162 General Appearance: no apparent distress EENT: normal ENT inspection Neck: supple Cardiovascular: normal rate Respiratory/Chest: decreased breath sounds Abdomen: normal bowel sounds, non tender, soft Extremities: non-tender Assessment/Plan Problem List: (1) Hypertension ICD Codes: I10 - Essential (primary) hypertension SNOMED: 85589221 (2) Hypokalemia ICD Codes: E87.6 - Hypokalemia SNOMED: 90393386 (3) Abdominal pain ICD Codes: R10.9 - Unspecified abdominal pain SNOMED: 81330923 (4) Chest pain ICD Codes: R07.9 - Chest pain, unspecified SNOMED: 90776180 Status: stable Assessment/Plan: s/p EGD and colonoscopy: SUMMARY OF FINDINGS: 1. Large duodenal ulcer. 2. Gastritis, status post biopsy. 3. Internal hemorrhoids. 4. Diverticulosis. 5. One colonic polyp removed, see above for details. RECOMMENDATIONS: The patient to be on PPI and Carafate. Monitor hemoglobin and hematocrit. Transfuse as needed. Follow up biopsy results and treat accordingly.>>>HP positive will treat Would need repeat colonoscopy in three years. Massimo Osborn MD Dec 24, 2019 13:58
--- NOTE | 2019-12-24 14:07 | NUR ---
PT WEEKLY PROGRESS NOTE Patient seen this past week of skilled PT for therapeutic exercises, transfer training and gait training. Patient current requires SBA for bed mobility and SBA/CGA x1 for transfers using FWW. Patient able to ambulate average distance of 200 ft with SBA-CGA assist and FWW. Patient will benefit from continued skilled inpatient PT intervention to increase strength and postural stability for improved level of functional mobility and instruction in safety precautions. Recommend SNF for continued skilled P.T intervention or home P.T if caregiver assist. is available. Addendum: 12/24/19 at 1412 by NAINA SCRUGGS PT Amended: Links added.
[2019-12-24 16:00] VITALS: BP 163/72
--- NOTE | 2019-12-24 16:00 | Diagnostic Imaging Report ---
Indication: Right knee pain Technique: 3 views of the right knee Comparison: None Findings: There is severe degenerative change of the medial joint compartment, with extensive degenerative remodeling of both joint surfaces. The lateral joint spaces preserved. No acute fractures. No dislocations. No definite effusions. There may be some intra-articular loose bodies posteriorly. Impression: Degenerative changes No acute bony trauma Possible intra-articular loose bodies
[2019-12-24] MEDS ORDERED: Amoxicillin 125mg/5ml susp 80ml GT SCH (18:00)
--- NOTE | 2019-12-24 19:15 | NUR ---
NURSE NOTES: Received report from LUIS Monaco. Rounding is done. Patient is asleep. Breathing is even and unlabored. No any distress noted at this time. IV site is intact and patent. Provided all safety measures. Bed is on alarm, locked, and lowest position. Call light within reach. Will continue to monitor.
--- NOTE | 2019-12-24 19:24 | NUR ---
HAND-OFF: Report given to LUIS Hutson.
[2019-12-24 20:00] VITALS: BP 146/78
[2019-12-24] MEDS ORDERED: Clarithromycin 500mg tab ORAL SCH (21:00)
[2019-12-24] MEDS: Atorvastatin 80mg tab ORAL SCH (21:06)
[2019-12-25] VITALS: BP 132/58
[2019-12-25 04:00] VITALS: BP 135/68
--- NOTE | 2019-12-25 07:35 | NUR ---
NURSE HAND-OFF: Important Events on Shift:[pain] Patient Status: [stable] Diet: [regular] Pending Orders: [n] Pending Results/Labs:[n] Pending MD notification:[n] Latest Vital Signs: Temperature 98.6 , Pulse 78 , B/P 135 /68 , Respiratory Rate 18 , O2 SAT 94 , Room Air, O2 Flow Rate 3 . Vital Sign Comment: [stable] Latest Wallis Fall Score: 60 Fall Risk: High Risk Safety Measures: Call light Within Reach, Bed Alarm Zone 1, Side Rails Side Rails x2, Bed position Low and Locked. Fall Precautions: Yellow Socks Yellow Gown Door Sign Patient Fall Education Report given to [Litzy gonsales].
[2019-12-25 07:50] LABS: HEMATOCRIT 24.3 % (37.0-47.0); HEMOGLOBIN 7.9 G/DL (12.0-16.0); MEAN CORPUSCULAR VOLUME 86 FL (80-99); PLATELET COUNT 502 K/UL (150-450); RED BLOOD COUNT 2.82 M/UL (4.20-5.40); RED CELL DISTRIBUTION WIDTH 14.1 % (11.6-14.8); WHITE BLOOD COUNT 8.4 K/UL (4.8-10.8)
--- NOTE | 2019-12-25 07:54 | NUR ---
NURSE NOTES: Patient awake, alert x2, confused and forget full; on room air, no sing of distress and shortness of breath; no sing of chest pain; IV Left-Hand flushes well; bed side Commode within reach; side rails up x2, breaks engaged, bed at lowest position, bed alarm on; call light within reach; will keep monitoring.
[2019-12-25 08:00] VITALS: BP 147/65
[2019-12-25 08:16] LABS: ANION GAP 6 mmol/L (5-15); BLOOD UREA NITROGEN 10 mg/dL (7-18); CALCIUM 8.7 MG/DL (8.5-10.1); CARBON DIOXIDE 30 MMOL/L (21-32); CHLORIDE 107 MMOL/L (98-107); CREATININE 0.9 MG/DL (0.55-1.30); PHOSPHORUS 3.4 MG/DL (2.5-4.9); POTASSIUM 3.8 MMOL/L (3.5-5.1); SODIUM 143 MMOL/L (136-145)
[2019-12-25] MEDS: Docusate Sod/Senna tab ORAL SCH ×2 (08:37→17:21)
[2019-12-25] MEDS: HydrALAZINE 10mg Tab ORAL SCH (08:38)
[2019-12-25] MEDS: Sucralfate 1gm tab ORAL SCH ×4 (08:38→20:35)
[2019-12-25] MEDS: Magnesium Oxide 400mg tab ORAL SCH ×3 (08:38→17:21)
[2019-12-25] MEDS: Clarithromycin 500mg tab ORAL SCH ×2 (08:38→20:34)
[2019-12-25] MEDS: Heparin 5000 units/ml inj SUBQ SCH ×2 (08:39→20:36)
[2019-12-25] MEDS: Diclofenac 1% Gel 100gm TOPIC SCH ×2 (10:53→17:22)
--- NOTE | 2019-12-25 10:53 | General Progress Note ---
Subjective Date patient seen: Dec 25, 2019 Constitutional: Reports: other; Denies: chills, diaphoresis, fever, malaise, weakness HEENT: Denies: eye pain, blurred vision, tearing, double vision, ear pain, ear discharge, nose pain, nose congestion, throat pain, throat swelling, mouth pain, mouth swelling Cardiovascular: Reports: other; Denies: chest pain, edema, irregular heart rate, lightheadedness, palpitations, syncope Respiratory: Denies: cough, orthopnea, shortness of breath, SOB with excertion, SOB at rest, sputum, stridor, wheezing Gastrointestinal/Abdominal: Denies: abdomen distended, abdominal pain, black stools, tarry stools, blood in stool, constipated, diarrhea, difficulty swallowing, nausea, poor appetite, poor fluid intake, rectal bleeding, vomiting Genitourinary: Denies: burning, discharge, frequency, flank pain, hematuria, incontinence, pain, urgency Neurologic/Psychiatric: Denies: anxiety, depressed, emotional problems, headache, numbness, paresthesia, pre-existing deficit, seizure, tingling, tremors, weakness Endocrine: Denies: excessive sweating, flushing, intolerance to cold, intolerance to heat, increased hunger, increased thirst, increased urine, unexplained weight gain, unexplained weight loss Hematologic/Lymphatic: Denies: anemia, easy bleeding, easy bruising Allergies: Coded Allergies: No Known Allergies (Unverified , 12/04/19) Subjective no acute events overnight. VSS. Sleeping comfortably this morning. No complaints. Tolerating PT. VSS. Objective Last 24 Hour Vital Signs Date Time Temp Pulse Resp B/P (MAP) Pulse Ox O2 Delivery O2 Flow Rate FiO2 12/25/19 09:00 Room Air 12/25/19 09:00 83 75 96 12/25/19 08:38 147/65 12/25/19 08:00 97.7 69 18 147/65 (92) 97 12/25/19 04:00 98.6 78 18 135/68 (90) 94 12/25/19 00:00 98.4 82 18 132/58 (82) 94 12/24/19 23:21 Room Air 12/24/19 21:05 146/78 12/24/19 21:00 Room Air 12/24/19 21:00 82 80 12/24/19 20:00 98.6 82 18 146/78 (100) 95 12/24/19 16:17 73 163/72 12/24/19 16:00 98.1 73 20 163/72 (102) 100 12/24/19 12:00 99.1 73 20 134/74 (94) 100 Intake and Output0 12/24/19 12/25/19 19:00 07:00 Intake Total 720 ml 360 ml Output Total 1100 ml Balance 720 ml -740 ml Intake Oral 720 ml 360 ml Output Urine Total 1100 ml # Voids 3 3 # Bowel Movements 1 Laboratory Tests 12/24/19 15:15: Plasma Hemoglobin [Pending] 12/25/19 06:30: White Blood Count 8.4, Red Blood Count 2.82L, Hemoglobin 7.9L, Hematocrit 24.3L, Mean Corpuscular Volume 86, Mean Corpuscular Hemoglobin 28.0, Mean Corpuscular Hemoglobin Concent 32.4, Red Cell Distribution Width 14.1, Platelet Count 502H, Mean Platelet Volume 5.0L, Neutrophils (%) (Auto) , Lymphocytes (%) (Auto) , Monocytes (%) (Auto) , Eosinophils (%) (Auto) , Basophils (%) (Auto) , Neutrophils % (Manual) [Pending], Lymphocytes % (Manual) [Pending], Platelet Estimate [Pending], Platelet Morphology [Pending], Sodium Level 143, Potassium Level 3.8, Chloride Level 107, Carbon Dioxide Level 30, Anion Gap 6, Blood Urea Nitrogen 10, Creatinine 0.9, Estimat Glomerular Filtration Rate > 60, Glucose Level 76, Calcium Level 8.7, Phosphorus Level 3.4, Magnesium Level 2.2 Height (Feet): 5 Height (Inches): 4.00 Weight (Pounds): 162 General Appearance: no apparent distress, alert EENT: PERRL/EOMI Neck: non-tender Cardiovascular: normal rate, regular rhythm, no JVD Respiratory/Chest: lungs clear, normal breath sounds, no respiratory distress Abdomen: normal bowel sounds, non tender, soft Extremities: non-tender, normal capillary refill Edema: no edema noted Arm (L), no edema noted Arm (R), no edema noted Leg (L), no edema noted Leg (R), no edema noted Pedal (L), no edema noted Pedal (R), no edema noted 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 Cardio consulted and ACS was ruled out, pt under went NM stress test which was negative. Pt noted to have abd pain and occult positive stools. #?Acute on Chronic Dementia - stable #UTI - E coli - treated -ID consulted, recs appreciated, monitoring off abx # Duodenol Ulcer 2/ H Pylori # H Pylori Infection - positive on EGD 12/19 biopsy # Gastritis # One Tubular Adenome < 10 mm on colonscopy # Diverticolosis #Ileus #Abdominal Pain - resolved #Constipation - improved - docusate TID, dulcolax suppository PRN - Triple therapy for h Pylori - Clarythromycin 500 mg BID ( 12/23- 01/06) 2 weeks total - Amoxicillin 1000 mg BID (12/23 - 01/06) 2 weeks total - continue PPI BID - will need repeat stool antigen or breath test to confirm Hpylori eradication 4 weeks after completion of therapy - repeat colonscopy in 3 years per GI - avoid NSAID's, i discussed with patient to avoid NSAIDs for the foreseeable future as she said that she was a heavy user - transfused 1U 12/16 - H&H has been stable and uptrending, will restart heparin subq dvt ppx #Right Knee Pain 2/2 DJD, OA - reviewed knee XRAY - will start voleteran cream BID - continue PT #Orthostatic Hypotension #Syncope -cont Florinef 0.1 mg daily -fall precautions #ZA - resolved -Nephro following, recs appreciated #Chest pain - ACS ruled out, resolved #Chronic HFpEF Initial presentation with non-radiating chest pain that resolved with SL Nitro and Aspirin. EKG with non-specific ST changes in V1-V2. Moderate Heart Score - EKG prn for active chest pain, Trop x3 negative, BNP slightly elevated, HBA1c wnl - Echo EF 70-75%, mild left hypertrophy, mitral and aortic root calcification - Cardiology consulted, recs appreciated - s/p NM stress test negative, pt OK to d/c home from cardio stand point #Hypertension - uncontrolled #Hypertensive Urgency - resolved - Cont Norvasc 10 mg PO daily - start lisinopril 5 mg daily - d/c Hctz due to ZA and hyponatremia - hydralazine PRN for SBP >160 #Psychosis #Depression #Dementia #SI -per nurse pt was seeing "snakes" in the room - resolved -Psych consulted, recs appreciated -Risperdone 2 mg qHS -cont lexapro 10 mg PO qAM -Suicide precautions GI: PPI DVT: Heparin 5000U subq bid Fluids: none Abx: none Diet: Regular Dispo - snf when get medical insurance Code - FULL CODE Time spent with patient 35 mins, approximately 18inutes spent coordinating care with nurses and consultants. D/w RN, Dr. Tillman, Dr. Vail, GI and Dr. Penny and case management. Time of note may not reflect time of encounter. Rene Mulligan D.O Dec 25, 2019 10:53
[2019-12-25 12:00] VITALS: BP 138/77
[2019-12-25] MEDS: Lisinopril 2.5mg tab ORAL SCH (12:17)
--- NOTE | 2019-12-25 13:12 | NUR ---
CASE MANAGEMENT:REVIEW 12/25/19 SI: AC/CHR DEMENTIA. UTI. DUODENAL ULCER 98.5 80 18 138/77 96% ON RA H/H-7.9/24.3 IS: LISINOPRIL PO QD AMOXICILLIN PO Q12 BIAXIN PO Q12 HEPARIN SQ Q12 PROTONIX PO Q12 CARAFATE PO QID NORVASC PO QPM LEXAPRO PO QD : MED/SURG STATUS 4EAST PLAN: SNF PLACEMENT PENDING [facility] APPLICATION APPROVAL
--- NOTE | 2019-12-25 15:52 | Cardiac Electrophysiology PN ---
Assessment/Plan Assessment/Plan 1. CP. Ruled out for [place]. Echocardiogram with diastolic dysfunction preserved LV function 70%, no significant valvular disease Stress test Non ischemic 2. HTN on Hydralazine 10 bid and Norvasc 10 3. Psych 4. Dysphagia, S/P EGD by Dr Osborn Placement pending Subjective Subjective Comfortable in NAD. No CP or SOB.Awaiting insurance and placement Objective Last 24 Hour Vital Signs Date Time Temp Pulse Resp B/P (MAP) Pulse Ox O2 Delivery O2 Flow Rate FiO2 12/25/19 12:17 138/77 12/25/19 12:00 98.5 80 18 138/77 (97) 96 12/25/19 09:00 Room Air 12/25/19 09:00 83 75 96 12/25/19 08:38 147/65 12/25/19 08:00 97.7 69 18 147/65 (92) 97 12/25/19 04:00 98.6 78 18 135/68 (90) 94 12/25/19 00:00 98.4 82 18 132/58 (82) 94 12/24/19 23:21 Room Air 12/24/19 21:05 146/78 12/24/19 21:00 Room Air 12/24/19 21:00 82 80 12/24/19 20:00 98.6 82 18 146/78 (100) 95 12/24/19 16:17 73 163/72 12/24/19 16:00 98.1 73 20 163/72 (102) 100 Intake and Output 12/24/19 12/25/19 19:00 07:00 Intake Total 720 ml 360 ml Output Total 1100 ml Balance 720 ml -740 ml Intake Oral 720 ml 360 ml Output Urine Total 1100 ml # Voids 3 3 # Bowel Movements 1 Laboratory Tests Test 12/25/19 06:30 White Blood Count 8.4 K/UL (4.8-10.8) Red Blood Count 2.82 M/UL (4.20-5.40) L Hemoglobin 7.9 G/DL (12.0-16.0) L Hematocrit 24.3 % (37.0-47.0) L Mean Corpuscular Volume 86 FL (80-99) Mean Corpuscular Hemoglobin 28.0 PG (27.0-31.0) Mean Corpuscular Hemoglobin Concent 32.4 G/DL (32.0-36.0) Red Cell Distribution Width 14.1 % (11.6-14.8) Platelet Count 502 K/UL (150-450) H Mean Platelet Volume 5.0 FL (6.5-10.1) L Neutrophils (%) (Auto) % (45.0-75.0) Lymphocytes (%) (Auto) % (20.0-45.0) Monocytes (%) (Auto) % (1.0-10.0) Eosinophils (%) (Auto) % (0.0-3.0) Basophils (%) (Auto) % (0.0-2.0) Differential Total Cells Counted 100 Neutrophils % (Manual) 61 % (45-75) Lymphocytes % (Manual) 22 % (20-45) Monocytes % (Manual) 13 % (1-10) H Eosinophils % (Manual) 4 % (0-3) H Basophils % (Manual) 0 % (0-2) Band Neutrophils 0 % (0-8) Platelet Estimate Adequate Platelet Morphology Normal Hypochromasia 3+ Anisocytosis 1+ Sodium Level 143 MMOL/L (136-145) Potassium Level 3.8 MMOL/L (3.5-5.1) Chloride Level 107 MMOL/L (98-107) Carbon Dioxide Level 30 MMOL/L (21-32) Anion Gap 6 mmol/L (5-15) Blood Urea Nitrogen 10 mg/dL (7-18) Creatinine 0.9 MG/DL (0.55-1.30) Estimat Glomerular Filtration Rate > 60 mL/min (>60) Glucose Level 76 MG/DL (74-106) Calcium Level 8.7 MG/DL (8.5-10.1) Phosphorus Level 3.4 MG/DL (2.5-4.9) Magnesium Level 2.2 MG/DL (1.8-2.4) Objective General Appearance: Alert EENT: normal ENT inspection Neck: supple Cardiovascular: normal rate Respiratory/Chest: decreased breath sounds Abdomen: normal bowel sounds, non tender, soft Nate Abdi MD Dec 25, 2019 15:52
[2019-12-25 16:00] VITALS: BP 131/67
--- NOTE | 2019-12-25 18:40 | NUR ---
NURSE NOTES: Wound care provided, patient tolerated well; picture uploaded on patient's file;
--- NOTE | 2019-12-25 19:20 | NUR ---
NURSE NOTES: RECEIVED PATIENT FROM LUIS GANN. PATIENT IS AWAKE, CALM, AAOX4, ON ROOM AIR, NO ACUTE DISTRESS NOTED. PIV ON LEFT HAND 24G INTACT AND PATENT. WOUND DRESSING ON SACRAL INTACT AND DRY. COMMODE AT BEDSIDE. PATIENT IS A FALL RISK D/T WEAKNESS. PLACED IN ROOM 401-2, CLOSE TO NURSING STATION. YELLOW GOWN, YELLOW SOCKS, YELLOW ARMBAND, AND DOOR SIGN PRESENT. COMMUNICATED WITH STAFF AND CHARGE NURSE TO PERFORM FREQUENT ROUNDINGS. BED IS LOCKED AND LOW, BED ALARMS ACTIVE, SIDE RAILS UPX2 AND CALL LIGHT IS WITHIN REACH. 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 WILL CONTINUE TO MONITOR CLOSELY.
--- NOTE | 2019-12-25 19:32 | NUR ---
HAND-OFF: Report given to LUIS Jamison.
[2019-12-25 20:00] VITALS: BP_SYST 125; BP_SYST 135; BP_DIAS 66; BP_DIAS 67
[2019-12-25] MEDS: Atorvastatin 80mg tab ORAL SCH (20:35)
[2019-12-26] VITALS: BP 133/51
[2019-12-26 04:00] VITALS: BP 127/56
--- NOTE | 2019-12-26 06:26 | NUR ---
NURSE HAND-OFF: Important Events on Shift: Changed wound dressings Patient Status: Stable Diet: Cardiac Pending Orders: Discharge planning, SNF placement pending Pending Results/Labs: CBC Pending MD notification: N/A Latest Vital Signs: Temperature 97.0 , Pulse 72 , B/P 127 /56 , Respiratory Rate 17 , O2 SAT 96 , Room Air, O2 Flow Rate 3 . Vital Sign Comment: Stable Latest Wallis Fall Score: 60 Fall Risk: High Risk Safety Measures: Call light Within Reach, Bed Alarm Zone 1, Side Rails Side Rails x2, Bed position Low and Locked. Fall Precautions: Yellow Socks Yellow Gown Door Sign Patient Fall Education: GIVEN
[2019-12-26 07:21] LABS: BASOPHILS % (AUTO) 1.8 % (0.0-2.0); HEMATOCRIT 26.8 % (37.0-47.0); HEMOGLOBIN 8.5 G/DL (12.0-16.0); MEAN CORPUSCULAR VOLUME 87 FL (80-99); NEUTROPHILS % (AUTO) 58.2 % (45.0-75.0); PLATELET COUNT 561 K/UL (150-450); RED BLOOD COUNT 3.09 M/UL (4.20-5.40); RED CELL DISTRIBUTION WIDTH 13.9 % (11.6-14.8); WHITE BLOOD COUNT 7.9 K/UL (4.8-10.8)
--- NOTE | 2019-12-26 07:33 | NUR ---
HAND-OFF: Report given to LUIS Russo.
--- NOTE | 2019-12-26 07:41 | NUR ---
NURSE NOTES: Patient alert x3, on room air, no sing of distress and shortness of breath; no sing of chest pain; IV Left-Hand flushes well; side rials up x2, breaks engaged, bed alarm on, call light within reach; bed side Commode within reach; patient instructed to call for help whenever needed;
[2019-12-26 08:00] VITALS: BP 151/75
[2019-12-26] MEDS: Sucralfate 1gm tab ORAL SCH ×4 (09:05→20:38)
[2019-12-26] MEDS: Diclofenac 1% Gel 100gm TOPIC SCH ×2 (09:05→17:14)
[2019-12-26] MEDS: Docusate Sod/Senna tab ORAL SCH ×2 (09:05→17:13)
[2019-12-26] MEDS: Heparin 5000 units/ml inj SUBQ SCH ×2 (09:06→20:38)
[2019-12-26] MEDS: Clarithromycin 500mg tab ORAL SCH ×2 (09:06→20:38)
[2019-12-26] MEDS: Magnesium Oxide 400mg tab ORAL SCH ×3 (09:06→17:13)
[2019-12-26] MEDS: Lisinopril 2.5mg tab ORAL SCH (09:06)
[2019-12-26 12:00] VITALS: BP 129/53
--- NOTE | 2019-12-26 13:03 | NUR ---
CASE MANAGEMENT:REVIEW 12/26/19 SI: AC/CHR DEMENTIA. UTI. DUODENAL ULCER 98.2 81 16 129/53 97% ON RA H/H-8.5/26.8 IS: LISINOPRIL PO QD AMOXICILLIN PO Q12 BIAXIN PO Q12 HEPARIN SQ Q12 PROTONIX PO Q12 CARAFATE PO QID NORVASC PO QPM LEXAPRO PO QD : MED/SURG STATUS 4EAST PLAN: SNF PLACEMENT PENDING [facility] APPLICATION APPROVAL
--- NOTE | 2019-12-26 13:06 | NUR ---
CASE MGMT SEE B/AR NOTES REGARDING INTERQUAL
--- NOTE | 2019-12-26 13:16 | General Progress Note ---
Subjective Date patient seen: Dec 26, 2019 Constitutional: Denies: no symptoms, chills, diaphoresis, fever, malaise, weakness, other HEENT: Denies: no symptoms, eye pain, blurred vision, tearing, double vision, ear pain, ear discharge, nose pain, nose congestion, throat pain, throat swelling, mouth pain, mouth swelling, other Cardiovascular: Denies: no symptoms, chest pain, edema, irregular heart rate, lightheadedness, palpitations, syncope, other Respiratory: Denies: no symptoms, cough, orthopnea, shortness of breath, SOB with excertion, SOB at rest, sputum, stridor, wheezing, other Gastrointestinal/Abdominal: Denies: no symptoms, abdomen distended, abdominal pain, black stools, tarry stools, blood in stool, constipated, diarrhea, difficulty swallowing, nausea, poor appetite, poor fluid intake, rectal bleeding, vomiting, other Genitourinary: Denies: no symptoms, burning, discharge, frequency, flank pain, hematuria, incontinence, pain, urgency, other Neurologic/Psychiatric: Denies: no symptoms, anxiety, depressed, emotional problems, headache, numbness, paresthesia, pre-existing deficit, seizure, tingling, tremors, weakness, other Endocrine: Denies: no symptoms, excessive sweating, flushing, intolerance to cold, intolerance to heat, increased hunger, increased thirst, increased urine, unexplained weight gain, unexplained weight loss, other Hematologic/Lymphatic: Denies: no symptoms, anemia, easy bleeding, easy bruising, other Allergies: Coded Allergies: No Known Allergies (Unverified , 12/04/19) Subjective no acute events overnight. VSS. Denies abdominal pain, chest pain, sob. KNee pain is better. Pending insurance for placement. Objective Last 24 Hour Vital Signs Date Time Temp Pulse Resp B/P (MAP) Pulse Ox O2 Delivery O2 Flow Rate FiO2 12/26/19 12:00 98.2 81 16 129/53 (78) 97 12/26/19 09:06 151/75 12/26/19 09:00 83 75 96 12/26/19 09:00 Room Air 12/26/19 08:00 97.5 74 18 151/75 (100) 97 12/26/19 04:00 97.0 72 17 127/56 (79) 96 12/26/19 00:00 98.1 87 19 133/51 (78) 97 12/25/19 21:00 77 77 78 12/25/19 21:00 Room Air 12/25/19 20:00 97.0 77 19 135/67 (89) 96 12/25/19 17:21 67 131/67 12/25/19 16:00 97.5 67 17 131/67 (88) 98 Intake and Output 12/25/19 12/26/19 19:00 07:00 Intake Total 800 ml 200 ml Balance 800 ml 200 ml Other 800 ml 200 ml # Voids 2 Laboratory Tests 12/26/19 06:45: White Blood Count 7.9, Red Blood Count 3.09L, Hemoglobin 8.5L, Hematocrit 26.8L, Mean Corpuscular Volume 87, Mean Corpuscular Hemoglobin 27.4, Mean Corpuscular Hemoglobin Concent 31.6L, Red Cell Distribution Width 13.9, Platelet Count 561H, Mean Platelet Volume 5.2L, Neutrophils (%) (Auto) 58.2, Lymphocytes (%) (Auto) 27.0, Monocytes (%) (Auto) 10.0, Eosinophils (%) (Auto) 3.0, Basophils (%) (Auto) 1.8 Height (Feet): 5 Height (Inches): 4.00 Weight (Pounds): 162 General Appearance: no apparent distress, alert EENT: PERRL/EOMI Neck: normal alignment, supple Cardiovascular: normal rate, regular rhythm, no JVD Respiratory/Chest: lungs clear, normal breath sounds, no respiratory distress Abdomen: non tender, soft, no mass Extremities: normal range of motion Edema: no edema noted Arm (L), no edema noted Arm (R), no edema noted Leg (L), no edema noted Leg (R), no edema noted Pedal (L), no edema noted Pedal (R), no edema noted 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 Cardio consulted and ACS was ruled out, pt under went NM stress test which was negative. Pt noted to have abd pain and occult positive stools. #UTI - E coli - treated -ID consulted, recs appreciated, monitoring off abx # Duodenol Ulcer 2/ H Pylori # H Pylori Infection - positive on EGD 12/19 biopsy # Gastritis # One Tubular Adenome < 10 mm on colonscopy # Diverticolosis #Ileus #Abdominal Pain - resolved #Constipation - improved - docusate TID, dulcolax suppository PRN - Triple therapy for h Pylori - Clarythromycin 500 mg BID ( 12/23- 01/06) 2 weeks total - Amoxicillin 1000 mg BID (12/23 - 01/06) 2 weeks total - continue PPI BID - will need repeat stool antigen or breath test to confirm Hpylori eradication 4 weeks after completion of therapy - repeat colonscopy in 3 years per GI - avoid NSAID's, i discussed with patient to avoid NSAIDs for the foreseeable future as she said that she was a heavy user - transfused 1U 12/16 - H&H has been stable and uptrending, will restart heparin subq dvt ppx #Right Knee Pain 2/ DJD, OA - reviewed knee XRAY - will start voleteran cream BID - continue PT #Mild Dementia - stable #Orthostatic Hypotension #Syncope -cont Florinef 0.1 mg daily -fall precautions #ZA - resolved -Nephro following, recs appreciated #Chest pain - ACS ruled out, resolved #Chronic HFpEF Initial presentation with non-radiating chest pain that resolved with SL Nitro and Aspirin. EKG with non-specific ST changes in V1-V2. Moderate Heart Score - EKG prn for active chest pain, Trop x3 negative, BNP slightly elevated, HBA1c wnl - Echo EF 70-75%, mild left hypertrophy, mitral and aortic root calcification - Cardiology consulted, recs appreciated - s/p NM stress test negative, pt OK to d/c home from cardio stand point #Hypertension - uncontrolled #Hypertensive Urgency - resolved - continue Norvasc 10 mg PO daily - continue lisinopril 5 mg daily - d/c Hctz due to ZA and hyponatremia - hydralazine PRN for SBP >160 #Psychosis #Depression #Dementia #SI -per nurse pt was seeing "snakes" in the room - resolved -Psych consulted, recs appreciated -Risperdone 2 mg qHS -cont lexapro 10 mg PO qAM -Suicide precautions GI: PPI DVT: Heparin 5000U subq bid Fluids: none Abx: none Diet: Regular Dispo - snf when get medical insurance Code - FULL CODE Time spent with patient 31 mins, approximately 19 minutes spent coordinating care with nurses and consultants. D/w RN, Dr. Tillman, Dr. Vail, GI and Dr. Penny and case management. Time of note may not reflect time of encounter. Rene Mulligan D.O Dec 26, 2019 13:16
--- NOTE | 2019-12-26 13:24 | Cardiac Electrophysiology PN ---
Assessment/Plan Assessment/Plan 1. CP. Ruled out for [place]. Echo with diastolic dysfunction preserved LV function 70%, no significant valvular disease Stress test Non ischemic 2. HTN on Hydralazine 10 bid and Norvasc 10 3. Psych 4. Dysphagia, S/P EGD by Dr Osborn Placement pending Subjective Subjective Comfortable in NAD off tele. No CP or SOB.Awaiting placement Objective Last 24 Hour Vital Signs Date Time Temp Pulse Resp B/P (MAP) Pulse Ox O2 Delivery O2 Flow Rate FiO2 12/26/19 12:00 98.2 81 16 129/53 (78) 97 12/26/19 09:06 151/75 12/26/19 09:00 83 75 96 12/26/19 09:00 Room Air 12/26/19 08:00 97.5 74 18 151/75 (100) 97 12/26/19 04:00 97.0 72 17 127/56 (79) 96 12/26/19 00:00 98.1 87 19 133/51 (78) 97 12/25/19 21:00 77 77 78 12/25/19 21:00 Room Air 12/25/19 20:00 97.0 77 19 135/67 (89) 96 12/25/19 17:21 67 131/67 12/25/19 16:00 97.5 67 17 131/67 (88) 98 Intake and Output 12/25/19 12/26/19 19:00 07:00 Intake Total 800 ml 200 ml Balance 800 ml 200 ml Other 800 ml 200 ml # Voids 2 Laboratory Tests Test 12/26/19 06:45 White Blood Count 7.9 K/UL (4.8-10.8) Red Blood Count 3.09 M/UL (4.20-5.40) L Hemoglobin 8.5 G/DL (12.0-16.0) L Hematocrit 26.8 % (37.0-47.0) L Mean Corpuscular Volume 87 FL (80-99) Mean Corpuscular Hemoglobin 27.4 PG (27.0-31.0) Mean Corpuscular Hemoglobin Concent 31.6 G/DL (32.0-36.0) L Red Cell Distribution Width 13.9 % (11.6-14.8) Platelet Count 561 K/UL (150-450) H Mean Platelet Volume 5.2 FL (6.5-10.1) L Neutrophils (%) (Auto) 58.2 % (45.0-75.0) Lymphocytes (%) (Auto) 27.0 % (20.0-45.0) Monocytes (%) (Auto) 10.0 % (1.0-10.0) Eosinophils (%) (Auto) 3.0 % (0.0-3.0) Basophils (%) (Auto) 1.8 % (0.0-2.0) Objective General Appearance: Alert EENT: normal ENT inspection Neck: supple Cardiovascular: normal rate Respiratory/Chest: decreased breath sounds Abdomen: normal bowel sounds, non tender, soft Nate Abdi MD Dec 26, 2019 13:24
[2019-12-26 16:00] VITALS: BP 121/61
--- NOTE | 2019-12-26 19:11 | NUR ---
HAND-OFF: Report given to LUIS Jamison. Endorsed to the incoming nurse that patient risk for fall; stable at this time;
--- NOTE | 2019-12-26 19:40 | NUR ---
NURSE NOTES: RECEIVED PATIENT FROM LUIS GANN. PATIENT IS ASLEEP, RESTING IN BED, ON ROOM AIR, NO ACUTE DISTRESS NOTED. PIV ON LEFT HAND 24G INTACT AND PATENT. WOUND DRESSING ON SACRAL INTACT AND DRY. COMMODE AT BEDSIDE. PATIENT IS A FALL RISK D/T WEAKNESS. PLACED IN ROOM 401-2, CLOSE TO NURSING STATION. YELLOW GOWN, YELLOW SOCKS, YELLOW ARMBAND, AND DOOR SIGN PRESENT. COMMUNICATED WITH STAFF AND CHARGE NURSE TO PERFORM FREQUENT ROUNDINGS. BED IS LOCKED AND LOW, BED ALARMS ACTIVE, SIDE RAILS UPX2 AND CALL LIGHT IS WITHIN REACH. WILL CONTINUE TO MONITOR CLOSELY.
[2019-12-26 20:00] VITALS: BP 110/54
[2019-12-26] MEDS: Atorvastatin 80mg tab ORAL SCH (20:38)
[2019-12-27] VITALS (7 sets, daily range): BP systolic 127–140; BP diastolic 60–75
--- NOTE | 2019-12-27 06:43 | NUR ---
NURSE HAND-OFF: Important Events on Shift: OBTAINED NEW IV ACCESS, WOUND CARE DRESSING CHANGE Patient Status: STABLE Diet: CARDIAC Pending Orders: DISCHARGE PLANNING, SNF PLACEMENT Pending Results/Labs: CBC, BMP, MAG Pending MD notification: N/A Latest Vital Signs: Temperature 98.1 , Pulse 81 , B/P 140 /67 , Respiratory Rate 17 , O2 SAT 95 , Room Air, O2 Flow Rate 3 . Vital Sign Comment: STABLE Latest Wallis Fall Score: 60 Fall Risk: High Risk Safety Measures: Call light Within Reach, Bed Alarm Zone 1, Side Rails Side Rails x2, Bed position Low and Locked. Fall Precautions: IMPLEMENTED Yellow Socks Yellow Gown Door Sign Patient Fall Education: GIVEN
--- NOTE | 2019-12-27 07:44 | NUR ---
HAND-OFF: Report given to LUIS MCGARRY.
--- NOTE | 2019-12-27 07:46 | NUR ---
NURSE NOTES: Report received from Sharon RN. Patient seen on rounds, AxOx2-3, not in distress, no complaints of pain. PIV on left wrist patent and intact. Pt is able to ambulate and use bedside commode with assistance. Optifoam over sacral area for prophylaxis. Bed low and locked, siderails up x2, zone alarms on 1, pt is a high fall risk, call light placed within reach and instructed to call nurse for assistance. Will continue to monitor.
[2019-12-27 07:47] LABS: ANION GAP 7 mmol/L (5-15); BLOOD UREA NITROGEN 9 mg/dL (7-18); CALCIUM 8.9 MG/DL (8.5-10.1); CARBON DIOXIDE 30 MMOL/L (21-32); CHLORIDE 105 MMOL/L (98-107); POTASSIUM 3.5 MMOL/L (3.5-5.1); SODIUM 142 MMOL/L (136-145)
[2019-12-27] MEDS: Docusate Sod/Senna tab ORAL SCH ×2 (09:34→17:13)
[2019-12-27] MEDS: Lisinopril 2.5mg tab ORAL SCH (09:34)
[2019-12-27] MEDS: Sucralfate 1gm tab ORAL SCH ×4 (09:34→20:35)
[2019-12-27] MEDS: Clarithromycin 500mg tab ORAL SCH ×2 (09:34→20:35)
[2019-12-27] MEDS: Magnesium Oxide 400mg tab ORAL SCH ×3 (09:34→17:12)
[2019-12-27] MEDS: Heparin 5000 units/ml inj SUBQ SCH ×2 (09:35→20:36)
[2019-12-27] MEDS: Diclofenac 1% Gel 100gm TOPIC SCH ×2 (09:40→17:13)
--- NOTE | 2019-12-27 10:22 | Cardiac Electrophysiology PN ---
Assessment/Plan Assessment/Plan 1. CP. Ruled out for [place]. Echo with diastolic dysfunction preserved LV function 70%, no significant valvular disease Stress test Non ischemic 2. HTN on Hydralazine 10 bid and Norvasc 10 3. Psych 4. Dysphagia, S/P EGD by Dr Osborn Placement pending Subjective Subjective Comfortable in NAD off tele. No CP or SOB. Awaiting getting insurance and placement Objective Last 24 Hour Vital Signs Date Time Temp Pulse Resp B/P (MAP) Pulse Ox O2 Delivery O2 Flow Rate FiO2 12/27/19 09:34 127/62 12/27/19 09:00 98.0 72 18 127/62 (83) 97 12/27/19 09:00 72 70 12/27/19 09:00 Room Air 12/27/19 04:00 98.1 81 17 140/67 (91) 95 12/27/19 00:00 96.6 74 17 138/75 (96) 100 12/26/19 21:00 Room Air 12/26/19 21:00 70 77 12/26/19 20:00 99.0 70 17 110/54 (72) 98 12/26/19 17:13 83 121/61 12/26/19 16:00 98.1 83 18 121/61 (81) 96 12/26/19 15:49 98.2 12/26/19 12:00 98.2 81 16 129/53 (78) 97 Intake and Output 12/26/19 12/27/19 18:59 06:59 Intake Total 600 ml 200 ml Balance 600 ml 200 ml Intake Oral 200 ml Other 600 ml # Voids 4 Laboratory Tests Test 12/27/19 05:50 Sodium Level 142 MMOL/L (136-145) Potassium Level 3.5 MMOL/L (3.5-5.1) Chloride Level 105 MMOL/L (98-107) Carbon Dioxide Level 30 MMOL/L (21-32) Anion Gap 7 mmol/L (5-15) Blood Urea Nitrogen 9 mg/dL (7-18) Creatinine 1.0 MG/DL (0.55-1.30) Estimat Glomerular Filtration Rate > 60 mL/min (>60) Glucose Level 87 MG/DL (74-106) Calcium Level 8.9 MG/DL (8.5-10.1) Magnesium Level 2.2 MG/DL (1.8-2.4) Objective General Appearance: Alert EENT: normal ENT inspection Neck: supple Cardiovascular: normal rate Respiratory/Chest: decreased breath sounds Abdomen: normal bowel sounds, non tender, soft Nate Abdi MD Dec 27, 2019 10:22
--- NOTE | 2019-12-27 11:57 | General Progress Note ---
Subjective Date patient seen: Dec 27, 2019 Constitutional: Denies: no symptoms, chills, diaphoresis, fever, malaise, weakness, other HEENT: Denies: no symptoms, eye pain, blurred vision, tearing, double vision, ear pain, ear discharge, nose pain, nose congestion, throat pain, throat swelling, mouth pain, mouth swelling, other Cardiovascular: Denies: no symptoms, chest pain, edema, irregular heart rate, lightheadedness, palpitations, syncope, other Respiratory: Denies: no symptoms, cough, orthopnea, shortness of breath, SOB with excertion, SOB at rest, sputum, stridor, wheezing, other Gastrointestinal/Abdominal: Denies: no symptoms, abdomen distended, abdominal pain, black stools, tarry stools, blood in stool, constipated, diarrhea, difficulty swallowing, nausea, poor appetite, poor fluid intake, rectal bleeding, vomiting, other Genitourinary: Denies: no symptoms, burning, discharge, frequency, flank pain, hematuria, incontinence, pain, urgency, other Neurologic/Psychiatric: Reports: no symptoms, anxiety, depressed, emotional problems, headache, numbness, paresthesia, pre-existing deficit, seizure, tingling, tremors, weakness, other Endocrine: Denies: no symptoms, excessive sweating, flushing, intolerance to cold, intolerance to heat, increased hunger, increased thirst, increased urine, unexplained weight gain, unexplained weight loss, other Hematologic/Lymphatic: Denies: no symptoms, anemia, easy bleeding, easy b ruising, other Allergies: Coded Allergies: No Known Allergies (Unverified , 12/04/19) Subjective no acute events overnight. VSS. Complains of headache otherwise doing well. Pending placement. Objective Last 24 Hour Vital Signs Date Time Temp Pulse Resp B/P (MAP) Pulse Ox O2 Delivery O2 Flow Rate FiO2 12/27/19 09:34 127/62 12/27/19 09:00 98.0 72 18 127/62 (83) 97 12/27/19 09:00 72 70 12/27/19 09:00 Room Air 12/27/19 04:00 98.1 81 17 140/67 (91) 95 12/27/19 00:00 96.6 74 17 138/75 (96) 100 12/26/19 21:00 Room Air 12/26/19 21:00 70 77 12/26/19 20:00 99.0 70 17 110/54 (72) 98 12/26/19 17:13 83 121/61 12/26/19 16:00 98.1 83 18 121/61 (81) 96 12/26/19 15:49 98.2 12/26/19 12:00 98.2 81 16 129/53 (78) 97 Intake and Output 12/26/19 12/27/19 19:00 07:00 Intake Total 600 ml 200 ml Balance 600 ml 200 ml Intake Oral 200 ml Other 600 ml # Voids 4 Laboratory Tests 12/27/19 05:50: Sodium Level 142, Potassium Level 3.5, Chloride Level 105, Carbon Dioxide Level 30, Anion Gap 7, Blood Urea Nitrogen 9, Creatinine 1.0, Estimat Glomerular Filtration Rate > 60, Glucose Level 87, Calcium Level 8.9, Magnesium Level 2.2 Height (Feet): 5 Height (Inches): 4.00 Weight (Pounds): 162 General Appearance: no apparent distress, alert EENT: PERRL/EOMI Neck: non-tender, normal alignment Cardiovascular: normal rate, regular rhythm, no JVD Respiratory/Chest: lungs clear, normal breath sounds, no respiratory distress Abdomen: normal bowel sounds, non tender, soft Extremities: normal range of motion, non-tender Edema: no edema noted Arm (L), no edema noted Arm (R), no edema noted Leg (L), no edema noted Leg (R), no edema noted Pedal (L), no edema noted Pedal (R), no edema noted Generalized Neurologic: manager distribution center II-XII grossly normal, alert Assessment/Plan Status: stable Assessment/Plan: 74 F with unclear PMhx admitted for abdominal pain and chest pain. Cardio consulted and ACS was ruled out, pt under went NM stress test which was negative. Pt noted to have abd pain and occult positive stools. #UTI - E coli - treated -ID consulted, recs appreciated, monitoring off abx # Duodenol Ulcer 2/2 H Pylori # H Pylori Infection - positive on EGD 12/19 biopsy # Gastritis # One Tubular Adenome < 10 mm on colonscopy # Diverticolosis #Ileus #Abdominal Pain - resolved #Constipation - improved - docusate TID, dulcolax suppository PRN - Triple therapy for h Pylori - Clarythromycin 500 mg BID ( 12/23- 01/06) 2 weeks total - Amoxicillin 1000 mg BID (12/23 - 01/06) 2 weeks total - continue PPI BID - will need repeat stool antigen or breath test to confirm Hpylori eradication 4 weeks after completion of therapy - repeat colonscopy in 3 years per GI - avoid NSAID's, i discussed with patient to avoid NSAIDs for the foreseeable future as she said that she was a heavy user - transfused 1U 12/16 - H&H has been stable and uptrending, will restart heparin subq dvt ppx #Right Knee Pain / DJD, OA - reviewed knee XRAY - will start voleteran cream BID - continue PT #Mild Dementia - stable #Orthostatic Hypotension #Syncope -cont Florinef 0.1 mg daily -fall precautions #ZA - resolved -Nephro following, recs appreciated #Chest pain - ACS ruled out, resolved #Chronic HFpEF Initial presentation with non-radiating chest pain that resolved with SL Nitro and Aspirin. EKG with non-specific ST changes in V1-V2. Moderate Heart Score - EKG prn for active chest pain, Trop x3 negative, BNP slightly elevated, HBA1c wnl - Echo EF 70-75%, mild left hypertrophy, mitral and aortic root calcification - Cardiology consulted, recs appreciated - s/p NM stress test negative, pt OK to d/c home from cardio stand point #Hypertension - uncontrolled #Hypertensive Urgency - resolved - continue Norvasc 10 mg PO daily - continue lisinopril 5 mg daily - d/c Hctz due to ZA and hyponatremia - hydralazine PRN for SBP >160 #Psychosis #Depression #Dementia #SI -per nurse pt was seeing "snakes" in the room - resolved -Psych consulted, recs appreciated -Risperdone 2 mg qHS -cont lexapro 10 mg PO qAM -Suicide precautions GI: PPI DVT: Heparin 5000U subq bid Fluids: none Abx: none Diet: Regular Dispo - snf when get medical insurance Code - FULL CODE Time spent with patient 32 mins, approximately 19 minutes spent coordinating care with nurses and consultants. D/w RN, Dr. Tillman, Dr. Vail, GI and Dr. Penny and case management. Time of note may not reflect time of encounter. Rene Mulligan D.O Dec 27, 2019 11:57
--- NOTE | 2019-12-27 15:06 | NUR ---
CASE MANAGEMENT:REVIEW SI;AC/CHR DEMENTIA. UTI. DUODENAL ULCER. 98.3 81 18 140/67 95% ON RA IS;LEXAPRO PO QD FLORINEF PO QD MAG-OX PO TID NORVASC PO QD CARAFATE PO QID PROTONIX PO Q12 BIAXIN PO Q12 AMOXICILLIN PO Q12 ZESTRIL PO QD MED SURG STATUS DCP;FROM HOME PLAN; SNF PLACEMENT [facility] APPLICATION PENDING
--- NOTE | 2019-12-27 19:23 | NUR ---
NURSE HAND-OFF: Important Events on Shift: No adverse events noted Patient Status: Stable Diet: Regular Cardiac Pending Orders: CBC in AM Pending Results/Labs: None Pending MD notification: None Latest Vital Signs: Temperature 97.8 , Pulse 70 , B/P 130 /67 , Respiratory Rate 17 , O2 SAT 98 , Room Air, O2 Flow Rate 3 . Vital Sign Comment: Latest [place] Fall Score: 75 Fall Risk: High Risk Safety Measures: Call light Within Reach, Bed Alarm Zone 1, Side Rails Side Rails x2, Bed position Low and Locked. Fall Precautions: Yellow Socks Yellow Gown Door Sign Patient Fall Education Report given to Racquel SMITH.
--- NOTE | 2019-12-27 19:45 | NUR ---
NURSE NOTES: Received patient awake, verbal, follows command, no SOB noted, bed lowered, bed alarm on, uses the bedside commode with minimal assist.
[2019-12-27] MEDS: Atorvastatin 80mg tab ORAL SCH (20:35)
--- NOTE | 2019-12-27 22:48 | Psych Consult Progress Note ---
Psychiatry Progress Note Psychiatry Progress Note Subjective the pt is the same mental condition is unchanged Medications Current Medications Medications (Trade) Dose Ordered Sig/Yasmine Route PRN Reason Start Time Stop Time Status Last Admin Dose Admin Acetaminophen (Tylenol) 650 mg Q4H PRN ORAL Mild Pain (Pain Scale 1-3) 12/15/19 00:30 01/09/20 00:29 12/25/19 21:20 Acetaminophen (Tylenol) 650 mg Q6H PRN ORAL For Headache 12/15/19 00:30 01/09/20 00:29 12/26/19 15:19 Al Hydroxide/Mg Hydroxide (Mylanta II) 30 ml Q6H PRN ORAL dyspepsia 12/15/19 00:30 01/09/20 00:29 12/23/19 21:47 Amlodipine Besylate (Norvasc) 10 mg QPM ORAL 12/15/19 16:30 01/06/20 16:29 12/27/19 17:13 Amoxicillin (Amoxil) 1,000 mg Q12HR ORAL 12/24/19 10:17 12/31/19 10:16 12/27/19 20:35 Artificial Tears (Akwa-Tears) 2 drop Q2H PRN RIGHT EYE Dry Eyes 12/16/19 12:30 01/15/20 12:29 Atorvastatin Calcium (Lipitor) 80 mg BEDTIME ORAL 12/15/19 21:00 03/04/20 20:59 12/27/19 20:35 Atropine Sulfate (Atropine) 0.5 mg Q3M PRN IV symptomatic bradycardia 12/15/19 00:15 03/04/20 15:44 Bisacodyl (Dulcolax) 10 mg DAILYPRN PRN RECTAL Constipation 12/15/19 00:30 03/10/20 00:29 Clarithromycin (Biaxin) 500 mg EVERY 12 HOURS ORAL 12/24/19 10:15 01/07/20 10:14 12/27/19 20:35 Dextrose (Dextrose 50%) 25 ml Q30M PRN IV Hypoglycemia 12/15/19 00:30 03/03/20 13:59 Dextrose (Dextrose 50%) 50 ml Q30M PRN IV Hypoglycemia 12/15/19 00:15 03/03/20 15:44 Diclofenac Sodium (Voltaren gel) 1 applic BID TOPIC 12/25/19 09:15 03/24/20 09:14 12/27/19 17:13 Escitalopram Oxalate (Lexapro) 10 mg DAILY ORAL 12/15/19 09:00 01/07/20 16:14 12/27/19 09:34 Fludrocortisone Acetate (Florinef) 0.1 mg DAILY ORAL 12/15/19 09:00 01/10/20 16:44 12/27/19 09:34 Haloperidol Lactate (Haldol) 5 mg Q6H PRN IM Agitation 12/15/19 00:30 01/24/20 00:29 Heparin Sodium (Porcine) (Heparin 5000 units/ml) 5,000 units EVERY 12 HOURS SUBQ 12/23/19 11:15 02/06/20 11:14 12/27/19 20:36 Hydralazine HCl (Apresoline) 10 mg Q6H PRN ORAL For High Blood Pressure 12/15/19 00:30 03/09/20 00:29 Lisinopril (ZestriL) 5 mg DAILY ORAL 12/25/19 11:00 01/24/20 10:59 12/27/19 09:34 Magnesium Oxide (Mag-Ox 400mg) 400 mg TID ORAL 12/15/19 09:00 01/04/20 12:59 12/27/19 17:12 Nitroglycerin (Ntg) 0.4 mg Q5M PRN SL Prn Chest Pain 12/15/19 00:15 01/03/20 15:44 Ondansetron HCl (Zofran) 4 mg Q6H PRN IVP Nausea & Vomiting 12/15/19 00:30 01/09/20 00:29 Pantoprazole (Protonix) 40 mg EVERY 12 HOURS ORAL 12/22/19 21:00 01/21/20 20:59 12/27/19 20:35 Polyethylene Glycol (Miralax) 17 gm DAILYPRN PRN ORAL Constipation 12/15/19 00:30 01/09/20 00:29 Risperidone (RisperDAL) 2 mg BEDTIME ORAL 12/27/19 21:00 01/25/20 20:59 12/27/19 20:35 Senna/Docusate Sodium (Kendra-Colace) 1 tab TWICE A DAY ORAL 12/15/19 09:00 01/09/20 17:59 12/27/19 17:13 Sucralfate (Carafate) 1 gm FOUR TIMES A DAY ORAL 12/20/19 18:00 03/19/20 17:59 12/27/19 20:35 Neurological/Psychiatric: Reports: no symptoms, anxiety, depressed, emotional problems, headache, numbness, paresthesia, pre-existing deficit, seizure, tingling, tremors, weakness, other Allergies: Coded Allergies: No Known Allergies (Unverified , 12/04/19) Objective Data Height (Feet): 5 Height (Inches): 4.00 Weight (Pounds): 162 General Appearance: no apparent distress, alert Mental Status Exam - Mood: irritable, anxious Mental Status Exam - Thought C: delusions of grandiosity Perceptual Disturbances: visual Mental Status Exam - Suicidal: not present Additional Comments: Alert, oriented times self, place. Mood is depressed. Affect is blunted, congruent with mood. Thought process is concrete. Thought content, no suicidal or homicidal ideation. Cognition is impaired. Insight and judgment is impaired. Assessment/Plan [place] I: ASSESSMENT: [place] I Major depressive disorder. Psychotic disorder. Dementia. [place] II Deferred. [place] III Abdominal pain. [place] IV Moderate. [place] V 50. PLAN: 1. Start the patient on risperidone 2 mg at bedtime. 2. Lexapro 10 mg in the morning. 3. Provide the patient with reality orientation and supportive therapy. Status: stable Status Narrative ASSESSMENT: [place] I Major depressive disorder. Psychotic disorder. Dementia. [place] II Deferred. [place] III Abdominal pain. [place] IV Moderate. [place] V 50. PLAN: 1. Start the patient on risperidone 2 mg at bedtime. 2. Lexapro 10 mg in the morning. 3. Provide the patient with reality orientation and supportive therapy. Assessment/Plan: ASSESSMENT: [place] I Major depressive disorder. Psychotic disorder. Dementia. [place] II Deferred. [place] III Abdominal pain. [place] IV Moderate. [place] V 50. PLAN: 1. Start the patient on risperidone 2 mg at bedtime. 2. Lexapro 10 mg in the morning. 3. Provide the patient with reality orientation and supportive therapy. Stuart Feliz MD Dec 27, 2019 22:48
[2019-12-28 04:00] VITALS: BP 119/57
[2019-12-28 06:44] LABS: BASOPHILS % (AUTO) 0.8 % (0.0-2.0); HEMATOCRIT 26.4 % (37.0-47.0); HEMOGLOBIN 8.2 G/DL (12.0-16.0); LYMPHOCYTES % (AUTO) 28.2 % (20.0-45.0); MEAN CORPUSCULAR VOLUME 87 FL (80-99); MONOCYTES % (AUTO) 11.4 % (1.0-10.0); NEUTROPHILS % (AUTO) 56.7 % (45.0-75.0); PLATELET COUNT 507 K/UL (150-450); RED BLOOD COUNT 3.03 M/UL (4.20-5.40); WHITE BLOOD COUNT 7.9 K/UL (4.8-10.8)
--- NOTE | 2019-12-28 07:14 | NUR ---
HAND-OFF: Report given to Shay Chris RN.
--- NOTE | 2019-12-28 07:59 | NUR ---
NURSE NOTES: Received report from LUIS Graham. Patient is resting in bed comfortably, AOx4, she denies any pain. pupils reactive to light, unlabored breathing, clear lung sounds bilaterally, abdominal sounds on all four quadrants, pedal pulses present. Patient has a left wrist IV that is infiltrated. Will be replacing today. Patient stable and awaiting placement.
[2019-12-28 08:00] VITALS: BP 154/65
[2019-12-28] MEDS: Sucralfate 1gm tab ORAL SCH (08:26)
[2019-12-28] MEDS: Magnesium Oxide 400mg tab ORAL SCH ×3 (08:27→17:17)
[2019-12-28] MEDS: Lisinopril 2.5mg tab ORAL SCH (08:27)
[2019-12-28] MEDS: Clarithromycin 500mg tab ORAL SCH ×2 (08:27→21:18)
[2019-12-28] MEDS: Docusate Sod/Senna tab ORAL SCH ×2 (08:28→17:17)
[2019-12-28] MEDS: Heparin 5000 units/ml inj SUBQ SCH ×2 (08:29→21:24)
[2019-12-28] MEDS: Diclofenac 1% Gel 100gm TOPIC SCH ×2 (08:34→17:17)
--- NOTE | 2019-12-28 11:24 | General Progress Note ---
Subjective ROS Limited/Unobtainable: No Allergies: Coded Allergies: No Known Allergies (Unverified , 12/04/19) Subjective very confused Objective Last 24 Hour Vital Signs Date Time Temp Pulse Resp B/P (MAP) Pulse Ox O2 Delivery O2 Flow Rate FiO2 12/28/19 09:00 80 70 96 12/28/19 09:00 Room Air 12/28/19 08:27 119/57 12/28/19 08:00 97.3 70 18 154/65 (94) 97 12/28/19 04:00 98.6 77 18 119/57 (77) 9 12/27/19 23:52 98.4 68 17 135/60 (85) 97 12/27/19 21:13 68 70 70 12/27/19 20:19 98.7 72 18 133/64 (87) 97 12/27/19 20:06 Room Air 12/27/19 17:13 70 130/67 12/27/19 16:00 97.8 70 17 130/67 (88) 98 12/27/19 12:00 98.3 79 18 127/69 (88) 98 Intake and Output 12/27/19 12/28/19 19:00 07:00 Intake Total 600 ml 360 ml Balance 600 ml 360 ml Intake Oral 360 ml Other 600 ml # Voids 2 Laboratory Tests 12/28/19 06:15: White Blood Count 7.9, Red Blood Count 3.03L, Hemoglobin 8.2L, Hematocrit 26.4L, Mean Corpuscular Volume 87, Mean Corpuscular Hemoglobin 26.9L, Mean Corpuscular Hemoglobin Concent 30.9L, Red Cell Distribution Width 14.0, Platelet Count 507H, Mean Platelet Volume 5.2L, Neutrophils (%) (Auto) 56.7, Lymphocytes (%) (Auto) 28.2, Monocytes (%) (Auto) 11.4H, Eosinophils (%) (Auto) 3.0, Basophils (%) (Auto) 0.8 Height (Feet): 5 Height (Inches): 4.00 Weight (Pounds): 162 General Appearance: no apparent distress EENT: normal ENT inspection Neck: supple Cardiovascular: normal rate Respiratory/Chest: decreased breath sounds Abdomen: normal bowel sounds, non tender, soft Extremities: non-tender Assessment/Plan Problem List: (1) Hypertension ICD Codes: I10 - Essential (primary) hypertension SNOMED: 69118585 (2) Hypokalemia ICD Codes: E87.6 - Hypokalemia SNOMED: 24910849 (3) Abdominal pain ICD Codes: R10.9 - Unspecified abdominal pain SNOMED: 99162397 (4) Chest pain ICD Codes: R07.9 - Chest pain, unspecified SNOMED: 23586649 Status: stable Assessment/Plan: s/p EGD and colonoscopy: SUMMARY OF FINDINGS: 1. Large duodenal ulcer. 2. Gastritis, status post biopsy. 3. Internal hemorrhoids. 4. Diverticulosis. 5. One colonic polyp removed, see above for details. RECOMMENDATIONS: The patient to be on PPI and Carafate. Monitor hemoglobin and hematocrit. Transfuse as needed. Follow up biopsy results and treat accordingly.>>>HP positive on treatment Would need repeat colonoscopy in three years. Massimo Osborn MD Dec 28, 2019 11:24
[2019-12-28 12:00] VITALS: BP 118/62
--- NOTE | 2019-12-28 12:23 | NUR ---
RD ASSESSMENT & RECOMMENDATIONS SEE CARE ACTIVITY FOR COMPLETE ASSESSMENT DAILY ESTIMATED NEEDS: Needs based on Cardiac, wound 57kg abw 25-35 kcals/kg 9952-7370 total kcals 1.25-1.5 g protein/kg 71-86 g total protein 25-30 mL/kg 3675-5455 total fluid mLs NUTRITION DIAGNOSIS: Altered nutrition related lab values R/T clinical condition, prediabetes? as evidenced by low Na (129-> wnl), low K (3.2-> Wnl), A1C 6.0 CURRENT DIET:Now Regular PO DIET RECOMMENDATIONS: Maintain regular diet as tolerated ADDITIONAL RECOMMENDATIONS: * Calibrated bedscale wt * Monitor lytes, replete as needed * Monitor BGs, need for carb controlled diet/ hypoglycemics: A1C 6.0 * Wound care: add MVI x 1, IRLANDA BID
--- NOTE | 2019-12-28 12:29 | Cardiac Electrophysiology PN ---
Assessment/Plan Assessment/Plan 1. CP. Ruled out for NE. Echo with diastolic dysfunction preserved LV function 70%, no significant valvular disease Stress test Non ischemic 2. HTN on Hydralazine 10 bid and Norvasc 10 3. Psych 4. Dysphagia, S/P EGD by Dr Osborn Placement pending Subjective Subjective Comfortable in NAD off tele. No events. Awaiting insurance and placement Objective Last 24 Hour Vital Signs Date Time Temp Pulse Resp B/P (MAP) Pulse Ox O2 Delivery O2 Flow Rate FiO2 12/28/19 12:00 97.6 72 18 118/62 (80) 95 12/28/19 09:00 80 70 96 12/28/19 09:00 Room Air 12/28/19 08:27 119/57 12/28/19 08:00 97.3 70 18 154/65 (94) 97 12/28/19 04:00 98.6 77 18 119/57 (77) 9 12/27/19 23:52 98.4 68 17 135/60 (85) 97 12/27/19 21:13 68 70 70 12/27/19 20:19 98.7 72 18 133/64 (87) 97 12/27/19 20:06 Room Air 12/27/19 17:13 70 130/67 12/27/19 16:00 97.8 70 17 130/67 (88) 98 Intake and Output 12/27/19 12/28/19 18:59 06:59 Intake Total 600 ml 360 ml Balance 600 ml 360 ml Intake Oral 360 ml Other 600 ml # Voids 2 Laboratory Tests Test 12/28/19 06:15 White Blood Count 7.9 K/UL (4.8-10.8) Red Blood Count 3.03 M/UL (4.20-5.40) L Hemoglobin 8.2 G/DL (12.0-16.0) L Hematocrit 26.4 % (37.0-47.0) L Mean Corpuscular Volume 87 FL (80-99) Mean Corpuscular Hemoglobin 26.9 PG (27.0-31.0) L Mean Corpuscular Hemoglobin Concent 30.9 G/DL (32.0-36.0) L Red Cell Distribution Width 14.0 % (11.6-14.8) Platelet Count 507 K/UL (150-450) H Mean Platelet Volume 5.2 FL (6.5-10.1) L Neutrophils (%) (Auto) 56.7 % (45.0-75.0) Lymphocytes (%) (Auto) 28.2 % (20.0-45.0) Monocytes (%) (Auto) 11.4 % (1.0-10.0) H Eosinophils (%) (Auto) 3.0 % (0.0-3.0) Basophils (%) (Auto) 0.8 % (0.0-2.0) Objective General Appearance: Alert EENT: normal ENT inspection Neck: supple Cardiovascular: normal rate Respiratory/Chest: decreased breath sounds Abdomen: normal bowel sounds, non tender, soft Nate Abdi MD Dec 28, 2019 12:29
[2019-12-28 16:00] VITALS: BP 104/58
--- NOTE | 2019-12-28 16:12 | General Progress Note ---
Subjective Date patient seen: Dec 28, 2019 Time patient seen: 10:36 Constitutional: Denies: no symptoms, chills, diaphoresis, fever, malaise, weakness, other HEENT: Denies: no symptoms, eye pain, blurred vision, tearing, double vision, ear pain, ear discharge, nose pain, nose congestion, throat pain, throat swelling, mouth pain, mouth swelling, other Cardiovascular: Denies: no symptoms, chest pain, edema, irregular heart rate, lightheadedness, palpitations, syncope, other Respiratory: Denies: no symptoms, cough, orthopnea, shortness of breath, SOB with excertion, SOB at rest, sputum, stridor, wheezing, other Gastrointestinal/Abdominal: Denies: no symptoms, abdomen distended, abdominal pain, black stools, tarry stools, blood in stool, constipated, diarrhea, difficulty swallowing, nausea, poor appetite, poor fluid intake, rectal bleeding, vomiting, other Genitourinary: Denies: no symptoms, burning, discharge, frequency, flank pain, hematuria, incontinence, pain, urgency, other Neurologic/Psychiatric: Denies: no symptoms, anxiety, depressed, emotional problems, headache, numbness, paresthesia, pre-existing deficit, seizure, tingling, tremors, weakness, other Endocrine: Denies: no symptoms, excessive sweating, flushing, intolerance to cold, intolerance to heat, increased hunger, increased thirst, increased urine, unexplained weight gain, unexplained weight loss, other Hematologic/Lymphatic: Denies: no symptoms, anemia, easy bleeding, easy bruising, other Allergies: Coded Allergies: No Known Allergies (Unverified , 12/04/19) Subjective - Comfortable today - Denies any abdominal pain - VSS Objective Last 24 Hour Vital Signs Date Time Temp Pulse Resp B/P (MAP) Pulse Ox O2 Delivery O2 Flow Rate FiO2 12/28/19 12:00 97.6 72 18 118/62 (80) 95 12/28/19 09:00 80 70 96 12/28/19 09:00 Room Air 12/28/19 08:27 119/57 12/28/19 08:00 97.3 70 18 154/65 (94) 97 12/28/19 04:00 98.6 77 18 119/57 (77) 9 12/27/19 23:52 98.4 68 17 135/60 (85) 97 12/27/19 21:13 68 70 70 12/27/19 20:19 98.7 72 18 133/64 (87) 97 12/27/19 20:06 Room Air 12/27/19 17:13 70 130/67 Intake and Output 12/27/19 12/28/19 19:00 07:00 Intake Total 600 ml 360 ml Balance 600 ml 360 ml Intake Oral 360 ml Other 600 ml # Voids 2 Laboratory Tests 12/28/19 06:15: White Blood Count 7.9, Red Blood Count 3.03L, Hemoglobin 8.2L, Hematocrit 26.4L, Mean Corpuscular Volume 87, Mean Corpuscular Hemoglobin 26.9L, Mean Corpuscular Hemoglobin Concent 30.9L, Red Cell Distribution Width 14.0, Platelet Count 507H, Mean Platelet Volume 5.2L, Neutrophils (%) (Auto) 56.7, Lymphocytes (%) (Auto) 28.2, Monocytes (%) (Auto) 11.4H, Eosinophils (%) (Auto) 3.0, Basophils (%) (Auto) 0.8 Height (Feet): 5 Height (Inches): 4.00 Weight (Pounds): 162 General Appearance: alert EENT: PERRL/EOMI Neck: supple Cardiovascular: normal rate Respiratory/Chest: lungs clear Abdomen: normal bowel sounds, non tender, soft Extremities: non-tender Neurologic: drapery hanger II-XII grossly normal Skin: warm/dry Assessment/Plan Problem List: (1) Chest pain ICD Codes: R07.9 - Chest pain, unspecified SNOMED: 02013588 (2) Chest pain ICD Codes: R07.9 - Chest pain, unspecified SNOMED: 47171923 (3) Abdominal pain ICD Codes: R10.9 - Unspecified abdominal pain SNOMED: 20659466 (4) Hypokalemia ICD Codes: E87.6 - Hypokalemia SNOMED: 08593159 (5) Hypertension ICD Codes: I10 - Essential (primary) hypertension SNOMED: 70146291 (6) Depressed mood ICD Codes: R45.89 - Other symptoms and signs involving emotional state SNOMED: 351923481 (7) Ileus ICD Codes: K56.7 - Ileus, unspecified SNOMED: 825896424 Status: stable Assessment/Plan: 74 F with unclear PMhx admitted for abdominal pain and chest pain. Cardio consulted and ACS was ruled out, pt under went NM stress test which was negative. Pt noted to have abd pain and occult positive stools. # Duodenol Ulcer 2/ H Pylori # H Pylori Infection - positive on EGD 12/19 biopsy # Gastritis # One Tubular Adenoma < 10 mm on colonscopy # Diverticolosis #Ileus #Constipation - improved - Triple therapy for h Pylori - Clarythromycin 500 mg BID ( 12/23- 01/06) 2 weeks total - Amoxicillin 1000 mg BID (12/23 - 01/06) 2 weeks total - continue PPI BID and carafate - will need repeat stool antigen or breath test to confirm Hpylori eradication 4 weeks after completion of therapy and off ppi - repeat colonoscopy in 3 years per GI - avoid NSAID's for the foreseeable future as she said that she was a heavy user - H&H has been stable and uptrending, will restart heparin subq dvt ppx - docusate TID, dulcolax suppository PRN #UTI - E coli - treated -ID consulted, recs appreciated, monitoring off abx #Right Knee Pain 2/2 DJD, OA - reviewed knee XRAY - will start voltaren cream BID - continue PT, ambulating with assistance #Mild Dementia - stable #Orthostatic Hypotension #Syncope -cont Florinef 0.1 mg daily -fall precautions #ZA - resolved -Nephro following, recs appreciated #Chest pain - ACS ruled out, resolved #Chronic HFpEF Initial presentation with non-radiating chest pain that resolved with SL Nitro and Aspirin. EKG with non-specific ST changes in V1-V2. Moderate Heart Score - EKG prn for active chest pain, Trop x3 negative, BNP slightly elevated, HBA1c wnl - Echo EF 70-75%, mild left hypertrophy, mitral and aortic root calcification - Cardiology consulted, recs appreciated - s/p NM stress test negative, pt OK to d/c home from cardio stand point #Hypertension - uncontrolled #Hypertensive Urgency - resolved - continue Norvasc 10 mg PO daily - continue lisinopril 5 mg daily - d/c Hctz due to ZA and hyponatremia - hydralazine PRN for SBP >160 #Psychosis #Depression #Dementia #SI -Psych consulted, recs appreciated -Risperdone 2 mg qHS -cont lexapro 10 mg PO qAM -Suicide precautions GI: PPI DVT: Heparin 5000U subq bid Diet: Regular Dispo - snf vs. home Code - FULL CODE Time spent with patient 35 mins, approximately 20 minutes spent coordinating care with nurses and consultants. D/w RN and CM with plan for patient. Time of note may not reflect time of encounter. Tiki Jerome M.D. Dec 28, 2019 16:12
--- NOTE | 2019-12-28 19:27 | NUR ---
NURSE HAND-OFF: Important Events on Shift:n/a Patient Status: stable Diet: cardiac Pending Orders: n/a Pending Results/Labs:n/a Pending MD notification:n/a Latest Vital Signs: Temperature 98.2 , Pulse 71 , B/P 104 /58 , Respiratory Rate 18 , O2 SAT 98 , Room Air, O2 Flow Rate 3 . Vital Sign Comment: stable Latest [place] Fall Score: 75 Fall Risk: High Risk Safety Measures: Call light Within Reach, Bed Alarm Zone 1, Side Rails Side Rails x2, Bed position Low and Locked. Fall Precautions: Yellow Socks Yellow Gown Door Sign Patient Fall Education Report given to LUIS Murphy.
--- NOTE | 2019-12-28 19:36 | NUR ---
NURSE NOTES: Patient is sitting up in bed. AO x3-4. On room air with no signs of distress or SOB. IV intact and patent. Bed locked and in lowest position. Call light in reach. Bed alarm on. Will continue plan of care.
[2019-12-28 20:00] VITALS: BP 139/91
[2019-12-28] MEDS: Atorvastatin 80mg tab ORAL SCH (21:17)
--- NOTE | 2019-12-28 22:54 | Psych Consult Progress Note ---
Psychiatry Progress Note Psychiatry Progress Note Subjective the pt is the same mental condition is unchanged Medications Current Medications Medications (Trade) Dose Ordered Sig/Aysmine Route PRN Reason Start Time Stop Time Status Last Admin Dose Admin Acetaminophen (Tylenol) 650 mg Q4H PRN ORAL Mild Pain (Pain Scale 1-3) 12/15/19 00:30 01/09/20 00:29 12/25/19 21:20 Acetaminophen (Tylenol) 650 mg Q6H PRN ORAL For Headache 12/15/19 00:30 01/09/20 00:29 12/26/19 15:19 Al Hydroxide/Mg Hydroxide (Mylanta II) 30 ml Q6H PRN ORAL dyspepsia 12/15/19 00:30 01/09/20 00:29 12/23/19 21:47 Amlodipine Besylate (Norvasc) 10 mg QPM ORAL 12/15/19 16:30 01/06/20 16:29 12/27/19 17:13 Amoxicillin (Amoxil) 1,000 mg Q12HR ORAL 12/24/19 10:17 01/04/20 10:16 12/28/19 21:17 Artificial Tears (Akwa-Tears) 2 drop Q2H PRN RIGHT EYE Dry Eyes 12/16/19 12:30 01/15/20 12:29 Atorvastatin Calcium (Lipitor) 80 mg BEDTIME ORAL 12/15/19 21:00 03/04/20 20:59 12/28/19 21:17 Atropine Sulfate (Atropine) 0.5 mg Q3M PRN IV symptomatic bradycardia 12/15/19 00:15 03/04/20 15:44 Bisacodyl (Dulcolax) 10 mg DAILYPRN PRN RECTAL Constipation 12/15/19 00:30 03/10/20 00:29 Clarithromycin (Biaxin) 500 mg EVERY 12 HOURS ORAL 12/24/19 10:15 01/07/20 10:14 12/28/19 21:18 Dextrose (Dextrose 50%) 25 ml Q30M PRN IV Hypoglycemia 12/15/19 00:30 03/03/20 13:59 Dextrose (Dextrose 50%) 50 ml Q30M PRN IV Hypoglycemia 12/15/19 00:15 03/03/20 15:44 Diclofenac Sodium (Voltaren gel) 1 applic BID TOPIC 12/25/19 09:15 03/24/20 09:14 12/28/19 17:17 Escitalopram Oxalate (Lexapro) 10 mg DAILY ORAL 12/15/19 09:00 01/07/20 16:14 12/28/19 08:27 Fludrocortisone Acetate (Florinef) 0.1 mg DAILY ORAL 12/15/19 09:00 01/10/20 16:44 12/28/19 08:27 Haloperidol Lactate (Haldol) 5 mg Q6H PRN IM Agitation 12/15/19 00:30 01/24/20 00:29 Heparin Sodium (Porcine) (Heparin 5000 units/ml) 5,000 units EVERY 12 HOURS SUBQ 12/23/19 11:15 02/06/20 11:14 12/28/19 21:24 Hydralazine HCl (Apresoline) 10 mg Q6H PRN ORAL For High Blood Pressure 12/15/19 00:30 12 00:29 Lisinopril (ZestriL) 5 mg DAILY ORAL 12/25/19 11:00 01/24/20 10:59 12/28/19 08:27 Magnesium Oxide (Mag-Ox 400mg) 400 mg TID ORAL 12/15/19 09:00 01/04/20 12:59 12/28/19 17:17 Nitroglycerin (Ntg) 0.4 mg Q5M PRN SL Prn Chest Pain 12/15/19 00:15 01/03/20 15:44 Ondansetron HCl (Zofran) 4 mg Q6H PRN IVP Nausea & Vomiting 12/15/19 00:30 01/09/20 00:29 Pantoprazole (Protonix) 40 mg EVERY 12 HOURS ORAL 12/22/19 21:00 01/21/20 20:59 12/28/19 21:17 Polyethylene Glycol (Miralax) 17 gm DAILYPRN PRN ORAL Constipation 12/15/19 00:30 01/09/20 00:29 Risperidone (RisperDAL) 2 mg BEDTIME ORAL 12/27/19 21:00 01/25/20 20:59 12/28/19 21:17 Senna/Docusate Sodium (Kendra-Colace) 1 tab TWICE A DAY ORAL 12/15/19 09:00 01/09/20 17:59 12/28/19 17:17 Neurological/Psychiatric: Denies: no symptoms, anxiety, depressed, emotional problems, headache, numbness, paresthesia, pre-existing deficit, seizure, tingling, tremors, weakness, other Allergies: Coded Allergies: No Known Allergies (Unverified , 12/04/19) Objective Data Height (Feet): 5 Height (Inches): 4.00 Weight (Pounds): 162 General Appearance: alert Mental Status Exam - Mood: irritable, anxious Mental Status Exam - Thought C: delusions of grandiosity Perceptual Disturbances: visual Mental Status Exam - Suicidal: not present Additional Comments: Alert, oriented times self, place. Mood is depressed. Affect is blunted, congruent with mood. Thought process is concrete. Thought content, no suicidal or homicidal ideation. Cognition is impaired. Insight and judgment is impaired. Assessment/Plan [place] I: ASSESSMENT: [place] I Major depressive disorder. Psychotic disorder. Dementia. [place] II Deferred. [place] III Abdominal pain. [place] IV Moderate. [place] V 50. PLAN: 1. Start the patient on risperidone 2 mg at bedtime. 2. Lexapro 10 mg in the morning. 3. Provide the patient with reality orientation and supportive therapy. Status: stable Status Narrative ASSESSMENT: [place] I Major depressive disorder. Psychotic disorder. Dementia. [place] II Deferred. [place] III Abdominal pain. [place] IV Moderate. [place] V 50. PLAN: 1. Start the patient on risperidone 2 mg at bedtime. 2. Lexapro 10 mg in the morning. 3. Provide the patient with reality orientation and supportive therapy. Assessment/Plan: ASSESSMENT: [place] I Major depressive disorder. Psychotic disorder. Dementia. [place] II Deferred. [place] III Abdominal pain. [place] IV Moderate. [place] V 50. PLAN: 1. Start the patient on risperidone 2 mg at bedtime. 2. Lexapro 10 mg in the morning. 3. Provide the patient with reality orientation and supportive therapy. Stuart Feliz MD Dec 28, 2019 22:54
[2019-12-29] VITALS: BP 139/70
[2019-12-29 03:30] VITALS: BP 147/86
--- NOTE | 2019-12-29 06:38 | NUR ---
NURSE HAND-OFF: Important Events on Shift: No events Patient Status: Stable Diet: Reg Pending Orders: N/A Pending Results/Labs: N/A Pending MD notification: N/A Latest Vital Signs: Temperature 97.6 , Pulse 82 , B/P 147 /86 , Respiratory Rate 16 , O2 SAT 97 , Room Air, O2 Flow Rate 3 . Vital Sign Comment: Latest [place] Fall Score: 75 Fall Risk: High Risk Safety Measures: Call light Within Reach, Bed Alarm Zone 1, Side Rails Side Rails x2, Bed position Low and Locked. Fall Precautions: Yellow Socks Yellow Gown Door Sign Patient Fall Education Addendum: 12/29/19 at 0722 by SIS NORTH RN Report given to LUIS Day
--- NOTE | 2019-12-29 07:43 | NUR ---
NURSE NOTES: Received report from LUIS Murphy. Patient in bed resting comfortably. She is AOx4, pupils reactive to light, she denies any pain, lungs sound clear bilaterally, abdominal sounds present on all four quadrants. Pedal pulses present. She is on room air, cardiac diet, she has an IV on right hand 24G Saline lock. She will be monitored for safety.
[2019-12-29 08:00] VITALS: BP 92/57
[2019-12-29] MEDS: Diclofenac 1% Gel 100gm TOPIC SCH (08:04)
[2019-12-29] MEDS: Lisinopril 2.5mg tab ORAL SCH (08:10)
[2019-12-29] MEDS: Clarithromycin 500mg tab ORAL SCH (08:11)
[2019-12-29] MEDS: Docusate Sod/Senna tab ORAL SCH (08:11)
[2019-12-29] MEDS: Magnesium Oxide 400mg tab ORAL SCH ×2 (08:11→12:44)
[2019-12-29] MEDS: Heparin 5000 units/ml inj SUBQ SCH (08:12)
--- NOTE | 2019-12-29 08:17 | General Progress Note ---
Subjective ROS Limited/Unobtainable: No Allergies: Coded Allergies: No Known Allergies (Unverified , 12/04/19) Subjective very confused Objective Last 24 Hour Vital Signs Date Time Temp Pulse Resp B/P (MAP) Pulse Ox O2 Delivery O2 Flow Rate FiO2 12/29/19 08:10 92/57 12/29/19 03:30 97.6 82 16 147/86 (106) 97 12/29/19 00:00 98.8 76 16 139/70 (93) 97 12/28/19 21:00 89 76 12/28/19 21:00 Room Air 12/28/19 20:00 98.2 89 16 139/91 (107) 97 12/28/19 16:30 71 104/58 12/28/19 16:00 98.2 71 18 104/58 (73) 98 12/28/19 12:00 97.6 72 18 118/62 (80) 95 12/28/19 09:00 80 70 96 12/28/19 09:00 Room Air 12/28/19 08:27 119/57 Intake and Output 12/28/19 12/29/19 18:59 06:59 Intake Total 720 ml 240 ml Balance 720 ml 240 ml Intake Oral 720 ml 240 ml # Voids 1 1 # Bowel Movements 1 Height (Feet): 5 Height (Inches): 4.00 Weight (Pounds): 162 General Appearance: no apparent distress EENT: normal ENT inspection Neck: supple Cardiovascular: normal rate Respiratory/Chest: decreased breath sounds Abdomen: normal bowel sounds, non tender, soft Extremities: non-tender Assessment/Plan Problem List: (1) Hypertension ICD Codes: I10 - Essential (primary) hypertension SNOMED: 78510992 (2) Hypokalemia ICD Codes: E87.6 - Hypokalemia SNOMED: 85041885 (3) Abdominal pain ICD Codes: R10.9 - Unspecified abdominal pain SNOMED: 71172351 (4) Chest pain ICD Codes: R07.9 - Chest pain, unspecified SNOMED: 95204184 Status: stable Assessment/Plan: s/p EGD and colonoscopy: SUMMARY OF FINDINGS: 1. Large duodenal ulcer. 2. Gastritis, status post biopsy. 3. Internal hemorrhoids. 4. Diverticulosis. 5. One colonic polyp removed, see above for details. RECOMMENDATIONS: The patient to be on PPI and Carafate. Monitor hemoglobin and hematocrit. Transfuse as needed. Follow up biopsy results and treat accordingly.>>>HP positive on treatment Would need repeat colonoscopy in three years. Massimo Osborn MD Dec 29, 2019 08:17
--- NOTE | 2019-12-29 09:12 | NUR ---
NURSE NOTES: patient was seen by DR. Jerome. 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 MD will talk to vocational case manager for safe discharge and MD will prescribe medications for H.Pyloi upon discharge.
--- NOTE | 2019-12-29 09:13 | NUR ---
PT NOTE Attempted to see patient for PT treatment. Currently BP 90/37. PT treatment deferred at this time due to low BP. Shay SMITH aware, will follow.
[2019-12-29 12:00] VITALS: BP 120/64
[2019-12-29] MEDS ORDERED: LEXAPRO10 MG ORAL (12:14)
[2019-12-29] MEDS ORDERED: RISPERDAL2 MG ORAL (12:14)
[2019-12-29] MEDS ORDERED: PANTOPRAZOLE SO40 MG ORAL (12:14)
[2019-12-29] MEDS ORDERED: AMOXIL250 MG ORAL (12:14)
[2019-12-29] MEDS ORDERED: ZESTRIL2.5 MG ORAL (12:14)
[2019-12-29] MEDS ORDERED: VOLTAREN100 G1 TOPIC (12:14)
[2019-12-29] MEDS ORDERED: CLARITHROMYCIN500 MG ORAL (12:14)
[2019-12-29] MEDS ORDERED: LIPITOR80 MG ORAL (12:14)
--- NOTE | 2019-12-29 15:54 | NUR ---
NURSE NOTES: called [facility] regarding discharge medications. pharmacy received e prescription from but they could not verify patient insurance d/t no ssn available in the facesheet. RN got ssn from patient which is wrong number. RN called sheree Byrd but not answering phone now.
[2019-12-29 16:00] VITALS: BP 143/75
--- NOTE | 2019-12-29 16:12 | Cardiac Electrophysiology PN ---
Assessment/Plan Assessment/Plan 1. CP. Ruled out for MO. Echo with diastolic dysfunction preserved LV function 70%, no significant valvular disease Stress test Non ischemic 2. HTN on Hydralazine 10 bid and Norvasc 10 3. Psych 4. Dysphagia, S/P EGD by Dr Osborn DC home with sister today DW RN Subjective Subjective Comfortable in NAD off tele. No events. Going home with her sister Objective Last 24 Hour Vital Signs Date Time Temp Pulse Resp B/P (MAP) Pulse Ox O2 Delivery O2 Flow Rate FiO2 12/29/19 12:00 98.1 81 18 120/64 (82) 100 12/29/19 09:00 Room Air 12/29/19 09:00 87 89 12/29/19 08:10 92/57 12/29/19 08:00 97.9 82 16 92/57 (69) 96 12/29/19 03:30 97.6 82 16 147/86 (106) 97 12/29/19 00:00 98.8 76 16 139/70 (93) 97 12/28/19 21:00 89 76 12/28/19 21:00 Room Air 12/28/19 20:00 98.2 89 16 139/91 (107) 97 12/28/19 16:30 71 104/58 Intake and Output 12/28/19 12/29/19 19:00 07:00 Intake Total 720 ml 240 ml Balance 720 ml 240 ml Intake Oral 720 ml 240 ml # Voids 1 1 # Bowel Movements 1 Objective General Appearance: Alert EENT: normal ENT inspection Neck: supple Cardiovascular: normal rate Respiratory/Chest: decreased breath sounds Abdomen: normal bowel sounds, non tender, soft Nate Abdi MD Dec 29, 2019 16:12
--- NOTE | 2019-12-29 16:19 | General Progress Note ---
Subjective Date patient seen: Dec 29, 2019 Time patient seen: 09:12 Constitutional: Denies: no symptoms, chills, diaphoresis, fever, malaise, weakness, other HEENT: Denies: no symptoms, eye pain, blurred vision, tearing, double vision, ear pain, ear discharge, nose pain, nose congestion, throat pain, throat swelling, mouth pain, mouth swelling, other Cardiovascular: Denies: no symptoms, chest pain, edema, irregular heart rate, lightheadedness, palpitations, syncope, other Respiratory: Denies: no symptoms, cough, orthopnea, shortness of breath, SOB with excertion, SOB at rest, sputum, stridor, wheezing, other Gastrointestinal/Abdominal: Denies: no symptoms, abdomen distended, abdominal pain, black stools, tarry stools, blood in stool, constipated, diarrhea, difficulty swallowing, nausea, poor appetite, poor fluid intake, rectal bleeding, vomiting, other Genitourinary: Denies: no symptoms, burning, discharge, frequency, flank pain, hematuria, incontinence, pain, urgency, other Neurologic/Psychiatric: Denies: no symptoms, anxiety, depressed, emotional problems, headache, numbness, paresthesia, pre-existing deficit, seizure, tingling, tremors, weakness, other Endocrine: Denies: no symptoms, excessive sweating, flushing, intolerance to cold, intolerance to heat, increased hunger, increased thirst, increased urine, unexplained weight gain, unexplained weight loss, other Hematologic/Lymphatic: Denies: no symptoms, anemia, easy bleeding, easy bruising, other Allergies: Coded Allergies: No Known Allergies (Unverified , 12/04/19) Subjective - Comfortable today - No complaints per patient, no n/v or change in bowel movements -Says she is interested in home discharge vs. snf Objective Last 24 Hour Vital Signs Date Time Temp Pulse Resp B/P (MAP) Pulse Ox O2 Delivery O2 Flow Rate FiO2 12/29/19 12:00 98.1 81 18 120/64 (82) 100 12/29/19 09:00 Room Air 12/29/19 09:00 87 89 12/29/19 08:10 92/57 12/29/19 08:00 97.9 82 16 92/57 (69) 96 12/29/19 03:30 97.6 82 16 147/86 (106) 97 12/29/19 00:00 98.8 76 16 139/70 (93) 97 12/28/19 21:00 89 76 12/28/19 21:00 Room Air 12/28/19 20:00 98.2 89 16 139/91 (107) 97 12/28/19 16:30 71 104/58 Intake and Output 12/28/19 12/29/19 18:59 06:59 Intake Total 720 ml 240 ml Balance 720 ml 240 ml Intake Oral 720 ml 240 ml # Voids 1 1 # Bowel Movements 1 Height (Feet): 5 Height (Inches): 4.00 Weight (Pounds): 162 General Appearance: no apparent distress, alert EENT: PERRL/EOMI Neck: supple Cardiovascular: normal rate, regular rhythm Respiratory/Chest: normal breath sounds Abdomen: non tender, soft 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 II-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 grossly normal, alert Skin: warm/dry Assessment/Plan Problem List: (1) Chest pain ICD Codes: R07.9 - Chest pain, unspecified SNOMED: 56796594 (2) Chest pain ICD Codes: R07.9 - Chest pain, unspecified SNOMED: 16658703 (3) Abdominal pain ICD Codes: R10.9 - Unspecified abdominal pain SNOMED: 96552351 (4) Hypokalemia ICD Codes: E87.6 - Hypokalemia SNOMED: 27232638 (5) Hypertension ICD Codes: I10 - Essential (primary) hypertension SNOMED: 63589580 (6) Depressed mood ICD Codes: R45.89 - Other symptoms and signs involving emotional state SNOMED: 978389218 (7) Ileus ICD Codes: K56.7 - Ileus, unspecified SNOMED: 562807196 Status: stable Assessment/Plan: 74 F with unclear PMhx admitted for abdominal pain and chest pain. Cardio consulted and ACS was ruled out, pt under went NM stress test which was negative. Pt noted to have abd pain and occult positive stools. # Duodenol Ulcer 2/2 H Pylori # H Pylori Infection - positive on EGD 12/19 biopsy # Gastritis # One Tubular Adenoma < 10 mm on colonscopy # Diverticolosis #Ileus #Constipation - improved - Triple therapy for h Pylori - Clarythromycin 500 mg BID ( 12/23- 01/06) 2 weeks total - Amoxicillin 1000 mg BID (12/23 - 01/06) 2 weeks total - continue PPI BID - will need repeat stool antigen or breath test to confirm Hpylori eradication 4 weeks after completion of therapy and off ppi - repeat colonoscopy in 3 years per GI - avoid NSAID's for the foreseeable future as she said that she was a heavy user - H&H has been stable - docusate TID, dulcolax suppository PRN #UTI - E coli - s/p tx -ID consulted, recs appreciated, monitoring off abx #Right Knee Pain 2/ DJD, OA - reviewed knee XRAY - Voltaren gel - continue PT, ambulating with assistance #Mild Dementia - stable #Orthostatic Hypotension #Syncope -cont Florinef 0.1 mg daily -fall precautions #ZA - resolved -Nephro following, recs appreciated #Chest pain - ACS ruled out, resolved #Chronic HFpEF Initial presentation with non-radiating chest pain that resolved with SL Nitro and Aspirin. EKG with non-specific ST changes in V1-V2. Moderate Heart Score - EKG prn for active chest pain, Trop x3 negative, BNP slightly elevated, HBA1c wnl - Echo EF 70-75%, mild left hypertrophy, mitral and aortic root calcification - Cardiology consulted, recs appreciated - s/p NM stress test negative, cleared for dc by cardiology #Hypertension - uncontrolled #Hypertensive Urgency - resolved - continue Norvasc 10 mg PO daily - continue lisinopril 5 mg daily - d/c Hctz due to ZA and hyponatremia - hydralazine PRN for SBP >160 #Psychosis #Depression #Dementia #SI -Psych consulted, recs appreciated -Risperdone 2 mg qHS -cont lexapro 10 mg PO qAM -Suicide precautions GI: PPI DVT: Heparin 5000U subq bid Diet: Regular Dispo - Plan for dc home today Code - FULL CODE Time spent with patient 35 mins, approximately 20 minutes spent coordinating care with nurses and consultants. D/w RN and CM with plan for patient. Time of note may not reflect time of encounter. Tiki Jerome M.D. Dec 29, 2019 16:19
[2019-12-29 16:53] VITALS: BP 143/75
--- NOTE | 2019-12-29 17:07 | Discharge Summary ---
Discharge Summary Hospital Course Date of Admission Dec 04, 2019 at 13:31 Date of Discharge Admitting Diagnosis chest pain HPI Renetta Carroll is a 74 year old female who was admitted on Dec 04, 2019 at 13:31 for Chest Pain Hospital Course 74 F with unclear PMhx admitted for abdominal pain and chest pain. Cardio consulted and ACS was ruled out, pt under went NM stress test which was negative. Pt noted to have abd pain and occult positive stools. # Duodenol Ulcer 2/2 H Pylori # H Pylori Infection - positive on EGD 12/19 biopsy # Gastritis # One Tubular Adenoma < 10 mm on colonscopy # Diverticolosis #Ileus #Constipation - improved Patient initially presented with chest pain and abdominal pain. EGD and Colonoscopy performed in patient with biopsy results + for H.Pylori. Patient is to be on triple therapy for H.pylori that was initiated inpatient and is to continue: Amoxicillin 1g BID (12/23 - 01/06), Clarithromycin 500mg BID (12/23- 01/06), and Protonix BID. She will need repeat stool antigen/urease breath test for confirmation of eradication after completeion of therapy and 2-3wk off of ppi. Repeat colonoscopy in 3 yr. Patient was also counseled to avoid NSAIDs and take OTC for constipation if necessary. 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 #UTI - E coli - s/p tx -ID consulted, recs appreciated, monitoring off abx #Right Knee Pain 2/2 DJD, OA Xray of knee with no acute pathology. Voltaren gel prescribed. Avoid NSaids. Participating well with therapy. #Mild Dementia - stable #Orthostatic Hypotension #Syncope #ZA - resolved -Nephro following, recs appreciated #Chest pain - ACS ruled out, resolved #Chronic HFpEF Initial presentation with non-radiating chest pain that resolved with SL Nitro and Aspirin. EKG with non-specific ST changes in V1-V2. Moderate Heart Score - EKG prn for active chest pain, Trop x3 negative, BNP slightly elevated, HBA1c wnl - Echo EF 70-75%, mild left hypertrophy, mitral and aortic root calcification - Cardiology consulted, recs appreciated - s/p NM stress test negative, cleared for dc by cardiology #Hypertension - uncontrolled #Hypertensive Urgency - resolved - continue Norvasc 10 mg PO daily - continue lisinopril 5 mg daily - d/c Hctz due to ZA and hyponatremia - hydralazine PRN for SBP >160 #Psychosis #Depression #Dementia #SI -Psych consulted, recs appreciated -Risperdone 2 mg qHS -cont lexapro 10 mg PO qAM -Suicide precautions >30 minutes spent with care coordination for discharge of patient. Time of note may not reflect time of encounter. Discharge Discharge Vital Signs Last Vital Signs Date Time Temp Pulse Resp B/P (MAP) Pulse Ox O2 Delivery O2 Flow Rate FiO2 12/29/19 16:53 81 143/75 12/29/19 16:00 98.1 18 100 12/29/19 09:00 Room Air 12/20/19 14:11 3 Discharge Disposition Patient was discharged to Tiki Jerome M.D. Dec 29, 2019 17:07
--- NOTE | 2019-12-29 17:44 | NUR ---
NURSE NOTES: Patient was discharged home today at 1730. she was picked up by sheree Byrd. sheree will olive picker discharge medication from [facility]. Patient is AOx4, ambulatory with a walker, no signs of distress, denies any pain or respiratory difficulty. Patient was discharged home with all her belongings.
--- NOTE | 2019-12-29 23:22 | Psych Consult Progress Note ---
Psychiatry Progress Note Psychiatry Progress Note Subjective the pt is the same mental condition is unchanged Neurological/Psychiatric: Denies: no symptoms, anxiety, depressed, emotional problems, headache, numbness, paresthesia, pre-existing deficit, seizure, tingling, tremors, weakness, other Allergies: Coded Allergies: No Known Allergies (Unverified , 12/04/19) Objective Data Height (Feet): 5 Height (Inches): 4.00 Weight (Pounds): 162 General Appearance: no apparent distress, alert Mental Status Exam - Mood: irritable, anxious Mental Status Exam - Thought C: delusions of grandiosity Perceptual Disturbances: visual Mental Status Exam - Suicidal: not present Additional Comments: Alert, oriented times self, place. Mood is depressed. Affect is blunted, congruent with mood. Thought process is concrete. Thought content, no suicidal or homicidal ideation. Cognition is impaired. Insight and judgment is impaired. Assessment/Plan [place] I: ASSESSMENT: [place] I Major depressive disorder. Psychotic disorder. Dementia. [place] II Deferred. [place] III Abdominal pain. [place] IV Moderate. [place] V 50. PLAN: 1. Start the patient on risperidone 2 mg at bedtime. 2. Lexapro 10 mg in the morning. 3. Provide the patient with reality orientation and supportive therapy. Status: stable Status Narrative ASSESSMENT: [place] I Major depressive disorder. Psychotic disorder. Dementia. [place] II Deferred. [place] III Abdominal pain. [place] IV Moderate. [place] V 50. PLAN: 1. Start the patient on risperidone 2 mg at bedtime. 2. Lexapro 10 mg in the morning. 3. Provide the patient with reality orientation and supportive therapy. Assessment/Plan: ASSESSMENT: [place] I Major depressive disorder. Psychotic disorder. Dementia. [place] II Deferred. [place] III Abdominal pain. [place] IV Moderate. [place] V 50. PLAN: 1. Start the patient on risperidone 2 mg at bedtime. 2. Lexapro 10 mg in the morning. 3. Provide the patient with reality orientation and supportive therapy. Stuart Feliz MD Dec 29, 2019 23:22
--- NOTE | 2020-01-06 21:03 | Coder Physician Query ---
Clarification is required for compliance, coding accuracy, and to reflect severity of illness for this patient. Dear Dr. AYALA Date: 01/05/2020 Application Integration Architect: Zeke, MEGHAN HPI 74F with unclear PMHx presents with abdominal pain and chest pain. Hospital Course 74 F with unclear PMhx admitted for abdominal pain and chest pain. Cardio consulted and ACS was ruled out, pt under went NM stress test which was negative. Pt noted to have abd pain and occult positive stools. # Duodenol Ulcer 2/2 H Pylori ID progress notes: e.coli uti, sepsis, ? enteritis, leukocytosis, c.diff. negative - zosyn - day # 3 - cultures - negative - monitor labs - leukocytosis slowly improving 1) leukocytosis - ? source, ? enteritis, diarrhea A posssible diagnois of SEPSIS was made in the medical record in the Infectious disease notes. Upon review, it is difficult to determine whether this diagnosis has been ruled in, ruled out,or is still being worked up. Please indicate below the status of the aforementioned diagnosis. [] Ruled out [] Treated and resolve [] Presumed and treated [] Currently under treatment [] Still being worked-up Present on Admission: [] Yes [] No [] Clinically Undetermined LUZ MARIA AYALA M.D. Date & Time Please also document in your Progress Notes and/or Discharge Summary and indicate if the condition was present on admission. MTDD
== END 2019-12-29 17:46 | disposition home or self-care (01) | DRG 377 ==
LOC: EDBD 10:22 → EMR 10:45 → 2E 13:31 → EDBEDREQ 13:36 → 2E 12-06 09:25 → 4E 12-10 13:11 → 2E 12-11 13:12 → 4E 12-14 23:29
PROC: 30233N0 Transfusion of Autologous Red Blood Cells into Peripheral Vein, Percutaneous Approach (ICD-10-PCS; principal; 2019-12-17)
PROC: 0DBK8ZZ Excision of Ascending Colon, Via Natural or Artificial Opening Endoscopic (ICD-10-PCS; 2019-12-20 13:22)
PROC: 0DB78ZX Excision of Stomach, Pylorus, Via Natural or Artificial Opening Endoscopic, Diagnostic (ICD-10-PCS; 2019-12-20 13:22)
PROC: 0DB68ZX Excision of Stomach, Via Natural or Artificial Opening Endoscopic, Diagnostic (ICD-10-PCS; 2019-12-20 13:22)
DX: K26.4 Chronic or unspecified duodenal ulcer with hemorrhage (principal); G93.41 Metabolic encephalopathy; N17.9 Acute kidney failure, unspecified; K56.7 Ileus, unspecified; I50.32 Chronic diastolic (congestive) heart failure; E87.1 Hypo-osmolality and hyponatremia; N39.0 Urinary tract infection, site not specified; R45.851 Suicidal ideations; K59.00 Constipation, unspecified; T50.2X5A Adverse effect of carbonic-anhydrase inhibitors, benzothiadiazides and other diuretics, initial encounter; E87.6 Hypokalemia; F32.9 Major depressive disorder, single episode, unspecified; I16.0 Hypertensive urgency; N18.9 Chronic kidney disease, unspecified; I12.9 Hypertensive chronic kidney disease with stage 1 through stage 4 chronic kidney disease, or unspecified chronic kidney disease; I95.1 Orthostatic hypotension; F03.90 Unspecified dementia, unspecified severity, without behavioral disturbance, psychotic disturbance, mood disturbance, and anxiety; R07.9 Chest pain, unspecified; R10.9 Unspecified abdominal pain; B96.81 Helicobacter pylori [H. pylori] as the cause of diseases classified elsewhere; K57.90 Diverticulosis of intestine, part unspecified, without perforation or abscess without bleeding; M17.11 Unilateral primary osteoarthritis, right knee; R55 Syncope and collapse; F29 Unspecified psychosis not due to a substance or known physiological condition; K64.8 Other hemorrhoids; D12.2 Benign neoplasm of ascending colon; K29.70 Gastritis, unspecified, without bleeding; D64.9 Anemia, unspecified; D50.0 Iron deficiency anemia secondary to blood loss (chronic); B96.20 Unspecified Escherichia coli [E. coli] as the cause of diseases classified elsewhere; R13.10 Dysphagia, unspecified
CPT/HCPCS: 36415; 70450; 71045; 74019; 74177; 78452; 80048; 80053; 80061; 81003; 82044; 82270; 82570; 82962; 83036; 83051; 83690; 83735; 83880; 83935; 84100; 84300; 84484; 85007; 85025; 86140; 86850; 86900; 86901; 86920; 87040; 87045; 87086; 87181; 87324; 93005; 93017; 93306; 94003; 94150; 96374; 96375; 99285; C9399; J2405; J2785; J7030; J8499; U0002

== ENCOUNTER 2020-01-08 13:50 | Emergency (ER) | payer SELFPAY ==
[~2020-01-08] VITALS: Ht 165.1 cm; Wt 65.8 kg
[~2020-01-08 13:50] MED LIST: AMOXIL250 MG ORAL; CLARITHROMYCIN500 MG ORAL; DIURIL25 MG ORAL; LEXAPRO10 MG ORAL; LIPITOR80 MG ORAL; NITRO0.4 SL; NORVASC10 MG ORAL; PANTOPRAZOLE SO40 MG ORAL; RISPERDAL2 MG ORAL; VOLTAREN100 G1 TOPIC; ZESTRIL2.5 MG ORAL
--- NOTE | 2020-01-08 13:53 | NUR ---
ED Nurse Note: Pt was brought in by ambulance from home d/t sharp abdominal pain on all four quadrants accompanied by nausea and vomiting started today at 0800. Pt is AOx3, calm and cooperative to care, VSS, on RA, afebrile on triage.
[2020-01-08 13:57] VITALS: BP 102/64
[2020-01-08] MEDS ORDERED: Omnipaque-300 100ml vial INJ PRN (14:15)
--- NOTE | 2020-01-08 14:20 | Emergency Room Report ---
History of Present Illness General Chief Complaint: Abdominal Pain Source: Patient, EMS Present Illness HPI Disclaimer: Please note that this report is being documented using DRAGON technology. This can lead to erroneous entry secondary to incorrect interpretation by the dictating instrument. HPI: 74-year-old female history of gastritis, diverticulosis, recent duodenal ulcer finding and H. pylori infection presents for evaluation of abdominal pain. Patient reports epigastric and left upper quadrant abdominal pain since this morning. She was eating at the time of onset. Denies fever, chills, chest pain, shortness of breath, cough, nausea, vomiting, diarrhea, dysuria. She states she has had this pain in the past and was given medication on a previous hospitalization last week. She does not know what medications but states she is taking them. PMH: Hypertension, mild dementia, H. 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 EOMI. Cardiovascular: RRR. S1 and S2 normal. No murmur appreciated Resp: Normal work of breathing. No cough, wheezing or crackles appreciated Abdomen: Abdomen is soft, nondistended. Tenderness palpation in the epigastrium and left upper quadrant. No significant tenderness upper quadrant or lower quadrants or in the belly umbilical area. No mass appreciated. No rebound. Skin: Intact. No abrasions, laceration or rash over the exposed skin MSK: Normal tone and bulk. Moving all extremities. No obvious deformity. Neuro: Awake and alert. Mentating appropriately. Medical Decision Making Diagnostic Impression: Primary Impression: Gastritis ER Course This is 74-year-old female recently diagnosed with duodenal ulcer secondary H. pylori infection presents for evaluation of abdominal pain beginning this morning while eating. She has not been taking her prescribed antibiotics or PPI. Differential includes is not limited to pain secondary to ulcer, gastritis, gastroenteritis, diverticulosis, diverticulitis, pancreatitis, cholecystitis, bowel obstruction among others. Labs returned within normal limits. CT shows wall thickening of the gastric antrum concerning for gastritis which would align with the patient's recent history of H. pylori infection. Remainder of labs are within normal limits. I will represcribe her antibiotics and PPI. She lives with her cousin who takes care of her primarily. She will make sure she gets these medications. She is stable for outpatient follow-up. Discussed reasons to return to the ED. She understands and agrees with this treatment plan. Laboratory Tests Test 01/08/20 14:30 01/08/20 14:35 White Blood Count 10.9 K/UL (4.8-10.8) H Red Blood Count 4.11 M/UL (4.20-5.40) L Hemoglobin 10.9 G/DL (12.0-16.0) L Hematocrit 35.2 % (37.0-47.0) L Mean Corpuscular Volume 86 FL (80-99) Mean Corpuscular Hemoglobin 26.6 PG (27.0-31.0) L Mean Corpuscular Hemoglobin Concent 31.1 G/DL (32.0-36.0) L Red Cell Distribution Width 14.0 % (11.6-14.8) Platelet Count 510 K/UL (150-450) H Mean Platelet Volume 6.2 FL (6.5-10.1) L Neutrophils (%) (Auto) 66.0 % (45.0-75.0) Lymphocytes (%) (Auto) 17.4 % (20.0-45.0) L Monocytes (%) (Auto) 9.9 % (1.0-10.0) Eosinophils (%) (Auto) 0.7 % (0.0-3.0) Basophils (%) (Auto) 6.0 % (0.0-2.0) H Sodium Level 139 MMOL/L (136-145) Potassium Level 3.8 MMOL/L (3.5-5.1) Chloride Level 101 MMOL/L (98-107) Carbon Dioxide Level 28 MMOL/L (21-32) Anion Gap 10 mmol/L (5-15) Blood Urea Nitrogen 10 mg/dL (7-18) Creatinine 1.0 MG/DL (0.55-1.30) Estimated Glomerular Filtration Rate > 60 mL/min (>60) Glucose Level 90 MG/DL (74-106) Calcium Level 9.2 MG/DL (8.5-10.1) Total Bilirubin 0.5 MG/DL (0.2-1.0) Aspartate Amino Transferase (AST) 26 U/L (15-37) Alanine Aminotransferase (ALT) 15 U/L (12-78) Alkaline Phosphatase 104 U/L (46-116) Total Protein 8.5 G/DL (6.4-8.2) H Albumin 3.4 G/DL (3.4-5.0) Globulin 5.1 g/dL Albumin/Globulin Ratio 0.7 (1.0-2.7) L Lipase 79 U/L (73-393) Urine Color Pale yellow Urine Appearance Clear Urine pH 8 (4.5-8.0) Urine Specific Merrill 1.010 (1.005-1.035) Urine Protein Negative (NEGATIVE) Urine Glucose (UA) Negative (NEGATIVE) Urine Ketones Negative (NEGATIVE) Urine Blood Negative (NEGATIVE) Urine Nitrite Negative (NEGATIVE) Urine Bilirubin Negative (NEGATIVE) Urine Urobilinogen Normal MG/DL (0.0-1.0) Urine Leukocyte Esterase Negative (NEGATIVE) CT/MRI/US Diagnostic Results CT/MRI/US Diagnostic Results : Impression IMPRESSION: 1. Small hiatal hernia. Mild prominence of the wall of the distal esophagus could represent esophagitis. 2. Nonspecific stable thickening of the adrenal glands. 3. Wall thickening of the gastric antrum is concerning for a gastritis although this portion of distal stomach is underdistended which limits evaluation. Small outpouching containing small amount of fluid and gas in the gastric antrum may represent an ulcer. Further evaluation could be performed with endoscopy. 4. Prominence of the of the colon secondary to underdistention. Component of colitis is not excluded. 5. Mild prominence of the bladder wall is nonspecific. Please correlate with u rinalysis if concerned for cystitis. Radiologist: Ami Anderson M.D. Electronically Signed: 01/08/20 17:08 Last Vital Signs Date Time Temp Pulse Resp B/P (MAP) Pulse Ox O2 Delivery O2 Flow Rate FiO2 01/08/20 13:57 86 16 Room Air 01/08/20 13:57 98.4 102/64 99 Disposition: HOME, SELF-CARE Condition: Stable Scripts Ondansetron Odt* (ZOFRAN ODT*) 4 Mg Tab.rapdis 4 MG BC EVERY 6 HOURS PRN for Nausea & Vomiting, #20 TAB 0 Refills Prov: Dragan Morales MD 01/08/20 Pantoprazole* (PANTOPRAZOLE*) 40 Mg Tablet.dr 40 MG ORAL EVERY 12 HOURS for 30 Days, #60 TAB Prov: Dragan Morales MD 01/08/20 Clarithromycin* (CLARITHROMYCIN*) 500 Mg Tablet 500 MG ORAL EVERY 12 HOURS for 10 Days, #20 TAB Prov: Dragan Morales MD 01/08/20 Amoxicillin* (AMOXIL*) 250 Mg Capsule 1000 MG ORAL Q12HR for 10 Days, #20 CAP Prov: Dragan Morales MD 01/08/20 Dragan Morales MD Jan 08, 2020 14:20
[2020-01-08 14:57] LABS: EOSINOPHILS % (AUTO) 0.7 % (0.0-3.0); HEMATOCRIT 35.2 % (37.0-47.0); HEMOGLOBIN 10.9 G/DL (12.0-16.0); LYMPHOCYTES % (AUTO) 17.4 % (20.0-45.0); MEAN CORPUSCULAR VOLUME 86 FL (80-99); MONOCYTES % (AUTO) 9.9 % (1.0-10.0); PLATELET COUNT 510 K/UL (150-450); RED BLOOD COUNT 4.11 M/UL (4.20-5.40); WHITE BLOOD COUNT 10.9 K/UL (4.8-10.8)
[2020-01-08 15:08] LABS: ANION GAP 10 mmol/L (5-15); BLOOD UREA NITROGEN 10 mg/dL (7-18); CALCIUM 9.2 MG/DL (8.5-10.1); CARBON DIOXIDE 28 MMOL/L (21-32); CHLORIDE 101 MMOL/L (98-107); POTASSIUM 3.8 MMOL/L (3.5-5.1); SODIUM 139 MMOL/L (136-145)
[2020-01-08 15:08] LABS: APPEARANCE,URINE CLEAR; BILIRUBIN, URINE NEGATIVE (NEGATIVE); COLOR,URINE PALE YELLOW; GLUCOSE, URINE (UA) NEGATIVE (NEGATIVE); KETONES,URINE NEGATIVE (NEGATIVE); LEUKOCYTE ESTERASE ,URINE NEGATIVE (NEGATIVE); NITRITE,URINE NEGATIVE (NEGATIVE); PH,URINE 8 (4.5-8.0); PROTEIN,URINE NEGATIVE (NEGATIVE); UROBILINOGEN,URINE NORMAL MG/DL (0.0-1.0)
[2020-01-08 15:12] LABS: ALANINE AMINOTRANSFERASE 15 U/L (12-78); ALBUMIN 3.4 G/DL (3.4-5.0); ALBUMIN/GLOBULIN RATIO 0.7 (1.0-2.7); ALKALINE PHOSPHATASE 104 U/L (46-116); ASPARTATE AMINO TRANSFERASE 26 U/L (15-37); BILIRUBIN,TOTAL 0.5 MG/DL (0.2-1.0)
--- NOTE | 2020-01-08 15:38 | NUR ---
ED Nurse Note: pt went down to CT via [facility] accompanied by tech
--- NOTE | 2020-01-08 15:56 | NUR ---
ED Nurse Note: pt returned from CT
[2020-01-08] MEDS ORDERED: Mylanta II UD 30ml ORAL ONE (17:00)
[2020-01-08] MEDS ORDERED: Lidocaine 2% Visc 15ml soln ORAL ONE (17:00)
[2020-01-08] MEDS ORDERED: Dicyclomine HCl 10mg/5ml oral soln ORAL ONE (17:00)
[2020-01-08] MEDS ORDERED: PANTOPRAZOLE SO40 MG ORAL (17:14)
[2020-01-08] MEDS ORDERED: CLARITHROMYCIN500 MG ORAL (17:14)
[2020-01-08] MEDS ORDERED: AMOXIL250 MG ORAL (17:14)
[2020-01-08] MEDS ORDERED: ONDANSETRON ODT4 MG BC (17:15)
--- NOTE | 2020-01-08 18:58 | NUR ---
EMERGENCY CONTACT: Ingris (cousin): [phone]
[2020-01-08 19:23] VITALS: BP 110/68
--- NOTE | 2020-01-08 19:23 | NUR ---
ER DISCHARGE NOTE: Patient is cleared to be discharged per ERMD, pt is aox4, on room air, with stable vital signs. pt was given dc and prescription instructions, pt was able to verbalize understanding, pt id band and iv site removed without complications. pt is able to ambulate with steady gait. pt took all belongings.
--- NOTE | 2020-01-10 06:19 | Diagnostic Imaging Report ---
EXAM: CT Abdomen and Pelvis With Intravenous Contrast CLINICAL HISTORY: ABD PAIN TECHNIQUE: Axial computed tomography images of the abdomen and pelvis with intravenous contrast. CTDI is 6.9 mGy and DLP is 374.30 mGy-cm. One or more of the following dose reduction techniques were used: automated exposure control, adjustment of the mA and/or kV according to patient size, use of iterative reconstruction technique. COMPARISON: CT abdomen/pelvis on 12/04/2019 FINDINGS: Lung bases: Unremarkable. No mass. No consolidation. Mediastinum: Small hiatal hernia. Mild prominence of the wall of the distal esophagus could represent esophagitis. ABDOMEN: Liver: Unremarkable. No mass. Gallbladder and bile ducts: Hyperdense material within the gallbladder may represent artifact versus stones/sludge. No ductal dilation. Pancreas: Unremarkable. No mass. No ductal dilation. Spleen: Unremarkable. No splenomegaly. Adrenals: Nonspecific stable thickening of the adrenal glands. Kidneys and ureters: Stable mild atrophy of the left kidney. Probable mild scarring in the kidneys. Renal vascular calcifications bilaterally. Punctate nonobstructing renal stones not excluded. No significant hydronephrosis or obstructing stone. Stomach and bowel: Wall thickening of the gastric antrum is concerning for a gastritis although this portion of distal stomach is underdistended. Outpouching containing small amount of fluid and gas in the gastric antrum may represent an ulcer. Prominence of the of the colon secondary to underdistention. Component of colitis is not excluded. Diverticulosis without evidence of diverticulitis. Mildly prominent fluid and gas-filled small bowel loops are nonspecific but may represent enteritis or ileus in the appropriate clinical setting. PELVIS: Appendix: No findings to suggest acute appendicitis. Bladder: Mild prominence of the bladder wall is nonspecific. Please correlate with urinalysis if concerned for cystitis. Reproductive: Unremarkable as visualized. ABDOMEN and PELVIS: Intraperitoneal space: Unremarkable. No free air. No significant fluid collection. Bones/joints: Degenerative changes of the spine. Grade 1 anterolisthesis of L4 on L5. No acute fracture. No dislocation. Soft tissues: Small fat-containing umbilical hernia. Vasculature: Atherosclerotic changes of the vasculature. No aortic aneurysm or dissection. Lymph nodes: Mildly prominent lymph nodes along the distal stomach may be reactive. IMPRESSION: 1. Small hiatal hernia. Mild prominence of the wall of the distal esophagus could represent esophagitis. 2. Nonspecific stable thickening of the adrenal glands. 3. Wall thickening of the gastric antrum is concerning for a gastritis although this portion of distal stomach is underdistended which limits evaluation. Small outpouching containing small amount of fluid and gas in the gastric antrum may represent an ulcer. Further evaluation could be performed with endoscopy. 4. Prominence of the of the colon secondary to underdistention. Component of colitis is not excluded. 5. Mild prominence of the bladder wall is nonspecific. Please correlate with urinalysis if concerned for cystitis.
== END 2020-01-08 19:40 | disposition home or self-care (01) ==
LOC: EDBD 13:50 → EMR 14:47
DX: K29.70 Gastritis, unspecified, without bleeding (principal); I10 Essential (primary) hypertension; F03.90 Unspecified dementia, unspecified severity, without behavioral disturbance, psychotic disturbance, mood disturbance, and anxiety; K57.90 Diverticulosis of intestine, part unspecified, without perforation or abscess without bleeding; Z90.89 Acquired absence of other organs; K44.9 Diaphragmatic hernia without obstruction or gangrene; K42.9 Umbilical hernia without obstruction or gangrene
CPT/HCPCS: 36415; 74177; 80053; 81003; 83690; 85025; 96374; 96375; 96376; 99284; J2405; Q9965; S0028

== ENCOUNTER 2020-02-14 11:33 | Inpatient (IN) | payer MEDICAID ==
[~2020-02-14] VITALS: Ht 167.6 cm; Wt 74.8 kg
[~2020-02-14 11:33] MED LIST changes: +ONDANSETRON ODT4 MG BC
[2020-02-14 11:40] VITALS: BP 170/102
--- NOTE | 2020-02-14 11:41 | Emergency Room Report ---
History of Present Illness General Chief Complaint: Abdominal Pain Source: Patient, EMS Present Illness HPI Patient is a 74-year-old female brought in from home by EMS for epigastric pain. Patient states the pain started last night with associated nausea. She denies any fever or chills. She denies any chest pain or shortness of breath. She denies any diarrhea or constipation. She denies any dysuria or hematuria. Allergies: Coded Allergies: No Known Allergies (Unverified , 12/04/19) COVID-19 Screening Contact w/high risk pt: No Experienced COVID-19 symptoms?: No COVID-19 Testing performed POKER PROP PLAYER: No Patient History Reviewed Nursing Documentation: PMH: Agreed; PSxH: Agreed Nursing Documentation-PMH Hx Hypertension: Yes Review of Systems All Other Systems: negative except mentioned in HPI Physical Exam Vital Signs Date Time Temp Pulse Resp B/P (MAP) Pulse Ox O2 Delivery O2 Flow Rate FiO2 02/14/20 11:30 98.2 69 18 170/102 (124) 97 Room Air Sp02 EP Interpretation: reviewed, normal General Appearance: no apparent distress, alert, GCS 15, non-toxic Head: normocephalic, atraumatic Eyes: bilateral eye normal inspection, bilateral eye PERRL ENT: hearing grossly normal, normal pharynx, no angioedema, normal voice Neck: full range of motion, supple/symm/no masses Respiratory: chest non-tender, lungs clear, normal breath sounds, speaking full sentences Cardiovascular #1: regular rate, rhythm, no edema Gastrointestinal: other - Epigastric tenderness to palpation no guarding or rebound Genitourinary: no CVA tenderness Neurologic: food and drug research scientist III-XII nml as tested Psychiatric: no suicidal/homicidal ideation Skin: no rash Lymphatic: no adenopathy Medical Decision Making Diagnostic Impression: Primary Impression: Leukocytosis Additional Impression: Anemia ER Course Patient's vital signs are stable. Patient has mild leukocytosis with white blood cell count of 11.5. Patient pending last of her labs, UA and CT abdomen pelvis. Patient signed out to the oncoming physician at 1400 pending those results, reevaluation and final disposition. Laboratory Tests Test 02/14/20 12:15 02/14/20 13:35 White Blood Count 11.5 K/UL (4.8-10.8) H Red Blood Count 4.03 M/UL (4.20-5.40) L Hemoglobin 10.4 G/DL (12.0-16.0) L Hematocrit 35.1 % (37.0-47.0) L Mean Corpuscular Volume 87 FL (80-99) Mean Corpuscular Hemoglobin 25.8 PG (27.0-31.0) L Mean Corpuscular Hemoglobin Concent 29.7 G/DL (32.0-36.0) L Red Cell Distribution Width 14.8 % (11.6-14.8) Platelet Count 427 K/UL (150-450) Mean Platelet Volume 8.3 FL (6.5-10.1) Neutrophils (%) (Auto) 76.3 % (45.0-75.0) H Lymphocytes (%) (Auto) 14.4 % (20.0-45.0) L Monocytes (%) (Auto) 6.4 % (1.0-10.0) Eosinophils (%) (Auto) 1.0 % (0.0-3.0) Basophils (%) (Auto) 1.9 % (0.0-2.0) Prothrombin Time Pending Prothrombin Time INR Pending Activated Partial Thromboplast Time Pending Sodium Level Pending Potassium Level Pending Chloride Level Pending Carbon Dioxide Level Pending Blood Urea Nitrogen Pending Creatinine Pending Estimated Glomerular Filtration Rate Pending Glucose Level Pending Calcium Level Pending Magnesium Level Pending Total Bilirubin Pending Aspartate Amino Transferase (AST) Pending Alanine Aminotransferase (ALT) Pending Alkaline Phosphatase Pending Total Protein Pending Albumin Pending Globulin Pending Lipase Pending EKG Diagnostic Results Troponin ordered: No - EKG ordered for abdominal pain EKG Time: 12:44 EP Interpretation: Pennie Allen MD Rate: normal - 68 bpm Rhythm: NSR ST Segments: no acute changes ASA given to the pt in ED: No Rhythm Strip Diag. Results Rhythm Strip Time: 12:49 EP Interpretation: yes - Pennie Allen MD Rate: 63 bpm Rhythm: NSR, no PVC's, no ectopy Last Vital Signs Date Time Temp Pulse Resp B/P (MAP) Pulse Ox O2 Delivery O2 Flow Rate FiO2 02/14/20 11:30 98.2 69 18 170/102 (124) 97 Room Air Signed Out To: Dr. Norman at 1400 Additional Instructions: The patient was provided with discharge instructions, notified to follow-up with a primary care doctor and or specialist in the next 24-48 hours, and to return to the ED if they have worsening of their symptoms. Please note that this report is being documented using [employer] technology. This can lead to erroneous entry secondary to incorrect interpretation by the dictating instrument. Pennie Allen M.D. Feb 14, 2020 11:41
[2020-02-14] MEDS ORDERED: Pantoprazole Inj IVP ONE (11:45)
[2020-02-14 12:29] LABS: BASOPHILS % (AUTO) 1.9 % (0.0-2.0); HEMATOCRIT 35.1 % (37.0-47.0); HEMOGLOBIN 10.4 G/DL (12.0-16.0); LYMPHOCYTES % (AUTO) 14.4 % (20.0-45.0); MEAN CORPUSCULAR VOLUME 87 FL (80-99); MONOCYTES % (AUTO) 6.4 % (1.0-10.0); NEUTROPHILS % (AUTO) 76.3 % (45.0-75.0); PLATELET COUNT 427 K/UL (150-450); RED BLOOD COUNT 4.03 M/UL (4.20-5.40); RED CELL DISTRIBUTION WIDTH 14.8 % (11.6-14.8); WHITE BLOOD COUNT 11.5 K/UL (4.8-10.8)
[2020-02-14 14:23] LABS: INR 0.9 (0.9-1.1)
[2020-02-14 14:25] LABS: CALCIUM 9.5 MG/DL (8.5-10.1); CREATININE 1.6 MG/DL (0.55-1.30); POTASSIUM 4.5 MMOL/L (3.5-5.1)
[2020-02-14 14:29] LABS: ALBUMIN 2.9 G/DL (3.4-5.0); ALBUMIN/GLOBULIN RATIO 0.5 (1.0-2.7); BILIRUBIN,TOTAL 0.5 MG/DL (0.2-1.0)
[2020-02-14 14:39] LABS: APPEARANCE,URINE CLEAR; BILIRUBIN, URINE NEGATIVE (NEGATIVE); COLOR,URINE PALE YELLOW; GLUCOSE, URINE (UA) NEGATIVE (NEGATIVE); KETONES,URINE NEGATIVE (NEGATIVE); LEUKOCYTE ESTERASE ,URINE 1+ (NEGATIVE); NITRITE,URINE NEGATIVE (NEGATIVE); PH,URINE 5 (4.5-8.0); PROTEIN,URINE NEGATIVE (NEGATIVE); UROBILINOGEN,URINE NORMAL MG/DL (0.0-1.0)
--- NOTE | 2020-02-14 15:10 | Diagnostic Imaging Report ---
CT ABDOMEN AND PELVIS WITHOUT CONTRAST INDICATION: Abdominal pain TECHNIQUE: Continuous helical transaxial imaging of the abdomen and pelvis was obtained from the lung bases to the pubic symphysis without intravenous contrast. Coronal 2-D reformats were also obtained. Study obtained in a Siemens sensation [address] Automatic Exposure Control was utilized. Total Dose length Product (DLP): 375.[address] Dose Index Volume (CTDIvol): 7.2 mGy COMPARISON: CT abdomen pelvis dated 01/08/2020 FINDINGS: Lower chest:: Redemonstration of coronary artery atherosclerotic calcifications. Hepatobiliary:: Gallbladder is contracted but demonstrates some hyperdensity. Genitourinary:: Unremarkable Adrenals:: Unremarkable Pancreas:: Unremarkable Gastrointestinal:: No evidence of obstruction. Colonic diverticulosis without evidence of acute diverticulitis. Appendix is normal. There is soft tissue fullness in the gastric antrum, pylorus, and proximal duodenum, which is better delineated on prior examination with intravenous contrast and likely corresponds to combination of gastric antral wall thickening and previously described antral outpouching. Spleen: : Unremarkable Peritoneum:: No free air or free fluid. Bones and soft tissues:: There are multilevel discogenic degenerative changes of the visualized spine. IMPRESSION: 1. Ill-defined soft tissue thickening in the region of the gastric pylorus and proximal duodenum, incompletely delineated in the absence of intravenous contrast, but likely corresponding to previously described gastric antral wall thickening and outpouching. As before, differential for this outpouching includes gastric diverticulum or gastric ulcer, and further evaluation with endoscopy should be considered as clinically indicated. 2. Suspected gallbladder sludge/microcholelithiasis without evidence of acute cholecystitis. 3. Colonic diverticulosis without evidence of acute diverticulitis. The CT scanner at [facility] is accredited by the [employer] and the scans are performed using protocols designed to limit radiation exposure to as low as reasonably achievable to attain images of sufficient resolution adequate for diagnostic evaluation.
[2020-02-14 15:40] VITALS: BP 165/99
--- NOTE | 2020-02-14 18:16 | History and Physical ---
History of Present Illness General Date patient seen: Feb 14, 2020 Reason for Hospitalization: Abdominal Pain Present Illness HPI 74 yo F presents with epigastric pain. Reports poor PO intake and poor appetite since her 3 months ago. She has mostly been consuming liquids/smoothies and not much solid food. She reports significant weight loss during this time period. Patient lives with family at home. Denies N/V, fever, chills, hematemesis, hematuria, melena, hematochezia, chest pain, SOB, sick contacts. PMH: PSH: x2, appendectomy FH: Mother, father both with HTN Soc Hx: denies smoking, alcohol or substance use Allergies: Coded Allergies: No Known Allergies (Unverified , 12/04/19) COVID-19 Screening Contact w/high risk pt: No Recent Travel to affected area: No Experienced COVID-19 symptoms?: No Medication History Scheduled Amlodipine Besylate (Norvasc), 10 MG ORAL QPM Amoxicillin* (Amoxil*), 1,000 MG ORAL Q12HR Atorvastatin (Lipitor), 80 MG ORAL BEDTIME Clarithromycin* (Clarithromycin*), 500 MG ORAL EVERY 12 HOURS Diclofenac Sodium (Voltaren), 1 APPLIC TOPIC BID Escitalopram Oxalate* (Lexapro*), 10 MG ORAL DAILY Hydrochlorothiazide (Hydrochlorothiazide), 25 MG ORAL DAILY Lisinopril* (Zestril*), 5 MG ORAL DAILY Pantoprazole* (Pantoprazole*), 40 MG ORAL EVERY 12 HOURS Risperidone* (Risperdal*), 2 MG ORAL BEDTIME Scheduled PRN Nitroglycerin 0.4MG table* (Nitroglycerin*), 0.4 MG SL Q5M PRN Ondansetron Odt* (Zofran Odt*), 4 MG BC EVERY 6 HOURS PRN for Nausea & Vomiting Patient History History Provided By: Patient Healthcare decision maker Resuscitation status Advanced Directive on File Family History Family History: FH: hypertension Review of Systems Constitutional: Denies: chills, fever, weakness Eye: Denies: eye pain, nose pain ENT: Denies: ear pain, throat pain Respiratory: Denies: cough, orthopnea, shortness of breath Cardiovascular: Denies: chest pain, edema, palpitations Gastrointestinal: Reports: abdominal pain; Denies: constipation, diarrhea Genitourinary: Denies: dysuria, hematuria Musculoskeletal: Denies: joint pain, muscle pain Skin: Denies: rash, dryness Psychiatric: Denies: anxiety, hallucinations Neurological: Denies: numbness, paresthesia Endocrine: Denies: excessive sweating, intolerance to temperature Hematologic/Lymphatic: Denies: anemia, easy bleeding Physical Exam General Appearance: no apparent distress, alert, thin HEENT: normocephalic, atraumatic, EOMI, pharynx normal Neck: non-tender, normal alignment, supple, normal inspection Respiratory/Chest: chest wall non-tender, lungs clear, normal breath sounds, no respiratory distress Cardiovascular/Chest: normal rate, regular rhythm, no gallop/murmur Abdomen: normal bowel sounds, non tender, soft, no organomegaly Extremities: normal range of motion, non-tender, normal inspection, no edema Skin Exam: normal pigmentation, warm/dry Neurologic: technical laboratory asst II-XII grossly normal, alert, oriented x 3 Musculoskeletal: normal muscle bulk Last 24 Hour Vital Signs Date Time Temp Pulse Resp B/P (MAP) Pulse Ox O2 Delivery O2 Flow Rate FiO2 02/14/20 15:40 98.2 76 18 165/99 97 Room Air 02/14/20 11:40 69 18 Room Air 02/14/20 11:40 98.2 18 170/102 97 Room Air 02/14/20 11:30 98.2 69 18 170/102 (124) 97 Room Air Laboratory Tests Test 02/14/20 12:15 02/14/20 13:35 02/14/20 14:22 White Blood Count 11.5 K/UL (4.8-10.8) H Red Blood Count 4.03 M/UL (4.20-5.40) L Hemoglobin 10.4 G/DL (12.0-16.0) L Hematocrit 35.1 % (37.0-47.0) L Mean Corpuscular Volume 87 FL (80-99) Mean Corpuscular Hemoglobin 25.8 PG (27.0-31.0) L Mean Corpuscular Hemoglobin Concent 29.7 G/DL (32.0-36.0) L Red Cell Distribution Width 14.8 % (11.6-14.8) Platelet Count 427 K/UL (150-450) Mean Platelet Volume 8.3 FL (6.5-10.1) Neutrophils (%) (Auto) 76.3 % (45.0-75.0) H Lymphocytes (%) (Auto) 14.4 % (20.0-45.0) L Monocytes (%) (Auto) 6.4 % (1.0-10.0) Eosinophils (%) (Auto) 1.0 % (0.0-3.0) Basophils (%) (Auto) 1.9 % (0.0-2.0) Prothrombin Time 10.5 SEC (9.30-11.50) Prothromb Time International Ratio 0.9 (0.9-1.1) Activated Partial Thromboplast Time 21 SEC (23-33) L Sodium Level 135 MMOL/L (136-145) L Potassium Level 4.5 MMOL/L (3.5-5.1) Chloride Level 101 MMOL/L (98-107) Carbon Dioxide Level 27 MMOL/L (21-32) Anion Gap 7 mmol/L (5-15) Blood Urea Nitrogen 25 mg/dL (7-18) H Creatinine 1.6 MG/DL (0.55-1.30) H Estimat Glomerular Filtration Rate 38.3 mL/min (>60) Glucose Level 96 MG/DL (74-106) Calcium Level 9.5 MG/DL (8.5-10.1) Magnesium Level 2.2 MG/DL (1.8-2.4) Total Bilirubin 0.5 MG/DL (0.2-1.0) Aspartate Amino Transf (AST/SGOT) 17 U/L (15-37) Alanine Aminotransferase (ALT/SGPT) 7 U/L (12-78) L Alkaline Phosphatase 93 U/L (46-116) Total Protein 8.3 G/DL (6.4-8.2) H Albumin 2.9 G/DL (3.4-5.0) L Globulin 5.4 g/dL Albumin/Globulin Ratio 0.5 (1.0-2.7) L Lipase 76 U/L (73-393) Urine Color Pale yellow Urine Appearance Clear Urine pH 5 (4.5-8.0) Urine Specific [place] 1.010 (1.005-1.035) Urine Protein Negative (NEGATIVE) Urine Glucose (UA) Negative (NEGATIVE) Urine Ketones Negative (NEGATIVE) Urine Blood Negative (NEGATIVE) Urine Nitrite Negative (NEGATIVE) Urine Bilirubin Negative (NEGATIVE) Urine Urobilinogen Normal MG/DL (0.0-1.0) Urine Leukocyte Esterase 1+ (NEGATIVE) H Urine RBC 0 /HPF (0 - 2) Urine WBC 0-2 /HPF (0 - 2) Urine Squamous Epithelial Cells Few /LPF (NONE/OCC) Urine Bacteria Occasional /HPF (NONE) Urine Opiates Screen Negative (NEGATIVE) Urine Barbiturates Screen Negative (NEGATIVE) Phencyclidine (PCP) Screen Negative (NEGATIVE) Urine Amphetamines Screen Negative (NEGATIVE) Urine Benzodiazepines Screen Negative (NEGATIVE) Urine Cocaine Screen Negative (NEGATIVE) Urine Marijuana (THC) Screen Negative (NEGATIVE) Height (Feet): 5 Height (Inches): 6.00 Weight (Pounds): [address] ABDOMEN AND PELVIS WITHOUT CONTRAST COMPARISON: CT abdomen pelvis dated 01/08/2020 IMPRESSION: 1. Ill-defined soft tissue thickening in the region of the gastric pylorus and proximal duodenum, incompletely delineated in the absence of intravenous contrast, but likely corresponding to previously described gastric antral wall thickening and outpouching. As before, differential for this outpouching includes gastric diverticulum or gastric ulcer, and further evaluation with endoscopy should be considered as clinically indicated. 2. Suspected gallbladder sludge/microcholelithiasis without evidence of acute cholecystitis. 3. Colonic diverticulosis without evidence of acute diverticulitis. Assessment/Plan Assessment/Plan: #Abdominal pain #Biliary colic CT revealed microcholelithiasis without evidence of cholecystitis. LFTs unremarkable, Alk Phos WNL. Has history of H. pylori infection s/p triple t herapy. Also has diverticulosis. - GI consult Dr. Osborn, recs appreciated #ZA #Hyponatremia Baseline Cr is normal. May be due to poor PO intake of fluids leading to dehydration. - IVF - trend BMP #Hypertension Stable. Will continue non-diuretic home meds. - continue Norvasc 10 mg PO daily - continue lisinopril 5 mg daily - Hold HCTZ due to ZA Diet: low sodium DVT ppx: heparin subQ Code status: Full Dispo: likely home tomorrow pending GI evaluation and improvement of ZA with IVF I spent 66 minutes on this patient's case, and 34 minutes was dedicated to counseling and/or care coordination with RN, outpatient case manager, consulting MD team I spent an additional 33 minutes on review of medical records including prior outside hospital records, consult notes, progress notes, procedures, imaging, labs, hemodynamics, and other clinical documentation. Time of note may not reflect time patient was seen. Robin Stephens M.D. Feb 14, 2020 18:16
--- NOTE | 2020-02-14 18:27 | Emergency Room Report ---
Physical Exam Vital Signs Date Time Temp Pulse Resp B/P (MAP) Pulse Ox O2 Delivery O2 Flow Rate FiO2 02/14/20 11:30 98.2 69 18 170/102 (124) 97 Room Air Medical Decision Making Diagnostic Impression: Primary Impression: Biliary colic ER Course Hospital Course 74-year-old female presents with abdominal pain Clinical course Patient initially seen and evaluated by Dr Allen; please see her note for full history and physical Labs - noted leukocytosis, Hb/Hct stable, electrolytes ok CT shows cholelithiasis with some sludge. Reassessment patient continues to have pain. Given comorbidities and age I do not believe patient can be safely discharged. Case discussed with Dr. Biggs and he agreed to accept the patient to his service for further care and support I feel this is a highly complex case requiring extensive working including EKG/Rhythm strip, Xray/CT/US, Blood/urine lab work, repeat exams while in ED, and administration of strong opiates/narcotics for pain control, admission to hospital or close patient follow up. Diagnosis - biliary colic Patient admitted to floor in serious condition Laboratory Tests Test 02/14/20 12:15 02/14/20 13:35 02/14/20 14:22 White Blood Count 11.5 K/UL (4.8-10.8) H Red Blood Count 4.03 M/UL (4.20-5.40) L Hemoglobin 10.4 G/DL (12.0-16.0) L Hematocrit 35.1 % (37.0-47.0) L Mean Corpuscular Volume 87 FL (80-99) Mean Corpuscular Hemoglobin 25.8 PG (27.0-31.0) L Mean Corpuscular Hemoglobin Concent 29.7 G/DL (32.0-36.0) L Red Cell Distribution Width 14.8 % (11.6-14.8) Platelet Count 427 K/UL (150-450) Mean Platelet Volume 8.3 FL (6.5-10.1) Neutrophils (%) (Auto) 76.3 % (45.0-75.0) H Lymphocytes (%) (Auto) 14.4 % (20.0-45.0) L Monocytes (%) (Auto) 6.4 % (1.0-10.0) Eosinophils (%) (Auto) 1.0 % (0.0-3.0) Basophils (%) (Auto) 1.9 % (0.0-2.0) Prothrombin Time 10.5 SEC (9.30-11.50) Prothromb Time International Ratio 0.9 (0.9-1.1) Activated Partial Thromboplast Time 21 SEC (23-33) L Sodium Level 135 MMOL/L (136-145) L Potassium Level 4.5 MMOL/L (3.5-5.1) Chloride Level 101 MMOL/L (98-107) Carbon Dioxide Level 27 MMOL/L (21-32) Anion Gap 7 mmol/L (5-15) Blood Urea Nitrogen 25 mg/dL (7-18) H Creatinine 1.6 MG/DL (0.55-1.30) H Estimat Glomerular Filtration Rate 38.3 mL/min (>60) Glucose Level 96 MG/DL (74-106) Calcium Level 9.5 MG/DL (8.5-10.1) Magnesium Level 2.2 MG/DL (1.8-2.4) Total Bilirubin 0.5 MG/DL (0.2-1.0) Aspartate Amino Transf (AST/SGOT) 17 U/L (15-37) Alanine Aminotransferase (ALT/SGPT) 7 U/L (12-78) L Alkaline Phosphatase 93 U/L (46-116) Total Protein 8.3 G/DL (6.4-8.2) H Albumin 2.9 G/DL (3.4-5.0) L Globulin 5.4 g/dL Albumin/Globulin Ratio 0.5 (1.0-2.7) L Lipase 76 U/L (73-393) Urine Color Pale yellow Urine Appearance Clear Urine pH 5 (4.5-8.0) Urine Specific [place] 1.010 (1.005-1.035) Urine Protein Negative (NEGATIVE) Urine Glucose (UA) Negative (NEGATIVE) Urine Ketones Negative (NEGATIVE) Urine Blood Negative (NEGATIVE) Urine Nitrite Negative (NEGATIVE) Urine Bilirubin Negative (NEGATIVE) Urine Urobilinogen Normal MG/DL (0.0-1.0) Urine Leukocyte Esterase 1+ (NEGATIVE) H Urine RBC 0 /HPF (0 - 2) Urine WBC 0-2 /HPF (0 - 2) Urine Squamous Epithelial Cells Few /LPF (NONE/OCC) Urine Bacteria Occasional /HPF (NONE) Urine Opiates Screen Negative (NEGATIVE) Urine Barbiturates Screen Negative (NEGATIVE) Phencyclidine (PCP) Screen Negative (NEGATIVE) Urine Amphetamines Screen Negative (NEGATIVE) Urine Benzodiazepines Screen Negative (NEGATIVE) Urine Cocaine Screen Negative (NEGATIVE) Urine Marijuana (THC) Screen Negative (NEGATIVE) CT/MRI/US Diagnostic Results CT/MRI/US Diagnostic Results : Imaging Test Ordered: CT A/P Impression Total Dose length Product (DLP): 375.[address] Dose Index Volume (CTDIvol): 7.2 mGy COMPARISON: CT abdomen pelvis dated 01/08/2020 FINDINGS: Lower chest:: Redemonstration of coronary artery atherosclerotic calcifications. Hepatobiliary:: Gallbladder is contracted but demonstrates some hyperdensity. Genitourinary:: Unremarkable Adrenals:: Unremarkable Pancreas:: Unremarkable Gastrointestinal:: No evidence of obstruction. Colonic diverticulosis without evidence of acute diverticulitis. Appendix is normal. There is soft tissue fullness in the gastric antrum, pylorus, and proximal duodenum, which is better delineated on prior examination with intravenous contrast and likely corresponds to combination of gastric antral wall thickening and previously described antral outpouching. Spleen: : Unremarkable Peritoneum:: No free air or free fluid. Bones and soft tissues:: There are multilevel discogenic degenerative changes of the visualized spine. IMPRESSION: 1. Ill-defined soft tissue thickening in the region of the gastric pylorus and proximal duodenum, incompletely delineated in the absence of intravenous contrast, but likely corresponding to previously described gastric antral wall thickening and outpouching. As before, differential for this outpouching includes gastric diverticulum or gastric ulcer, and further evaluation with endoscopy should be considered as clinically indicated. 2. Suspected gallbladder sludge/microcholelithiasis without evidence of acute cholecystitis. 3. Colonic diverticulosis without evidence of acute diverticulitis. The CT scanner at [facility] is accredited by the [employer] and the scans are performed using protocols designed to limit radiation exposure to as low as reasonably achievable to attain images of sufficient resolution adequate for diagnostic evaluation. Last Vital Signs Date Time Temp Pulse Resp B/P (MAP) Pulse Ox O2 Delivery O2 Flow Rate FiO2 02/14/20 15:40 98.2 76 18 165/99 97 Room Air Status: improved Disposition: ADMITTED INPATIENT Condition: Serious Referrals: NOT CHOSEN IPA/MD,REFERRING (PCP) Additional Instructions: The patient was provided with discharge instructions, notified to follow-up with a primary care doctor and or specialist in the next 24-48 hours, and to return to the ED if they have worsening of their symptoms. Please note that this report is being documented using iMICROQ technology. This can lead to erroneous entry secondary to incorrect interpretation by the dictating instrument. Merritt Norman MD Feb 14, 2020 18:26
[2020-02-14 18:53] VITALS: BP 155/78
[2020-02-14] MEDS: Atorvastatin 80mg tab ORAL SCH (20:28)
[2020-02-14] MEDS: Heparin 5000 units/ml inj SUBQ SCH (20:28)
[2020-02-14 21:57] VITALS: BP 147/87
[2020-02-15] VITALS: BP 122/57
[2020-02-15 07:14] LABS: BASOPHILS % (AUTO) 0.9 % (0.0-2.0); EOSINOPHILS % (AUTO) 2.5 % (0.0-3.0); HEMATOCRIT 32.3 % (37.0-47.0); HEMOGLOBIN 9.6 G/DL (12.0-16.0); LYMPHOCYTES % (AUTO) 22.3 % (20.0-45.0); MEAN CORPUSCULAR VOLUME 86 FL (80-99); MONOCYTES % (AUTO) 9.8 % (1.0-10.0); NEUTROPHILS % (AUTO) 64.4 % (45.0-75.0); PLATELET COUNT 441 K/UL (150-450); RED BLOOD COUNT 3.74 M/UL (4.20-5.40); RED CELL DISTRIBUTION WIDTH 14.6 % (11.6-14.8); WHITE BLOOD COUNT 9.4 K/UL (4.8-10.8)
[2020-02-15 07:42] LABS: CALCIUM 9.2 MG/DL (8.5-10.1); CREATININE 1.5 MG/DL (0.55-1.30); POTASSIUM 4.2 MMOL/L (3.5-5.1)
[2020-02-15 08:00] VITALS: BP_SYST 122; BP_SYST 145; BP_DIAS 57; BP_DIAS 69
[2020-02-15] MEDS: Heparin 5000 units/ml inj SUBQ SCH ×2 (09:31→20:09)
[2020-02-15] MEDS: Lisinopril 2.5mg tab ORAL SCH (09:32)
[2020-02-15] MEDS: D5 1/2NS 1,000 ML IV SCH ×2 (09:32)
[2020-02-15 12:00] VITALS: BP 130/77
--- NOTE | 2020-02-15 12:01 | General Progress Note ---
Subjective Constitutional: Denies: no symptoms, chills, diaphoresis, fever, malaise, weakness, other HEENT: Denies: no symptoms, eye pain, blurred vision, tearing, double vision, ear pain, ear discharge, nose pain, nose congestion, throat pain, throat swelling, mouth pain, mouth swelling, other Cardiovascular: Denies: no symptoms, chest pain, edema, irregular heart rate, lightheadedness, palpitations, syncope, other Respiratory: Denies: no symptoms, cough, orthopnea, shortness of breath, SOB with excertion, SOB at rest, sputum, stridor, wheezing, other Gastrointestinal/Abdominal: Reports: abdominal pain; Denies: no symptoms, abdomen distended, black stools, tarry stools, blood in stool, constipated, diarrhea, difficulty swallowing, nausea, poor appetite, poor fluid intake, rectal bleeding, vomiting, other Neurologic/Psychiatric: Denies: no symptoms, anxiety, depressed, emotional problems, headache, numbness, paresthesia, pre-existing deficit, seizure, tingling, tremors, weakness, other Endocrine: Denies: no symptoms, excessive sweating, flushing, intolerance to cold, intolerance to heat, increased hunger, increased thirst, increased urine, unexplained weight gain, unexplained weight loss, other Hematologic/Lymphatic: Denies: no symptoms, anemia, easy bleeding, easy bruising, other Allergies: Coded Allergies: No Known Allergies (Unverified , 12/04/19) Subjective no acute events overnight. Patient still complains of nausea, abdominal pain. She is able to tolerate most of her food and liquids without any issues, but still has abdominal pain. Denies fevers chills, diarrhea, constipation, chest pain, shortness of breath. Pending evaluation by GI today. Objective Last 24 Hour Vital Signs Date Time Temp Pulse Resp B/P (MAP) Pulse Ox O2 Delivery O2 Flow Rate FiO2 02/15/20 09:32 145/69 02/15/20 08:00 98.0 71 18 145/69 (94) 98 58 02/15/20 00:00 98.7 71 18 122/57 (78) 98 02/14/20 22:30 Room Air 02/14/20 21:57 98.3 78 20 147/87 (107) 98 02/14/20 19:39 98.2 74 19 145/73 98 Room Air 02/14/20 18:53 98.2 76 18 155/78 97 Room Air 02/14/20 15:40 98.2 76 18 165/99 97 Room Air Intake and Output 02/14/20 02/15/20 19:00 07:00 Intake Total 1000 ml 250 ml Output Total 500 ml Balance 500 ml 250 ml Intake Oral 250 ml IV Total 1000 ml Output Urine Total 500 ml # Voids 1 Laboratory Tests 02/14/20 12:15: White Blood Count 11.5H, Red Blood Count 4.03L, Hemoglobin 10.4L, Hematocrit 35.1L, Mean Corpuscular Volume 87, Mean Corpuscular Hemoglobin 25.8L, Mean Corpuscular Hemoglobin Concent 29.7L, Red Cell Distribution Width 14.8, Platelet Count 427, Mean Platelet Volume 8.3, Neutrophils (%) (Auto) 76.3H, Lymphocytes (%) (Auto) 14.4L, Monocytes (%) (Auto) 6.4, Eosinophils (%) (Auto) 1.0, Basophils (%) (Auto) 1.9 02/14/20 13:35: Prothrombin Time 10.5, Prothromb Time International Ratio 0.9, Activated Partial Thromboplast Time 21L, Sodium Level 135L, Potassium Level 4.5, Chloride Level 101, Carbon Dioxide Level 27, Anion Gap 7, Blood Urea Nitrogen 25H, Creatinine 1.6H, Estimat Glomerular Filtration Rate 38.3, Glucose Level 96, Calcium Level 9.5, Magnesium Level 2.2, Total Bilirubin 0.5, Aspartate Amino Transf (AST/SGOT) 17, Alanine Aminotransferase (ALT/SGPT) 7L, Alkaline Phosphatase 93, Total Protein 8.3H, Albumin 2.9L, Globulin 5.4, Albumin/Globulin Ratio 0.5L, Lipase 76 02/14/20 14:22: Urine Color Pale yellow, Urine Appearance Clear, Urine pH 5, Urine Specific [place] 1.010, Urine Protein Negative, Urine Glucose (UA) Negative, Urine Ketones Negative, Urine Blood Negative, Urine Nitrite Negative, Urine Bilirubin Negative, Urine Urobilinogen Normal, Urine Leukocyte Esterase 1+H, Urine RBC 0, Urine WBC 0-2, Urine Squamous Epithelial Cells Few, Urine Bacteria Occasional, Urine Opiates Screen Negative, Urine Barbiturates Screen Negative, Phencyclidine (PCP) Screen Negative, Urine Amphetamines Screen Negative, Urine Benzodiazepines Screen Negative, Urine Cocaine Screen Negative, Urine Marijuana (THC) Screen Negative 02/15/20 06:22: White Blood Count 9.4, Red Blood Count 3.74L, Hemoglobin 9.6L, Hematocrit 32.3L, Mean Corpuscular Volume 86, Mean Corpuscular Hemoglobin 25.6L, Mean Corpuscular Hemoglobin Concent 29.6L, Red Cell Distribution Width 14.6, Platelet Count 441, Mean Platelet Volume 8.0, Neutrophils (%) (Auto) 64.4, Lymphocytes (%) (Auto) 22.3, Monocytes (%) (Auto) 9.8, Eosinophils (%) (Auto) 2.5, Basophils (%) (Auto) 0.9, Sodium Level 137, Potassium Level 4.2, Chloride Level 103, Carbon Dioxide Level 27, Anion Gap 7, Blood Urea Nitrogen 21H, Creatinine 1.5H, Estimat Glomerular Filtration Rate 41.3, Glucose Level 81, Calcium Level 9.2 Height (Feet): 5 Height (Inches): 6.00 Weight (Pounds): 165 General Appearance: no apparent distress, alert, confused EENT: PERRL/EOMI, normal ENT inspection Neck: normal alignment, supple Cardiovascular: normal rate, regular rhythm, no JVD Respiratory/Chest: lungs clear, normal breath sounds, no respiratory distress Abdomen: non tender, soft, no mass Extremities: normal range of motion, non-tender Edema: no edema noted Arm (L), no edema noted Arm (R), no edema noted Leg (L), no edema noted Leg (R), no edema noted Pedal (L), no edema noted Pedal (R), no edema noted Generalized Neurologic: protection mgr II-XII grossly normal, alert Skin: normal pigmentation, warm/dry Assessment/Plan Assessment/Plan: #Abdominal pain 2/2 gastritis versus ulcer disease versus esophagitis #Biliary colic CT revealed microcholelithiasis without evidence of cholecystitis. LFTs unremarkable, Alk Phos WNL. Has history of H. pylori infection s/p triple therapy. Also has diverticulosis. - GI consult Dr. Osborn, recs appreciated - will start PPI, carafate as recommended #ZA 2/2 prerenal azotemia #Hyponatremia Baseline Cr is normal. May be due to poor PO intake of fluids leading to dehydration. - IVF - trend BMP Follow-up urinalysis #Hypertension Stable. Will continue non-diuretic home meds. - continue Norvasc 10 mg PO daily - continue lisinopril 5 mg daily - Hold HCTZ due to ZA Diet: low sodium DVT ppx: heparin subQ Code status: Full Dispo: likely home tomorrow pending GI evaluation and improvement of ZA with IVF I spent 36 minutes on this patient's case, and 24 minutes was dedicated to counseling and/or care coordination with RN, immigration case manager, consulting MD team Time of note may not reflect time patient was seen. Rene Mulligan D.O Feb 15, 2020 12:01
--- NOTE | 2020-02-15 13:27 | General Progress Note ---
Subjective ROS Limited/Unobtainable: Yes Allergies: Coded Allergies: No Known Allergies (Unverified , 12/04/19) Objective Last 24 Hour Vital Signs Date Time Temp Pulse Resp B/P (MAP) Pulse Ox O2 Delivery O2 Flow Rate FiO2 02/15/20 09:32 145/69 02/15/20 08:00 98.0 71 18 145/69 (94) 98 58 02/15/20 00:00 98.7 71 18 122/57 (78) 98 02/14/20 22:30 Room Air 02/14/20 21:57 98.3 78 20 147/87 (107) 98 02/14/20 19:39 98.2 74 19 145/73 98 Room Air 02/14/20 18:53 98.2 76 18 155/78 97 Room Air 02/14/20 15:40 98.2 76 18 165/99 97 Room Air Intake and Output 02/14/20 02/15/20 19:00 07:00 Intake Total 1000 ml 250 ml Output Total 500 ml Balance 500 ml 250 ml Intake Oral 250 ml IV Total 1000 ml Output Urine Total 500 ml # Voids 1 Laboratory Tests 02/14/20 13:35: Prothrombin Time 10.5, Prothromb Time International Ratio 0.9, Activated Partial Thromboplast Time 21L, Sodium Level 135L, Potassium Level 4.5, Chloride Level 101, Carbon Dioxide Level 27, Anion Gap 7, Blood Urea Nitrogen 25H, Creatinine 1.6H, Estimat Glomerular Filtration Rate 38.3, Glucose Level 96, Calcium Level 9 .5, Magnesium Level 2.2, Total Bilirubin 0.5, Aspartate Amino Transf (AST/SGOT) 17, Alanine Aminotransferase (ALT/SGPT) 7L, Alkaline Phosphatase 93, Total Protein 8.3H, Albumin 2.9L, Globulin 5.4, Albumin/Globulin Ratio 0.5L, Lipase 76 02/14/20 14:22: Urine Color Pale yellow, Urine Appearance Clear, Urine pH 5, Urine Specific [place] 1.010, Urine Protein Negative, Urine Glucose (UA) Negative, Urine Keto marlo Negative, Urine Blood Negative, Urine Nitrite Negative, Urine Bilirubin Negative, Urine Urobilinogen Normal, Urine Leukocyte Esterase 1+H, Urine RBC 0, Urine WBC 0-2, Urine Squamous Epithelial Cells Few, Urine Bacteria Occasional, Urine Opiates Screen Negative, Urine Barbiturates Screen Negative, Phencyclidine (PCP) Screen Negative, Urine Amphetamines Screen Negative, Urine Benzodiazepines Screen Negative, Urine Cocaine Screen Negative, Urine Marijuana (THC) Screen Negative 02/15/20 06:22: Sodium Level 137, Potassium Level 4.2, Chloride Level 103, Carbon Dioxide Level 27, Anion Gap 7, Blood Urea Nitrogen 21H, Creatinine 1.5H, Estimat Glomerular Filtration Rate 41.3, Glucose Level 81, Calcium Level 9.2, White Blood Count 9.4, Red Blood Count 3.74L, Hemoglobin 9.6L, Hematocrit 32.3L, Mean Corpuscular Volume 86, Mean Corpuscular Hemoglobin 25.6L, Mean Corpuscular Hemoglobin Concent 29.6L, Red Cell Distribution Width 14.6, Platelet Count 441, Mean Platelet Volume 8.0, Neutrophils (%) (Auto) 64.4, Lymphocytes (%) (Auto) 22.3, Monocytes (%) (Auto) 9.8, Eosinophils (%) (Auto) 2.5, Basophils (%) (Auto) 0.9 Height (Feet): 5 Height (Inches): 6.00 Weight (Pounds): 165 General Appearance: no apparent distress EENT: normal ENT inspection Neck: supple Cardiovascular: normal rate Respiratory/Chest: decreased breath sounds Abdomen: normal bowel sounds, non tender, soft Extremities: non-tender Assessment/Plan Assessment/Plan: recent EGD and colonoscopy SUMMARY OF FINDINGS: 1. Large duodenal ulcer. 2. Gastritis, status post biopsy. 3. Internal hemorrhoids. 4. Diverticulosis. 5. One colonic polyp removed, see above for details. RECOMMENDATIONS: The patient to be on PPI and Carafate. Monitor hemoglobin and hematocrit. Transfuse as needed. HP positive s/p treatment Would need repeat colonoscopy in three years. Massimo Osborn MD Feb 15, 2020 13:27
[2020-02-15 16:00] VITALS: BP 128/82
--- NOTE | 2020-02-15 16:00 | Cardiology Report ---
APPROVED REPORT EKG Measurement Heart [id number] <Conclusion> Normal sinus rhythm Normal ECG
[2020-02-15] MEDS: Sucralfate 1gm tab ORAL SCH ×3 (16:18→20:08)
[2020-02-15 20:00] VITALS: BP 122/54
[2020-02-15] MEDS: Atorvastatin 80mg tab ORAL SCH (20:09)
[2020-02-16 04:00] VITALS: BP 137/67
[2020-02-16 07:32] LABS: BASOPHILS % (AUTO) 2.3 % (0.0-2.0); EOSINOPHILS % (AUTO) 2.7 % (0.0-3.0); HEMATOCRIT 30.9 % (37.0-47.0); HEMOGLOBIN 9.2 G/DL (12.0-16.0); LYMPHOCYTES % (AUTO) 27.9 % (20.0-45.0); MEAN CORPUSCULAR VOLUME 87 FL (80-99); NEUTROPHILS % (AUTO) 56.1 % (45.0-75.0); PLATELET COUNT 425 K/UL (150-450); RED BLOOD COUNT 3.55 M/UL (4.20-5.40); RED CELL DISTRIBUTION WIDTH 14.5 % (11.6-14.8); WHITE BLOOD COUNT 8.5 K/UL (4.8-10.8)
[2020-02-16 07:44] LABS: CALCIUM 8.8 MG/DL (8.5-10.1); CREATININE 1.5 MG/DL (0.55-1.30); POTASSIUM 4.2 MMOL/L (3.5-5.1)
[2020-02-16 08:00] VITALS: BP 130/62
--- NOTE | 2020-02-16 08:58 | General Progress Note ---
Subjective ROS Limited/Unobtainable: No Allergies: Coded Allergies: No Known Allergies (Unverified , 12/04/19) Objective Last 24 Hour Vital Signs Date Time Temp Pulse Resp B/P (MAP) Pulse Ox O2 Delivery O2 Flow Rate FiO2 02/16/20 04:00 98.3 88 18 137/67 (90) 98 02/15/20 21:38 Room Air 02/15/20 20:00 98.7 86 18 122/54 (76) 98 02/15/20 16:18 65 150/98 02/15/20 16:00 97.6 88 18 128/82 (97) 98 02/15/20 12:00 97.6 70 18 130/77 (94) 100 02/15/20 09:32 145/69 02/15/20 09:00 Room Air Intake and Output 02/15/20 02/16/20 19:00 07:00 Intake Total 300 ml 150 ml Balance 300 ml 150 ml Intake Oral 300 ml 150 ml # Voids 2 2 Laboratory Tests 02/16/20 07:07: White Blood Count 8.5, Red Blood Count 3.55L, Hemoglobin 9.2L, Hematocrit 30.9L, Mean Corpuscular Volume 87, Mean Corpuscular Hemoglobin 25.8L, Mean Corpuscular Hemoglobin Concent 29.6L, Red Cell Distribution Width 14.5, Platelet Count 425, Mean Platelet Volume 8.1, Neutrophils (%) (Auto) 56.1, Lymphocytes (%) (Auto) 27.9, Monocytes (%) (Auto) 11.0H, Eosinophils (%) (Auto) 2.7, Basophils (%) (Auto) 2.3H, Sodium Level 138, Potassium Level 4.2, Chloride Level 105, Carbon Dioxide Level 26, Anion Gap 7, Blood Urea Nitrogen 17, Creatinine 1.5H, Estimat Glomerular Filtration Rate 41.3, Glucose Level 81, Calcium Level 8.8, Magnesium Level 2.2 Height (Feet): 5 Height (Inches): 6.00 Weight (Pounds): 165 General Appearance: no apparent distress EENT: normal ENT inspection Neck: supple Cardiovascular: normal rate Respiratory/Chest: decreased breath sounds Abdomen: normal bowel sounds, non tender, soft Extremities: non-tender Assessment/Plan Assessment/Plan: recent EGD and colonoscopy SUMMARY OF FINDINGS: 1. Large duodenal ulcer. 2. Gastritis, status post biopsy. 3. Internal hemorrhoids. 4. Diverticulosis. 5. One colonic polyp removed, see above for details. RECOMMENDATIONS: The patient to be on PPI and Carafate. Monitor hemoglobin and hematocrit. Transfuse as needed. HP positive s/p treatment Would need repeat colonoscopy in three years. Massimo Osborn MD Feb 16, 2020 08:58
[2020-02-16] MEDS: Lisinopril 2.5mg tab ORAL SCH (09:28)
[2020-02-16] MEDS: Sucralfate 1gm tab ORAL SCH ×4 (09:29→21:01)
[2020-02-16] MEDS: Heparin 5000 units/ml inj SUBQ SCH ×2 (09:32→21:04)
--- NOTE | 2020-02-16 10:59 | General Progress Note ---
Subjective Constitutional: Reports: weakness; Denies: no symptoms, chills, diaphoresis, fever, malaise, other HEENT: Denies: no symptoms, eye pain, blurred vision, tearing, double vision, ear pain, ear discharge, nose pain, nose congestion, throat pain, throat swelling, mouth pain, mouth swelling, other Cardiovascular: Denies: no symptoms, chest pain, edema, irregular heart rate, lightheadedness, palpitations, syncope, other Respiratory: Denies: no symptoms, cough, orthopnea, shortness of breath, SOB with excertion, SOB at rest, sputum, stridor, wheezing, other Gastrointestinal/Abdominal: Denies: no symptoms, abdomen distended, abdominal pain, black stools, tarry stools, blood in stool, constipated, diarrhea, difficulty swallowing, nausea, poor appetite, poor fluid intake, rectal bleeding, vomiting, other Genitourinary: Denies: no symptoms, burning, discharge, frequency, flank pain, hematuria, incontinence, pain, urgency, other Neurologic/Psychiatric: Denies: no symptoms, anxiety, depressed, emotional problems, headache, numbness, paresthesia, pre-existing deficit, seizure, ti ngling, tremors, weakness, other Endocrine: Denies: no symptoms, excessive sweating, flushing, intolerance to cold, intolerance to heat, increased hunger, increased thirst, increased urine, unexplained weight gain, unexplained weight loss, other Hematologic/Lymphatic: Denies: no symptoms, anemia, easy bleeding, easy bruising, other Allergies: Coded Allergies: No Known Allergies (Unverified , 12/04/19) Subjective no acute events overnight. Patient more tired today. Patient is now unable back home as it still stressful for her. She was very adamant at not going back to live with her family. She is okay with going to a nursing facility. Objective Last 24 Hour Vital Signs Date Time Temp Pulse Resp B/P (MAP) Pulse Ox O2 Delivery O2 Flow Rate FiO2 02/16/20 09:28 130/62 02/16/20 08:00 97.6 60 20 130/62 (84) 98 02/16/20 04:00 98.3 88 18 137/67 (90) 98 02/15/20 21:38 Room Air 02/15/20 20:00 98.7 86 18 122/54 (76) 98 02/15/20 16:18 65 150/98 02/15/20 16:00 97.6 88 18 128/82 (97) 98 02/15/20 12:00 97.6 70 18 130/77 (94) 100 Intake and Output 02/15/20 02/16/20 18:59 06:59 Intake Total 300 ml 150 ml Balance 300 ml 150 ml Intake Oral 300 ml 150 ml # Voids 2 2 Laboratory Tests 02/16/20 07:07: White Blood Count 8.5, Red Blood Count 3.55L, Hemoglobin 9.2L, Hematocrit 30.9L, Mean Corpuscular Volume 87, Mean Corpuscular Hemoglobin 25.8L, Mean Corpuscular Hemoglobin Concent 29.6L, Red Cell Distribution Width 14.5, Platelet Count 425, Mean Platelet Volume 8.1, Neutrophils (%) (Auto) 56.1, Lymphocytes (%) (Auto) 27.9, Monocytes (%) (Auto) 11.0H, Eosinophils (%) (Auto) 2.7, Basophils (%) (Auto) 2.3H, Sodium Level 138, Potassium Level 4.2, Chloride Level 105, Carbon Dioxide Level 26, Anion Gap 7, Blood Urea Nitrogen 17, Creatinine 1.5H, Estimat Glomerular Filtration Rate 41.3, Glucose Level 81, Calcium Level 8.8, Magnesium Level 2.2 Height (Feet): 5 Height (Inches): 6.00 Weight (Pounds): 165 General Appearance: no apparent distress, alert, alert oriented x3 EENT: PERRL/EOMI Neck: normal alignment, supple Cardiovascular: normal rate, regular rhythm, no JVD Respiratory/Chest: lungs clear, normal breath sounds Abdomen: non tender, soft, no mass Extremities: normal range of motion, non-tender Edema: no edema noted Arm (L), no edema noted Arm (R), no edema noted Leg (L), no edema noted Leg (R), no edema noted Pedal (L), no edema noted Pedal (R), no edema noted 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 LFTs unremarkable, Alk Phos WNL. Has history of H. pylori infection s/p triple therapy. Also has diverticulosis. - GI consult Dr. Osborn, recs appreciated - will start PPI, carafate as recommended, recommend repeat EGD in 3 years Able to tolerate diet, fluids #ZA 2/2 prerenal azotemia #Hyponatremia Baseline Cr is normal. May be due to poor PO intake of fluids leading to dehydration. - IVF - trend BMP Urinalysis negative for UTI, proteins, ketones Follow-up renal ultrasound #Hypertension Stable. Will continue non-diuretic home meds. - continue Norvasc 10 mg PO daily - continue lisinopril 5 mg daily - Hold HCTZ due to ZA Diet: low sodium DVT ppx: heparin subQ Code status: Full Dispo: Discharge once SNF available I spent 38 minutes on this patient's case, and 24 minutes was dedicated to counseling and/or care coordination with RN, case management associate, consulting MD team Time of note may not reflect time patient was seen. Rene Mulligan D.O Feb 16, 2020 10:59
[2020-02-16 12:00] VITALS: BP 140/65
--- NOTE | 2020-02-16 13:39 | General Progress Note ---
Advance Care Planning Advance Care Planning Advance Care Planning [facility] An independent Hospitalist group, where every patient is our [facility] Internal Medicine Hospitalist Advanced Care Planning Note Please contact us at Date of Discussion: A [id number] discussion with the patient regarding the patient's advanced care planning took place during this hospitalization on the above date. The discussion included the explanation and discussion of advance directives and associated forms/documents, as well as the patient's current code status. We also discussed at length the patient's medical conditions (both acute and chroni c), general prognosis, treatment options, and goals of care. The following summarizes the discussion: Advance Care Planning/Goals of Care: - Will attempt to fill out an AD and/or POLST with the patient prior to discharge, if not already completed - Continue current evaluation and management of any acute and chronic medical issues - Will continue to support the patient/family - Will continue to discuss both short- and long-term goals of care DPOA-HC/Surrogate Decision Maker: None currently appointed Code Status: Full Code Advanced Care Planning Forms/Documents Completed: Deferred until later encounter/visit A total of 25 minutes was spent on this discussion, including counseling, answering questions, and completing, if any, pertinent advanced care planning forms/documents. Time of note may not reflect time of encounter. Rene Mulligan D.O Feb 16, 2020 13:39
[2020-02-16 16:00] VITALS: BP 114/55
[2020-02-16] MEDS ORDERED: SUCRALFATE1 GM ORAL (16:38)
[2020-02-16] MEDS ORDERED: PANTOPRAZOLE SO40 MG ORAL (16:38)
--- NOTE | 2020-02-16 16:39 | Discharge Instructions ---
Discharge Instructions Discharge Instructions Diet: low fat Resume Normal Activity?: Yes Activity: light activity Follow Up Orders Follow up with PCP in 1-2 weeks Follow up with GI in 1 -2 weeks, will need repeat EGD in 3 years For Congestive Heart Failure Reminder Report to your physician any weight gain of 5 pounds or more in one week. Rene Mulligan D.O Feb 16, 2020 16:39
[2020-02-16] MEDS: Atorvastatin 80mg tab ORAL SCH (21:01)
[2020-02-17] VITALS: BP 124/76
[2020-02-17 04:00] VITALS: BP 121/63
[2020-02-17 07:30] LABS: CREATININE 1.5 MG/DL (0.55-1.30)
[2020-02-17 08:00] VITALS: BP 134/63
[2020-02-17] MEDS: Sucralfate 1gm tab ORAL SCH ×2 (09:25→14:12)
[2020-02-17] MEDS: Heparin 5000 units/ml inj SUBQ SCH (09:27)
[2020-02-17] MEDS: Lisinopril 2.5mg tab ORAL SCH (09:36)
--- NOTE | 2020-02-17 10:29 | Diagnostic Imaging Report ---
EXAM: US Renal, Complete CLINICAL HISTORY: RENAL-A TECHNIQUE: Real-time limited ultrasound of the kidneys with image documentation. COMPARISON: No relevant prior studies available. FINDINGS: Right kidney: The right kidney measures 9.7 cm. No hydronephrosis or nephrolithiasis. Normal renal echogenicity. Left kidney: Left kidney measures 9.7 cm. No hydronephrosis or nephrolithiasis. Normal renal echogenicity. IMPRESSION: No hydronephrosis or nephrolithiasis. EXAM: US Bladder CLINICAL HISTORY: RENAL-A TECHNIQUE: Real-time limited ultrasound of the bladder with image documentation. COMPARISON: No relevant prior studies available. FINDINGS/IMPRESSION: Prevoid bladder volume of 59 mL. No bladder wall thickening or bladder debris. Postvoid residual was not assessed.
[2020-02-17 13:37] VITALS: BP 132/58
--- NOTE | 2020-02-17 13:48 | Discharge Summary ---
Discharge Summary Hospital Course Date of Admission Feb 14, 2020 at 17:39 Date of Discharge Admitting Diagnosis bilary colic HPI Renetta Carroll is a 74 year old female who was admitted on Feb 14, 2020 at 17:39 for Bilary Colic General Appearance: no apparent distress, alert, alert oriented x3 EENT: PERRL/EOMI Neck: normal alignment, supple Cardiovascular: normal rate, regular rhythm, no JVD Respiratory/Chest: lungs clear, normal breath sounds Abdomen: non tender, soft, no mass Extremities: normal range of motion, non-tender Edema: no edema noted Arm (L), no edema noted Arm (R), no edema noted Leg (L), no edema noted Leg (R), no edema noted Pedal (L), no edema noted Pedal (R), no edema noted 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 Garcia is a 74-year-old female past medical history of peptic ulcer disease hypertension who presented for abdominal pain. No significant abnormalities noted on initial evaluation aside of ZA. CT of the abdomen showing no acute abnormalities aside a possible gastric outpouching. patient was able to tolerate food, no nausea, vomiting, constipation, diarrhea. She was seen and evaluated by Dr. Osborn gastroenterology deemed no intervention needed to be necessary aside from continuing daily PPI and adding Carafate. Also recommend repeat EGD in 3 years. Patient has already completed 4 weeks of triple therapy for H. pylori. No signs of upper GI bleed. Patient otherwise very hemodynamically without any acute respiratory compromise. Patient mild ZA, will ultrasound negative for hydronephrosis, hydroureter. Advised patient to increase fluid intake. Patient otherwise medically stable for safe discharge home today. I spent 39 minutes on this patient's case, and 24 minutes was dedicated to counseling and/or care coordination with RN, special education case manager, consulting MD team Time of note may not reflect time patient was seen. Discharge Discharge Vital Signs Last Vital Signs Date Time Temp Pulse Resp B/P (MAP) Pulse Ox O2 Delivery O2 Flow Rate FiO2 02/17/20 13:37 97.9 59 16 132/58 (82) 99 02/16/20 21:00 Room Air Discharge Disposition Patient was discharged to Discharge Instructions Discharge Instructions Activity: light activity Rene Mulligan D.O Feb 17, 2020 13:48
--- NOTE | 2020-02-17 13:54 | General Progress Note ---
Subjective ROS Limited/Unobtainable: No Allergies: Coded Allergies: No Known Allergies (Unverified , 12/04/19) Objective Last 24 Hour Vital Signs Date Time Temp Pulse Resp B/P (MAP) Pulse Ox O2 Delivery O2 Flow Rate FiO2 02/17/20 13:37 97.9 59 16 132/58 (82) 99 02/17/20 09:36 135/64 02/17/20 08:00 96.1 63 18 134/63 (86) 98 02/17/20 04:00 98.0 70 20 121/63 (82) 98 02/17/20 00:00 97.6 70 20 124/76 (92) 98 02/16/20 21:00 Room Air 02/16/20 16:57 63 114/55 02/16/20 16:00 98.1 63 20 114/55 (74) 100 Intake and Output 02/16/20 02/17/20 19:00 07:00 Intake Total 1635 ml 525 ml Balance 1635 ml 525 ml Intake Oral 960 ml 450 ml IV Total 675 ml 75 ml # Voids 2 3 Laboratory Tests 02/17/20 06:37: Sodium Level 136, Potassium Level 4.0, Chloride Level 103, Carbon Dioxide Level 25, Anion Gap 8, Blood Urea Nitrogen 20H, Creatinine 1.5H, Estimat Glomerular Filtration Rate 41.3, Glucose Level 97, Calcium Level 9.0, Magnesium Level 2.2 Height (Feet): 5 Height (Inches): 6.00 Weight (Pounds): 165 General Appearance: no apparent distress EENT: normal ENT inspection Neck: supple Cardiovascular: normal rate Respiratory/Chest: decreased breath sounds Abdomen: normal bowel sounds, non tender, soft Extremities: non-tender Assessment/Plan Assessment/Plan: recent EGD and colonoscopy SUMMARY OF FINDINGS: 1. Large duodenal ulcer. 2. Gastritis, status post biopsy. 3. Internal hemorrhoids. 4. Diverticulosis. 5. One colonic polyp removed, see above for details. RECOMMENDATIONS: The patient to be on PPI and Carafate. Monitor hemoglobin and hematocrit. Transfuse as needed. HP positive s/p treatment Would need repeat colonoscopy in three years. Massimo Osborn MD Feb 17, 2020 13:54
== END 2020-02-17 14:49 | disposition home or self-care (01) | DRG 241 ==
LOC: EDBD 11:33 → EMR 11:50 → 4E 17:39 → OBSVTOIN 17:39 → EDBEDREQ 18:18
DX: K29.70 Gastritis, unspecified, without bleeding (principal); E87.1 Hypo-osmolality and hyponatremia; N17.9 Acute kidney failure, unspecified; K26.9 Duodenal ulcer, unspecified as acute or chronic, without hemorrhage or perforation; I10 Essential (primary) hypertension; K64.8 Other hemorrhoids
CPT/HCPCS: 36415; 74176; 76770; 80048; 80053; 80307; 81003; 83690; 83735; 85025; 85610; 85730; 93005; 96361; 96374; 96375; 99284; J2405; J7030

== ENCOUNTER 2020-02-20 23:09 | Emergency (ER) | payer MEDICAID ==
[~2020-02-20] VITALS: Ht 167.6 cm; Wt 77.1 kg
[~2020-02-20 23:09] MED LIST changes: +SUCRALFATE1 GM ORAL
--- NOTE | 2020-02-20 23:12 | NUR ---
ED Nurse Note: Pt BIBA from home c/o abdominal pain with N and black stools for severql days, pt was seen a few days ago for the same symptoms. 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 VSS, PT is A&Ox4.
[2020-02-20 23:15] VITALS: BP 179/89
--- NOTE | 2020-02-20 23:27 | Emergency Room Report ---
History of Present Illness General Chief Complaint: Abdominal Pain Source: Patient, Medical Record, EMS Present Illness HPI 74-year-old female with a history of peptic ulcer disease. She was just discharged from here 3 days ago. She had a recent endoscopy which showed gastric ulcer. She is currently taking PPI and Carafate. She presents with chief complaint abdominal pain. Pain onset today. Occur around dinnertime. Pain is to the lower quadrant area. Has nausea and vomiting but no diarrhea. No urinary complaint. No fever chills. Said it felt similar to her previous pain. She had a recent CT scan last week which show some thickening of the gastric antrum and possible gallstone. Allergies: Coded Allergies: No Known Allergies (Unverified , 12/04/19) COVID-19 Screening Contact w/high risk pt: No Recent Travel to affected area: No Experienced COVID-19 symptoms?: No COVID-19 Testing performed BAKERY DELIVERER: No Patient History Past Medical History: see triage record, old chart reviewed, HTN Past Surgical History: other Pertinent Family History: none Social History: Denies: smoking Now: No Immunizations: other Reviewed Nursing Documentation: PMH: Agreed; PSxH: Agreed Nursing Documentation-PMH Hx Hypertension: Yes Review of Systems Eye: Denies: eye pain, blurred vision ENT: Denies: ear pain, nose congestion, throat swelling Respiratory: Denies: cough, shortness of breath Cardiovascular: Denies: chest pain, palpitations Gastrointestinal: Reports: abdominal pain, nausea, vomiting; Denies: diarrhea Musculoskeletal: Denies: back pain, joint pain Skin: Denies: rash Neurological: Denies: headache, numbness Endocrine: Denies: increased thirst, increased urine Hematologic/Lymphatic: Denies: easy bruising All Other Systems: negative except mentioned in HPI Physical Exam Vital Signs Date Time Temp Pulse Resp B/P (MAP) Pulse Ox O2 Delivery O2 Flow Rate FiO2 02/20/20 23:05 98.8 97 18 179/89 (119) 99 Room Air Vitals with hypertension Sp02 EP Interpretation: reviewed, normal General Appearance: well appearing, no apparent distress, alert Head: normocephalic, atraumatic Eyes: bilateral eye PERRL, bilateral eye EOMI ENT: hearing grossly normal, normal pharynx Neck: full range of motion, supple, no meningismus Respiratory: chest non-tender, lungs clear, normal breath sounds Cardiovascular #1: regular rate, rhythm, no murmur Gastrointestinal: normal bowel sounds, no mass, no organomegaly, no bruit, non- distended, tenderness - Mild, diffuse Musculoskeletal: back normal, normal range of motion, gait/station normal Psychiatric: mood/affect normal Medical Decision Making Diagnostic Impression: Primary Impression: Abdominal pain Qualified Codes: R10.30 - Lower abdominal pain, unspecified Additional Impressions: UTI (urinary tract infection) Qualified Codes: N30.00 - Acute cystitis without hematuria Anemia Qualified Codes: D64.9 - Anemia, unspecified ER Course Patient presents with abdominal pain. Exam is benign. No evidence of any acute abdomen or obstruction. She had CT scan done a week ago was unremarkable. She does has a history of gastritis and peptic ulcer disease. Already treated for H. pylori. Pain is better now. Urinalysis showed possible urinary tract infection. She did grew out E. coli in the past that is pansensitive. Will discharge home in the morning because she said that she does not have the sharp to get into the house and her kids work night. Last Vital Signs Date Time Temp Pulse Resp B/P (MAP) Pulse Ox O2 Delivery O2 Flow Rate FiO2 02/20/20 23:05 98.8 97 18 179/89 (119) 99 Room Air Status: improved Disposition: HOME, SELF-CARE Condition: Stable Scripts Acetaminophen With Codeine (T#3) (TYLENOL #3 TAB*) Y Tab 1 TAB ORAL Q8H PRN for For Pain, #20 TAB Prov: Austin Wheeler MD 02/21/20 Nitrofurantoin Monohyd/M-Cryst (Nitrofurantoin Pitt-Mcr 100 mg) 100 Mg Capsule 100 MG ORAL Q12H, #14 CAP Prov: Austin Wheeler MD 02/21/20 Referrals: NOT CHOSEN IPA/,REFERRING (PCP) Additional Instructions: Follow-up with In 7 days. Return if symptoms worsen. Austin Wheeler MD Feb 20, 2020 23:27
[2020-02-20] MEDS ORDERED: Morphine Sulfate 2mg/ml Inj(IV/IM USE ONLY) IVP ONE (23:30)
[2020-02-20] MEDS ORDERED: Pantoprazole Inj IV ONE (23:30)
[2020-02-20 23:43] LABS: BASOPHILS % (AUTO) 1.8 % (0.0-2.0); EOSINOPHILS % (AUTO) 0.9 % (0.0-3.0); HEMATOCRIT 31.9 % (37.0-47.0); HEMOGLOBIN 9.9 G/DL (12.0-16.0); MEAN CORPUSCULAR VOLUME 85 FL (80-99); MONOCYTES % (AUTO) 7.3 % (1.0-10.0); NEUTROPHILS % (AUTO) 71.9 % (45.0-75.0); PLATELET COUNT 460 K/UL (150-450); RED BLOOD COUNT 3.76 M/UL (4.20-5.40); RED CELL DISTRIBUTION WIDTH 14.7 % (11.6-14.8); WHITE BLOOD COUNT 12.9 K/UL (4.8-10.8)
[2020-02-20 23:55] LABS: CALCIUM 8.9 MG/DL (8.5-10.1); CREATININE 1.3 MG/DL (0.55-1.30); POTASSIUM 3.9 MMOL/L (3.5-5.1)
[2020-02-20 23:59] LABS: ALBUMIN/GLOBULIN RATIO 0.5 (1.0-2.7); BILIRUBIN,TOTAL 0.4 MG/DL (0.2-1.0)
[2020-02-21 00:24] LABS: APPEARANCE,URINE CLEAR; BILIRUBIN, URINE NEGATIVE (NEGATIVE); GLUCOSE, URINE (UA) NEGATIVE (NEGATIVE); KETONES,URINE NEGATIVE (NEGATIVE); LEUKOCYTE ESTERASE ,URINE 1+ (NEGATIVE); NITRITE,URINE NEGATIVE (NEGATIVE); PH,URINE 5 (4.5-8.0); PROTEIN,URINE 1+ (NEGATIVE); UROBILINOGEN,URINE NORMAL MG/DL (0.0-1.0)
[2020-02-21 00:25] LABS: COLOR,URINE PALE YELLOW
--- NOTE | 2020-02-21 01:00 | NUR ---
ED Nurse Note: Pt resting in bed with eyes closed, non labored breathing ,fluids infusing per order. Will continue to monitor
[2020-02-21] MEDS ORDERED: ACETAMINOPHEN-1 EAC1 ORAL (01:14)
[2020-02-21] MEDS ORDERED: MACROBID100 MG ORAL (01:14)
[2020-02-21] MEDS ORDERED: cefTRIAXone 1 GM in NS 55 ML IVPB ONE (01:15)
[2020-02-21 02:00] VITALS: BP 143/80
[2020-02-21] MEDS ORDERED: Morphine Sulfate 2mg/ml Inj(IV/IM USE ONLY) ONE (03:09)
[2020-02-21] MEDS ORDERED: Morphine Sulfate 2mg/ml Inj(IV/IM USE ONLY) IVP ONE (03:15)
--- NOTE | 2020-02-21 04:19 | NUR ---
ED Nurse Note: Pt unable to obtain access to her home until morning, pt will stay until then, will continue to monitor
[2020-02-21 05:00] VITALS: BP 128/74
--- NOTE | 2020-02-21 08:00 | NUR ---
ED Nurse Note: Received pt from LUIS Oconnell for continuity of care. Pt on bed, awake, alert x 4, no acute distress noted. IV access removed by RN without any complications.
[2020-02-21 08:25] VITALS: BP 130/76
== END 2020-02-21 08:25 | disposition home or self-care (01) ==
LOC: EDBD 23:09 → EMR 23:23
DX: N30.00 Acute cystitis without hematuria (principal); D64.9 Anemia, unspecified; Z87.11 Personal history of peptic ulcer disease; I10 Essential (primary) hypertension
CPT/HCPCS: 36415; 80053; 81003; 83690; 85025; 96361; 96365; 96375; 96376; J0696; J2270; J2405; J7030; S0164; Z7502; 99284